=== PATIENT | female | born 1965 | race Caucasian/White ===

== ENCOUNTER 2018-07-14 01:07 | Outpatient (CLI) | payer MEDICARE, MEDICAID, SELFPAY ==
--- NOTE | 2018-07-14 11:45 | DI.REPORT_ITS ---
SYMPTOMS/DIAGNOSIS: SCREENING, Z12.31 MAMMOGRAM: Mammograms were interpreted according to the usual protocol including computer analysis with CAD system, tomosynthesis and C view imaging. The breasts are of moderate density with fairly symmetrical distribution of fibroglandular tissue. No dominant mass or clumped microcalcification is identified in either breast. The current examination is compared with previous examinations including July 2016 and there has been no gross interval change in appearance in comparison with the previous studies. CONCLUSION: No specific evidence of malignancy at this time. Routine screening examinations are suggested at yearly intervals due to the family history of breast carcinoma. Category I. Breast density Category B. MQSA ASSESSMENT OF FINDINGS: Negative. Category 1. Patient will receive a letter notifying them of these results. BI-RADS category B. There are scattered areas of fibroglandular density.
== END 2018-07-14 01:08 ==
PROVIDERS: Visit Provider Specialist/Technologist Athletic Trainer
DX: Z12.31 Encounter for screening mammogram for malignant neoplasm of breast (principal); Z80.3 Family history of malignant neoplasm of breast
CPT/HCPCS: 77063; 77067

== ENCOUNTER 2018-10-31 07:52 | Outpatient (CLI) | payer MEDICARE, MEDICAID, SELFPAY ==
[2018-10-31 08:31] LABS: Abs Immature Grans 0.04 k/cumm (0.0-0.09); Absolute Basophil Count 0.06 k/cumm (0.0-0.2); Absolute Eosinophil Count 0.42 k/cumm (0.0-0.7); Absolute Monocyte Count 0.76 k/cumm (0.11-0.7); Absolute Neutrophil Count 5.68 k/cumm (1.2-6.7); Basophils % 0.6; Eosinophils % 4.1; HCT 45.9 % (36.0-46.0); HGB 15.4 g/dL (12.0-15.5); Immature Grans % 0.4; Lymphocytes % 32.2; Mean Corp. HGB Concentration 33.6 g/dL (32.0-36.0); Mean Corpuscular Hemoglobin 31.1 pg (27.0-33.0); Mean Corpuscular Volume 92.7 fL (80-95); Mean Platelet Volume 10.1 fL (8.0-11.0); Monocytes % 7.4; Neutrophils % 55.3; Platelet Count 242 x1000/uL (130-400); RBC 4.95 m/cumm (4.00-5.20); White Blood Cell Count 10.26 k/cumm (4.4-10.8)
[2018-10-31 08:38] LABS: Hemoglobin A1C 5.9 % (4.5-6.2)
[2018-10-31 09:11] LABS: ALT 26 U/L (12-78); AST 16 U/L (15-37); Albumin 3.7 g/dL (3.4-5.0); Alkaline Phosphatase 79 U/L (46-116); Anion Gap 8.5 mmol/L (3-11); BUN 26 mg/dL (7-18); Bilirubin, Total 0.6 mg/dL (0.2-1.0); CO2 29.5 mmol/L (21.0-32.0); CREATININE 1.02 mg/dL (0.55-1.02); Calcium 9.1 mg/dL (8.5-10.1); Chloride 105 mmol/L (98-107); Cholesterol 160 mg/dL (50-200); Estimated GFR 56.69 (mL/min/1.73m2); Glucose 100 mg/dL (70-100); HDL Cholesterol 43 mg/dL (40-60); LDL CHOLESTEROL 96 mg/dL (<100); Potassium 3.8 mmol/L (3.5-5.1); Sodium 143 mmol/L (136-145); TSH (W/Ref FT4) 2.22 uIU/mL (0.358-3.74); Total Protein 6.9 g/dL (6.4-8.2); Triglyceride 148 mg/dL (30-150)
== END 2018-10-31 08:12 ==
PROVIDERS: PCP Specialist/Technologist Athletic Trainer; Visit Provider Nurse Practitioner Psychiatric/Mental Health
DX: F33.2 Major depressive disorder, recurrent severe without psychotic features (principal); Z79.899 Other long term (current) drug therapy; I10 Essential (primary) hypertension
CPT/HCPCS: 36415; 80053; 80061; 83721; 83036; 84443; 85025

== ENCOUNTER 2018-11-07 02:44 | Outpatient (CLI) | payer MEDICARE, MEDICAID, SELFPAY | END 2018-11-07 03:04 | PROVIDERS: PCP Specialist/Technologist Athletic Trainer; Visit Provider Specialist/Technologist Athletic Trainer | DX: R07.9 Chest pain, unspecified (principal); R06.02 Shortness of breath | CPT/HCPCS: 93005; 93010 ==

== ENCOUNTER 2018-11-28 00:08 | Outpatient (CLI) | payer MEDICARE, MEDICAID, SELFPAY ==
--- NOTE | 2018-11-28 09:00 | MERGEMPI_ITS ---
*[facility]* *[facility]* [address] [place] [address] Myocardial Perfusion Imaging - SPECT Regadenoson Date of study: 11/28/2018 *PATIENT PRESENTATION* Height: 160cm (63in) Blood Pressure: Weight: 122.7kg (270lb) BSA: 2.41m^2 Referring physician: Taiwo Ballesteros MD Ordering physician: Serafin Adams Impressions: Normal perfusion by Tc99m Sestamibi Imaging. Summary: 1. Myocardial perfusion imaging: No myocardial perfusion defects noted. 2. The calculated left ventricular ejection fraction after stress: 66%. No left ventricular regional motion abnormality. History: REASON FOR TESTING: DR. ADAMS SENDS PATIENT FOR STRESS TEST DUE TO CHEST PAIN. PT REPORTS HER LAST EPISODE WAS ABOUT 3 WEEKS AGO. SHE DESCRIBES HER SYMPTOMS CHEST PRESSURE IT IS ASSOCIATED WITH SOB, IT CAN OCCUR AT REST. PAST MEDICAL HISTORY: PTSD, OBESITY, NICOTINE DEPENDENCE, BILATERAL PRIMARY OSTERARTHRITIS KNEE, MAJOR DEPRESSION (WITH SUICIDAL THOUGHTS). FAMILY HISTORY: FATHER-HEART ATTACK, MOTHER FAST HEART RATE, SISTER-CVA SMOKING STATUS: CURRENT SMOKER. 40 YEARS PPD EXERCISE ROUTINE: NO DAILY EXERCISE. Risk factors: Family history of coronary artery disease. Current tobacco use. Obesity. Dyslipidemia. ALLERGIES: ALPRAZOLAM, ERTHROMYCIN, CITALOPRAM, PENICILLINS, MACROLIDE ANTIBIOTICS. MEDICATIONS: VITAMIN D 1000 UNITS DAILY, LOSARTAN 25 MG DAILY, POTASSIUM CHLORIDE 20 MEQ DAILY, HYDROCHLOROTHIAZIDE 25 MG DAILY, WELLBUTRIN XL 300 MG DAILY, ESOMEPRAZOLE 40 MG DAILY, OMEGA 3 1000 MG DAILY, NAPROXEN 500 MG BID, POLYETHYLENE GLYCOL 17 GMS HS, VITAMIN B 12 HS, GABAPENTIN 300 MG HS, LORAZEPAM 1 MG HS, ABILIFY 15 MG HS, ATORVASTATIN 80 MG HS, TOPAMAX 50 MG BID, MELATONIN 10 MG HS, TYLENOL 1000 MG PRN. Imaging Technique: Protocol: Regadenoson. Acquisition: Gated SPECT; 1 day - rest/stress. The patient was imaged in the supine position. Attenuation correction used. Isotope administration: - Rest. Tc[99m]-sestamibi. Dose: 12mCi. Injection time: 09:20 AM. Injection to stress time: 00:45. - Stress. Tc[99m]-sestamibi. Dose: 37mCi. Injection time: 12:05 PM. 1-2 min before end of exercise Baseline ECG: SINUS RHYTHM. HEART RATE 71. Stress protocol: +--------+---+ + + !Stage !HR !BP (mmHg) !Comments ! +--------+---+ + + !Baseline!71 !100/70 (80)! ! +--------+---+ + + !1 min !103!118/72 (87)!Inject Regadenoson.! +--------+---+ + + !3 min !99 !120/78 (92)! ! +--------+---+ + + !6 min !101!120/72 (88)! ! +--------+---+ + + !9 min !97 !120/78 (92)! ! +--------+---+ + + * Stress results: The rate-pressure product for the peak heart rate and blood pressure was 66559om Hg/min. Stress ECG: STRESS TEST ENDED IN 12 MINUTES 41 SECONDS. NORMAL HEART RATE AND BLOOD PRESSURE RESPONSE TO LEXISCAN INJECTION. CHEST PRESSURE 8 OUT OF 10 REPORTED 2 MINUTES POST LEXISCAN INJECTION. CHEST PRESSURE 6 OUT OF 10 THREE MINUTES POST LEXISCAN INJECTION. CHEST PRESSURE 5 OUT OF 10 TEN MINUTES POST LEXISCAN INJECTION. CHEST PRESSURE 1 OUT OF 10 TWELVE MINUTES POST LEXISCAN INJECTION. CHEST PRESSURE SUBSIDED BY THIRTEEN MINUTES POST LEXISCAN. RARE PVC NOTED AT APPROXIMATELY 8 MINUTES POST LEXISCAN INJECTION. NO SIGNIFICANT ST SEGMENT CHANGES. Myocardial perfusion: Imaging information: gated. No myocardial perfusion defects noted. Ventricular Function (Wall Motion): The calculated left ventricular ejection fraction after stress: 66%. No left ventricular regional motion abnormality. Study data: Taiwo Ballesteros MD supervised and was readily available during the procedure. This study was interpreted by [facility]. Study status: Routine. Consent: The risks, benefits, and alternatives to the procedure were explained to the patient and informed consent was obtained. Procedure: Initial setup. A baseline ECG was recorded. Surface ECG leads and manual cuff blood pressure measurements were monitored. Heart sounds: Normal. Lung sounds: Normal. Regadenoson stress test. Stress testing was performed, with regadenoson by intravenous bolus, for a total dose of 0.4mgover 10.00sec, followed by a 5ml saline flush. The infusion was terminated due to per protocol. The patient was unable to exercise due to leg, joint, or back pain. Study completion: All catheters inserted during the procedure were removed. The patient tolerated the procedure well and was discharged from the lab. Discharge: The patient left the laboratory in stable condition. Birthdate: Patient birthdate: 1965. Sex: Gender: female. Study date: Study date: 11/28/2018. Study time: 09:00 AM. Signature Documentation: Associate Dean [email or web address] participated in performing this study. Electronically signed by Taiwo Ballesteros MD 11/28/2018 15:09
[2018-11-28] MEDS: Regadenoson 0.4 MG/5 ML SYR IVP (13:06)
== END 2018-11-28 00:28 ==
PROVIDERS: PCP Specialist/Technologist Athletic Trainer; Visit Provider Specialist/Technologist Athletic Trainer
DX: R07.9 Chest pain, unspecified (principal); R06.02 Shortness of breath; E78.5 Hyperlipidemia, unspecified; F17.200 Nicotine dependence, unspecified, uncomplicated; Z82.49 Family history of ischemic heart disease and other diseases of the circulatory system
CPT/HCPCS: 78452; 93016; 93018; 93017; J2785

== ENCOUNTER 2018-12-15 00:23 | Outpatient (CLI) | payer MEDICARE, MEDICAID, SELFPAY ==
--- NOTE | 2018-12-15 08:42 | DI.MRI_ITS ---
SYMPTOM/DIAGNOSIS: BACK PAIN WITH RADICULOPATHY, M54.16 LUMBAR SPINE MRI: Routine noncontrast examination was performed. No priors. The conus medullaris has a normal appearance and location. At L 5-S 1, there is no focal disc herniation, central spinal canal or neural foraminal stenosis. There are degenerative changes of the facets. At L 4-5, there is disc desiccation. There does appear to be a small anular tear. There are hypertrophic changes of the facets and ligamentum flavum. These all contribute to cause mild narrowing of the central spinal canal. There is mild bilateral neural foraminal narrowing. No compression of the exiting nerve roots is seen at this level. At L 3-4, there is a diffuse disc bulge. There are degenerative changes of the facets. There is mild narrowing of the central spinal canal. There is mild right and moderate left neural foraminal narrowing with mild compression of the left exiting nerve root. At L 2-3, there is disc desiccation. There is a mild diffuse disc bulge but no focal disc herniation or central spinal canal stenosis is seen. Mild narrowing of the neural foramen is seen bilaterally but compression of the exiting nerve roots is identified. At L 1-2, there is no focal disc herniation, central spinal canal or neural foraminal stenosis. IMPRESSION: Multi level degenerative changes in the lumbar spine as described above.
--- NOTE | 2018-12-15 16:03 | DI.VRAD_ITS ---
EXAM: MR Lumbar Spine Without and With Contrast. EXAM DATE/TIME: 12/15/2018 8:39 AM CLINICAL HISTORY: 53 years old, female; Pain; Low back pain and lumbago with sciatica; Bilateral; Patient HX: S/P fall on stairs 1995, pain right greater than left. TECHNIQUE: Multiplanar magnetic resonance images of the lumbar spine without and with intravenous contrast. COMPARISON: No relevant prior studies available. FINDINGS: Vertebrae: Moderate degenerative spondylitic changes. Spinal cord: Normal signal. No cord compression. DISCS/SPINAL CANAL/NEURAL FORAMINA: L1-L2: No significant disc disease. No stenosis. L2-L3: Thin circumferential disc bulge with effacement of the anterior thecal sac and mild overall canal stenosis. There is mild bilateral neural foraminal narrowing. L3-L4: Disc desiccation with a circumferential disc bulge and mild to moderate canal stenosis. There is a small annular tear of the posterior bulging disc. There is moderate bilateral neuroforaminal. L4-L5: Disc desiccation with small central posterior disc protrusion, and slight anterior migration of the protruded disc. There is also an associated annular tear of the central posterior disc. Overall there is mild to moderate canal stenosis secondary to the protruded disc and osseous hypertrophic changes. L5-S1: No significant disc disease. No stenosis. Soft tissues: Unremarkable. IMPRESSION: Multilevel degenerative changes. No severe canal or severe neural foraminal stenosis. Dictated and Authenticated by: Jhon Garcia MD. Ordering:CYNTHIA Betancourt MD
== END 2018-12-15 00:43 ==
PROVIDERS: PCP Specialist/Technologist Athletic Trainer; Visit Provider Specialist/Technologist Athletic Trainer
DX: M54.16 Radiculopathy, lumbar region (principal); M47.26 Other spondylosis with radiculopathy, lumbar region
CPT/HCPCS: 72148

== ENCOUNTER 2019-02-14 09:24 | Outpatient (CLI) | payer MEDICARE, MEDICAID, SELFPAY ==
--- NOTE | 2019-02-14 11:35 | DI.RAD_ITS ---
SYMPTOMS/DIAGNOSIS: PAIN RIGHT KNEE: Two views were obtained. There is marked narrowing of the medial tibiofemoral cartilaginous joint space. Prominent hypertrophic degenerative spurring is seen associated with all the joints of the knee. No other significant bony abnormality seen. CONCLUSION: Degenerative changes as described above.
== END 2019-02-14 09:44 ==
PROVIDERS: PCP Specialist/Technologist Athletic Trainer; Visit Provider Physician Assistant Surgical
DX: M25.561 Pain in right knee (principal); M17.0 Bilateral primary osteoarthritis of knee; M25.562 Pain in left knee; I10 Essential (primary) hypertension; M54.17 Radiculopathy, lumbosacral region
CPT/HCPCS: 62323; 72100; 99202; 99213; 73560; J1030; Q9967

== ENCOUNTER 2019-02-14 11:32 | Outpatient (CLI) | payer MEDICARE, MEDICAID, SELFPAY ==
--- NOTE | 2019-02-14 11:30 | DI.RAD_ITS ---
SYMPTOMS/DIAGNOSIS: PAIN LEFT KNEE: Two views were obtained. There is marked narrowing of the medial tibiofemoral cartilaginous joint space. There is moderate hypertrophic degenerative spurring of all the joints of the knee. No other bony abnormality seen. CONCLUSION: DJD predominantly involving medial tibiofemoral joint.
== END 2019-02-14 11:52 ==
PROVIDERS: PCP Specialist/Technologist Athletic Trainer; Referring Provider Specialist/Technologist Athletic Trainer; Visit Provider Orthopaedic Surgery
DX: M25.562 Pain in left knee (principal); M25.561 Pain in right knee; I10 Essential (primary) hypertension; M17.0 Bilateral primary osteoarthritis of knee
CPT/HCPCS: 99202; 99213; 73560

== ENCOUNTER 2019-02-14 12:07 | Outpatient (CLI) | payer MEDICARE, MEDICAID, SELFPAY ==
[2019-02-14 12:21] VITALS: BP 102/68; PULSE 89; RESP 16; TEMP 36.6; O2SAT 96
--- NOTE | 2019-02-14 12:49 | PDOC.PAIN ---
Pain Clinic Procedure Note Current Active Problems Problem Status Onset Lumbar radiculitis Acute Lumbar Epidural Steroid Injection Procedure Note COMMENTS: I reviewed Ms. Tucker's evaluation in this clinic from 01/16/19. NHAN KELLEY has been referred to the [facility] for lumbar epidural steroid injection. The patient was greeted by the nurse who verified patients name and . Patient was then taken to the fluoroscopy suite. The patient was interviewed and the medial record reviewed. There were no medical, pharmacologic, radiographic, or other structural contraindications to attempting fluoroscopically guided lumbar epidural steroid injection. Risks and expected side effects as well as potential benefits of the procedure were reviewed and voiced concerns expressed. The patient consent form was signed and witnessed. Standard patient time-out procedure was performed. The patient was placed in the prone position on the fluoroscopy table and automated blood pressure cuff and pulse oximeter applied. The skin entry point for entering/approaching the epidural space at L5-S1 and marked. Following thorough chlorhexadine preparation of the skin and draping and 1% lidocaine infiltration of the skin entry point and subcutaneous tissues, a 18 gauge Touhy needle was placed under fluoroscopic guidance and with loss of resistance technique into the epidural space. Needle tip placement and depth were aided and confirmed by fluoroscopy. There was no paresthesia or return of blood or CSF through the needle. 1 cc's of Omnipaque 240 was injected with clear epidural spread confirmed with fluoroscopy. 80mg depomedrol was injected. There was not any unusual discomfort expressed by NHAN KELLEY. Patient's vital signs were stable throughout the procedure and were as recorded in nursing records. Follow up plans and appointments were discussed with patient. Post procedure instruction was given as documented in nursing records and having met discharge criteria and was discharged from the [facility]. COMMENTS: If this procedure is found to be effective, it can be completed up to 3 times per 12 months.
--- NOTE | 2019-02-14 12:52 | DI.RAD_ITS ---
SYMPTOMS/DIAGNOSIS: LUMBAR RADICULOPATHY PAIN CLINIC LUMBAR SPINE: Fluoroscopy Time: 15.2 sec C-arm fluoroscopy was utilized by Dr. Velasco during a reported lumbar epidural steroid injection. Hard copy shows injection in the spinal canal posteriorly at the L5-S1 level.
[2019-02-14 12:54] VITALS: BP 106/69; PULSE 86; RESP 16; O2SAT 96
[2019-02-14] MEDS: Omnipaque 240 MG/ML 50 ML BTL IJ (12:56)
[2019-02-14] MEDS: methylPREDNISolone ACETATE 40 MG/ML VIAL IM (13:03)
== END 2019-02-14 12:27 ==
PROVIDERS: PCP Specialist/Technologist Athletic Trainer; Visit Provider Preventive Medicine Occupational Medicine
DX: M54.17 Radiculopathy, lumbosacral region (principal)
CPT/HCPCS: 62323; 72100; J1030; Q9967

== ENCOUNTER 2019-02-22 15:03 | Outpatient (REF) | payer MEDICARE, MEDICAID, SELFPAY | END 2019-02-22 15:23 | LOC: NCHCN 15:03 | PROVIDERS: PCP Specialist/Technologist Athletic Trainer; Visit Provider Specialist/Technologist Athletic Trainer | DX: R30.0 Dysuria (principal) | CPT/HCPCS: 87077; 87086; 87186 ==

== ENCOUNTER 2019-03-03 19:45 | Outpatient (REF) | payer MEDICARE, MEDICAID, SELFPAY | END 2019-03-03 20:05 | LOC: NCHCN 19:45 | PROVIDERS: PCP Specialist/Technologist Athletic Trainer; Visit Provider Specialist/Technologist Athletic Trainer | DX: R30.0 Dysuria (principal) | CPT/HCPCS: 87077; 87086; 87186 ==

== ENCOUNTER 2019-03-07 09:23 | Outpatient (CLI) | payer MEDICARE, MEDICAID, SELFPAY ==
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
[2019-03-07 11:15] LABS: Abs Immature Grans 0.01 k/cumm (0.0-0.09); Absolute Basophil Count 0.03 k/cumm (0.0-0.2); Absolute Eosinophil Count 0.39 k/cumm (0.0-0.7); Absolute Lymphocyte Count 3.05 k/cumm (1.2-3.4); Absolute Monocyte Count 0.77 k/cumm (0.11-0.7); Absolute Neutrophil Count 6.19 k/cumm (1.2-6.7); Basophils % 0.3; Eosinophils % 3.7; HCT 42.8 % (36.0-46.0); HGB 14.2 g/dL (12.0-15.5); Immature Grans % 0.1; Lymphocytes % 29.2; Mean Corp. HGB Concentration 33.2 g/dL (32.0-36.0); Mean Corpuscular Hemoglobin 30.5 pg (27.0-33.0); Mean Corpuscular Volume 91.8 fL (80-95); Mean Platelet Volume 10.6 fL (8.0-11.0); Monocytes % 7.4; Neutrophils % 59.3; Platelet Count 232 x1000/uL (130-400); RBC 4.66 m/cumm (4.00-5.20); White Blood Cell Count 10.44 k/cumm (4.4-10.8)
[2019-03-07 11:55] LABS: BUN 21 mg/dL (7-18); CREATININE 0.91 mg/dL (0.55-1.02); Calcium 9.3 mg/dL (8.5-10.1); Chloride 104 mmol/L (98-107); Glucose 77 mg/dL (70-100); Potassium 3.6 mmol/L (3.5-5.1); Sodium 143 mmol/L (136-145)
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
== END 2019-03-07 09:43 ==
PROVIDERS: PCP Specialist/Technologist Athletic Trainer; Visit Provider Orthopaedic Surgery
DX: M25.562 Pain in left knee (principal); M17.12 Unilateral primary osteoarthritis, left knee; Z01.818 Encounter for other preprocedural examination; I10 Essential (primary) hypertension; J44.9 Chronic obstructive pulmonary disease, unspecified
CPT/HCPCS: 36415; 80048; 85025

== ENCOUNTER 2019-03-13 08:39 | Inpatient (IN) | payer MEDICARE, MEDICAID, SELFPAY ==
[2019-03-07 09:46] VITALS: BP 148/72; PULSE 77; RESP 18; TEMP 36.5; O2SAT 96
[2019-03-13] VITALS (19 sets, daily range): BP systolic 88–106; BP diastolic 39–66; PULSE 69–86; RESP 11–18; TEMP 35.4–36.6; O2SAT 92–96
--- NOTE | 2019-03-13 09:33 | HOME_ITS ---
Home Ventilator Equipment Home care company [facility] Reason: Obstructive Sleep Apnea Make: Respironics Model: Riskonnectstation Mask type: Nasal mask Mask size: Medium Mode: CPAP Settings: Max/min 16/6 Oxygen bleed in (lpm): 0 Condition: Good Date last checked: 03/13/19 Year of last sleep study: Compliance Daily Comments:
[2019-03-13] MEDS: Lactated Ringers 1,000 ML 80 ML IV ×2 (09:48→14:29)
[2019-03-13] MEDS: Bupivacaine 0.25% Pres-Free 10 ML VIAL (10:42)
[2019-03-13] MEDS: Bupivacaine LIPOSOME/PF 133 MG/10 ML VIAL IJ (10:42)
[2019-03-13] MEDS: ceFAZolin 2 GM/50 ML BAG IVPB (10:50)
[2019-03-13] MEDS: Hydrogen Peroxide 3% 480 ML BTL (12:13)
--- NOTE | 2019-03-13 13:58 | DI.RAD_ITS ---
SYMPTOMS/DIAGNOSIS: CHECK TOTAL KNEE COMPONENTS IN RECOVERY ROOM PORTABLE LEFT KNEE: AP and cross-table lateral views were performed. The patient is status post placement of a total knee prosthesis. The components appear well aligned. There are anterior skin ericka. There is residual postsurgical air in the soft tissues.
[2019-03-13] MEDS: ceFAZolin 2,000 MG in Normal Saline 100 ML 200 MG IVPB ×2 (16:50→21:36)
[2019-03-13] MEDS: Docusate Sodium 100 MG CAP PO ×2 (16:50→21:35)
[2019-03-13] MEDS: Gabapentin 600 MG TAB PO ×2 (16:50→21:35)
[2019-03-13] MEDS: POTASSIUM CHLORIDE/0.9% NACL 1,000 ML 125 MEQ IV (16:50)
[2019-03-13] MEDS: Acetaminophen 325 MG TAB 650 MG PO (16:51)
[2019-03-13] MEDS: Ketorolac 30 MG/ML VIAL IVP (18:27)
[2019-03-13] MEDS: oxyCODONE-CR 10 MG TABCR PO (18:28)
[2019-03-13] MEDS: Atorvastatin 40 MG TAB 80 MG PO (19:27)
[2019-03-13] MEDS: Topiramate 50 MG TAB PO (19:27)
[2019-03-13] MEDS: Polyethylene Glycol 3350 17 GM PACKET PO (21:35)
[2019-03-13] MEDS: Cyanocobalamin 500 MCG TAB 1000 MCG PO (21:36)
[2019-03-13] MEDS: ARIPiprazole 15 MG TAB PO (21:36)
[2019-03-14] VITALS (11 sets, daily range): BP systolic 82–124; BP diastolic 56–82; PULSE 71–99; RESP 16–20; TEMP 36.6–37.6; O2SAT 93–98
[2019-03-14] MEDS: Ketorolac 30 MG/ML VIAL IVP ×5 (00:14→23:57)
[2019-03-14] MEDS: POTASSIUM CHLORIDE/0.9% NACL 1,000 ML 125 MEQ IV (01:30)
[2019-03-14] MEDS: ceFAZolin 2,000 MG in Normal Saline 100 ML 200 MG IVPB ×2 (04:30→09:32)
[2019-03-14] MEDS: Acetaminophen 325 MG TAB 650 MG PO ×2 (04:33→09:06)
[2019-03-14] MEDS: oxyCODONE-CR 10 MG TABCR PO ×2 (06:31→17:37)
[2019-03-14 07:09] LABS: HCT 35.2 % (36.0-46.0); HGB 11.6 g/dL (12.0-15.5); Mean Corpuscular Hemoglobin 30.9 pg (27.0-33.0); Mean Corpuscular Volume 93.6 fL (80-95); Mean Platelet Volume 10.3 fL (8.0-11.0); Platelet Count 204 x1000/uL (130-400); RBC 3.76 m/cumm (4.00-5.20); RBC Distribution Width 13.7 % (11.7-14.6); White Blood Cell Count 11.31 k/cumm (4.4-10.8)
--- NOTE | 2019-03-14 07:24 | ROE_ITS ---
REPORT OF OPERATIVE PROCEDURE DATE OF PROCEDURE: March 13, 2019 PREOPERATIVE DIAGNOSES: Osteoarthritis of the left knee with varus deformity. POSTOPERATIVE DIAGNOSES: Osteoarthritis of the left knee with varus deformity. PROCEDURE: Left total knee arthroplasty. COMPONENTS USED: A size 2.5 femoral component posterior cruciate sacrificing, size 2.5 tibial component, a 12.5 size 2 .5 posterior cruciate sacrificing rotating tibial insert and a 32-mm tri-pronged patella. All compone nts were cemented. ANESTHESIA: General, supplemented with an adductor canal block, via Moncho Sweeney CRNA SURGEON: Immanuel Garcia M.D. SPORT SHOE SPIKE ASSEMBLER: Clint Cook INDICATIONS: This is a 53-year-old white female with end-stage osteoarthritis of the left knee with varus deformit y. This has been worsening for many years. She has reached the point where she is disabled with her a ctivities of daily living. She is no longer getting any benefit from nonoperative treatment. Total kn ee arthroplasty was recommended to alleviate her pain, correct her deformity and hopefully restore so me of her previous ambulatory abilities. The risks and complications of the procedure were explained to the patient in detail preoperatively. PROCEDURE: The patient was taken to the Operating Room on 03/13/2019. She was placed supine on the operating tab le. An adductor canal block was performed. A proximal tourniquet was applied and a general anesthetic was administered. The left lower extremity was prepped from toes to tourniquet and draped free in [facility] sterile fashion. Under proximal tourniquet control, an anterior midline incision was made beginning just at the tibial tubercle and extending 4 inches to 5 inches proximal to the patella. The incision was carried down to the fascia. A medial parapatellar capsular incision was then made, it was extended proximally and longitudinally in the midline of the quadriceps tendon. A complete medial subperiosteal release was performed to correct for her preop varus deformity. The patella was everted and the knee was hyperfl exed. Medial and lateral meniscectomies were performed. Anterior and posterior cruciate ligaments wer e sacrificed to aid in soft tissue balancing. The distal femur was then resected using intramedullary alignment guides and jigs. The center box for the cruciate substituting femoral component was then c ut out using appropriate jigs. The patient was found to require a size 2.5 femoral component. The proximal tibia was resected using extramedullary alignment guides and jigs. The patient was foun d to require a size 2.5 tibial component. Trial reduction was performed and it was felt that the kne e had good stability from 0 to 90 degrees of flexion while still allowing full extension with a 12.5- mm insert. Finally, the patella was resected using patellar resection guide. Care was taken to preserve 16 padmini meters of thickness of patella after resection. Using a drill guide for the tripronged patella, holes were drilled for a 32-mm patellar component. The proximal tibia was prepared for cementing with pulsed irrigation lavage and saline solution and d rying with peroxide-soaked strip sponges. One batch of gentamicin-impregnated methylmethacrylate was vacuum mixed and was hand packed into the proximal tibia and on the under surface of the tibial compo nent. The keel for the tibial component had been reamed out in proper rotational alignment following resection of the proximal tibia. The tibial component was inserted, impacted into place with the impa ctor mallet and further pressurized using the trial component and extending the knee. Excess cement w as trimmed from the margins of the tibial component while the cement was still soft using the plastic cement removal tool. When the first batch of methylmethacrylate had cured, the trial components were removed. The distal femur and the patella were prepared for cementing with pulsed irrigation lavage and saline solution, and drying with peroxide-soaked strip sponges. Another batch of gentamicin impregnated methylmethacrylate was vacuum mixed and was hand packed onto the distal femur and patella, and onto the back side of the femoral component and patellar component. The femoral component was then impacted into place with the impactor mallet, and further pressured u sing the trial insert and extending the knee. The patellar component was pressurized using the patell ar clamp. Excess cement was trimmed from the margins of the femoral component and the patellar component while the cement was still soft using the plastic cement removal tool. When the second batch of gentamicin impregnated methylmethacrylate had cured, the trial insert was removed. The posterior recesses were c hecked and any residual bone and cement debris were removed at this point. The knee was irrigated a f inal time with pulsed irrigation lavage and saline solution. The posterior capsule and then the entire knee joint capsule was infiltrated with 0.5% Marcaine with epinephrine solution. The wound margins were infiltrated with 0.5% Marcaine with epinephrine solution for postoperative analgesia. The actual insert 12.5 size 2.5 posterior cruciate substituting was th en placed in the tibial component and reduced onto the femoral condyles. The knee was flexed over so ft goods and closure was begun. The medial parapatellar capsular incision and the incision of the qu adriceps tendon were repaired with interrupted [id number] sutures of #1-Vicryl suture material. The subcu was approximated with interrupted #2-0 Vicryl sutures. The skin edges were approximated wi th skin ericka. Sterile dressings were applied of Xeroform gauze, sterile gauze, 4x4s, ABD pad and wrapped with a 4-inch Kerlix bandage. A long leg Pacheco compressive dressing was applied. The tourniq uet was released. A knee immobilizer splint was placed over the Pacheco compressive dressing to mainta in the knee in extension. The patient received 1 gram of tranexamic acid prior to tourniquet inflati on and a second gram of tranexamic acid when the tourniquet was deflated. The patient's anesthesia wa s reversed without complications. She was discharged to the Recovery Room in good condition.
[2019-03-14] MEDS: Nicotine 14 MG/24 HR PATCH TD (09:05)
[2019-03-14] MEDS: Docusate Sodium 100 MG CAP PO (09:06)
[2019-03-14] MEDS: Esomeprazole 40 MG CAPCR PO (09:06)
[2019-03-14] MEDS: Topiramate 50 MG TAB PO ×2 (09:06→19:41)
[2019-03-14] MEDS: Gabapentin 600 MG TAB PO ×3 (09:10→19:41)
[2019-03-14] MEDS: Multivitamin w/Minerals TAB 1 TAB PO (09:10)
[2019-03-14] MEDS: Loratidine 10 MG TAB PO (09:10)
[2019-03-14] MEDS: buPROPion-XL 150 MG TABCR 450 MG PO (09:10)
[2019-03-14] MEDS: Omega-3 Fatty Acids 1000 MG CAP PO (09:10)
[2019-03-14] MEDS: POTASSIUM CHLORIDE/0.9% NACL 1,000 ML 60 MEQ IV (11:53)
--- NOTE | 2019-03-14 14:08 | PT.INTREAT ---
Date of service: 03/14/19 Time of Service: 14:08 PT Notes Inpatient Physical Therapy Treatment Note [facility] Date: 03/14/19 PRECAUTIONS: Fall, WBAT on L SUBJECTIVE: Haven reports that she is feeling okay this afternoon, that she just started to doze off. OBJECTIVE: PAIN: Patient complained of minimal pain in L knee with weight bearing and ther ex BED MOBILITY/TRANSFERS Supine?sit: SBA with HOB flat Sit-stand: SBA Stand-sit: SBA GAIT Assistive Device: FWW Weight bearing: WBAT L Assist: CGA Distance: 35' x2 Deviation: Knee immobilizer utilized, step?to gait pattern THEREX: Patient completed a lower extremity strengthening and stabilization program, in a supine position, as per flow sheet. Patient required assist with SLR exercise with knee immobilizer in place. ASSESSMENT: Patient tolerated session with minimal c/o L knee with weight bearing and ther ex. She would benefit from continued strengthening, as well as gait and transfer training for improved activity tolerance and mobility. PLAN: Continue with PT's POC TREATMENT CODE/TIME: Session 1: 30 minutes; [id number], [id number]
[2019-03-14] MEDS: HYDROcodone 5/Acetaminophen 325 TAB PO ×2 (14:33→23:55)
[2019-03-14] MEDS: Enoxaparin 40 MG/0.4 ML SYR SC (14:34)
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
--- NOTE | 2019-03-14 15:07 | W.PM.PROGNOT ---
Date of Service Date of service: 03/14/19 Time of Service: 15:07 Assessment and Plan (1) Status post total left knee replacement: Current visit: Yes Status: Acute Assessment: Stable postop day #1 left total knee replacement. Although her systolic blood pressures have been somewhat low, she is not showing any symptoms of hypotension. Plan: Continue mobilize per protocol for total knee replacement. We will have physical therapy remove her Pacheco dressing and start active range of motion of her left knee tomorrow a.m. Will DC home when fully independent and taking only p.o. pain meds. Recheck hemoglobin tomorrow. Subjective Interval history since last seen: She says her knee is sore but her pain is well controlled with the multi modal pain regimen and occasional hydrocodone tablet. She has been able to urinate since her Bhakta was discontinued. She was able to ambulate outside the room today. Exam Narrative Exam Narrative: Hemoglobin 11.6 g today. She is afebrile vital signs are stable. Her systolic pressures have been a little low but her pulse pressures are well-maintained. Blood pressure at 1250 today was 100/61. She has excellent urine output. Good active range of motion of her ankle and toes actively. Good sensation and circulation to the left foot. She was able to ambulate outside the room down the stahl to the double doors and back today. Objective Objective Clinical Data: Abnormal lab results 03/14/19 Range/Units 06:35 WBC 11.31 H (4.4-10.8) k/cumm RBC 3.76 L (4.00-5.20) m/cumm Hgb 11.6 L (12.0-15.5) g/dL Hct 35.2 L (36.0-46.0) % Vital Signs Temperature 37.6 C H 03/14/19 12:50 Temperature Source Tympanic 03/14/19 12:50 Pulse 81 03/14/19 12:50 Pulse Rhythm Regular 03/14/19 09:35 Respiratory Rate 20 03/14/19 12:50 Respiratory Effort 03/14/19 09:35 Respiratory Depth Normal 03/14/19 09:35 Respiratory Pattern Normal 03/14/19 09:35 Blood Pressure 100/61 03/14/19 12:50 Pulse Oximetry 98 03/14/19 12:50 Respiratory End-tidal CO2 36 03/13/19 15:07 Oxygen Delivery Method Room Air 03/14/19 12:50 Oxygen Flow Rate 0 03/14/19 12:50 Pain Level 7 03/14/19 14:33 Comment 03/14/19 07:34 Intake & Output 03/13/19 03/14/19 03/14/19 23:59 11:59 23:59 Intake Total 950.667 / 6883.452 6594.333 / 3253.333 166 / 3253.333 Output Total 1250 / 1250 2300 / 3450 1150 / 3450 Balance -299.333 / -189.333 787.333 / -196.667 -984 / -196.667 Intake: IV 950.667 / 3817.391 5390.333 / 1893.333 166 / 1893.333 Oral 1360 / 1360 Output: Urine 1250 / 1250 2300 / 3450 1150 / 3450 Other: Urine Color Pale Yellow Yellow Yellow Urine Appearance Clear Clear Clear Stool Size Smear Large Stool Characteristics Brown Soft Formed Emesis Description None Voiding Methods Bedside Commode Laboratory Results WBC 11.31 k/cumm (4.4-10.8) H 03/14/19 06:35 RBC 3.76 m/cumm (4.00-5.20) L 03/14/19 06:35 Hgb 11.6 g/dL (12.0-15.5) L 03/14/19 06:35 Hct 35.2 % (36.0-46.0) L 03/14/19 06:35 MCV 93.6 fL (80-95) 03/14/19 06:35 MCH 30.9 pg (27.0-33.0) 03/14/19 06:35 MCHC 33.0 g/dL (32.0-36.0) 03/14/19 06:35 RDW 13.7 % (11.7-14.6) 03/14/19 06:35 Plt Count 204 x1000/uL (130-400) 03/14/19 06:35 MPV 10.3 fL (8.0-11.0) 03/14/19 06:35
--- NOTE | 2019-03-14 15:37 | CHAPLAIN ---
Haven is from [facility], and told me about her knee surgery and how she had already worked with PT twice today. Dr. Garcia came in to check on her and told her each day she will feel a bit better. This seemed important to Haven.
--- NOTE | 2019-03-14 15:47 | PHARADMIT ---
Addendum entered by Eric Deras III 03/15/19 11:35: Pharmacy Note Subjective Working with PT. Post-Op Day#2 Objective VS-OK Pain: 3/10 H&H,Plts, WBC-OK BM yesterday Assessment no changes Plan Discharge home when indepedent and taking only PO pain meds Original Note: Admission Pharmacy Clinical Review POST-OP LEFT TOTAL KNEE Code Status Full Code Current Weight Wgt-110.9 kg Renally Cleared and Narrow Therapeutic Index Meds CrCl~ 58.4 mL/min Meds-OK QTc Value / Action Taken none current BP Control, Fever BP-100/61 Tmax-37.6C Electrolytes reviewed NA DVT Prophylaxis Lovenox Opiate Usage / Scheduled Bowel Regimen Ordered Yes Yes Plt/SCr for Heparin / Enoxaparin Plts- 204 SCr-0.91 INR for Warfarin NS H/H stable, WBC/Bands H&H- 11.6/35.2 WBC- 11.31 Antibiotic appropriateness Cefazolin Cultures and Sensitivities na Surgical ABX d/c within 24 hr Yes DM control / Insulin Dosing NA Heart Failure (Check EF%) (GAGE's, B-Block, Diuretics) HCTZ, Losartan IV to PO Switch No Home Meds Reviewed Yes Home Meds Not Ordered Keflex, Naproxen Comments PatOwn- Levomefolate Ca
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
[2019-03-14] MEDS: Atorvastatin 40 MG TAB 80 MG PO (19:40)
[2019-03-14] MEDS: ARIPiprazole 15 MG TAB PO (22:22)
[2019-03-14] MEDS: Cyanocobalamin 500 MCG TAB 1000 MCG PO (22:23)
[2019-03-14] MEDS: Polyethylene Glycol 3350 17 GM PACKET PO (22:23)
[2019-03-14] MEDS: Normal Saline Flush 10 ML SYR IV (23:56)
[2019-03-15] VITALS (9 sets, daily range): BP systolic 98–125; BP diastolic 58–70; PULSE 71–89; RESP 16–22; TEMP 36.8–38.6; O2SAT 92–98
[2019-03-15] MEDS: POTASSIUM CHLORIDE/0.9% NACL 1,000 ML 60 MEQ IV ×2 (00:03→15:37)
[2019-03-15] MEDS: oxyCODONE-CR 10 MG TABCR PO ×2 (06:09→17:44)
[2019-03-15] MEDS: Ketorolac 30 MG/ML VIAL IVP ×2 (06:10→12:03)
[2019-03-15 07:25] LABS: HCT 35.4 % (36.0-46.0); HGB 11.5 g/dL (12.0-15.5); Mean Corp. HGB Concentration 32.5 g/dL (32.0-36.0); Mean Corpuscular Hemoglobin 30.7 pg (27.0-33.0); Mean Corpuscular Volume 94.7 fL (80-95); Mean Platelet Volume 10.6 fL (8.0-11.0); Platelet Count 197 x1000/uL (130-400); RBC 3.74 m/cumm (4.00-5.20); RBC Distribution Width 14.3 % (11.7-14.6); White Blood Cell Count 9.09 k/cumm (4.4-10.8)
[2019-03-15] MEDS: Normal Saline Flush 10 ML SYR IV ×2 (07:52→12:04)
[2019-03-15] MEDS: Nicotine 14 MG/24 HR PATCH TD (07:53)
[2019-03-15] MEDS: Topiramate 50 MG TAB PO ×2 (07:53→19:40)
[2019-03-15] MEDS: buPROPion-XL 150 MG TABCR 450 MG PO (07:53)
[2019-03-15] MEDS: HYDROcodone 5/Acetaminophen 325 TAB PO ×2 (07:53→13:42)
[2019-03-15] MEDS: Loratidine 10 MG TAB PO (07:54)
[2019-03-15] MEDS: Gabapentin 600 MG TAB PO ×3 (07:54→19:40)
[2019-03-15] MEDS: Losartan 25 MG TAB PO (07:54)
[2019-03-15] MEDS: Docusate Sodium 100 MG CAP PO (07:54)
[2019-03-15] MEDS: hydroCHLOROthiazide 25 MG TAB PO (07:54)
[2019-03-15] MEDS: Omega-3 Fatty Acids 1000 MG CAP PO (07:54)
[2019-03-15] MEDS: Multivitamin w/Minerals TAB 1 TAB PO (07:54)
[2019-03-15] MEDS: Esomeprazole 40 MG CAPCR PO (07:54)
--- NOTE | 2019-03-15 12:50 | PT.INTREAT ---
Date of service: 03/15/19 Time of Service: 12:50 PT Notes Inpatient Physical Therapy Treatment Note [facility] Date: 03/15/2019 PRECAUTIONS: WBAT L SUBJECTIVE: Haven states that she is feeling ok this morning, she is worried about getting the Pacheco Dressing off, but is agreeable. OBJECTIVE: PAIN: Minimal complains of L knee pain with ther ex BED MOBILITY/TRANSFERS Supine-sit: S with HOB flat Sit-Supine: Mod A with HOB flat Sit-stand: S Stand-sit: S GAIT Assistive Device: FWW Weight bearing: WBAT L Assist: SBA Distance: 100' in a.m.; 130' in p.m. Deviation: Step-through gait pattern utilized and cueing for FWW mechanics for safety THEREX: Patient completed a lower extremity strengthening and stabilization program, as per flow sheet. She requires assist for SLR exercise as well as for hip abduction exercise. Left knee AROM is -3-87 degrees with pain at end range. Patient ends with cryocuff to left knee. TOILETING: Patient toilet with assist for pericare REMOVAL OF PACHECO: Incision noted to be clean and dry, free of redness, blistering, and unusual sensitivity. 30 ericka intact. Replaced with Xeroform gauze, 4x4 gauze, secured with tape. ASSESSMENT: Patient tolerated session without complaints of pain. Patient was able to tolerate a progression in gait distance with FWW support and SBA. Patient requires cueing for decreased sunday and FWW mechanics for safety. Patient will benefit from continued gait training at as well as strengthening for improved ability to perform daily functional tasks. PLAN: Continue with PT's POC TREATMENT CODE/TIME: Session 1: 50 minutes; 07486 x2, 70493 Session: 40 minutes; [id number] x2, [id number]
[2019-03-15] MEDS: Enoxaparin 40 MG/0.4 ML SYR SC (13:32)
--- NOTE | 2019-03-15 13:42 | CHAPLAIN ---
Haven was sitting up in her chair when I visited. I reminded her that we'd met yesterday. She seemed tired, but explained that she had just received Reiki and was feeling relaxed.
--- NOTE | 2019-03-15 14:33 | PDOC.CMPRO ---
Care Management Progress Note S/O: Haven ambulated with the assistance of PT today. She remains pleasant in interaction, and reported discussing discharge planning with Dr. Garcia. CM spoke with Dr. Garcia as well who advised he would be recommending SNF placement upon discharge. CM spoke with Taiwo of [facility] who provided a bed offer for Haven who accepted. CM notified Taiwo who reported W/C transport would be unavailable tomorrow. CM will coordinate [facility] transport via private vehicle when Haven is ready; per MD. CM will continue to follow. A: 53 year old female admitted to [facility] 03/13/19 for Post OP L Total Knee with Dr. Garcia P: Haven reports having a sleep study scheduled in April. She will discharge to [facility], likely tomorrow per MD for a short term rehab stay prior to returning to [place]; the facility was notified of SNF planning. She will transport via private vehicle through [facility] coordinated by this telegraphic typewriter operator.
--- NOTE | 2019-03-15 14:45 | CMPROGNOTE_ITS ---
Care Management Progress Note S/O: Haven ambulated with the assistance of PT today. She remains pleasant in interaction, and reported discussing discharge planning with Dr. Garcia. CM spoke with Dr. Garcia as well who advised he would be recommending SNF placement upon discharge. CM spoke with Taiwo of [facility] who provided a bed offer for Haven who accepted. CM notified Taiwo who reported W/[facility] transport would be unavailable tomorrow. CM will coordinate [facility] transport via private vehicle when Haven is ready; per MD. CM will continue to follow. A: 53 year old female admitted to [facility] 03/13/19 for Post OP L Total Knee with Dr. Garcia P: Haven reports having a sleep study scheduled in April. She will discharge to [facility], likely tomorrow per MD for a short term rehab stay prior to returning to [place]; the facility was notified of SNF planning. She will transport via private vehicle through [facility] coordinated by this mortgage or loan underwriter.
--- NOTE | 2019-03-15 14:50 | W.PM.PROGNOT ---
Date of Service Date of service: 03/15/19 Time of Service: 14:50 Assessment and Plan (1) Status post total left knee replacement: Current visit: Yes Status: Acute Assessment: Progressing well at 48 hours postop left total knee replacement. I think she would be ready for discharge to [facility] tomorrow for further rehab prior to going home. Plan: DC IV. Continue with mobilization with physical therapy. Transfer to [facility] tomorrow for further rehab of her left total knee. Subjective Interval history since last seen: Haven feels better every day. She has moderate pain but is well controlled with her medications. Exam Narrative Exam Narrative: She is afebrile vital signs are stable. Hemoglobin was 11.5 g today. Her incision is clean and dry. She flexes her knee to 87 degrees today. She is walking out in the hallways. Neurovascular examination of her left foot is normal. Objective Objective Clinical Data: Abnormal lab results 03/15/19 Range/Units 06:46 RBC 3.74 L (4.00-5.20) m/cumm Hgb 11.5 L (12.0-15.5) g/dL Hct 35.4 L (36.0-46.0) % Vital Signs Temperature 36.8 C 03/15/19 11:00 Temperature Source Tympanic 03/15/19 11:00 Pulse 71 03/15/19 11:00 Pulse Rhythm Regular 03/15/19 08:30 Respiratory Rate 16 03/15/19 11:00 Respiratory Effort Non-Labored 03/15/19 08:30 Respiratory Depth Normal 03/15/19 08:30 Respiratory Pattern Normal 03/15/19 08:30 Blood Pressure 120/63 03/15/19 11:00 Pulse Oximetry 95 03/15/19 11:00 Respiratory End-tidal CO2 36 03/13/19 15:07 Oxygen Delivery Method Room Air 03/15/19 11:00 Oxygen Flow Rate 0 03/15/19 11:00 Pain Level 5 03/15/19 13:42 Comment 03/15/19 03:52 Intake & Output 03/14/19 03/15/19 03/15/19 23:59 11:59 23:59 Intake Total 526 / 3713.333 804 / 1164 360 / 1164 Output Total 3700 / 6000 700 / 1500 800 / 1500 Balance -3174 / -2286.667 104 / -336 -440 / -336 Intake: IV / 1992.333 564 / 564 Oral 360 / 1720 240 / 600 360 / 600 Output: Urine 3700 / 6000 700 / 1500 800 / 1500 Other: Urine Color Yellow Yellow Yellow Urine Appearance Clear Clear Clear Urine Odor Normal Normal Strong Stool Size Large Stool Characteristics Soft Formed Voiding Methods Bedside Commode Bedside Commode Laboratory Results WBC 9.09 k/cumm (4.4-10.8) 03/15/19 06:46 RBC 3.74 m/cumm (4.00-5.20) L 03/15/19 06:46 Hgb 11.5 g/dL (12.0-15.5) L 03/15/19 06:46 Hct 35.4 % (36.0-46.0) L 03/15/19 06:46 MCV 94.7 fL (80-95) 03/15/19 06:46 MCH 30.7 pg (27.0-33.0) 03/15/19 06:46 MCHC 32.5 g/dL (32.0-36.0) 03/15/19 06:46 RDW 14.3 % (11.7-14.6) 03/15/19 06:46 Plt Count 197 x1000/uL (130-400) 03/15/19 06:46 MPV 10.6 fL (8.0-11.0) 03/15/19 06:46
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
[2019-03-15] MEDS: Acetaminophen 325 MG TAB 650 MG PO ×2 (17:43→21:26)
[2019-03-15] MEDS: Atorvastatin 40 MG TAB 80 MG PO (19:40)
[2019-03-15] MEDS: Polyethylene Glycol 3350 17 GM PACKET PO (21:21)
[2019-03-15] MEDS: Cyanocobalamin 500 MCG TAB 1000 MCG PO (21:21)
[2019-03-15] MEDS: ARIPiprazole 15 MG TAB PO (21:22)
[2019-03-15] MEDS: Melatonin 3 MG TAB PO (21:22)
[2019-03-16 01:20] VITALS: BP 115/67; PULSE 87; RESP 16; TEMP 36.7; O2SAT 94
[2019-03-16 03:35] VITALS: BP 103/61; PULSE 79; RESP 18; TEMP 36.8; O2SAT 98
[2019-03-16] MEDS: HYDROcodone 5/Acetaminophen 325 TAB PO (04:42)
[2019-03-16] MEDS: oxyCODONE-CR 10 MG TABCR PO (06:18)
[2019-03-16 08:01] VITALS: BP 98/62; PULSE 75; RESP 20; TEMP 37.3; O2SAT 95
[2019-03-16] MEDS: Gabapentin 600 MG TAB PO ×2 (08:31→14:17)
[2019-03-16] MEDS: buPROPion-XL 150 MG TABCR 450 MG PO (08:33)
[2019-03-16] MEDS: Esomeprazole 40 MG CAPCR PO (08:33)
[2019-03-16] MEDS: Topiramate 50 MG TAB PO (08:35)
[2019-03-16] MEDS: Multivitamin w/Minerals TAB 1 TAB PO (08:35)
[2019-03-16] MEDS: Nicotine 14 MG/24 HR PATCH TD (08:36)
[2019-03-16] MEDS: Loratidine 10 MG TAB PO (08:37)
[2019-03-16] MEDS: Omega-3 Fatty Acids 1000 MG CAP PO (08:38)
[2019-03-16] MEDS: Docusate Sodium 100 MG CAP PO (08:38)
--- NOTE | 2019-03-16 09:54 | PDOC.CMDIS ---
LACE Index Scoring Tool - Questions: Length of Stay (in days): 4 - 6 Acuity (Admit via E.D.?): No E.D. Visits: 0 - Answers: Total Score: 4 Risk of Readmission: Low Risk Care Management Discharge Reason for Hospitalization: Post Op L Total Knee Discharge Plan: She is being discharged to [facility] via [facility] w/c van at 2:30 pm today. She will betransferred with [facility] w/c and [facility] has agreed to return w/c to [facility]. She will return to [place] when she is able to get around better. Patient/Family Education Needs: RN to review d/c instructions with patient and staff at [facility]. atient able to verbalize reason for hospitalization. Services Needed at Discharge: Occupational Therapy, Physical Therapy, [facility]
--- NOTE | 2019-03-16 11:35 | DSE_ITS ---
Date of service: 03/16/19 Time of Service: 11:30 DS: Diagnosis Discharge Diagnosis (1) Status post total left knee replacement: Status: Acute Discharge Plan Disposition Patient Disposition: SKILLED NSG. FAC.(LEVEL 1) Condition: Good Discharge Details Reason For Visit: POST OP L TOTAL KNEE Admit Date/Time: 03/13/19 08:39 Admit Provider: Immanuel Garcia Attending Provider: Immanuel Garcia Primary Care Provider: Serafin Adams Hospital Course Hospital Course: Patient was taken the operating room on day of admission 03/13/2019 where she underwent a left total knee replacement without complications. She was mobilized per protocol postoperatively, getting up on the day of surgery. She remained afebrile throughout her postoperative course. Hemoglobin stabilized at 11.5 g at 48 hours postop. By 03/16/2019 she was taking p.o. pain meds, was independent with transfers and ambulation with a walker. It was felt that she had achieved her acute care goals and was ready for discharge to [facility]. The patient lives alone and has no help nearby she decided on [facility] for continued rehab until she can go home safely alone. Home Meds and New Rx's Prescriptions: New hydrocodone-acetaminophen 5-325 mg tablet 1 tab PO Q6H PRN (Reason: pain) Qty: 30 RF: 0 Discontinued cephalexin [Keflex] 500 mg capsule 500 mg PO TID RF: 0 No Action atorvastatin 80 mg tablet 80 mg PO HS RF: 0 omega-3 fatty acids 1,000 mg capsule 1,000 mg PO DAILY RF: 0 polyethylene glycol 3350 17 gram powder in packet 17 gm PO HS RF: 0 melatonin 3 mg tablet 3 mg PO HS PRNRF: 0 esomeprazole magnesium 40 mg capsule,delayed release(DR/EC) 40 mg PO DAILY RF: 0 losartan 25 mg tablet 25 mg PO DAILY RF: 0 hydrochlorothiazide 25 mg tablet 25 mg PO DAILY RF: 0 topiramate [Topamax] 100 mg tablet 50 mg PO BID RF: 0 loratadine [Allergy Relief (loratadine)] 10 mg tablet 10 mg PO DAILY RF: 0 naproxen 500 mg tablet 500 mg PO BID PRNRF: 0 cholecalciferol (vitamin D3) 1,000 unit capsule 1,000 unit PO DAILY RF: 0 potassium chloride 20 mEq tablet extended release 20 meq PO DAILY RF: 0 cyanocobalamin (vitamin B-12) 1,000 mcg capsule 1,000 mcg PO HS RF: 0 nicotine 14 mg/24 hr patch 24 hour 1 patch TD DAILY RF: 0 nicotine 10 mg cartridge 1 inh IH 4-6XD PRNRF: 0 acetaminophen [Tylenol Extra Strength] 500 mg tablet 1,000 mg PO Q6H PRNRF: 0 guaifenesin 600 mg tablet extended release 12hr 600 mg PO Q12H PRNRF: 0 bupropion HCl [Wellbutrin XL] 300 mg tablet extended release 24 hr 450 mg PO QAM RF: 0 gabapentin 600 mg tablet 600 mg PO TID 30 Days Qty: 90 RF: 5 aripiprazole [Abilify] 15 mg Tablet 15 mg PO HS RF: 0 levomefolate calcium [L-Methylfolate] 7.5 mg Tablet 15 mg PO DAILY RF: 0 Discharge Instructions Additional Instructions: Elevate left leg when sitting. Apply Cryo/Cuff to left knee 4 times a day for an hour each time. Wear long-leg Callum stocking on left during daytime only, for next 2 weeks. Cover ericka with light gauze dressing so they do not catch on clothing. May shower and get ericka wet. Walk every day as much as discomfort allows.WBAT left leg. Daily physical therapy for range of motion and strengthening of her left knee. Walk every day with walker as much as discomfort allows. Remove skin ericka in [address] Garcia's office in 2 weeks. Take 1 baby aspirin(81 mg) twice a day for 30 days to prevent DVT in the lower extremities. Take hydrocodone as prescribed, for pain not relieved by Naprosyn or Tylenol. Care Plan Goals: Independent ambulation and ADLs with return to home. Stand Alone Forms: Nursing Discharge Form Referrals: Immanuel Garcia MD [ [facility] STAFF PHYSICIAN] - (f/u in 2 weeks) Activity:: Activity as Tolerated Equipment/Supplies:: Walker Diet:: As Tolerated Discharge Orders Discharge Orders: Discharge Order (Routine); Ordered 03/16/19 Ordered By: Immanuel Garcia DS: Data Vitals/I&O Vitals and I&O: Vital Signs Temperature 37.3 C 03/16/19 08:01 Temperature Source Tympanic 03/16/19 08:01 Pulse 75 03/16/19 08:01 Pulse Rhythm Regular 04/25/19 01:20 Respiratory Rate 20 03/16/19 08:01 Respiratory Effort 03/16/19 01:20 Respiratory Depth Normal 03/16/19 01:20 Respiratory Pattern Normal 03/16/19 01:20 Blood Pressure 98/62 L 03/16/19 08:01 Pulse Oximetry 95 03/16/19 08:01 Respiratory End-tidal CO2 36 03/13/19 15:07 Oxygen Delivery Method Room Air 03/16/19 08:01 Oxygen Flow Rate 0 03/16/19 08:01 Pain Level 6 03/16/19 04:42 Comment 03/16/19 03:35 Intake & Output 03/15/19 03/15/19 03/16/19 11:59 23:59 11:59 Intake Total 804 / 2598 1794 / 2598 640 / 640 Output Total 700 / 2650 1950 / 2650 900 / 900 Balance 104 / -52 -156 / -52 -260 / -260 Intake: IV 564 / 1498 934 / 1498 Oral 240 / 1100 860 / 1100 640 / 640 Output: Urine 700 / 2650 1950 / 2650 900 / 900 Other: Urine Color Yellow Yellow Yellow Urine Appearance Clear Clear Cloudy Urine Odor Normal Normal Normal Comment COPIUS AMT OF URINE ON BSC Voiding Methods Bedside Commode Bedside Commode Bedside Commode PFS Family History Father Heart disease Mother Heart disease Sister Heart disease Other Hypertension Stroke Social History Smoking/Tobacco Use Status: Current every day Tobacco Type: cigarettes Tobacco: How many years used: 30 Quit status: considering quitting Alcohol Intake: never Drug use: Never Substance use type: does not use and former substance user Housing: other Details: [facility] resident Number of Children: 2 What type of physical activity do you participate in: walking and additional Details: PT exercises
[2019-03-16 12:00] VITALS: BP 93/67; PULSE 79; RESP 20; TEMP 38.2; O2SAT 96
--- NOTE | 2019-03-16 13:04 | CMDISCH_ITS ---
LACE Index Scoring Tool - Questions: Length of Stay (in days): 4 - 6 Acuity (Admit via E.D.?): No E.D. Visits: 0 - Answers: Total Score: 4 Risk of Readmission: Low Risk Care Management Discharge Reason for Hospitalization: Post Op L Total Knee Discharge Plan: She is being discharged to [facility] via [facility] w/c van at 2:30 pm today. She will betransferred with [facility] w/c and [facility] has agreed to return w/c to [facility]. She will return to [place] when she is able to get around better. Patient/Family Education Needs: RN to review d/c instructions with patient and staff at [facility]. atient able to verbalize reason for hospitalization. Services Needed at Discharge: Occupational Therapy, Physical Therapy, [facility] Facility
--- NOTE | 2019-03-16 13:10 | PT.INTREAT ---
Date of service: 03/16/19 Time of Service: 13:10 PT Notes Inpatient Physical Therapy Treatment Note [facility] Date: 03/16/2019 PRECAUTIONS: WBAT L SUBJECTIVE: Haven states that her knee is sore this morning. She feels that she would benefit from short-term rehab prior to returning home. OBJECTIVE: PAIN: Minimal complains of L knee pain with ther ex BED MOBILITY/TRANSFERS Sit-stand: S Stand-sit: S GAIT Assistive Device: FWW Weight bearing: WBAT L Assist: SBA Distance: 60' x2 Deviation: Standing rest x1 THEREX: Patient completed a lower extremity strengthening and stabilization program, as per flow sheet. She requires assist for SLR exercise as well as for hip abduction exercise. TOILETING: Patient toilet with assist for pericare ASSESSMENT: Patient tolerated session with minimal complaints of pain. Patient will benefit from continued gait training at as well as strengthening for improved ability to perform daily functional tasks. PLAN: As per primary PT TREATMENT CODE/TIME: Session 1: 30 minutes; [id number], [id number]
[2019-03-16] MEDS: Acetaminophen 325 MG TAB 650 MG PO (14:17)
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
== END 2019-03-16 14:31 | disposition skilled nursing facility (03) | DRG 470 ==
LOC: PDS 13:31 → MS 13:35
PROVIDERS: Admitting Provider Orthopaedic Surgery; PCP Specialist/Technologist Athletic Trainer; Visit Provider Orthopaedic Surgery
PROC: 0SRD0J9 Replacement of Left Knee Joint with Synthetic Substitute, Cemented, Open Approach (ICD-10-PCS; CPT 27447; principal; 2019-03-13 10:00)
DX: M17.12 Unilateral primary osteoarthritis, left knee (principal); M21.162 Varus deformity, not elsewhere classified, left knee; Z96.652 Presence of left artificial knee joint; G89.18 Other acute postprocedural pain; Z60.2 Problems related to living alone; F20.9 Schizophrenia, unspecified; J44.9 Chronic obstructive pulmonary disease, unspecified; F17.210 Nicotine dependence, cigarettes, uncomplicated; I10 Essential (primary) hypertension
CPT/HCPCS: 27447; 36415; 76942; 85027; 97110; 97162; 97530; J1650; NC; 73560; J0690; J1100; J1885; J2250; J2405; L1830

== ENCOUNTER 2019-03-28 15:42 | Outpatient (REF) | payer MEDICARE, MEDICAID, SELFPAY ==
[2019-03-28 16:16] LABS: Bilirubin Negative (Negative); Blood Negative (Negative); Clarity Sl Cloudy; Glucose Negative (Negative); Ketones Negative (Negative); Leukocyte Esterase Moderate (Negative); Nitrite Negative (Negative); pH 5.5 (5-8)
[2019-03-28 18:09] LABS: Bacteria Moderate HPF (Negative); Crystals Negative HPF (Negative); Epithelial Cells Few HPF (Negative); Other Cells Negative (Negative); RBC Negative (0-2); WBC >50 HPF (0-5)
[2019-03-28 18:10] LABS: C & S Indicated? C&S Done As Ordered; Casts Negative LPF (Negative); Mucus Negative (Negative)
== END 2019-03-28 16:02 ==
LOC: LBN 15:42
PROVIDERS: PCP Specialist/Technologist Athletic Trainer; Visit Provider Nurse Practitioner Adult Health
DX: R30.0 Dysuria (principal)
CPT/HCPCS: 87077; 81003; 81015; 87086; 87186

== ENCOUNTER → 2019-03-29 10:03 | Outpatient (BNVA) | payer MEDICARE, MEDICAID, SELFPAY | PROVIDERS: PCP Specialist/Technologist Athletic Trainer; Referring Provider Specialist/Technologist Athletic Trainer; Visit Provider Orthopaedic Surgery | DX: Z47.1 Aftercare following joint replacement surgery (principal); Z96.652 Presence of left artificial knee joint; I10 Essential (primary) hypertension; J44.9 Chronic obstructive pulmonary disease, unspecified ==

== ENCOUNTER 2019-04-16 13:54 | Emergency (ER) | payer MEDICARE, MEDICAID, SELFPAY ==
[2019-04-16 13:34] VITALS: BP 98/55; PULSE 73; RESP 18; TEMP 37.1; O2SAT 97
[2019-04-16] MEDS: Acetaminophen 500 MG TAB 1000 MG PO (14:10)
--- NOTE | 2019-04-16 15:45 | DI.RAD_ITS ---
SYMPTOMS/DIAGNOSIS: MID TO DISTAL PAIN, KNEE PAIN, 1 MONTH POST TOTAL KNEE REPLACEMENT LEFT FEMUR: Four views. No acute fracture, dislocation, lytic or sclerotic lesion is seen. In the left hip moderately severe joint space narrowing, periarticular sclerosis and spurring is noted. Note is made of a left total knee replacement. The soft tissues are unremarkable. IMPRESSION: Osteoarthritis of the left hip. No acute abnormality. LEFT KNEE: Three views. Comparison is 03/13/19. There are again seen post surgical changes of a left total knee replacement. The orthopedic hardware appears in good position. The bones are intact. The soft tissues are unremarkable. Note is made of a joint effusion. IMPRESSION: 1. No acute abnormality. 2. Joint effusion.
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
--- NOTE | 2019-04-16 16:19 | DI.VRAD_ITS ---
EXAM: XR Left Knee EXAM DATE/TIME: 04/16/2019 2:00 PM CLINICAL HISTORY: 53 years old, female; Injury or trauma; Fall; Initial encounter; Blunt trauma; Knee; Left; Prior surgery; Surgery date: <1 month; Surgery type: Tkr TECHNIQUE: Imaging protocol: XR Left knee. Views: 3 views. COMPARISON: CR Knee L 03/13/2019 1:47 PM FINDINGS: Bones/joints: [address] There appears to be a moderate size joint effusion. No evidence for fracture. Soft tissues: Normal. IMPRESSION: Joint effusion. Prosthesis intact. No evidence for fracture. COMMENT: Preliminary interpretation is based on receipt of 3 image(s). A final report will be issued subsequently. Dictated and Authenticated by: Darlene De La Cruz MD. Ordering:CLAIRE Vidales MD
--- NOTE | 2019-04-16 16:19 | DI.VRAD_ITS ---
EXAM: XR Left Femur EXAM DATE/TIME: 04/16/2019 2:00 PM CLINICAL HISTORY: 53 years old, female; Injury or trauma; Initial encounter; Blunt trauma; Left; Injury details: Fall. Pain lateral knee; Prior surgery; Surgery date: <1 month; Surgery type: Tkr TECHNIQUE: Imaging protocol: XR Left femur. Views: 2 views COMPARISON: CR Knee L 03/13/2019 1:47 PM FINDINGS: Bones/joints: There degenerative changes of the left hip with joint space narrowing. Soft tissues: Normal. IMPRESSION: Degenerative changes left hip. No evidence for fracture. COMMENT: Preliminary interpretation is based on receipt of 4 image(s). A final report will be issued subsequently. Dictated and Authenticated by: Darlene De La Cruz MD. Ordering:CLAIRE Vidales MD
[2019-04-16 17:36] VITALS: BP 145/74; PULSE 73; RESP 18; O2SAT 97
== END 2019-04-16 17:52 | disposition home or self-care (01) ==
PROVIDERS: Emergency Provider Nurse Practitioner Family; PCP Specialist/Technologist Athletic Trainer
DX: M25.562 Pain in left knee (principal); Y83.1 Surgical operation with implant of artificial internal device as the cause of abnormal reaction of the patient, or of later complication, without mention of misadventure at the time of the procedure; Z98.890 Other specified postprocedural states; Z96.652 Presence of left artificial knee joint
CPT/HCPCS: 29505; 73552; 73562; 99284; L1830

== ENCOUNTER → 2019-04-20 08:54 | Outpatient (BNVA) | payer MEDICARE, MEDICAID, SELFPAY | PROVIDERS: PCP Specialist/Technologist Athletic Trainer; Referring Provider Specialist/Technologist Athletic Trainer; Visit Provider Orthopaedic Surgery | DX: S89.91XA Unspecified injury of right lower leg, initial encounter (principal); W19.XXXA Unspecified fall, initial encounter; Z47.1 Aftercare following joint replacement surgery; Z96.652 Presence of left artificial knee joint | CPT/HCPCS: 99214; L1830 ==

== ENCOUNTER 2019-04-28 01:57 | Outpatient (CLI) | payer MEDICARE, MEDICAID, SELFPAY ==
--- NOTE | 2019-04-28 10:47 | DI.MRI_ITS ---
SYMPTOM/DIAGNOSIS: POSSIBLE QUAD TENDON RUPTURE S76.112A MRI LEFT KNEE: Routine noncontrast examination was performed. Comparison x-ray is 04/16/19 FINDINGS: There is significant artifact from the patient's left total knee replacement. The osseous structures are not well visualized. There does appear to be a large suprapatellar joint effusion. There does appear to be a complete tear of the quadriceps tendon. The patella appears to be inferiorly located. There is edema seen in the soft tissues about the knee. IMPRESSION: Severely limited examination due to patient body habitus and artifact from the patient's left total knee replacement. 2. Findings suspicious for a complete tear of the quadriceps tendon. Ultrasound may be considered for further evaluation.
== END 2019-04-28 02:17 ==
PROVIDERS: PCP Specialist/Technologist Athletic Trainer; Visit Provider Orthopaedic Surgery
DX: S76.112A Strain of left quadriceps muscle, fascia and tendon, initial encounter (principal); Z96.652 Presence of left artificial knee joint
CPT/HCPCS: 73721

== ENCOUNTER → 2019-05-03 10:45 | Outpatient (BNVA) | payer MEDICARE, MEDICAID, SELFPAY ==
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
== END ==
PROVIDERS: PCP Specialist/Technologist Athletic Trainer; Referring Provider Specialist/Technologist Athletic Trainer; Visit Provider Orthopaedic Surgery
DX: S76.112A Strain of left quadriceps muscle, fascia and tendon, initial encounter (principal); W19.XXXA Unspecified fall, initial encounter; X50.0XXA Overexertion from strenuous movement or load, initial encounter; Z96.652 Presence of left artificial knee joint
CPT/HCPCS: 99213; 99214; NC

== ENCOUNTER 2019-05-05 08:07 | Outpatient (CLI) | payer MEDICARE, MEDICAID, SELFPAY | END 2019-05-05 08:27 | PROVIDERS: PCP Specialist/Technologist Athletic Trainer; Visit Provider Orthopaedic Surgery | DX: Z01.818 Encounter for other preprocedural examination (principal); S76.112A Strain of left quadriceps muscle, fascia and tendon, initial encounter; W19.XXXA Unspecified fall, initial encounter; Z96.652 Presence of left artificial knee joint; J44.9 Chronic obstructive pulmonary disease, unspecified; I10 Essential (primary) hypertension; F17.210 Nicotine dependence, cigarettes, uncomplicated ==

== ENCOUNTER 2019-05-08 10:43 | Inpatient (IN) | payer MEDICARE, MEDICAID, SELFPAY ==
[2019-05-05 08:37] VITALS: BP 114/98; PULSE 75; RESP 16; TEMP 36.6; O2SAT 95
[2019-05-05 08:41] VITALS: BP 114/98; PULSE 75; RESP 16; TEMP 36.6; O2SAT 95
[2019-05-08] VITALS (12 sets, daily range): BP systolic 112–136; BP diastolic 68–87; PULSE 74–85; RESP 10–18; TEMP 36.2–36.8; O2SAT 91–98
[2019-05-08] MEDS: Lactated Ringers 1,000 ML 80 ML IV (11:50)
--- NOTE | 2019-05-08 13:25 | NUR.NOTE ---
05/08/19: FYI: Pt with allergy to PCN listed, verified Ancef abx with Dr. Garcia prior to hanging the IV antibiotic; pt
--- NOTE | 2019-05-08 13:26 | NUR.NOTE ---
05/08/19: Pt with documented allergy to penicillin with an order to hang IV Ancef in [facility] pre-op. Nurse reported this to Dr. Garcia who indicated that it is okay to hang IV Ancef despite noted allergy to penicillin. Nurse hung IV Ancef as ordered. -BR
[2019-05-08] MEDS: ceFAZolin 2 GM/50 ML BAG IVPB ×2 (13:40→17:34)
[2019-05-08] MEDS: fentaNYL 100 MCG/2 ML VIAL IVP ×2 (15:33→15:42)
[2019-05-08] MEDS: DEXTROSE 5%-0.9% SALINE 1,000 ML 125 ML IV (16:51)
[2019-05-08] MEDS: oxyCODONE-CR 10 MG TABCR PO (17:34)
[2019-05-08] MEDS: Ketorolac 30 MG/ML VIAL IVP (20:18)
[2019-05-08] MEDS: Normal Saline Flush 10 ML SYR IV (20:18)
[2019-05-08] MEDS: Topiramate 50 MG TAB PO (20:18)
[2019-05-08] MEDS: Gabapentin 600 MG TAB PO (20:19)
[2019-05-08] MEDS: Acetaminophen 325 MG TAB 650 MG PO (20:19)
[2019-05-08] MEDS: Docusate Sodium 100 MG CAP PO (20:19)
[2019-05-08] MEDS: ARIPiprazole 5 MG TAB 20 MG PO (22:54)
[2019-05-08] MEDS: HYDROcodone 5/Acetaminophen 325 TAB PO (22:55)
[2019-05-08] MEDS: Cyanocobalamin 500 MCG TAB 1000 MCG PO (22:55)
[2019-05-08] MEDS: Melatonin 3 MG TAB 9 MG PO (22:55)
[2019-05-08] MEDS: Atorvastatin 40 MG TAB 80 MG PO (22:55)
[2019-05-09] VITALS (8 sets, daily range): BP systolic 87–104; BP diastolic 59–71; PULSE 57–85; RESP 16–18; TEMP 36.6–37.1; O2SAT 92–96
[2019-05-09] MEDS: ceFAZolin 2 GM/50 ML BAG IVPB ×3 (02:06→14:37)
[2019-05-09] MEDS: Ketorolac 30 MG/ML VIAL IVP ×4 (02:06→20:43)
[2019-05-09] MEDS: oxyCODONE-CR 10 MG TABCR PO ×2 (06:42→17:06)
[2019-05-09] MEDS: DEXTROSE 5%-0.9% SALINE 1,000 ML 125 ML IV (06:42)
[2019-05-09] MEDS: HYDROcodone 5/Acetaminophen 325 TAB PO (07:01)
[2019-05-09] MEDS: Potassium Chloride 20 MEQ TABCR PO (09:05)
[2019-05-09] MEDS: Docusate Sodium 100 MG CAP PO ×3 (09:05→20:42)
[2019-05-09] MEDS: Cholecalciferol (Vitamin D3) 1,000 UNIT TAB 1000 UNITS PO (09:05)
[2019-05-09] MEDS: Topiramate 50 MG TAB PO ×2 (09:05→20:42)
[2019-05-09] MEDS: buPROPion-XL 150 MG TABCR 450 MG PO (09:05)
[2019-05-09] MEDS: Gabapentin 600 MG TAB PO ×3 (09:05→20:43)
[2019-05-09] MEDS: Aspirin 81 MG CHEW PO (09:06)
[2019-05-09] MEDS: Nicotine 14 MG/24 HR PATCH TD (09:06)
[2019-05-09] MEDS: Multivitamin w/Minerals TAB 1 TAB PO (09:06)
[2019-05-09] MEDS: Pantoprazole 40 MG TABCR PO (09:06)
--- NOTE | 2019-05-09 10:05 | ROE_ITS ---
DATE OF PROCEDURE: May 08, 2019 PREOPERATIVE DIAGNOSIS: Ruptured quad tendon, left knee. POSTOPERATIVE DIAGNOSIS: Same. PROCEDURE: Repair of ruptured quad tendon, left. ANESTHESIA: General, Gutierrez Aparicio CRNA SURGEON: Immanuel Garcia M.D. MMD UNIT TEACHER: Clint Rashid INDICATIONS: This is a 53-year-old white female who underwent a left total knee arthroplasty approxi mately five to six weeks ago. She initially was doing very well until about three weeks postop when she had a fall, hyper-flexing her left knee. She noted that her knee felt like it wouldn't support h er. Examination showed she was unable to actively extend her left knee. She was able to do actively extend her left knee when she was seen at her two week postop visit following her total knee replace ment. CT scan was obtained, which was read as showing a rupture of her quadriceps tendon on the left . This confirmed the clinical diagnosis. Repair of ruptured quad tendon was advised as optimum maren tment. The risks and complications of the procedure were explained to the patient in detail preopera tively. PROCEDURE: The patient was taken to the Operating Room on 05/08/19. She was placed supine on the ope rating table and a general anesthetic was administered. She was given 2 grams of Ancef IV and then 1 gram of tranexamic acid IV. The left lower extremity was prepped from toes to tourniquet and draped free in the usual sterile fashion. Under proximal tourniquet control, an incision was made in line with her old scar, beginning over the patellar tendon distally and extending proximal to the patella by about four inches. The incision w as carried down to the periosteum and fascia over the patella. There was noted to be a tear that ext ended through the previous medial parapatellar and capsular incision distally, and then extended in l ine with the quadriceps tendon repair for a distance of about three inches or so proximal to the alberto lla before the tear went transverse across the quadriceps tendon and muscle into the lateralis muscle . The margins of the tear were then debrided sharply to healthy, fresh tissue. Using electrocautery , the medial and lateral gutters were re-established and the suprapatellar pouch was re-established t o prevent postop stiffness. Proximally the ruptured quadriceps muscle was repaired with interrupted pahlar-[id number] sutures of #1 Vicryl suture material. Through the tendinous portion of the tear, sta rting about three inches proximal to the patella and extending almost to mid-patella, the rupture was repaired with interrupted [id number] suture of non-absorbable #2 FiberWire. The distal part of the medial parapatellar incisional disruption was repaired with interrupted ohvmfj-ro-[id number] sutures of #1 Vicryl suture material. 15 cc's of 0.5% Marcaine with an epinephrine solution was instilled in to the left knee. The knee was then passively flexed and extended for 30 or 40 cycles and no fluid e xtruded to the knee, indicating the repair was water-tight. In addition, I could flex the knee beyon d 90 to 95 degrees without disrupting the repair. This confirmed there was no tension on the repair. The knee was flexed over soft goods. The wound margins were infiltrated with 0.5% Marcaine with an epinephrine solution. Prior to closing the quad tendon rupture, 1 gram of powdered Vancomycin was i nstilled into the knee and this was after irrigating the knee joint with Betadine and saline solution and allowing the Betadine and saline solution to stay in the knee for a minute before suctioning. The subcu was approximated with interrupted #2-0 Vicryl sutures. The skin edges were approximated wi th gmsh-[id number]-near sutures of #3-0 Nylon suture material. The wound was dressed with Xeroform gauz e, sterile gauze 4x4's, two ABD pads, wrapped with a 4-inch Kerlix bandage and then wrapped with 6-in ch GAGE bandages. The left knee was then placed in a knee immobilizer splint to protect the quadricep s tendon repair. The tourniquet was released and a second gram of tranexamic acid was administered I V. The patient's anesthesia was reversed without complications. Blood loss was minimal due to tourn iquet use. The patient was discharged to the recovery room in good condition. The patient will be a dmitted for postop IV antibiotics, pain control and mobilization by Physical Therapy.
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
[2019-05-09] MEDS: Acetaminophen 325 MG TAB 650 MG PO ×2 (12:51→20:51)
--- NOTE | 2019-05-09 12:55 | W.PM.PROGNOT ---
Date of Service Date of service: 05/09/19 Time of Service: 12:55 Assessment and Plan (1) Traumatic rupture of left quadriceps tendon: Current visit: Yes Status: Acute Assessment: Stable postop day #1 repair of ruptured quadriceps tendon left. Plan: Continue to mobilize with PT until fully independent. Then she may be discharged home. DC IV fluids today. Subjective Interval history since last seen: She is quite felt comfortable at rest. She reports the pain at about 6-7 on a 10 scale when she was ambulating with PT. pain is at a level of 4 when she is in bed. Exam Narrative Exam Narrative: She is afebrile vital signs stable exam of the left foot is completely normal. She did well getting out of bed today required assist of 1. She was able to walk 45 feet with a walker. Objective Objective Clinical Data: Vital Signs Temperature 36.9 C 05/09/19 11:12 Temperature Source Tympanic 05/09/19 11:12 Pulse 70 05/09/19 11:12 Pulse Rhythm Regular 05/09/19 10:00 Respiratory Rate 17 05/09/19 11:12 Respiratory Effort 05/09/19 10:00 Respiratory Depth Normal 05/09/19 10:00 Respiratory Pattern Normal 05/09/19 10:00 Blood Pressure 89/62 L 05/09/19 11:12 Pulse Oximetry 96 05/09/19 11:12 Respiratory End-tidal CO2 39 05/08/19 15:56 Oxygen Delivery Method Room Air 05/09/19 11:12 Oxygen Flow Rate 0 05/09/19 11:12 Pain Level 4 05/09/19 12:51 Comment 05/09/19 07:33 Intake & Output 05/08/19 05/09/19 05/09/19 23:59 11:59 23:59 Intake Total 1298.667 / 4852.735 3885 / 1760 Output Total 1250 / 1250 1000 / 1000 Balance 48.667 / 48.667 760 / 760 Intake: IV 1098.667 / 3999.279 5415 / 1050 Oral 200 / 200 710 / 710 Output: Urine 1250 / 1250 1000 / 1000 Other: Urine Color Yellow Straw Urine Appearance Clear Clear Urine Odor Normal None Emesis Description None Voiding Methods Bedside Commode
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
--- NOTE | 2019-05-09 14:43 | PT.INTREAT ---
Date of service: 05/09/19 Time of Service: 14:44 PT Notes Inpatient Physical Therapy Treatment Note [facility] Date: 05/09/19 PRECAUTIONS: Fall, WBAT on L SUBJECTIVE: Haven is agreeable to participating in PT. She reports some L knee discomfort while in the chair. OBJECTIVE: PAIN: Patient c/o L knee pain with gait training and ther ex BED MOBILITY/TRANSFERS Sit-stand: SBA Stand-sit: SBA GAIT Assistive Device: FWW Weight bearing: WBAT L Assist: CGA Distance: 60' Deviation: Step-through pattern utilized THEREX: Patient completed a LE strengthening program, in a seated position, as per flow sheet. She ends with cryocuff to L knee. ASSESSMENT: Patient tolerated session well with some c/o L knee pain with ther ex and gait training. She was able to tolerate a progression in gait distance with FWW support and CGA. Patient would benefit from continued gait and transfer training, as well a strengthening for improved activity tolerance and mobility. PLAN: Continue with PT's POC TREATMENT CODE/TIME: 25 minutes; 97281, 23904
--- NOTE | 2019-05-09 14:46 | PTTR_ITS ---
Date of service: 05/09/19 Time of Service: 14:44 PT Notes Inpatient Physical Therapy Treatment Note [facility] Date: 05/09/19 PRECAUTIONS: Fall, WBAT on L SUBJECTIVE: Haven is agreeable to participating in PT. She reports some L knee discomfort while in the chair. OBJECTIVE: PAIN: Patient c/o L knee pain with gait training and ther ex BED MOBILITY/TRANSFERS Sit-stand: SBA Stand-sit: SBA GAIT Assistive Device: FWW Weight bearing: WBAT L Assist: CGA Distance: 60' Deviation: Step-through pattern utilized THEREX: Patient completed a LE strengthening program, in a seated position, as per flow sheet. She ends with cryocuff to L knee. ASSESSMENT: Patient tolerated session well with some c/o L knee pain with ther ex and gait training. She was able to tolerate a progression in gait distance with FWW support and CGA. Patient would benefit from continued gait and trans arthur training, as well a strengthening for improved activity tolerance and mobility. PLAN: Continue with PT's POC TREATMENT CODE/TIME: 25 minutes; 64173, [id number]
[2019-05-09] MEDS: Melatonin 3 MG TAB 9 MG PO (20:42)
[2019-05-09] MEDS: Atorvastatin 40 MG TAB 80 MG PO (20:43)
[2019-05-09] MEDS: Cyanocobalamin 500 MCG TAB 1000 MCG PO (20:43)
[2019-05-09] MEDS: ARIPiprazole 5 MG TAB 20 MG PO (20:43)
[2019-05-10] VITALS (7 sets, daily range): BP systolic 80–103; BP diastolic 51–69; PULSE 66–79; RESP 16–19; TEMP 36.4–37; O2SAT 92–98
[2019-05-10] MEDS: Ketorolac 30 MG/ML VIAL IVP ×3 (01:16→16:14)
[2019-05-10] MEDS: Normal Saline Flush 10 ML SYR (01:17)
[2019-05-10] MEDS: oxyCODONE-CR 10 MG TABCR PO ×2 (06:26→18:32)
[2019-05-10] MEDS: Gabapentin 600 MG TAB PO ×3 (08:55→20:55)
[2019-05-10] MEDS: Docusate Sodium 100 MG CAP PO ×3 (08:55→20:55)
[2019-05-10] MEDS: Cholecalciferol (Vitamin D3) 1,000 UNIT TAB 1000 UNITS PO (08:56)
[2019-05-10] MEDS: Losartan 25 MG TAB PO (08:56)
[2019-05-10] MEDS: Multivitamin w/Minerals TAB 1 TAB PO (08:56)
[2019-05-10] MEDS: Topiramate 50 MG TAB PO ×2 (08:56→20:54)
[2019-05-10] MEDS: Pantoprazole 40 MG TABCR PO (08:56)
[2019-05-10] MEDS: buPROPion-XL 150 MG TABCR 450 MG PO (08:56)
[2019-05-10] MEDS: Potassium Chloride 20 MEQ TABCR PO (08:56)
[2019-05-10] MEDS: hydroCHLOROthiazide 25 MG TAB PO (08:57)
[2019-05-10] MEDS: Aspirin 81 MG CHEW PO (08:58)
[2019-05-10] MEDS: Nicotine 14 MG/24 HR PATCH TD (08:58)
--- NOTE | 2019-05-10 10:12 | PDOC.CMPRO ---
Care Management Progress Note S/O-Met with Haven today. She is making good progress with PT but still feels she should go to rehab before returning to [place]. Referral has been sent to [facility]. A-53 yo woman admitted s/p rupture quad tendon repair. P-awaiting response to referral to [facility].
--- NOTE | 2019-05-10 10:22 | PT.INTREAT ---
Date of service: 05/10/19 Time of Service: 10:22 PT Notes Inpatient Physical Therapy Treatment Note [facility] Date: 05/10/19 PRECAUTIONS: Fall, WBAT on L SUBJECTIVE: Haven is agreeable to participating in PT. She reports some L knee discomfort while in the chair. OBJECTIVE: PAIN: Patient c/o L knee pain with gait training and ther ex BED MOBILITY/TRANSFERS: Completed patient education regarding passively moving L LE out of and into bed utilizing knee immobilizer. Patient demonstrates good understanding and appropriate mechanics. Supine-sit: S with HOB flat and use of K.I. Sit-supine: S with HOB flat and use of K.I. Sit-stand: SBA Stand-sit: SBA GAIT Assistive Device: FWW Weight bearing: WBAT L Assist: CGA in a.m.; SBA in p.m. Distance: 100' in a.m.; 60' in p.m. Deviation: Step-through pattern utilized THEREX: Patient completed ankle pumps and glute sets, in both seated and supine positions, as per flow sheet. She ends with cryocuff/ice pack to L knee. ASSESSMENT: Patient tolerated session well with some c/o L knee pain with gait training. She was able to tolerate a progression in gait distance with FWW support and CGA. Patient would benefit from continued gait and transfer training, as well a strengthening for improved activity tolerance and mobility. PLAN: Continue with PT's POC TREATMENT CODE/TIME: Session 1: 25 minutes; 54102, [id number] Session 2: 20 minutes; [id number]
[2019-05-10] MEDS: HYDROcodone 5/Acetaminophen 325 TAB PO (13:00)
--- NOTE | 2019-05-10 14:47 | CHAPLAIN ---
I had short visit with Haven today. She told me about having knee surgery, then falling and needing another surgery. She is from [facility]. She seems to be comfortable here.
--- NOTE | 2019-05-10 16:17 | W.PM.PROGNOT ---
Date of Service Date of service: 05/10/19 Time of Service: 16:17 Assessment and Plan (1) Traumatic rupture of left quadriceps tendon: Current visit: Yes Status: Acute Assessment: Doing well at 48 hours postop repair of ruptured quadriceps tendon left. I agree with her going [place] a [place] [facility] [place] for a short period of time before going back to her present living arrangements. I think it would be much safer for her. Plan: Continue mobilize with PT. The plan [place] [facility] [place] as soon as a bed becomes available. Subjective Interval history since last seen: Haven tells me that she is talked with care management about going to a [place] [facility] facility rather than back to the [facility] per facility she resides. The basis of his decision is that she says she cannot really dress herself at this time. Exam Narrative Exam Narrative: Her incision is clean and dry. She is progressing with her physical therapy still is not fully independent. She is afebrile vital signs stable. Objective Objective Clinical Data: Vital Signs Temperature 36.5 C 05/10/19 15:51 Temperature Source Tympanic 05/10/19 15:51 Pulse 77 05/10/19 15:51 Pulse Rhythm Regular 05/10/19 11:52 Respiratory Rate 17 05/10/19 15:51 Respiratory Effort 05/10/19 11:52 Respiratory Depth Normal 05/10/19 11:52 Respiratory Pattern Normal 05/09/19 10:00 Blood Pressure 80/51 L 05/10/19 15:51 Pulse Oximetry 95 05/10/19 15:51 Respiratory End-tidal CO2 39 05/08/19 15:56 Oxygen Delivery Method Room Air 05/10/19 15:51 Oxygen Flow Rate 0 05/10/19 15:51 Pain Level 5 05/10/19 16:14 Comment 05/10/19 15:51 Intake & Output 05/09/19 05/10/19 05/10/19 23:59 11:59 23:59 Intake Total 1629.583 / 3439.583 450 / 930 480 / 930 Output Total 1500 / 2500 1200 / 2200 1000 / 2200 Balance 129.583 / 939.583 -750 / -1270 -520 / -1270 Intake: IV 1039.583 / 2139.583 Oral 590 / 1300 450 / 930 480 / 930 Output: Urine 1500 / 2500 1200 / 2200 1000 / 2200 Other: Urine Color Straw Yellow Yellow Urine Appearance Clear Clear Clear Urine Odor None None None Voiding Methods Bedside Commode Bedside Commode Bedside Commode
--- NOTE | 2019-05-10 16:20 | PGE_ITS ---
Date of Service Date of service: 05/10/19 Time of Service: 16:17 Assessment and Plan (1) Traumatic rupture of left quadriceps tendon: Current visit: Yes Status: Acute Assessment: Doing well at 48 hours postop repair of ruptured quadriceps tendon left. I agree with her going to a custodial facility for a short period of time before going back to her present living arrangements. I think it would be much safer for her. Plan: Continue mobilize with PT. The plan custodial home transfer as soon as a bed becomes available. Subjective Interval history since last seen: Haven tells me that she is talked with care management about going to a custodial facility rather than back to the level 3 per facility she resides. The basis of his decision is that she says she cannot really dress herself at this time. Exam Narrative Exam Narrative: Her incision is clean and dry. She is progressing with her physical therapy still is not fully independent. She is afebrile vital signs stable. Objective Objective Clinical Data: Vital Signs Temperature 36.5 C 05/10/19 15:51 Temperature Source Tympanic 05/10/19 15:51 Pulse 77 05/10/19 15:51 Pulse Rhythm Regular 05/10/19 11:52 Respiratory Rate 17 05/10/19 15:51 Respiratory Effort 05/10/19 11:52 Respiratory Depth Normal 05/10/19 11:52 Respiratory Pattern Normal 05/09/19 10:00 Blood Pressure 80/51 L 05/10/19 15:51 Pulse Oximetry 95 05/10/19 15:51 Respiratory End-tidal CO2 39 05/08/19 15:56 Oxygen Delivery Method Room Air 05/10/19 15:51 Oxygen Flow Rate 0 05/10/19 15:51 Pain Level 5 05/10/19 16:14 Comment 05/10/19 15:51 Intake & Output 05/09/19 05/10/19 05/10/19 23:59 11:59 23:59 Intake Total 1629.583 / 3439.583 450 / 930 480 / 930 Output Total 1500 / 2500 1200 / 2200 1000 / 2200 Balance 129.583 / 939.583 -750 / -1270 -520 / -1270 Intake: IV 1039.583 / 2139.583 Oral 590 / 1300 450 / 930 480 / 930 Output: Urine 1500 / 2500 1200 / 2200 1000 / 2200 Other: Urine Color Straw Yellow Yellow Urine Appearance Clear Clear Clear Urine Odor None None None Voiding Methods Bedside Commode Bedside Commode Bedside Commode
[2019-05-10] MEDS: Cyanocobalamin 500 MCG TAB 1000 MCG PO (22:30)
[2019-05-10] MEDS: Atorvastatin 40 MG TAB 80 MG PO (22:30)
[2019-05-10] MEDS: ARIPiprazole 5 MG TAB 20 MG PO (22:30)
[2019-05-10] MEDS: Melatonin 3 MG TAB 9 MG PO (22:30)
[2019-05-11 00:40] VITALS: BP 98/63; PULSE 70; RESP 19; TEMP 36.6; O2SAT 95
[2019-05-11 04:00] VITALS: BP 91/61; PULSE 79; RESP 19; TEMP 36.7; O2SAT 92
[2019-05-11] MEDS: oxyCODONE-CR 10 MG TABCR PO (06:54)
[2019-05-11] MEDS: Nicotine 14 MG/24 HR PATCH TD (08:13)
[2019-05-11] MEDS: Gabapentin 600 MG TAB PO (08:14)
[2019-05-11] MEDS: Docusate Sodium 100 MG CAP PO (08:14)
[2019-05-11] MEDS: Cholecalciferol (Vitamin D3) 1,000 UNIT TAB 1000 UNITS PO (08:14)
[2019-05-11] MEDS: Aspirin 81 MG CHEW PO (08:14)
[2019-05-11] MEDS: Potassium Chloride 20 MEQ TABCR PO (08:14)
[2019-05-11] MEDS: Topiramate 50 MG TAB PO (08:14)
[2019-05-11] MEDS: buPROPion-XL 150 MG TABCR 450 MG PO (08:14)
[2019-05-11] MEDS: Multivitamin w/Minerals TAB 1 TAB PO (08:15)
[2019-05-11] MEDS: Losartan 25 MG TAB PO (08:15)
[2019-05-11] MEDS: Pantoprazole 40 MG TABCR PO (08:15)
[2019-05-11] MEDS: hydroCHLOROthiazide 25 MG TAB PO (08:15)
[2019-05-11 09:02] VITALS: BP 100/70; PULSE 72; RESP 16; TEMP 36.8; O2SAT 93
--- NOTE | 2019-05-11 10:29 | PDOC.CMDIS ---
Care Management Discharge Reason for Hospitalization: s/p repair of L ruptured quad tendon
--- NOTE | 2019-05-11 10:53 | PT.INTREAT ---
Date of service: 05/11/19 Time of Service: 10:53 PT Notes Inpatient Physical Therapy Treatment Note [facility] Date: 05/10/19 PRECAUTIONS: Fall, WBAT on L SUBJECTIVE: Haven is agreeable to participating in PT. She reports some L knee discomfort while in the chair. OBJECTIVE: PAIN: No c/o pain BED MOBILITY/TRANSFERS: Sit-stand: S Stand-sit: S GAIT Assistive Device: FWW Weight bearing: WBAT L Assist: SBA Distance: 130' Deviation: Step-through pattern utilized THEREX: Patient completed ankle pumps and glute sets, in a seated position, as per flow sheet. She ends with ice pack to L knee. ASSESSMENT: Patient tolerated session well without c/o L knee pain. She was able to tolerate a progression in gait distance with FWW support and SBA. Patient would benefit from continued gait and transfer training, as well a strengthening for improved activity tolerance and mobility. PLAN: Continue with PT's POC TREATMENT CODE/TIME: 20 minutes; 70209
--- NOTE | 2019-05-11 11:48 | PDOC.CMDIS ---
LACE Index Scoring Tool - Questions: Length of Stay (in days): 3 Acuity (Admit via E.D.?): No Comorbidities: Chronic Pulmonary Disease E.D. Visits: 1 - Answers: Total Score: 6 Risk of Readmission: Low Risk Care Management Discharge Reason for Hospitalization: s/p repair of L ruptured quad tendon Discharge Plan: Haven will discharge to [facility] when ready per MD. She will transport via the rehab's wheelchair van. Haven will have a short rehab stay prior to returning to her level three home at [place]. DOMENICA Salcedo completed form and was provided number for RN report. CM updated WAQAS Mcguire and Pretty of discharge timing; 1230 for W/C transport. Patient/Family Education Needs: Review of discharge instructions, insurance limitations, transfer considerations. Services Needed at Discharge: Intermediate Facility ([facility]), Transportation ([facility] )
--- NOTE | 2019-05-11 12:08 | DSE_ITS ---
Date of service: 05/11/19 Time of Service: 11:59 DS: Diagnosis Discharge Diagnosis (1) Traumatic rupture of left quadriceps tendon: Status: Acute Discharge Plan Disposition Patient Disposition: SNF (LEVEL 1) [facility] Condition: Good Discharge Details Reason For Visit: POST-OP L QUADRICEPS TENDOR REPAIR Admit Date/Time: 05/08/19 10:43 Admit Provider: Immanuel Garcia Attending Provider: Immanuel Garcia Primary Care Provider: Serafin Adams Hospital Course Hospital Course: She was taken to the OR on date of admission, 05/08/19, where she underwent a repair of her ruptured Quadriceps tendon on the L. Post-op she remained afebrile throughout her stay. She was mobilized by physical therapy per protocol. She progressed well with her mobilization. She still demonstrated limitations in selfcare and mobility that could not be adequately addressed at her present living situation. It was felt she would be best served by transfer to SNF Level 1 for a short period of time before attempting to return to independant living situation. She was ready for transfer on 05/11/19. Home Meds and New Rx's Prescriptions: New hydrocodone-acetaminophen 5-325 mg tablet 1 tab PO Q6H PRN (Reason: pain) Qty: 20 RF: 0 Discontinued tramadol 50 mg tablet 50 mg PO Q6H PRNRF: 0 No Action atorvastatin 80 mg tablet 80 mg PO HS RF: 0 omega-3 fatty acids 1,000 mg capsule 1,000 mg PO DAILY RF: 0 polyethylene glycol 3350 17 gram powder in packet 17 gm PO HS RF: 0 esomeprazole magnesium 40 mg capsule,delayed release(DR/EC) 40 mg PO DAILY RF: 0 hydrochlorothiazide 25 mg tablet 25 mg PO DAILY RF: 0 topiramate [Topamax] 100 mg tablet 50 mg PO BID RF: 0 naproxen 500 mg tablet 500 mg PO BID PRNRF: 0 potassium chloride 20 mEq tablet extended release 20 meq PO DAILY RF: 0 cyanocobalamin (vitamin B-12) 1,000 mcg capsule 1,000 mcg PO HS RF: 0 nicotine 14 mg/24 hr patch 24 hour 1 patch TD DAILY RF: 0 nicotine 10 mg cartridge 1 inh IH 4-6XD PRNRF: 0 guaifenesin 600 mg tablet extended release 12hr 600 mg PO Q12H PRNRF: 0 bupropion HCl [Wellbutrin XL] 300 mg tablet extended release 24 hr 450 mg PO QAM RF: 0 gabapentin 600 mg tablet 600 mg PO TID 30 Days Qty: 90 RF: 5 aripiprazole [Abilify] 15 mg Tablet 20 mg PO HS RF: 0 hydrocodone-acetaminophen 5-325 mg Tablet 1 tab PO Q6H PRN PRNRF: 0 acetaminophen [Tylenol Extra Strength] 500 mg Tablet 1,000 mg PO PRN PRNRF: 0 loratadine 10 mg Tablet 10 mg PO DAILY PRNRF: 0 melatonin 10 mg Tablet 10 mg PO HS RF: 0 losartan 25 mg Tablet 25 mg PO DAILY RF: 0 cholecalciferol (vitamin D3) [Vitamin D3] 1,000 unit Tablet 1,000 unit PO DAILY RF: 0 levomefolate calcium [L-Methylfolate] 7.5 mg Tablet 15 mg PO DAILY RF: 0 Discharge Instructions Additional Instructions: Elevate L leg when sitting. Use knee immobilizer when walking. May leave off in bed. WBAT to L leg with walker. Physical therapy for ROM L knee, active and gentle active-assisted. Remove sutures from L knee in 2 weeks. Follow up with in one month. Apply cryocuff to L knee 4 times/day for 1 hour each time. May shower and get incision wet. After showering, cover with light gauze 4x4's dressing. Take tylenol 1000 mg PO Q8H prn for mild pain. Take hydrocodone with APAP (5/325) Q6H PRN for breakthru pain. Take aspirin 81 mg PO BID for 30 days, to prevent blood clots in legs. Stand Alone Forms: Nursing Discharge Form Referrals: Immanuel Garcia MD [ [facility] STAFF PHYSICIAN] - (f/u in one month) Activity:: Activity as Tolerated Equipment/Supplies:: Walker Diet:: As Tolerated Discharge Orders Discharge Orders: Discharge Order (Routine); Ordered 05/11/19 Ordered By: Immanuel Garcia DS: Data Vitals/I&O Vitals and I&O: Vital Signs Temperature 36.8 C 05/11/19 09:02 Temperature Source Tympanic 05/11/19 09:02 Pulse 72 05/11/19 09:02 Pulse Rhythm Regular 05/11/19 08:21 Respiratory Rate 16 05/11/19 09:02 Respiratory Effort 05/11/19 08:21 Respiratory Depth Normal 05/11/19 08:21 Respiratory Pattern Normal 05/11/19 08:21 Blood Pressure 100/70 05/11/19 09:02 Pulse Oximetry 93 L 05/11/19 09:02 Respiratory End-tidal CO2 39 05/08/19 15:56 Oxygen Delivery Method Room Air 05/11/19 09:02 Oxygen Flow Rate 0 05/11/19 09:02 Pain Level 3 05/11/19 07:54 Comment 05/10/19 15:51 Intake & Output 05/10/19 05/10/19 05/11/19 11:59 23:59 11:59 Intake Total 450 / 1180 730 / 1180 580 / 580 Output Total 1200 / 3150 1950 / 3150 3000 / 3000 Balance -750 / -1970 -1220 / -1970 -2420 / -2420 Intake: Oral 450 / 1180 730 / 1180 580 / 580 Output: Urine 1200 / 3150 1950 / 3150 3000 / 3000 Other: Urine Color Yellow Yellow Yellow Urine Appearance Clear Clear Clear Urine Odor None Normal None Voiding Methods Bedside Commode Bedside Commode Toilet Labs on day of discharge: Preliminary micro results at discharge 05/08/19 13:56 Surgical Culture - Preliminary Knee - Left Gram Positive Paige,Mixed PFSH Social History Smoking/Tobacco Use Status: Current every day Tobacco Type: cigarettes Tobacco: How many years used: 30 Quit status: considering quitting Alcohol Intake: never Drug use: Never Substance use type: does not use and former substance user Housing: other Details: [facility] resident Number of Children: 2 What type of physical activity do you participate in: walking and additional Details: PT exercises Do you feel safe at home: Yes
--- NOTE | 2019-05-11 12:24 | NUR.NOTE ---
Report given to the nurse Nancy at [facility]. Pt being transferred via wheelchair van at 12:30.
[2019-05-11] MEDS: HYDROcodone 5/Acetaminophen 325 TAB PO (12:32)
--- NOTE | 2019-05-11 15:25 | CMDISCH_ITS ---
LACE Index Scoring Tool - Questions: Length of Stay (in days): 3 Acuity (Admit via E.D.?): No Comorbidities: Chronic Pulmonary Disease E.D. Visits: 1 - Answers: Total Score: 6 Risk of Readmission: Low Risk Care Management Discharge Reason for Hospitalization: s/p repair of L ruptured quad tendon Discharge Plan: Haven will discharge to [facility] when ready per MD. She will transport via the rehab's wheelchair van. Haven will have a short rehab stay prior to returning to her level three home at [place]. DOMENICA Salcedo completed form and was provided number for RN report. CM updated [facility] Mcguire and Pretty of discharge timing; 1230 for W/C transport. Patient/Family Education Needs: Review of discharge instructions, insurance limitations, transfer considerations. Services Needed at Discharge: [facility] Facility ([facility]), Transportation ([facility] )
== END 2019-05-11 12:45 | disposition skilled nursing facility (03) | DRG 502 ==
LOC: PDS 14:55 → MS 16:36
PROVIDERS: Admitting Provider Orthopaedic Surgery; PCP Specialist/Technologist Athletic Trainer; Visit Provider Orthopaedic Surgery
PROC: 0LQR0ZZ Repair Left Knee Tendon, Open Approach (ICD-10-PCS; CPT 27385; principal; 2019-05-08 12:45)
DX: S76.112A Strain of left quadriceps muscle, fascia and tendon, initial encounter (principal); X50.0XXA Overexertion from strenuous movement or load, initial encounter; Z96.652 Presence of left artificial knee joint; W19.XXXA Unspecified fall, initial encounter; J44.9 Chronic obstructive pulmonary disease, unspecified; I10 Essential (primary) hypertension
CPT/HCPCS: 27385; 97110; 97162; 97530; NC; 87070; 87205; J0131; J0690; J1100; J1200; J1885; J2250; J2405; J3010; J7042

== ENCOUNTER → 2019-06-07 08:33 | Outpatient (BNVA) | payer MEDICARE, MEDICAID, SELFPAY | PROVIDERS: PCP Specialist/Technologist Athletic Trainer; Referring Provider Specialist/Technologist Athletic Trainer; Visit Provider Orthopaedic Surgery | DX: Z47.89 Encounter for other orthopedic aftercare (principal); Z96.651 Presence of right artificial knee joint ==

== ENCOUNTER → 2019-07-19 09:40 | Outpatient (BNVA) | payer MEDICARE, MEDICAID, SELFPAY | PROVIDERS: PCP Specialist/Technologist Athletic Trainer; Referring Provider Specialist/Technologist Athletic Trainer; Visit Provider Orthopaedic Surgery | DX: S76.112A Strain of left quadriceps muscle, fascia and tendon, initial encounter (principal); W19.XXXA Unspecified fall, initial encounter ==

== ENCOUNTER 2019-09-04 16:00 | Outpatient (REF) | payer MEDICARE, MEDICAID, SELFPAY | END 2019-09-04 16:20 | LOC: NCHCN 16:00 | PROVIDERS: PCP Specialist/Technologist Athletic Trainer; Visit Provider Physician Assistant Medical | DX: L02.411 Cutaneous abscess of right axilla (principal) | CPT/HCPCS: 87077; 87070; 87186; 87205 ==

== ENCOUNTER → 2019-09-22 12:50 | Outpatient (BNVA) | payer MEDICARE, MEDICAID, SELFPAY | PROVIDERS: PCP Specialist/Technologist Athletic Trainer; Referring Provider Specialist/Technologist Athletic Trainer; Visit Provider Surgery | DX: L72.9 Follicular cyst of the skin and subcutaneous tissue, unspecified (principal); L02.429 Furuncle of limb, unspecified | CPT/HCPCS: 99212 ==

== ENCOUNTER → 2019-09-27 09:28 | Outpatient (BNVA) | payer MEDICARE, MEDICAID, SELFPAY | PROVIDERS: PCP Specialist/Technologist Athletic Trainer; Referring Provider Specialist/Technologist Athletic Trainer; Visit Provider Surgery | DX: L72.9 Follicular cyst of the skin and subcutaneous tissue, unspecified (principal); L02.429 Furuncle of limb, unspecified; I10 Essential (primary) hypertension; J44.9 Chronic obstructive pulmonary disease, unspecified; F17.210 Nicotine dependence, cigarettes, uncomplicated | CPT/HCPCS: 99211; 99213 ==

== ENCOUNTER → 2019-12-19 10:20 | Outpatient (BNVA) | payer MEDICARE, MEDICAID, SELFPAY | PROVIDERS: PCP Specialist/Technologist Athletic Trainer; Referring Provider Specialist/Technologist Athletic Trainer; Visit Provider Orthopaedic Surgery | DX: M17.11 Unilateral primary osteoarthritis, right knee (principal); I10 Essential (primary) hypertension; J44.9 Chronic obstructive pulmonary disease, unspecified; F17.210 Nicotine dependence, cigarettes, uncomplicated | CPT/HCPCS: 99213 ==

== ENCOUNTER 2019-12-26 12:59 | Outpatient (CLI) | payer MEDICARE, MEDICAID, SELFPAY ==
[2019-12-26 13:40] LABS: Abs Immature Grans 0.03 k/cumm (0.0-0.09); Absolute Basophil Count 0.03 k/cumm (0.0-0.2); Absolute Eosinophil Count 0.41 k/cumm (0.0-0.7); Absolute Lymphocyte Count 3.66 k/cumm (1.2-3.4); Absolute Monocyte Count 0.79 k/cumm (0.11-0.7); Absolute Neutrophil Count 4.85 k/cumm (1.2-6.7); Basophils % 0.3; Eosinophils % 4.2; HGB 14.3 g/dL (12.0-15.5); Immature Grans % 0.3 %; Lymphocytes % 37.5; Mean Corp. HGB Concentration 33.3 g/dL (32.0-36.0); Mean Corpuscular Hemoglobin 30.8 pg (27.0-33.0); Mean Corpuscular Volume 92.7 fL (80-95); Mean Platelet Volume 9.6 fL (8.0-11.0); Monocytes % 8.1; Neutrophils % 49.6; Platelet Count 241 x1000/uL (130-400); RBC 4.64 m/cumm (4.00-5.20); RBC Distribution Width 13.6 % (11.7-14.6); White Blood Cell Count 9.77 k/cumm (4.4-10.8)
== END 2019-12-26 13:19 ==
PROVIDERS: PCP Specialist/Technologist Athletic Trainer; Visit Provider Orthopaedic Surgery
DX: M25.561 Pain in right knee (principal); M17.11 Unilateral primary osteoarthritis, right knee; I10 Essential (primary) hypertension; D50.9 Iron deficiency anemia, unspecified; Z96.652 Presence of left artificial knee joint; Z01.818 Encounter for other preprocedural examination; Z01.812 Encounter for preprocedural laboratory examination
CPT/HCPCS: 36415; 85025

== ENCOUNTER 2019-12-28 09:56 | Outpatient (CLI) | payer MEDICARE, MEDICAID, SELFPAY | END 2019-12-28 10:16 | PROVIDERS: PCP Specialist/Technologist Athletic Trainer; Visit Provider Orthopaedic Surgery | DX: Z01.818 Encounter for other preprocedural examination (principal) ==

== ENCOUNTER 2020-01-01 05:56 | Inpatient (IN) | payer MEDICARE, MEDICAID, SELFPAY ==
[2020-01-01] VITALS (18 sets, daily range): BP systolic 117–158; BP diastolic 69–111; PULSE 86–104; RESP 11–22; TEMP 36.1–37.7; O2SAT 91–97
[2020-01-01] MEDS: Lactated Ringers 1,000 ML 80 ML IV ×2 (06:55→13:58)
[2020-01-01] MEDS: Bupivacaine LIPOSOME/PF 133 MG/10 ML VIAL IJ (07:25)
[2020-01-01] MEDS: Bupivacaine 0.25% Pres-Free 10 ML VIAL (07:25)
[2020-01-01] MEDS: ceFAZolin 2 GM/50 ML BAG IVPB ×3 (07:35→20:34)
[2020-01-01] MEDS: Hydrogen Peroxide 3% 480 ML BTL (08:20)
[2020-01-01] MEDS: Bupivacaine 0.5% Pres-Free 30 ML VIAL (09:42)
[2020-01-01] MEDS: fentaNYL 100 MCG/2 ML VIAL IVP ×3 (11:11→12:06)
--- NOTE | 2020-01-01 11:29 | DI.RAD_ITS ---
EXAM: XR KNEE RT 2V AP,LAT INDICATION: check total knee components in RR. TECHNIQUE: 2D digital imaging was performed. Portable AP and lateral views were performed. The kne e is viewed in an immobilizer. FINDINGS: Surgical drain is in place. A total knee prosthesis has been placed. The components appear well align ed.
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
--- NOTE | 2020-01-01 13:53 | NUR.NOTE ---
Nursing Note: 1309 pt to room 215 from PACU. VSS. WOUND VAC IN Place . SCD PLACED ON LEFT LEG. RIGHT LEG WITH POST OP DRESSING AND LEG STABILIZER. PT STATES SHE HAS 7/10 PAIN. PAIN MEDS ORDERED AND GIVEN SCHEDULED. LUNGS CLEAR. PT DRINKING WATER AND GINGERALE. NO SKIN ISSUES NOTED. LEFT LEG WITH OLD SCAR.
[2020-01-01] MEDS: oxyCODONE-CR 10 MG TABCR PO ×2 (13:59→23:14)
[2020-01-01] MEDS: Gabapentin 600 MG TAB PO ×2 (14:00→20:31)
[2020-01-01] MEDS: Docusate Sodium 100 MG CAP PO ×2 (14:00→20:31)
[2020-01-01] MEDS: Normal Saline Flush 10 ML SYR IV (15:27)
[2020-01-01] MEDS: Ketorolac 30 MG/ML VIAL IVP ×2 (15:28→21:08)
[2020-01-01] MEDS: POTASSIUM CHLORIDE/0.9% NACL 1,000 ML 125 MEQ IV (16:10)
[2020-01-01] MEDS: Acetaminophen 325 MG TAB 650 MG PO (20:31)
[2020-01-01] MEDS: Cyanocobalamin 500 MCG TAB 1000 MCG PO (21:08)
[2020-01-01] MEDS: Atorvastatin 40 MG TAB 80 MG PO (21:09)
[2020-01-01] MEDS: Melatonin 3 MG TAB 9 MG PO (21:09)
[2020-01-02] VITALS (9 sets, daily range): BP systolic 96–126; BP diastolic 67–80; PULSE 88–104; RESP 17–20; TEMP 36.7–38.2; O2SAT 91–97
[2020-01-02] MEDS: POTASSIUM CHLORIDE/0.9% NACL 1,000 ML 125 MEQ IV (00:05)
[2020-01-02] MEDS: ceFAZolin 2 GM/50 ML BAG IVPB ×2 (01:51→09:14)
[2020-01-02] MEDS: Ketorolac 30 MG/ML VIAL IVP ×4 (04:37→21:37)
[2020-01-02] MEDS: HYDROcodone 5/Acetaminophen 325 TAB PO ×3 (05:37→19:46)
[2020-01-02 07:10] LABS: HCT 39.5 % (36.0-46.0); HGB 12.9 g/dL (12.0-15.5); Mean Corp. HGB Concentration 32.7 g/dL (32.0-36.0); Mean Corpuscular Hemoglobin 30.6 pg (27.0-33.0); Mean Corpuscular Volume 93.8 fL (80-95); Mean Platelet Volume 9.8 fL (8.0-11.0); Platelet Count 193 x1000/uL (130-400); RBC 4.21 m/cumm (4.00-5.20); RBC Distribution Width 13.6 % (11.7-14.6); White Blood Cell Count 7.81 k/cumm (4.4-10.8)
[2020-01-02] MEDS: POTASSIUM CHLORIDE/0.9% NACL 1,000 ML 60 MEQ IV (08:45)
[2020-01-02] MEDS: Nicotine 14 MG/24 HR PATCH TD (09:10)
[2020-01-02] MEDS: Gabapentin 600 MG TAB PO ×3 (09:11→19:46)
[2020-01-02] MEDS: Omega-3 Fatty Acids 1000 MG CAP PO (09:11)
[2020-01-02] MEDS: buPROPion-XL 150 MG TABCR 300 MG PO (09:12)
[2020-01-02] MEDS: Pantoprazole 40 MG TABCR PO (09:12)
[2020-01-02] MEDS: Multivitamin w/Minerals TAB 1 TAB PO (09:12)
[2020-01-02] MEDS: Topiramate 50 MG TAB PO (09:13)
[2020-01-02] MEDS: Docusate Sodium 100 MG CAP PO ×3 (09:13→19:46)
[2020-01-02] MEDS: Cholecalciferol (Vitamin D3) 1,000 UNIT TAB 1000 UNITS PO (09:13)
[2020-01-02] MEDS: hydroCHLOROthiazide 25 MG TAB PO (09:13)
[2020-01-02] MEDS: Normal Saline Flush 10 ML SYR IV ×2 (10:34→15:19)
--- NOTE | 2020-01-02 10:48 | PTTR_ITS ---
Date of service: 01/02/20 Time of Service: 10:48 PT Notes Visit Reasons: OA (R) KNEE 01/02/2020 SUBJECTIVE: Haven reporting 5/10 pain. OBJECTIVE: Supine in bed. Agreeable to PT treatment. TRANSFERS Supine to sit: Min A Sit to supine: Mod A x2 Sit to stand: Min A x2 Stand to sit: Min A GAIT Device: FWW Weight bearing: AT R Assist: CGA Distance: 25' Deviation: Step to pattern THEREX: Pt performs AA SLR, quad sets and ankle pumps. See flow sheet. Cryo post treatment. ASSESSMENT: Pt progressing well with PT. She is unable to perform active SLR and immobilizer will remain in place with gait. Pt would benefit from continued PT services to improve gait and strength. PLAN: Continue current POC. Treatment time: 25' [id number], [id number] Heather Laureano, PROGRAM MANAGER SLP
[2020-01-02] MEDS: Enoxaparin 40 MG/0.4 ML SYR SC (12:21)
[2020-01-02] MEDS: oxyCODONE-CR 10 MG TABCR PO ×2 (12:22→23:52)
--- NOTE | 2020-01-02 12:59 | W.NUTCONSULT ---
Date of service: 01/02/20 Time of Service: 12:59 Nutritional Consult ASSESSMENT: 54 year old female s/p Right total knee replacement. BMI indicates class 3 obesity, morbid obesity. Met with Haven today and reviewed optimal diet for healing and weight maintenance. Haven did not want further diet instruction on weight management and said she is watching her weight by cutting down on desserts. Currently following regular meal plan and meeting nutrient/fluid needs. Not considered at nutritional risk at this time. MONITORING AND EVALUATION: po intake, weight, labs Time Spent in Nutritional Counseling and Treatment: 10 min spent face to face
--- NOTE | 2020-01-02 14:34 | PT.INTREAT ---
Date of service: 01/02/20 Time of Service: 14:34 PT Notes Visit Reasons: OA (R) KNEE 01/02/2020 SUBJECTIVE: Haven stating she is doing okay this afternoon. She is agreeable to PT treatment. OBJECTIVE: TRANSFERS Supine to sit: Min A Sit to stand: Min A Stand to sit: CGA GAIT Device: FWW Weight bearing: AT R Assist: CGA Distance: 25' Deviation: Step to pattern. Immobilizer donned. THEREX: Light LE strengthening as noted on flow sheet. ASSESSMENT: Pt progressing with PT. She agrees to sit up in the chair for awhile this afternoon. Manageable pain level per subjective report. Pt will benefit from continued PT services to increase her gait distance and LE strength. PLAN: Continue current POC. Treatment time: 20 Heather Laureano PTA
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
--- NOTE | 2020-01-02 15:19 | CHAPLAIN ---
Haven was resting in bed when I visited. She told me she is from the [facility], but lives currently at [facility] in [place]. Haven replied to my questions with one-word answers, and spoke slowly, but seemed to be comfortable engaging in the conversation. She talked about how much her knee hurt before surgery, and her hopes for feeling much less pain after the recovery.
--- NOTE | 2020-01-02 15:27 | NUR.NOTE ---
Nursing Note: I have reviewed Sabrina Watts's charting and I am satisfied that this is accurate
--- NOTE | 2020-01-02 16:22 | PGE_ITS ---
Date of Service Date of service: 01/02/20 Time of Service: 16:22 Assessment and Plan Assessment and plan (1) Status post total right knee replacement: Status: Acute Assessment and plan: Assessment: Stable postop day #1 right total knee replacement. So father no problems. She wants to go to [facility] and rehab for additional recovery. She is already talked to care management about this. Plan: Continue to mobilize per protocol for total knee replacement. DC IV fluids today. DC to correction facility when taking just p.o. pain meds Subjective Subjective Interval history since last seen: Her knee is painful but it is controlled with the pain medicine she has ordered. Exam Narrative Exam Narrative: Neurovascular exam of the right foot is normal. She has good active ankle dorsiflexion and plantar flexion. Her intakes and outputs are good. Hemoglobin this morning is 12.9 g. She was able to walk from her bed to the doorway and back today. Objective Objective Clinical Data: Vital Signs Temperature 36.7 C 01/02/20 15:20 Temperature Source Tympanic 01/02/20 15:20 Pulse 92 H 01/02/20 15:20 Pulse Rhythm Regular 01/02/20 13:41 Respiratory Rate 17 01/02/20 15:20 Respiratory Effort Non-Labored 01/02/20 13:41 Respiratory Depth Normal 01/02/20 13:41 Respiratory Pattern Normal 01/02/20 13:41 Blood Pressure 104/73 01/02/20 15:20 Pulse Oximetry 96 01/02/20 15:20 Respiratory End-tidal CO2 41 01/01/20 12:29 Oxygen Delivery Method Room Air 01/02/20 15:20 Oxygen Flow Rate 0 01/02/20 15:20 Pain Level 6 01/02/20 15:20 Intake & Output 01/01/20 01/02/20 01/02/20 23:59 11:59 23:59 Intake Total 1382.833 / 2312.833 1793.750 / 2273.750 480 / 2273.750 Output Total 325 / 450 2450 / 2450 Balance 1057.833 / 1862.833 -656.250 / -176.250 480 / -176.250 Intake: IV 1322.833 / 2192.833 1393.750 / 1393.750 Oral 60 / 120 400 / 880 480 / 880 Output: Urine 325 / 450 2450 / 2450 Other: Urine Color Light Caitlin Light Caitlin Light Caitlin Urine Appearance Clear Clear Clear Comment Bhakta was kinked and started leaking soaking the bed. Full bed change done patent and draining adequate amounts of C, Yellow urine Emesis Description None Laboratory Results WBC 7.81 k/cumm (4.4-10.8) 01/02/20 06:45 RBC 4.21 m/cumm (4.00-5.20) 01/02/20 06:45 Hgb 12.9 g/dL (12.0-15.5) 01/02/20 06:45 Hct 39.5 % (36.0-46.0) 01/02/20 06:45 MCV 93.8 fL (80-95) 01/02/20 06:45 MCH 30.6 pg (27.0-33.0) 01/02/20 06:45 MCHC 32.7 g/dL (32.0-36.0) 01/02/20 06:45 RDW 13.6 % (11.7-14.6) 01/02/20 06:45 Plt Count 193 x1000/uL (130-400) 01/02/20 06:45 MPV 9.8 fL (8.0-11.0) 01/02/20 06:45
--- NOTE | 2020-01-02 17:30 | ROE_ITS ---
DATE OF PROCEDURE: January 01, 2020 PREOPERATIVE DIAGNOSIS: Osteoarthritis, right knee. POSTOPERATIVE DIAGNOSIS: Same. PROCEDURE: Right total knee arthroplasty. COMPONENTS USED: 1. Size 2.5 posterior cruciate-substituting femoral component. 2. Size 2.5 tibial tray. 3. Size 2.5, 15 mm posterior cruciate-stabilized polyethylene insert. 4. 32 mm tri-pronged patella. All components were cemented. ANESTHESIA: General, Dayna Lilly CRNA SURGEON: Immanuel Garcia M.D. BANDAGE WRAPPING MACHINE OPERATOR: Clint Curry INDICATIONS: This is a 54-year-old white female with a BMI of 48 with disabling pain in the right kn ee due to advanced osteoarthritis. She has previously undergone a successful left total knee replace ment in February of 2019. She is so pleased by the pain relief and improved function from her left tota l knee that she wishes to proceed with a right total knee replacement. The risks and complications o f the procedure have been explained to the patient in detail preoperatively. PROCEDURE: The patient was taken to the operating room on 01/01/2020. She was placed supine on the op erating table and a general anesthetic was administered. Additionally an adductor canal block was ad ministered by the stock clerk self service store. A proximal tourniquet was applied to the right thigh and then the rig ht lower extremity was prepped from toes to tourniquet and draped free in the usual sterile fashion. Under proximal tourniquet control an anterior midline incision was made beginning just distal to the tibial tubercle and carried proximally about four inches proximal to the patella. The incision was c arried down to the skin and subcu down to the fascia. Subcutaneous veins were cauterized. A medial parapatellar capsular incision was made, extended proximally and longitudinally in line with the quad tendon. Subperiosteal dissection was used and a complete medial release was performed to compensate for her preop varus deformity. The patella was mobilized. Large osteophytes from around the distal femur were resected with a rongeur. The distal femur was then resected using intramedullary alignme nt guides and jigs. She was found to require a size 2.5 femoral component of the posterior cruciate- substituting type. The proximal tibia was then resected using extramedullary alignment guides and ji gs. She was found to require a size 2.5 tibial component. With the tibial guide in place, I reamed out the stem of the 2.5 tibial component in proper rotation alignment. Finally the patella was resec shirley using the patellar resection guide and an oscillating saw. Care was taken to preserve 16 mm of t hickness of patella following resection. Using the drill guide for the tri-pronged patella, 32 mm, I drilled out the holes for the pegs in the patella in proper rotation alignment. The proximal tibia was prepared for cementing with pulse irrigation lavage of saline solution and dry ing with peroxide-soaked strip sponges. One batch of gentamicin-impregnated methylmethacrylate was v acuum-mixed. While still liquid I applied the methylmethacrylate to the posterior aspect of the tibi al tray. I then applied the methylmethacrylate to the proximal tibia. The tibial component was inse rted and impacted into place with impactor and mallet and further pressurized using the trial compone nts and extending the knee. Excess cement was trimmed from the margins of the tibial tray while the cement was still soft using the plastic cement removal tool. When the first batch of methylmethacry late had fully cured the trial components were removed. The hole for the intramedullary femoral rese ction guide was plugged with bone from the distal femoral resections. The distal femur and patella w ere then prepared for cementing with pulse irrigation lavage of saline solution and drying with perox leroy-soaked strip sponges. A second batch of gentamicin-impregnated methylmethacrylate was vacuum-mix ed. The methylmethacrylate was packed onto the posterior aspect of the femoral component while still fairly liquid. I then packed the cement onto the distal femur and patella and onto the posterior reynoso rfaces of the patellar component. The femoral component was impacted into place. The trial insert w as placed and the knee was extended to pressurize the femoral component. The patellar component was inserted and pressurized using the patellar clamp. Excess cement was trimmed from the margins of the femoral component and the patellar component while the cement was still soft using the plastic cemen t removal tool. When the second batch of methylmethacrylate had cured the trial insert was removed. The posterior recesses were inspected and any residual cement or bone debris were removed at this po int. The knee was irrigated a final time with pulse irrigation lavage of saline solution. Using the trial inserts I felt there was better stability with varus/valgus stressing of the knee from 0 to 90 degrees with a 15 mm thick tibial insert. The 15 mm insert still allowed the knee to come to full e xtension. The actual insert, 15 mm size 2.5, posterior cruciate-substituting was then inserted in th e tibial tray and reduced onto the femoral condyles. Patellar tracking was checked using the rule-of -no-thumb. The patella tracked anatomically. The right knee was flexed over soft goods and closure was begun. The entire capsule of the knee, including the posterior capsule, were infiltrated with 0.5% Marcaine solution. The wound margins were infiltrated with 0.5% Marcaine solution. The medial parapatellar c apsular incision and the incision in the quad tendon were repaired with interrupted [id number] s utures of #1 Vicryl suture material. The subcu was approximated with a few interrupted #2-0 Vicryl s utures. A running subcuticular suture of #4-0 Monocryl was then used to approximate the skin edges a nd tissue glue was placed over the skin margins. I then applied a PREVENA dressing over the incision . An excellent airtight seal was obtained and the negative pressure portable pump was activated. I then placed over this PREVENA dressing a dressing of gauze 4x4's, ABD pads and wrapped with 6-inch AC E bandages. She was then placed in a knee immobilizer splint. The tourniquet was released at this p oint. The patient had received one gram of tranexamic acid prior to tourniquet inflation. She recei elsa a second gram of tranexamic acid after tourniquet deflation. The patient's anesthesia was revers ed without complication. Blood loss was minimal due to tourniquet use. The patient was discharged t o the recovery room in good condition.
[2020-01-02] MEDS: Atorvastatin 40 MG TAB 80 MG PO (21:36)
[2020-01-02] MEDS: Cyanocobalamin 500 MCG TAB 1000 MCG PO (21:36)
[2020-01-02] MEDS: Polyethylene Glycol 3350 17 GM PACKET PO (21:36)
[2020-01-03] VITALS (7 sets, daily range): BP systolic 95–125; BP diastolic 64–86; PULSE 83–93; RESP 18–20; TEMP 36.6–37.3; O2SAT 93–96
[2020-01-03] MEDS: Ketorolac 30 MG/ML VIAL IVP ×4 (04:01→21:32)
[2020-01-03] MEDS: Normal Saline Flush 10 ML SYR IV ×3 (04:01→21:31)
[2020-01-03 06:45] LABS: HCT 36.6 % (36.0-46.0); Mean Corp. HGB Concentration 32.8 g/dL (32.0-36.0); Mean Corpuscular Hemoglobin 30.6 pg (27.0-33.0); Mean Corpuscular Volume 93.4 fL (80-95); Mean Platelet Volume 9.5 fL (8.0-11.0); Platelet Count 192 x1000/uL (130-400); RBC 3.92 m/cumm (4.00-5.20); RBC Distribution Width 13.5 % (11.7-14.6); White Blood Cell Count 8.31 k/cumm (4.4-10.8)
[2020-01-03] MEDS: Pantoprazole 40 MG TABCR PO (07:28)
[2020-01-03] MEDS: HYDROcodone 5/Acetaminophen 325 TAB PO ×2 (09:06→13:19)
[2020-01-03] MEDS: Nicotine 14 MG/24 HR PATCH TD (09:08)
[2020-01-03] MEDS: Multivitamin w/Minerals TAB 1 TAB PO (09:08)
[2020-01-03] MEDS: buPROPion-XL 150 MG TABCR 300 MG PO (09:09)
[2020-01-03] MEDS: Docusate Sodium 100 MG CAP PO ×3 (09:09→19:38)
[2020-01-03] MEDS: Cholecalciferol (Vitamin D3) 1,000 UNIT TAB 1000 UNITS PO (09:09)
[2020-01-03] MEDS: Topiramate 50 MG TAB PO (09:09)
[2020-01-03] MEDS: Omega-3 Fatty Acids 1000 MG CAP PO (09:10)
[2020-01-03] MEDS: hydroCHLOROthiazide 25 MG TAB PO (09:10)
[2020-01-03] MEDS: Gabapentin 600 MG TAB PO ×3 (09:10→19:39)
--- NOTE | 2020-01-03 10:00 | NUR.NOTE ---
Called caregiver facility to check on getting pts home meds to the hospital. Nursing Note:
--- NOTE | 2020-01-03 11:37 | PT.INTREAT ---
Date of service: 01/03/20 Time of Service: 11:37 PT Notes Visit Reasons: OA (R) KNEE 01/03/2020 SUBJECTIVE: Haven offers minimal pain complaints. She states she would like to go to rehab prior to going home to get stronger. OBJECTIVE: Pt seated in her recliner. Agreeable to PT treatment. TRANSFERS Sit to stand: CGA Stand to sit: CGA GAIT Device: FWW Assist: CGA Weight bearing: AT R Distance: 35' Deviation: Step to pattern THEREX: R knee PROM into flexion to her tolerance. Light LE strengthening. AA SLR x 10. ASSESSMENT: Pt progressing with her transfers and gait distance today. She is unable to active SLR today but is putting in a good effort. Pt would benefit from continued PT services to improve her strength and functional gait. PLAN: Continue per POC. Treatment time: 30' [id number], [id number] Heather Laureano, ETHAN
[2020-01-03] MEDS: Enoxaparin 40 MG/0.4 ML SYR SC (11:59)
[2020-01-03] MEDS: oxyCODONE-CR 10 MG TABCR PO ×2 (11:59→23:15)
--- NOTE | 2020-01-03 14:45 | PGE_ITS ---
Date of Service Date of service: 01/03/20 Time of Service: 14:46 Assessment and Plan Assessment and plan (1) Status post total right knee replacement: Status: Acute Assessment and plan: Assessment: She is progressing satisfactorily at 48 hours post op right total knee replacement. I think she can go to the [facility] and rehab tomorrow barring any setbacks. Plan: Continue present treatment. Plan transfer to [facility] and [facility] tomorrow. Subjective Subjective Patient reports: no new complaints and pain is less Interval history since last seen: Her postop pain is well controlled by her medications so far. Exam Narrative Exam Narrative: She cannot do a straight leg raise at this time. She is able walk 35 feet with PT. She is urinating now that her Bhakta is out. Hemoglobin 12 g today. She started doing some flexion with PT today but the number was not recorded. Objective Objective Clinical Data: Abnormal lab results 01/03/20 Range/Units 06:22 RBC 3.92 L (4.00-5.20) m/cumm Vital Signs Temperature 37.3 C 01/03/20 11:01 Temperature Source Tympanic 01/03/20 11:01 Pulse 89 01/03/20 11:01 Pulse Rhythm Regular 01/03/20 07:46 Respiratory Rate 20 01/03/20 11:01 Respiratory Effort Non-Labored 01/03/20 07:46 Respiratory Depth Normal 01/03/20 07:46 Respiratory Pattern Normal 01/03/20 07:46 Blood Pressure 102/86 01/03/20 11:01 Pulse Oximetry 94 L 01/03/20 11:01 Respiratory End-tidal CO2 41 01/01/20 12:29 Oxygen Delivery Method Room Air 01/03/20 11:01 Oxygen Flow Rate 0 01/03/20 11:01 Pain Level 9 01/03/20 13:19 Comment 01/03/20 11:01 Intake & Output 01/02/20 01/03/20 01/03/20 23:59 11:59 23:59 Intake Total 960 / 2753.750 1279.167 / 1639.167 360 / 1639.167 Output Total 2150 / 4600 1540 / 1540 Balance -1190 / -1846.250 -260.833 / 99.167 360 / 99.167 Intake: IV 799.167 / 799.167 Oral 960 / 1360 480 / 840 360 / 840 Output: Urine 2150 / 4600 1540 / 1540 Other: Urine Color Straw Yellow Urine Appearance Clear Clear Urine Odor Normal Comment patent and draining adequate amounts of C, Yellow urine Voiding Methods Bedside Commode Laboratory Results WBC 8.31 k/cumm (4.4-10.8) 01/03/20 06:22 RBC 3.92 m/cumm (4.00-5.20) L 01/03/20 06:22 Hgb 12.0 g/dL (12.0-15.5) 01/03/20 06:22 Hct 36.6 % (36.0-46.0) 01/03/20 06:22 MCV 93.4 fL (80-95) 01/03/20 06:22 MCH 30.6 pg (27.0-33.0) 01/03/20 06:22 MCHC 32.8 g/dL (32.0-36.0) 01/03/20 06:22 RDW 13.5 % (11.7-14.6) 01/03/20 06:22 Plt Count 192 x1000/uL (130-400) 01/03/20 06:22 MPV 9.5 fL (8.0-11.0) 01/03/20 06:22
--- NOTE | 2020-01-03 15:39 | PT.INTREAT ---
Date of service: 01/03/20 Time of Service: 15:39 PT Notes Visit Reasons: OA (R) KNEE 01/03/2020 SUBJECTIVE: Haven noting she has had more pain this afternoon and receives pain medications not too long ago. She is a little sleepy from this. OBJECTIVE: Seated in her chair with cryo donned. Agreeable to PT treatment. TRANSFERS Sit to stand: CGA Stand to sit: CGA GAIT Device: FWW Weight bearing: AT R Assist: CGA Distance: 35' Deviation: Step to pattern, slow gait pattern THEREX: light LE strengthening and R knee ROM activities. See flow sheet. ASSESSMENT: Pt experience increase in discomfort this afternoon and did not want to increase her gait distance. Her transfers are improving and she is demonstrating good safety awareness with the walker. PLAN: Continue current POC. Treatment time: 25' [id number], [id number] Heather Laureano, ELEMENTARY SCHOOL MUSIC TEACHER
--- NOTE | 2020-01-03 18:43 | PDOC.CMPRO ---
- If Service Date Differs Date of service: 01/03/20 Time of Service: 18:43 Care Management Progress Note S/O: Haven was sitting up in her chair eating lunch when CM met with her. She reported that she was feeling ok, but she has had a lot of pain and feels her recovery will be slow. She is looking forward to going to rehab at [facility], which she requested as a facility for rehab. CM sent a referral to [facility], and they have accepted her, but they do not currently have a bed to offer. CM will follow up with their bed status tomorrow. If no beds available, CM will send referrals to other facilities that Haven is interested in. CM will continue to follow. A: Haven is a 54 year old female admitted to [facility] on 01/01/2020 with a R Knee replacement. P: Anticipate Haven will transition to a facility for a short, skilled rehab stay prior to returning home to [facility]. She will transition once medically cleared. She will follow up with Ortho, as recommended. She will transport via w/c van, coordinated by CM. CM will continue to follow.
[2020-01-03] MEDS: Atorvastatin 40 MG TAB 80 MG PO (21:30)
[2020-01-03] MEDS: Cyanocobalamin 500 MCG TAB 1000 MCG PO (21:30)
[2020-01-03] MEDS: Polyethylene Glycol 3350 17 GM PACKET PO (21:30)
[2020-01-04 03:27] VITALS: BP 119/78; PULSE 86; RESP 18; TEMP 36.7; O2SAT 95
[2020-01-04] MEDS: HYDROcodone 5/Acetaminophen 325 TAB PO ×3 (07:00→20:59)
[2020-01-04 07:30] VITALS: BP 103/69; PULSE 89; RESP 19; TEMP 36.7; O2SAT 95
--- NOTE | 2020-01-04 08:41 | PGE_ITS ---
Date of Service Date of service: 01/04/20 Time of Service: 08:41 Assessment and Plan Assessment and plan (1) Status post total right knee replacement: Status: Acute Assessment and plan: Assessment: 72 hours postop right total knee replacement making slow progress. I think she is ready for discharge to longterm facility. Unfortunately the longterm facility she prefers, [facility] and rehab was closed yesterday afternoon due to flu. It is unknown when it would be open again. I have instructed care management to check other facilities such as the [facility]. Plan: Transfer to longterm facility soon as bed is available. If it does not look like a bed will be available soon we will place her on swing bed status at [facility]. Meanwhile, we will continue to mobilize with PT as inpatient. Subjective Subjective Patient reports: no new complaints Exam Narrative Exam Narrative: She is afebrile vital signs are stable. Neurovascular examination of her right right foot is normal. She is making very slow progress with her mobilization. Still can't do an active straight leg raise on the right. Objective Objective Clinical Data: Vital Signs Temperature 36.7 C 01/04/20 07:30 Temperature Source Tympanic 01/04/20 07:30 Pulse 89 01/04/20 07:30 Pulse Rhythm Regular 01/03/20 23:05 Respiratory Rate 19 01/04/20 07:30 Respiratory Effort Non-Labored 01/03/20 23:05 Respiratory Depth Normal 01/03/20 23:05 Respiratory Pattern Normal 01/03/20 23:05 Blood Pressure 103/69 01/04/20 07:30 Pulse Oximetry 95 01/04/20 07:30 Respiratory End-tidal CO2 41 01/01/20 12:29 Oxygen Delivery Method Room Air 01/04/20 07:30 Oxygen Flow Rate 0 01/04/20 07:30 Pain Level 8 01/04/20 07:30 Comment 01/03/20 11:01 Intake & Output 01/03/20 01/03/20 01/04/20 11:59 23:59 11:59 Intake Total 1279.167 / 2639.167 1360 / 2639.167 Output Total 1540 / 1940 400 / 1940 2400 / 2400 Balance -260.833 / 699.167 960 / 699.167 -2400 / -2400 Intake: IV 799.167 / 819.167 .167 Oral 480 / 1820 1340 / 1820 Output: Urine 1540 / 1940 400 / 1940 2400 / 2400 Other: Urine Color Yellow Yellow Yellow Urine Appearance Clear Clear Clear Urine Odor Normal Normal Strong Voiding Methods Bedside Commode Bedside Commode Bedside Commode Laboratory Results WBC 8.31 k/cumm (4.4-10.8) 01/03/20 06:22 RBC 3.92 m/cumm (4.00-5.20) L 01/03/20 06:22 Hgb 12.0 g/dL (12.0-15.5) 01/03/20 06:22 Hct 36.6 % (36.0-46.0) 01/03/20 06:22 MCV 93.4 fL (80-95) 01/03/20 06:22 MCH 30.6 pg (27.0-33.0) 01/03/20 06:22 MCHC 32.8 g/dL (32.0-36.0) 01/03/20 06:22 RDW 13.5 % (11.7-14.6) 01/03/20 06:22 Plt Count 192 x1000/uL (130-400) 01/03/20 06:22 MPV 9.5 fL (8.0-11.0) 01/03/20 06:22
[2020-01-04] MEDS: hydroCHLOROthiazide 25 MG TAB PO (08:55)
[2020-01-04] MEDS: buPROPion-XL 150 MG TABCR 300 MG PO (08:56)
[2020-01-04] MEDS: Multivitamin w/Minerals TAB 1 TAB PO (08:56)
[2020-01-04] MEDS: Gabapentin 600 MG TAB PO ×3 (08:56→20:19)
[2020-01-04] MEDS: Omega-3 Fatty Acids 1000 MG CAP PO (08:56)
[2020-01-04] MEDS: Topiramate 50 MG TAB PO (08:56)
[2020-01-04] MEDS: Nicotine 14 MG/24 HR PATCH TD (08:56)
[2020-01-04] MEDS: Cholecalciferol (Vitamin D3) 1,000 UNIT TAB 1000 UNITS PO (08:56)
[2020-01-04] MEDS: Docusate Sodium 100 MG CAP PO ×3 (08:57→20:19)
[2020-01-04] MEDS: Pantoprazole 40 MG TABCR PO (08:57)
[2020-01-04] MEDS: Acetaminophen 325 MG TAB 650 MG PO (09:28)
--- NOTE | 2020-01-04 10:32 | NUR.NOTE ---
Nursing Note: Patient here for s/p right total knee replacement for severe osteoarthritis. Patient has a wound vac in place to surgical site with dressing CDI. Resident has ervin wrap on right leg to past knee and shirley on left leg to knee height, wears knee immobilizer on right leg when OOB. Ambulated with therapy from chair in room to next room then back to chaire in her room. Rated pain 8 of 10 at 0930--PRN tylenol given as too soon for narco administration. Patient alert and oriented x3, VSS. LS CTA. No coughg present and no sx of dyspnea noted. Abdomen round, non-tender, non-distended, bowel sounds normoactive x4. Resident had a medium BM this shift (soft formed) and stated she felt much better as her last BM was 12/31/19. CMSTS stable with exception of greater then 3 second capillary refill to right toe--not much longer. Noted to have tight edema to right foot compared to left--non-tender. Cryo-cuff in place for pain management to right knee.
--- NOTE | 2020-01-04 11:48 | PT.INTREAT ---
Date of service: 01/04/20 Time of Service: 11:48 PT Notes Visit Reasons: OA (R) KNEE 01/04/2020 SUBJECTIVE: Haven stating she has had a little more pain this morning. She did sleep okay last night. She reports 8/10 pain after ambulation this morning. OBJECTIVE: Seated in her recliner. Agrees to PT treatment. TRANSFERS Sit to stand: CGA Stand to sit: CGA GAIT Device: FWW Weight bearing: AT R Assist: CGA Distance: 45' Deviation: Step to pattern THEREX: Light LE exercises and ROM of the R knee. Pt tolerates 75 degrees knee flexion and end range discomfort. ASSESSMENT: Pt able to progress with her gait distance this morning. She did have increase in pain after this although is due for her pain medication with the half hour. Pt will benefit from continues PT efforts to increase her functional mobility and strength. PLAN: Continue per POC. Treatment time: 20' [id number] Hetaher Laureano PTA
[2020-01-04] MEDS: Enoxaparin 40 MG/0.4 ML SYR SC (12:10)
[2020-01-04] MEDS: oxyCODONE-CR 10 MG TABCR PO (12:11)
[2020-01-04 13:13] VITALS: BP 118/79; PULSE 76; RESP 19; TEMP 37.6; O2SAT 95
--- NOTE | 2020-01-04 15:10 | CHAPLAIN ---
Haven seemed to be more friendly in greeting me today. She told me that she was hoping to be discharged to [facility], but it is closed to admission right now. Another possibility is at a facility in [place], she said, but she prefers not to go so far away. Her son lives in [place] and she is hoping to go some place closer to [place] so he could visit. He works two jobs, and has four kids, Haven said, so he doesn't have much time to visit but she is concerned about him having to drive too far.
[2020-01-04 15:18] VITALS: BP 114/75; PULSE 84; RESP 20; TEMP 37.4; O2SAT 95
--- NOTE | 2020-01-04 15:21 | PTTR_ITS ---
Date of service: 01/04/20 Time of Service: 15:22 PT Notes Visit Reasons: OA (R) KNEE Inpatient Physical Therapy Treatment Note [facility] Date: 01/04/2020 PRECAUTIONS: Standard. Fall. WBAT ON R LE. SUBJECTIVE: PT reports that she does not feel that she is able to ambulate the entire nursing loop due to pain. She continues to hope that she can go to the health and rehab when she discharges from the hospital. OBJECTIVE: GAGE bandage in place with wound vac on. Cryocuff on. PAIN:0/10 at rest, 8/10 with ambulation. BED MOBILITY/TRANSFERS Sit-stand: SBA Stand-sit: SBA Bed-Chair: SBA Chair-bed: SBA VITALS: NT GAIT: Pt was able to ambulate 80 feet + 50 feet, WBAT on the R LE, using a front-wheeled walker with knee immobilizer. SBA provided by PT student with wheelchair follow provided by PT. Step to gait pattern. Complained of increased pain to 8/10. Required one standing rest break due to increased pain. THEREX: Glute set x10 Quadriceps set x5 with 5 second hold on the L Ankle pumps B x 15 ASSESSMENT: Pt demonstrated improved mobility with ambulation as she was able to walk a greater distance compared to her morning treatment session, however did report increased pain. She showed improvements with transfers, as she required less assistance with a sit to stand transfer compared to previous sessions. Able to complete therapeutic interventions without complaints of incre ased pain. She remains unable to perform active SLR due to pain. She would continue to benefit from skilled physical therapy at this time. PLAN: Continue to coordinate with nursing for pre-medication for pain. Continue with established POC. Discharge to residential facility for improved mobility, strengthening, and balance, to promote a smooth transition to home. TREATMENT CODE/TIME: 76993 x 16 minutes, 99728 x 12 minutes beginning at 13:52 P.M Ruth Martinez SPT Doctor of Physical Therapy Student [facility] Supervision provided by Savanna Granados PT, DPT, CLT [facility] [place], [place]
--- NOTE | 2020-01-04 15:30 | PHARADMIT ---
Admission Pharmacy Clinical Review OA (R) knee Code Status Full Code Current Weight 121.9 kg Renally Cleared and Narrow Therapeutic Index Meds Crcl ~88.4 mL/min using adjusted body weight QTc Value / Action Taken none BP Control, Fever BP 114/75 afebrile Electrolytes reviewed no labs DVT Prophylaxis enoxaparin Opiate Usage / Scheduled Bowel Regimen Ordered aida and prn for both Plt/SCr for Heparin / Enoxaparin plt 192 SCr 0.19(from february 2019) INR for Warfarin n/a H/H stable, WBC/Bands h/h 12.0/36.6 wbc 8.31 Antibiotic appropriateness none Cultures and Sensitivities none Surgical ABX d/c within 24 hr yes DM control / Insulin Dosing no labs none Heart Failure (Check EF%) (GAGE's, B-Block, Diuretics) HCTZ, IV to PO Switch n/a Home Meds Reviewed -loratadine may enhance the ulcerogenic effect of potassium -bupropion may inhibit the metabolism of aripiprazole; may require dose reduction of aripiprazole pending indication, genotype of pt, and additional drug interactions -multiple TIRE ROOM SUPERVISOR depressants: tramadol, aripiprazole, gabapentin, loratadine, topiramate -HCTZ may enhancethe hypokalemic effect of topiramate Home Meds Not Ordered esomeprazole(has pantoprazole ordered), lidocaine patch, naproxen (had ketorolac ordered), potassium chloride, tramadol(has other pain meds ordered) Comments possible discharge to [facility] once they accept admissions again
--- NOTE | 2020-01-04 16:30 | PDOC.CMPRO ---
- If Service Date Differs Date of service: 01/04/20 Time of Service: 16:30 Care Management Progress Note S/O: Haven was sitting up in her chair when CM met with her. She reported that she was feeling okay today, and that her progress is slow. CM discussed options for Haven if [facility], her first choice, doesn't have a bed for her upon discharge. CM offered a list of facilities ([facility]) for her to consider. CHRISTIE communicated with admissions at [facility], who reported that they anticipate a bed available tomorrow, 01/05/2020. CM informed Dr. Garcia's office as well as her primary RN of this plan. Haven is agreeable to go to [facility], as it was her first choice. CM will continue to follow. A: Haven is a 54 year old female admitted to [facility] on 01/01/2020 with a R Knee replacement. P: Anticipate Haven will transition to a facility for a short, skilled rehab stay prior to returning home to [facility]. She will transition once medically cleared. She will follow up with Ortho, as recommended. She will transport via w/c van, coordinated by CHRISTIE. CM will continue to follow.
[2020-01-04 19:44] VITALS: BP 124/81; PULSE 64; RESP 19; TEMP 37.3; O2SAT 99
[2020-01-04] MEDS: Atorvastatin 40 MG TAB 80 MG PO (20:59)
[2020-01-04] MEDS: Cyanocobalamin 500 MCG TAB 1000 MCG PO (20:59)
[2020-01-04] MEDS: Melatonin 3 MG TAB 9 MG PO (21:02)
[2020-01-05 03:52] VITALS: BP 103/68; PULSE 80; RESP 16; TEMP 37.2; O2SAT 94
[2020-01-05] MEDS: HYDROcodone 5/Acetaminophen 325 TAB PO ×2 (06:02→09:20)
[2020-01-05 07:53] VITALS: BP 112/76; PULSE 82; RESP 14; TEMP 37; O2SAT 96
[2020-01-05] MEDS: Pantoprazole 40 MG TABCR PO (08:20)
[2020-01-05] MEDS: buPROPion-XL 150 MG TABCR 300 MG PO (08:21)
[2020-01-05] MEDS: Docusate Sodium 100 MG CAP PO (08:21)
[2020-01-05] MEDS: Topiramate 50 MG TAB PO (08:21)
[2020-01-05] MEDS: Multivitamin w/Minerals TAB 1 TAB PO (08:21)
[2020-01-05] MEDS: Cholecalciferol (Vitamin D3) 1,000 UNIT TAB 1000 UNITS PO (08:21)
[2020-01-05] MEDS: hydroCHLOROthiazide 25 MG TAB PO (08:21)
[2020-01-05] MEDS: Omega-3 Fatty Acids 1000 MG CAP PO (08:21)
[2020-01-05] MEDS: Gabapentin 600 MG TAB PO (08:21)
[2020-01-05] MEDS: Nicotine 14 MG/24 HR PATCH TD (08:26)
--- NOTE | 2020-01-05 09:07 | DSE_ITS ---
Date of service: 01/05/20 Time of Service: 09:08 DS: Diagnosis Discharge Diagnosis (1) Status post total right knee replacement: Status: Acute Discharge Plan Disposition Patient Disposition: SNF (LEVEL 1) [facility] Condition: Good Discharge Details Reason For Visit: OA (R) KNEE/R total knee Admit Date/Time: 01/01/20 05:56 Admit Provider: Vikash Hall Attending Provider: Immanuel Garcia Primary Care Provider: Serafin Adams Hospital Course Hospital Course: Patient taken the operating room on the day of admission 01/01/2020 where she underwent a right total knee replacement without complication. Postoperatively she was mobilized on day 1 by physical therapy. Patient had made plans to go to a long-term facility on discharge. She remained afebrile throughout her hospital course. She completed acute care goals by 01/04/2020. However, because of the flu the long-term facility did not accept patients on the 213. The long-term facility was reopened on 01/05/2020 and the patient was discharged to the long-term facility. At the time of discharge she had a negative pressure wound VAC in place that was not draining anything. She had no swelling in her right leg. She was ambulating greater than 35 feet. She still did not have good quadriceps control and could not do a straight leg raise. She was taking only p.o. pain meds. Home Meds and New Rx's Prescriptions: New hydrocodone-acetaminophen 5-325 mg tablet 1 tab PO Q6H PRN (Reason: pain) Qty: 30 RF: 0 Continued atorvastatin 80 mg tablet 80 mg PO HS RF: 0 omega-3 fatty acids 1,000 mg capsule 1,000 mg PO DAILY RF: 0 polyethylene glycol 3350 17 gram powder in packet 17 gm PO HS RF: 0 esomeprazole magnesium 40 mg capsule,delayed release(DR/EC) 40 mg PO DAILY RF: 0 hydrochlorothiazide 25 mg tablet 25 mg PO DAILY RF: 0 potassium chloride 20 mEq tablet extended release 20 meq PO DAILY RF: 0 cyanocobalamin (vitamin B-12) 1,000 mcg capsule 1,000 mcg PO HS RF: 0 nicotine 14 mg/24 hr patch 24 hour 1 patch TD DAILY RF: 0 nicotine 10 mg cartridge 1 inh IH 4-6XD PRNRF: 0 topiramate [Topamax] 100 mg tablet 50 mg PO .QD RF: 0 desvenlafaxine succinate [Pristiq] 25 mg tablet extended release 24 hr 100 mg PO DAILY RF: 0 gabapentin 600 mg tablet 600 mg PO TID 30 Days Qty: 90 RF: 11 bupropion HCl [Wellbutrin XL] 300 mg tablet extended release 24 hr 300 mg PO QAM RF: 0 lidocaine 5 % adhesive patch,medicated 2 patch TP DAILY RF: 0 tramadol 50 mg tablet 50 mg PO DAILY RF: 0 aripiprazole [Abilify] 15 mg Tablet 20 mg PO HS RF: 0 acetaminophen [Tylenol Extra Strength] 500 mg Tablet 1,000 mg PO PRN PRNRF: 0 loratadine 10 mg Tablet 10 mg PO DAILY PRNRF: 0 melatonin 10 mg Tablet 10 mg PO HS RF: 0 cholecalciferol (vitamin D3) [Vitamin D3] 1,000 unit Tablet 1,000 unit PO DAILY RF: 0 levomefolate calcium [L-Methylfolate] 7.5 mg Tablet 15 mg PO DAILY RF: 0 Discontinued naproxen 500 mg tablet 500 mg PO BID PRNRF: 0 Discharge Instructions Additional Instructions: Walk every day as much as discomfort allows. Elevate right leg when sitting. Use knee immobilizer splint until you can lift your right leg off the bed without help. Keep Marii dressing and suction on until Wednesday01/08/20. On 01/08/2020 remove the Marii dressing and replaced with Mepilex dressing. May shower and get the dressings wet. Use walker to ambulate. Have physical therapist see patient daily for range of motion and strengthening of her right total knee and gait training WBAT R leg. Apply Cryo/Cuff to the right knee 4 times a day for an hour each time. Follow-up in Dr. Garcia's office on 01/15 or 01/16/2020. Stand Alone Forms: Nursing Discharge Form Referrals: Immanuel Garcia MD [ [facility] STAFF PHYSICIAN] - 01/16/20 11:30 am (f/u on 01/15 or 01/16/20) Activity:: Activity as Tolerated Equipment/Supplies:: Walker Diet:: As Tolerated Discharge Orders Discharge Orders: Discharge Order (Routine); Ordered 01/05/20 Ordered By: Immanuel Garcia DS: Summary Status at Discharge Functional status at discharge: uses cane/walker Overall status at discharge: patient is progressing back to baseline Mental Status: mental status grossly normal Speech and Movement: speech and movement normal Mood: congruent mood Affect: normal affect Exam Psych Mental Status: mental status grossly normal Speech and Movement: speech and movement normal Mood: congruent mood Affect: normal affect DS: Data Vitals/I&O Vitals and I&O: Vital Signs Temperature 37.0 C 01/05/20 07:53 Temperature Source Tympanic 01/05/20 07:53 Pulse 82 01/05/20 07:53 Pulse Rhythm Regular 01/04/20 20:30 Respiratory Rate 14 01/05/20 07:53 Respiratory Effort Non-Labored 01/04/20 20:30 Respiratory Depth Normal 01/04/20 20:30 Respiratory Pattern Normal 01/04/20 20:30 Blood Pressure 112/76 01/05/20 07:53 Pulse Oximetry 96 01/05/20 07:53 Respiratory End-tidal CO2 41 01/01/20 12:29 Oxygen Delivery Method Room Air 01/05/20 07:53 Oxygen Flow Rate 0 01/05/20 07:53 Pain Level 7 01/05/20 07:53 Comment 01/03/20 11:01 Intake & Output 01/04/20 01/04/20 01/05/20 11:59 23:59 11:59 Intake Total 360 / 1320 960 / 1320 0 / 0 Output Total 3200 / 5600 2400 / 5600 Balance -2840 / -4280 -1440 / -4280 0 / 0 Intake: IV 0 / 0 Oral 360 / 1320 960 / 1320 Output: Urine 3200 / 5600 2400 / 5600 Other: Urine Color Yellow Yellow Urine Appearance Clear Clear Urine Odor Normal Normal Stool Size Moderate Stool Characteristics Soft Formed Voiding Methods Bedside Commode Bedside Commode [facility] Social History (Updated 12/26/19 @ 14:27 by Brianna Ybarra) Smoking/Tobacco Use Status: Current every day Tobacco Type: cigarettes Tobacco: How many years used: 30 Quit status: considering quitting Alcohol Intake: never Drug use: Never Substance use type: does not use and former substance user Details: former marijuana user Housing: other Details: [facility] Number of Children: 2 Current gender identity: female What type of physical activity do you participate in: walking and additional Details: PT exercises Do you feel safe at home: Yes
--- NOTE | 2020-01-05 10:58 | PT.INTREAT ---
Date of service: 01/05/20 Time of Service: 10:58 PT Notes Visit Reasons: OA (R) KNEE/R total knee 01/05/2020 SUBJECTIVE: Haven stating she is leaving today to go to rehab. She has been struggling with pain control especially with weight bearing. OBJECTIVE: Seated in her recliner. Agreeable to PT treatment. TRANSFERS Sit to stand: SBA Stand to sit: SBA GAIT Device: FWW Weight bearing: AT R Assist: SBA Distance: 80' Deviation: Step to pattern THEREX: Review hourly exercises for quad sets, glut sets and ankle pumps. ASSESSMENT: Pt progressed well with PT while here at the hospital. She will benefit from continued PT services at SNF prior to return to home to maximize her independence and strength. PLAN: Pt to be discharged to SNF. See discharge summary for details. Treatment time: 15 Heather Laureano, ETHAN
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
[2020-01-05 11:24] VITALS: BP 113/79; PULSE 85; RESP 16; TEMP 37.2
--- NOTE | 2020-01-05 12:05 | CMDISCH_ITS ---
- If Service Date Differs Date of service: 01/05/20 Time of Service: 12:06 LACE Index Scoring Tool - Questions: Length of Stay (in days): 4 - 6 Acuity (Admit via E.D.?): No E.D. Visits: 1 - Answers: Total Score: 5 Risk of Readmission: Low Risk Care Management Discharge Reason for Hospitalization: R Knee Replacement Discharge Plan: Haven will go to [facility] for a short, skilled rehab stay to gain strength prior to returning home. She will transport via w[employer], provided by [employer]. She is agreeable to the plan. Patient/Family Education Needs: Review discharge instructions regarding activity levels and medications, discussion of self care needs including ask me three Services Needed at Discharge: Assisted Facility ([facility]), Transportation (w/c [employer], [employer] &)
== END 2020-01-05 12:10 | disposition skilled nursing facility (03) | DRG 470 ==
LOC: PDS 05:57 → MS 12:00
PROVIDERS: Admitting Provider Student in an Organized Health Care Education/Training Program; PCP Specialist/Technologist Athletic Trainer; Visit Provider Orthopaedic Surgery
PROC: 0SRC0J9 Replacement of Right Knee Joint with Synthetic Substitute, Cemented, Open Approach (ICD-10-PCS; CPT 27447; principal; 2020-01-01 07:30)
DX: M17.11 Unilateral primary osteoarthritis, right knee (principal); Z68.42 Body mass index [BMI] 45.0-49.9, adult; M25.561 Pain in right knee; Z96.651 Presence of right artificial knee joint; Z75.1 Person awaiting admission to adequate facility elsewhere; Z96.652 Presence of left artificial knee joint; J44.9 Chronic obstructive pulmonary disease, unspecified; F17.210 Nicotine dependence, cigarettes, uncomplicated; I10 Essential (primary) hypertension; F32.9 Major depressive disorder, single episode, unspecified; E78.5 Hyperlipidemia, unspecified; D50.9 Iron deficiency anemia, unspecified; E66.9 Obesity, unspecified; G25.81 Restless legs syndrome; G47.33 Obstructive sleep apnea (adult) (pediatric); F43.10 Post-traumatic stress disorder, unspecified; F60.9 Personality disorder, unspecified
CPT/HCPCS: 27447; 36415; 76942; 85027; 97110; 97162; 97530; J1650; NC; 73560; J0690; J1885; J2001; J2250; J2405; J2704; J3010; L1830

== ENCOUNTER → 2020-01-16 11:11 | Outpatient (BNVA) | payer MEDICARE, MEDICAID, SELFPAY | PROVIDERS: PCP Specialist/Technologist Athletic Trainer; Referring Provider Specialist/Technologist Athletic Trainer; Visit Provider Orthopaedic Surgery | DX: Z47.1 Aftercare following joint replacement surgery (principal); Z96.651 Presence of right artificial knee joint ==

== ENCOUNTER 2020-12-11 10:13 | Outpatient (REF) | payer MEDICARE, MEDICAID, SELFPAY ==
[2020-12-11 15:31] LABS: Anion Gap 11.4 mmol/L (3-11); BUN 16 mg/dL (7-18); CO2 27.6 mmol/L (21.0-32.0); CREATININE 1.01 mg/dL (0.55-1.02); Calcium 8.7 mg/dL (8.5-10.1); Calculated LDL 91 mg/dL (<100); Chloride 104 mmol/L (98-107); Cholesterol 164 mg/dL (<200); Glucose 96 mg/dL (74-106); HDL Cholesterol 50 mg/dL (40-60); Potassium 3.3 mmol/L (3.5-5.1); Sodium 143 mmol/L (136-145); Triglyceride 117 mg/dL (<150)
[2020-12-11 15:41] LABS: Hemoglobin A1C 5.7 % (<5.7)
== END 2020-12-11 10:33 ==
LOC: NCHCN 10:13
PROVIDERS: PCP Specialist/Technologist Athletic Trainer; Visit Provider Nurse Practitioner Family
DX: E78.5 Hyperlipidemia, unspecified (principal); R73.03 Prediabetes
CPT/HCPCS: 80048; 80061; 83036

== ENCOUNTER 2020-12-13 18:43 | Outpatient (REF) | payer MEDICARE, MEDICAID, SELFPAY | END 2020-12-13 19:03 | LOC: NCHCN 18:43 | PROVIDERS: PCP Specialist/Technologist Athletic Trainer; Visit Provider Nurse Practitioner Family | DX: R32 Unspecified urinary incontinence (principal) | CPT/HCPCS: 87086 ==

== ENCOUNTER 2020-12-26 21:18 | Outpatient (REF) | payer MEDICARE, MEDICAID, SELFPAY | END 2020-12-26 21:19 | disposition home or self-care (01) | LOC: NCHCN 21:18 | PROVIDERS: PCP Specialist/Technologist Athletic Trainer; Visit Provider Nurse Practitioner Family | DX: R30.0 Dysuria (principal) | CPT/HCPCS: 87077; 87086; 87186 ==

== ENCOUNTER 2021-01-07 00:57 | Outpatient (CLI) | payer MEDICARE, MEDICAID, SELFPAY ==
--- NOTE | 2021-01-07 08:23 | DI.MAMMO_ITS ---
EXAM: MAMMO SCREENING CLINICAL HISTORY: SCREENING, Z12.39 TECHNIQUE: Mammograms were interpreted according to the usual protocol including computer analysis w [employer] CAD system, tomosynthesis and C-view imaging. COMPARISON: FINDINGS: The breasts are of moderate density with fairly symmetrical distribution of fibroglandular tissue. N o dominant mass or clumped microcalcification is identified in either breast. The current examinatio n is compared with previous examinations including June 2018 and there has been no gross interval c hange in appearance in comparison with the prior studies. IMPRESSION: No specific evidence of malignancy at this time. Routine screening examinations are suggested at ye henry intervals due to the family history of breast carcinoma. BI-RADS Category 1 - Negative Breast Density - Category B - Scattered areas of fibroglandular density
== END 2021-01-07 00:58 ==
LOC: DI 00:58
PROVIDERS: PCP Nurse Practitioner Family; Visit Provider Nurse Practitioner Family
DX: Z12.31 Encounter for screening mammogram for malignant neoplasm of breast (principal); Z80.3 Family history of malignant neoplasm of breast
CPT/HCPCS: 77063; 77067

== ENCOUNTER 2021-03-13 14:39 | Outpatient (REF) | payer MEDICARE, MEDICAID, SELFPAY ==
[2021-03-13 16:18] LABS: Anion Gap 8.6 mmol/L (3-11); BUN 17 mg/dL (7-18); CO2 28.4 mmol/L (21.0-32.0); CREATININE 0.9 mg/dL (0.55-1.02); Calcium 8.9 mg/dL (8.5-10.1); Chloride 106 mmol/L (98-107); Glucose 114 mg/dL (74-106); Potassium 3.9 mmol/L (3.5-5.1); Sodium 143 mmol/L (136-145)
[2021-03-13 16:22] LABS: Hemoglobin A1C 5.8 % (<5.7)
== END 2021-03-13 14:40 | disposition home or self-care (01) ==
LOC: NCHCN 14:39
PROVIDERS: PCP Nurse Practitioner Family; Visit Provider Nurse Practitioner Family
DX: R73.03 Prediabetes (principal); E87.6 Hypokalemia
CPT/HCPCS: 80048; 83036

== ENCOUNTER → 2021-03-20 13:58 | Outpatient (BNVA) | payer MEDICARE, MEDICAID, SELFPAY | PROVIDERS: PCP Nurse Practitioner Family; Referring Provider Nurse Practitioner Family; Visit Provider Physical Therapy Assistant | DX: R19.5 Other fecal abnormalities (principal) | CPT/HCPCS: 99213 ==

== ENCOUNTER 2021-04-02 02:39 | Outpatient (CLI) | payer MEDICARE, MEDICAID, SELFPAY ==
[2021-04-02 10:54] LABS: Source Nasal/Nares
[2021-04-02 15:24] LABS: COVID-19 PCR Negative (Negative)
== END 2021-04-02 02:40 | disposition home or self-care (01) ==
LOC: LBO 02:39
PROVIDERS: Surgery; PCP Nurse Practitioner Family; Visit Provider Physical Therapy Assistant
DX: Z20.822 Contact with and (suspected) exposure to COVID-19 (principal)
CPT/HCPCS: 87635

== ENCOUNTER 2021-04-04 12:03 | Day surgery (SDC) | payer MEDICARE, MEDICAID, SELFPAY ==
[2021-04-04 12:58] VITALS: BP 112/72; PULSE 72; RESP 20; TEMP 36.6; O2SAT 96
[2021-04-04] MEDS: Lactated Ringers 1,000 ML 80 ML IV (13:15)
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
[2021-04-04 13:45] VITALS: BMI 54.6
--- NOTE | 2021-04-04 14:45 | BOWEL_PTH ---
PATIENT: Haven Brizuela LOC: [facility] U#:[id number] AGE/SX: 55/F ROOM: RE04/04/[address]: Brianna Adan : 1965 BED: DIS: 04/04/2021 SPEC #: [id number] RECD: 04/04/21 16:16 STATUS: ANJANA REBree #: [id number] ELIDA: 04/04/21 14:[address]: Brianna Adan DEPT: Surgical Specimen RECD BY: Letitia Villalba ENTERED: 04/04/21 16:16 SP TYPE: Bowel OTHR DR: Gianna Porter Tissues: 1 - BIOPSY BOWEL Procedures: GROSS AND MICRO LEVEL 4 Comments: [id number]
--- NOTE | 2021-04-04 15:04 | W.ANESPOSTOP ---
Postoperative Evaluation Date, Time and Location Date Performed: 04/04/21 Time Performed: 15:05 Patient Location: Day Surgery Unit Vital Signs Most Recent Imported Vital Signs: Most Recent Vital Signs Temp Pulse Resp BP Pulse Ox 36.6 C 72 20 112/72 96 04/04/21 12:58 04/04/21 12:58 04/04/21 12:58 04/04/21 12:58 04/04/21 12:58 Most Recent Manually Entered Vital Signs: Adult Blood Pressure: 111/59 Heart Rate: 87 Respirations: 18 Oxygen Saturation (%): 95 Temperature (C): 36.4 C Pain Score (0-10 Scale): 6 Pain Score Most Recent Pain Score: Most Recent Pain Score Pain Level 0 04/04/21 12:58 Assessment Mental Status: Awake (Alert & Oriented to Patient Baseline) Airway and Respiratory Function: Patent airway with normal (patient baseline) respiratory exam Cardiovascular Function: Hemodynamically Stable Hydration Status: Adequately Hydrated Nausea & Vomiting: No Nausea or Vomiting Pain: Pain is Moderate or Severe (Describes as crampy ) Postoperative Pain Management: Patient having pain, declines treatment, wishes to be discharged Peripheral Nerve Block: Patient did not receive a nerve block
[2021-04-04 15:06] VITALS: BP 111/59; PULSE 87; PULSE 95; RESP 16; RESP 18; TEMP 36.4; TEMPC 36.4; O2SAT 95
--- NOTE | 2021-04-04 15:10 | COLE_ITS ---
Date of service: 04/04/21 Time of Service: 15:10 Colonoscopy Report Date of procedure: 04/04/21 Pre-op diagnosis general: +cologuard Post-op diagnosis procedure note: other (polyp in cecum ) Surgeon: Brianna Adan Anesthesia Type: General:No Airway Estimated blood loss (mL): 1 Pathology: other Complications: None Disposition: same day Prep: Miralax/Dulcolax Retraction Time: 12 mins Procedure Description: After informed consent was obtained the patient was taken to the procedure room and placed in a left decubitous position. Monitors were applied and a time out was done. The patients name, date of , procedure, allergies to medications and metal in their body was reviewed. The patient was then sedated. Once sedated and comfortable a rectal exam was done. External exam was normal. Internal exam revealed a normal sphincter tone and no palpable masses. The scope was then introduced and retrofelexed. No internal hemorrhoids were identified. The scope was then advanced to the cecum w/out difficulty. The TI and appendiceal orifice were identified. She has a small less than 5 mm flat polyp of the cecum. This is removed with a cold biting snare. All specimen is retrieved and no bleeding is noted. The prep was poor-she has thick liquid stool that coats the powell of the colon. She did eat corn, and as a try to suction, this continues to clog the scope. Once we get to 30 cm the scope does completely clog up ,and I am unable to evacuate any more contents from the colon. Any polyps smaller than 1 cm could have been missed on half of the colon from 30 cm to the rectum. The scope was then slowly retracted over 12 minutes back into the rectum. I did not observe any diverticula or other mucosal abnormalities today, but this was a very poor prep. The scope was removed and the patient was woken up and taken back to Same day surgery in stable condition. Her next colonoscopy she should have a 48-hour prep. The patient tolerated the procedure well and there were no immediate complicat ions. Follow up: The patient should follow up in 1 years, due to her poor prep, unless they develop changes in bowel habits or other new gastrointestinal complaints.
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
--- NOTE | 2021-04-04 15:28 | W.PM.DSUDISC ---
Discharge Plan Disposition Patient Disposition: HOME Condition: Good Discharge Details Reason For Visit: colon scope Attending Provider: Brianna Adan Primary Care Provider: Gianna Porter Home Meds and New Rx's Prescriptions: Continued atorvastatin 80 mg tablet 80 mg PO HS RF: 0 omega-3 fatty acids 1,000 mg capsule 1,000 mg PO DAILY RF: 0 polyethylene glycol 3350 17 gram powder in packet 17 gm PO HS RF: 0 esomeprazole magnesium 40 mg capsule,delayed release(DR/EC) 40 mg PO DAILY RF: 0 hydrochlorothiazide 25 mg tablet 25 mg PO DAILY RF: 0 potassium chloride 20 mEq tablet extended release 20 meq PO DAILY RF: 0 cyanocobalamin (vitamin B-12) 1,000 mcg capsule 1,000 mcg PO HS RF: 0 nicotine 14 mg/24 hr patch 24 hour 1 patch TD DAILY RF: 0 nicotine 10 mg cartridge 1 inh IH 4-6XD PRNRF: 0 topiramate [Topamax] 100 mg tablet 50 mg PO .QD RF: 0 desvenlafaxine succinate [Pristiq] 25 mg tablet extended release 24 hr 100 mg PO DAILY RF: 0 bupropion HCl [Wellbutrin XL] 300 mg tablet extended release 24 hr 300 mg PO QAM RF: 0 lidocaine 5 % adhesive patch,medicated 2 patch TP DAILY RF: 0 tramadol 50 mg tablet 50 mg PO DAILY RF: 0 gabapentin 600 mg tablet 600 mg PO TID 30 Days Qty: 90 RF: 11 albuterol sulfate [ProAir HFA] 90 mcg/actuation HFA aerosol inhaler 2 puff inhalation Q6H PRNRF: 0 omeprazole 40 mg capsule,delayed release(DR/EC) 40 mg PO DAILY RF: 0 guaifenesin 600 mg tablet extended release 12hr 600 mg PO BID PRNRF: 0 polyethylene glycol 3350 17 gram/dose powder 17 g PO DAILY RF: 0 aripiprazole [Abilify] 15 mg Tablet 20 mg PO HS RF: 0 acetaminophen [Tylenol Extra Strength] 500 mg Tablet 1,000 mg PO PRN PRNRF: 0 loratadine 10 mg Tablet 10 mg PO DAILY PRNRF: 0 melatonin 10 mg Tablet 10 mg PO HS RF: 0 cholecalciferol (vitamin D3) [Vitamin D3] 1,000 unit Tablet 1,000 unit PO DAILY RF: 0 levomefolate calcium [L-Methylfolate] 7.5 mg Tablet 15 mg PO DAILY RF: 0 Discontinued polyethylene glycol 3350 17 gram/dose powder 238 g PO ONCE Qty: 238 RF: 0 bisacodyl [Dulcolax (bisacodyl)] 5 mg tablet,delayed release (DR/EC) 5 mg PO ONCE Qty: 4 RF: 0 Discharge Instructions Additional Instructions: DSU Colonoscopy Post-Op Instructions Instructions for Everyone who is given Anesthesia: For your safety, please do the following for the next twenty-four (24) hours: *Do Not operate a motor vehicle (car, truck, motorcycle, etc.) *Do Not drink alcoholic beverages or use any recreational drugs for the first 24 hours or while taking pain medications. The medications in your body may have a reaction that can be dangerous. *Do Not make any important decisions or sign any important papers. Findings:x1 small polyp In the office will send a letter in 3 to 4 weeks with the results of the pathology. Follow up: I do recommend that you have a follow-up colonoscopy in 1 years time because of the poor prep today. I would recommend doing a 48-hour prep next time. 1. No lifting over 20 pounds or strenuous activity for the first 24 hours after your procedure. After 24 hours there are no restrictions on your activity but you may feel fatigued for a few days. 2. After you arrive home you may have a light meal and return to your normal diet as you can tolerate it without feeling sick to your stomach. 3. You may have a bloated, gaseous feeling in your belly (abdomen) after a colonoscopy. Passing gas and belching will help. Walking or lying down on your left side with your knees flexed may relieve the discomfort. Call the office at [phone] (Office) or [phone] (Hospital) right away if you notice any of the following: a.Vomiting of blood or ?coffee ground stools?. b.Rectal bleeding 1Tbsp, blood clots or continuous bleeding. c.Severe belly (abdominal) pain. d.A hard distended belly (abdomen) and an inability to pass gas. 4. Please don?t expect to have a normal BM (bowel movement) for 2-3 days after your procedure. 5. If there are questions regarding the findings of your procedure, please contact your doctor 6. If you are unable to contact your doctor with a problem, contact the [facility] at [phone]. 7. Continue all your regular medications unless directed otherwise. I understand the above instructions and have no questions. Signature of Patient or Adult Escort Name of Responsible Adult Escort Signature of Nurse Date/Time Activity:: As above Diet:: As above Discharge Orders Discharge Orders: Discharge Order (Routine); Ordered 04/04/21 Ordered By: Brianna Adan DS: Diagnosis Discharge Diagnosis (1) Colon polyp: Status: Acute
[2021-04-04 15:31] VITALS: BP 116/73; PULSE 92; RESP 16; TEMP 36.5; O2SAT 96
== END 2021-04-04 15:58 | disposition home or self-care (01) ==
PROVIDERS: PCP Nurse Practitioner Family; Visit Provider Surgery
PROC: 0DJD8ZZ Inspection of Lower Intestinal Tract, Via Natural or Artificial Opening Endoscopic (ICD-10-PCS; CPT 45378; principal; 2021-04-04 12:30)
DX: R19.5 Other fecal abnormalities (principal); K63.5 Polyp of colon; K21.9 Gastro-esophageal reflux disease without esophagitis; J44.9 Chronic obstructive pulmonary disease, unspecified; I10 Essential (primary) hypertension
CPT/HCPCS: 45385; 88305

== ENCOUNTER 2021-04-22 10:44 | Emergency (ER) | payer MEDICARE, MEDICAID, SELFPAY ==
[2021-04-22 10:50] VITALS: BP 144/94; PULSE 86; RESP 22; TEMP 36.9; O2SAT 96
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
[2021-04-22 11:01] VITALS: BP 139/80; PULSE 86
--- NOTE | 2021-04-22 11:02 | NUR.NOTE ---
Nursing Note: Pt is unsure of her allergies and medications, requesting we call [facility] where she resides for this info. Contacted [facility] and staff will be faxing her allergies and current medication list.
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
--- NOTE | 2021-04-22 11:41 | DI.RAD_ITS ---
Exam(s) XR LUMBAR SPINE COMPLETE EXAM: XR LUMBAR SPINE COMPLETE CLINICAL HISTORY: Trauma, R/O Fracture TECHNIQUE: COMPARISON: MR MR lumbar spine wo from 12/15/2018 FINDINGS: Multiple views were obtained. The intervertebral disc spaces appear fairly well maintained. There i s no evidence of acute fracture or dislocation. There are moderate hypertrophic degenerative changes of the facet joints at multiple levels. IMPRESSION: No evidence of acute process. RADIATION DOSE DELIVERED: Total DLP
[2021-04-22] MEDS: Acetaminophen 325 MG TAB 650 MG PO (13:05)
[2021-04-22] MEDS: Cyclobenzaprine 10 MG TAB PO (13:05)
[2021-04-22] MEDS: Cyclobenzaprine 10 MG TAB, 3 TABS/BTL PO (13:05)
== END 2021-04-22 13:22 | disposition home or self-care (01) ==
PROVIDERS: Emergency Provider Registered Nurse Emergency; PCP Nurse Practitioner Family
DX: S39.012A Strain of muscle, fascia and tendon of lower back, initial encounter (principal); V03.90XA Pedestrian on foot injured in collision with car, pick-up truck or van, unspecified whether traffic or nontraffic accident, initial encounter
CPT/HCPCS: 99284; 72110; 73502; 99283

== ENCOUNTER 2021-12-25 15:04 | Outpatient (REF) | payer MEDICARE, MEDICAID, SELFPAY ==
[2021-12-25 19:35] LABS: Anion Gap 10.1 mmol/L (3-11); BUN 18 mg/dL (7-18); CO2 26.9 mmol/L (21.0-32.0); CREATININE 0.9 mg/dL (0.55-1.02); Calcium 9.1 mg/dL (8.5-10.1); Chloride 103 mmol/L (98-107); Glucose 122 mg/dL (74-106); Potassium 3.8 mmol/L (3.5-5.1); Sodium 140 mmol/L (136-145)
[2021-12-25 19:40] LABS: Hemoglobin A1C 6.5 % (<5.7)
== END 2021-12-25 15:05 | disposition home or self-care (01) ==
LOC: NCHCN 15:04
PROVIDERS: PCP Nurse Practitioner Family; Visit Provider Nurse Practitioner Family
DX: R73.03 Prediabetes (principal); E66.01 Morbid (severe) obesity due to excess calories; R53.81 Other malaise
CPT/HCPCS: 80048; 83036

== ENCOUNTER 2022-01-06 00:58 | Outpatient (CLI) | payer MEDICARE, MEDICAID, SELFPAY | END 2022-01-06 00:59 | disposition home or self-care (01) | LOC: DS 00:58 | PROVIDERS: PCP Nurse Practitioner Family; Visit Provider Dietitian, Registered ==

== ENCOUNTER 2022-01-13 04:17 | Outpatient (CLI) | payer MEDICARE, MEDICAID, SELFPAY ==
--- NOTE | 2022-01-13 14:00 | NS.NUTBLAN_ITS ---
Haven was referred for diabetes self management and weight management education. 5'3 305 lbs BMI: 54. PMH: DM2, class 3 obesity, HLD, Bipolar dx Reports that she has gained > 20 lbs in last year s/p bilateral knee replacment. Still uses walker due to knee pain. Most recent A1C (12/25/21) 6.5%, now with Dm diagnosis. Has not started metformin as of yet. Lives at [facility]. Enjoys baking weekly. Diet Recall: Pancakes, syrup, chili with corn bread, cool aid, soup and sandwich. Exercise: none Session today focused on ways Haven can reduce her intake of simple carbs and increase non starchy vegetables and lean protein. She is agreeable to not drink any sweet beverages such as juice or cool-aid. We discussed that since baking is enjoyable to her, that she continue to do that once a week. Encouraged Haven to find ways to exercise- she would like to restart physical therapy twice weekly. Cath Lab Tech to call home provider Cammy to discuss meal adjustments. Recommend PCP to order physical therapy again as Haven continues to need walker s/p knee replacement x 2 last year. No follow scheduled at this time.
== END 2022-01-13 04:18 | disposition home or self-care (01) ==
LOC: DS 04:18
PROVIDERS: PCP Nurse Practitioner Family; Visit Provider Dietitian, Registered
DX: E11.9 Type 2 diabetes mellitus without complications (principal); E66.01 Morbid (severe) obesity due to excess calories; Z68.43 Body mass index [BMI] 50.0-59.9, adult; Z71.3 Dietary counseling and surveillance
CPT/HCPCS: 97802

== ENCOUNTER 2022-02-10 01:08 | Outpatient (CLI) | payer MEDICARE, MEDICAID, SELFPAY ==
--- NOTE | 2022-02-10 | DI.MAMMO_ITS ---
Exam(s) MAMMO SCREENING EXAM: MAMMO SCREENING CLINICAL HISTORY: SCREENING, Z12.31 TECHNIQUE: Mammograms were interpreted according to the usual protocol including computer analysis w [employer] CAD system, tomosynthesis and C-view imaging. COMPARISON: 2015 through 2020 FINDINGS: The breasts are composed of mainly fatty density , Breast Density category A. No suspicious masses or suspicious microcalcifications are seen. No skin thickening or abnormal axillary lymph nodes are seen. There has been no significant change from prior exams. IMPRESSION: BI-RADS Category 1, Negative mammogram Yearly screening mammography is recommended. Breast Density - Category A, fatty density. A negative radiographic report should not delay biopsy if a dominant or clinically suspicious mass is present. Up to ten percent of cancers are not identified on mammography. A negative report may reinforce clinical impression. Adenosis and dense breasts may obscure an underlying neoplasm. False positive reports average 6 to 10%. Patient will receive a letter notifying them of these results.
== END 2022-02-10 01:28 ==
PROVIDERS: PCP Nurse Practitioner Family; Visit Provider Nurse Practitioner Family
DX: Z12.31 Encounter for screening mammogram for malignant neoplasm of breast (principal)
CPT/HCPCS: 77063; 77067

== ENCOUNTER 2022-02-16 11:01 | Outpatient (REF) | payer MEDICARE, MEDICAID, SELFPAY ==
[2022-02-16 14:11] LABS: ALT 36 U/L (14-59); AST 15 U/L (15-37); Albumin 3.4 g/dL (3.4-5.0); Alkaline Phosphatase 90 U/L (46-116); Anion Gap 8.9 mmol/L (3-11); BUN 17 mg/dL (7-18); Bilirubin, Total 0.4 mg/dL (0.2-1.0); CO2 27.1 mmol/L (21.0-32.0); CREATININE 0.8 mg/dL (0.55-1.02); Calcium 8.8 mg/dL (8.5-10.1); Chloride 103 mmol/L (98-107); Glucose 173 mg/dL (74-106); Potassium 3.8 mmol/L (3.5-5.1); Sodium 139 mmol/L (136-145); Total Protein 7.1 g/dL (6.4-8.2)
== END 2022-02-16 11:02 | disposition home or self-care (01) ==
LOC: NCHCN 11:01
PROVIDERS: PCP Nurse Practitioner Family; Visit Provider Nurse Practitioner Family
DX: R11.0 Nausea (principal)
CPT/HCPCS: 80053

== ENCOUNTER 2022-04-02 00:39 | Outpatient (CLI) | payer MEDICARE, MEDICAID, SELFPAY ==
--- NOTE | 2022-04-02 13:00 | DI.CTLCSR_ITS ---
Exam(s) CT CHEST LUNG CANCER SCREEN EXAM: CT CHEST LUNG CANCER SCREEN CLINICAL HISTORY: CIGARETTE SMOKER, F17.210, 40+ PACK-YEAR HISTORY TECHNIQUE: CT examination of the chest was performed utilizing low-dose lung cancer screening protoc . COMPARISON: No exams were available for comparison FINDINGS: Images obtained through the upper abdomen show prior cholecystectomy. Liver and spleen poorly visua lized due to low dose protocol. Note is made of coronary artery calcification. Note is also made of a fat attenuation mass which may be intra cardiac or mediastinal in origin which lies on the right inferior to the right main pulmona ry artery, this has the appearance of a lipoma. Additional evaluation with cardiac MRI suggested for confirmation and to assess potential anatomic cardiac/coronary artery defects period There is no mediastinal or hilar adenopathy. Tracheobronchial tree appears intact. No pleural effusion or pleural-based mass. The lungs are predominantly clear with moderate central lobular pulmonary emphysematous changes. The re are a number of tiny calcified pulmonary nodules consistent with granulomas. No noncalcified nodu le seen period. IMPRESSION: Lung RADS Cat 1 - Negative: No nodules and definitely benign nodules Lung RADS Cat S - Other: Clinic ally Significant or Potentially Clinically Significant Findings (non lung cancer) Additional evaluation with cardiac MRI may be considered for further characterization of a probable p ericardial lipoma as described above. Continue annual screening with LDCT in 12 months. Lung-RADS 1.0 CATEGORIES: Category 0 - Prior chest CT exam(s) being located for comparison. Category 1 - Annual screening in 12 months. No nodules or definitely benign nodules. Category 2 - Annual screening in 12 months. Benign appearance. Nodules with low likelihood of becomin g active cancer. Category 3 - 6-month follow-up. Probably benign. Short-term follow-up suggested. Nodules with low lik elihood of becoming active cancer. Category 4A - 3-month follow-up and CT/PET if >8 mm in size. Suspicious finding. Findings which requi re additional testing. Category 4B - Findings which require additional testing and tissue sampling. Suspicious finding. Category 4X - Category 3 or 4 nodules with additional features or imaging findings that increases the suspicion of malignancy. Modifier S- Potentially clinically significant finding. (Non lung cancer) RADIATION DOSE DELIVERED: 96mGy.cm Total DLP 2.21mGy CTDIvol 96mGy.cm Total DLP !Error CTDIvol RADIATION OPTIMIZATION: All CT scans at this facility use at least one of these dose optimization te chniques: automated exposure control; mA and/or kV adjustment per patient size (includes targeted exa ms where dose is matched to clinical indication); or iterative reconstruction.
--- NOTE | 2022-04-02 13:18 | DI.RAD_ITS ---
Exam(s) XR CHEST 2V PA LATERAL EXAM: XR CHEST 2V PA LATERAL CLINICAL HISTORY: ACUTE COUGH, R05.1 TECHNIQUE: 2D digital imaging was performed. COMPARISON: No exams were available for comparison FINDINGS: The heart is not enlarged. The lungs are clear and well expanded. No pleural effusion seen. Mediastin al contours appear intact. IMPRESSION: Normal chest. RADIATION DOSE DELIVERED: Total DLP
== END 2022-04-02 00:59 ==
PROVIDERS: PCP Nurse Practitioner Family; Visit Provider Nurse Practitioner Family
DX: Z12.2 Encounter for screening for malignant neoplasm of respiratory organs (principal); R05.1 Acute cough; F17.201 Nicotine dependence, unspecified, in remission; J43.8 Other emphysema; R91.8 Other nonspecific abnormal finding of lung field
CPT/HCPCS: 71271; 71046

== ENCOUNTER → 2022-05-15 00:20 | Outpatient (CLI) | payer MEDICARE, MEDICAID, SELFPAY ==
--- NOTE | 2022-05-15 09:50 | DI.RAD_ITS ---
Exam(s) RF BARIUM SWALLOW EXAM: RF BARIUM SWALLOW CLINICAL HISTORY: GERD SYMPTOMS, R19.8; NAUSEA, R11.0; MORBID OBESITY, E66.01;VOMITING,R11.10 TECHNIQUE: 2D and realtime digital imaging was performed. CONTRAST MATERIAL: Oral barium contrast was administered. COMPARISON: CR XR CHEST 2V PA LATERAL from 04/02/2022 FINDINGS: CHEST X-RAY: The heart and pulmonary vasculature are within normal limits. The lungs are clear. No pl eural effusion or pneumothorax is present. The bones are within normal limits for the patient's age. ESOPHAGRAM: The esophagus is patent with no evidence for erosions, fold thickening, strictures, or ma sses. With regards to the motility, there is a normal primary stripping wave. No tertiary contraction s were noted. There is a small hiatal hernia. No gastroesophageal reflux was identified during the e xamination. IMPRESSION: 1. Small hiatal hernia. 2. No gastroesophageal reflux was identified during the examination. RADIATION DOSE DELIVERED: jacobo Troncoso=28.9 mGy
[2022-05-15] MEDS: Simethicone/Sod Bicarb/Cit Ac, 4 gram PACKET 1 PACKET PO (09:55)
[2022-05-15] MEDS: Barium Sulfate 60% W/V 355 ML BTL PO (09:57)
== END ==
PROVIDERS: PCP Nurse Practitioner Family; Visit Provider Nurse Practitioner Family
DX: K44.9 Diaphragmatic hernia without obstruction or gangrene (principal); E66.01 Morbid (severe) obesity due to excess calories; R19.8 Other specified symptoms and signs involving the digestive system and abdomen
CPT/HCPCS: 74221

== ENCOUNTER 2022-05-26 18:30 | Outpatient (REF) | payer MEDICARE, MEDICAID, SELFPAY | END 2022-05-26 18:31 | disposition home or self-care (01) | LOC: NCHCN 18:30 | PROVIDERS: PCP Nurse Practitioner Family; Visit Provider Nurse Practitioner Family | DX: R30.0 Dysuria (principal) | CPT/HCPCS: 87077; 87086; 87186 ==

== ENCOUNTER 2023-02-11 03:34 | Outpatient (CLI) | payer MEDICARE, MEDICAID, SELFPAY ==
--- NOTE | 2023-02-11 12:00 | DI.MAMMO_ITS ---
Exam(s) MAMMO SCREENING EXAM: MAMMO SCREENING CLINICAL HISTORY: SCREENING, Z12.31, HEALTH CARE,Z00.00 TECHNIQUE: Bilateral full field digital CC and MLO mammographic images were obtained with 3D tomosyn thesis and utilizing computer aided detection (CAD). COMPARISON: Available for comparison. FINDINGS: Masses/Architectural Distortion: None seen. Microcalcifications: No suspicious pleomorphic-type are seen. Skin Thickening/Nipple Retraction: None. IMPRESSION: 1. No significant interval change with no specific features of malignancy noted. 2. Unless there is more urgent need, screening mammography is recommended, as per [employer] [place] [employer] guidelines. BI-RADS Category 1 - Negative Breast Density - Category B - Scattered areas of fibroglandular density Breast density category C or D implies that the patient has dense breast tissue. Dense breast tissue is very common and is not abnormal but dense breast tissue can make it harder to find cancer on a ma mmogram. Also, dense breast tissue may increase their breast cancer risk. This information about the result of the mammogram report was provided to the patient to raise their awareness. Use this report when you speak with the patient about their risks for breast cancer, which includes their family hist ory. At that time, you may recommend for more screening tests (Ultrasound or MRI) as they might be us eful based on their risk. A negative radiographic report should not delay biopsy if a dominant or clinically suspicious mass is present. Up to ten percent of cancers are not identified on mammography. A negative report may reinforce clinical impression. Adenosis and dense breasts may obscure an underlying neoplasm. False positive reports average 6 to 10%. Patient will receive a letter notifying them of these results.
== END 2023-02-11 03:54 ==
PROVIDERS: PCP Nurse Practitioner Family; Visit Provider Nurse Practitioner Family
DX: Z12.31 Encounter for screening mammogram for malignant neoplasm of breast (principal)
CPT/HCPCS: 77063; 77067

== ENCOUNTER 2023-04-21 13:08 | Outpatient (REF) | payer MEDICARE, MEDICAID, SELFPAY ==
[2023-04-21 16:47] LABS: Bilirubin Negative (Negative); Blood Negative (Negative); Clarity Clear (Clear); Glucose >=1000 mg/dL (Negative); Ketones Negative (Negative); Leukocyte Esterase Trace (Negative); Nitrite Negative (Negative); pH 6.5 (5-8)
[2023-04-21 17:23] LABS: Bacteria Few HPF (Negative); C & S Indicated? Yes; Casts Negative LPF (Negative); Crystals Negative HPF (Negative); Epithelial Cells Rare HPF (Negative); Mucus Negative (Negative); Other Cells Rare Yeast (Negative); RBC 0-2 HPF (0-2)
== END 2023-04-21 13:09 | disposition home or self-care (01) ==
LOC: NCHCN 13:08
PROVIDERS: PCP Nurse Practitioner Family; Visit Provider Nurse Practitioner Family
DX: R32 Unspecified urinary incontinence (principal)
CPT/HCPCS: 87077; 81003; 81015; 87086; 87186

== ENCOUNTER 2023-05-13 11:33 | Outpatient (REF) | payer MEDICARE, MEDICAID, SELFPAY | END 2023-05-13 11:34 | disposition home or self-care (01) | LOC: NCHCN 11:33 | PROVIDERS: PCP Nurse Practitioner Family; Visit Provider Family Medicine | DX: N39.0 Urinary tract infection, site not specified (principal) | CPT/HCPCS: 87086 ==

== ENCOUNTER 2023-05-17 17:23 | Emergency (ER) | payer MEDICARE, MEDICAID, SELFPAY ==
[2023-05-17 17:34] VITALS: BP 154/98; PULSE 112; RESP 20; TEMP 36.7; O2SAT 96
--- NOTE | 2023-05-17 18:45 | DI.CT_ITS ---
Exam(s) CT LUMBAR SPINE RECONS CT ABDOMEN PELVIS W EXAM: CT ABDOMEN PELVIS W CLINICAL HISTORY: mid and upper abdominal pain. TECHNIQUE: Imaging Protocol: Axial computed tomography images with coronal and sagittal reformatted images were created and reviewed CONTRAST MATERIAL: Intravenous: Omnipaque 350 Contrast volume:100 ml Oral:/ no COMPARISON: CR XR LUMBAR SPINE COMPLETE from 04/22/[address] CHEST LUNG CANCER SCREEN from 04/02/[address] LUMBAR SPINE RECONS from 05/17/2023 FINDINGS: ABDOMEN: Lung Bases: Clear. No change in partially visualized pericardial lipoma adjacent to the right atrium . Liver: Mildly enlarged. Fatty infiltration. No measurable mass. Gallbladder and biliary tract: Status post cholecystectomy. No radiodense calculus or dilation. Pancreas: Normal density, no abnormal calcifications or inflammatory process. Spleen: Normal. Kidneys: Normal size, contour and axis. No radiodense stones or obstructive uropathy. No suspicious m asses seen. Adrenal glands: No masses seen. Abdominal Aorta: Abdominal portion non-dilated. Soft tissues: Large fatty containing umbilical hernia which contains fluid. The mesentery within the hernia appears inflamed. There is a narrow neck. The this may indicate incarceration. PELVIS: Bladder: No gross wall thickening. No calculi.No focal mass. Bowel: Dilated small bowel loops in the right lower quadrant with surrounding stranding in the mesent [place]. Question of a small projection from bowel loop which could possibly represent a Meckel's divert iculum. No colonic inflammation. Large quantity of stool seen in ascending colon and sigmoid. No o bstruction. Appendix normal. Peritoneal cavity: No ascites, collection or mesenteric inflammatory response. Bones: Mild L2 compression fracture partially visualized on prior chest CT. Reproductive organs: Status post hysterectomy. Lymph nodes: Unremarkable. Impression: Umbilical hernia with narrow neck with some fluid and mesenteric stranding could indicate incarcerati on. Dilated bowel loops in the right lower quadrant with adjacent inflamed mesentery. Question partial b owel obstruction versus Meckel's diverticulitis. RADIATION DOSE DELIVERED: Total DLP DATA REPOSITORY: All CT scans at this facility are submitted to the National Radiology Data Registry (NRDR) Dose Index Registry (DIR) with the [employer] (A[employer]). RADIATION OPTIMIZATION: All CT scans at this facility use at least one of these dose optimization te chniques: automated exposure control; mA and/or kV adjustment per patient size (includes targeted exa ms where dose is matched to clinical indication); or iterative reconstruction.
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
[2023-05-17] MEDS: Mylanta Suspension 30 ML CUP PO (19:41)
[2023-05-17] MEDS: Ketorolac 15 MG/ML VIAL IVP (19:41)
[2023-05-17] MEDS: Normal Saline 1,000 ML 1000 ML IV (19:42)
[2023-05-17 19:43] LABS: Abs Immature Grans 0.09 10^3/uL (0.0-0.06); Absolute Basophil Count 0.06 10^3/uL (0.0-0.2); Absolute Eosinophil Count 0.32 10^3/uL (0.0-0.7); Absolute Monocyte Count 0.76 10^3/uL (0.1-0.8); Absolute Neutrophil Count 9.15 10^3/uL (1.2-6.7); Basophils % 0.5; Eosinophils % 2.6; HCT 46.3 % (36.0-46.0); HGB 15.1 g/dL (11.2-15.7); Immature Grans % 0.7; Lymphocytes % 16.4; MCH 29.4 pg (27.0-33.0); MCHC 32.6 % (32.0-36.0); MCV 90 fL (80-95); Monocytes % 6.1; Neutrophils % 73.7; Platelet Count 303 10^3/uL (130-400); RBC 5.14 10^6/uL (3.93-5.22); RDW 15.5 % (11.7-14.6); RDW-SD 51.4 fL; WBC 12.41 10^3/uL (4.4-10.8)
[2023-05-17 19:45] LABS: Absolute Lymphocyte Count 2.04 10^3/uL (1.2-3.4)
[2023-05-17 20:06] LABS: ALT 27 U/L (14-59); AST 15 U/L (15-37); Albumin 3.6 g/dL (3.4-5.0); Alkaline Phosphatase 98 U/L (46-116); Anion Gap 10.4 mmol/L (3-11); BUN 14 mg/dL (7-18); Bilirubin, Total 0.7 mg/dL (0.2-1.0); CO2 29.6 mmol/L (21.0-32.0); CREATININE 0.9 mg/dL (0.55-1.02); Calcium 9.5 mg/dL (8.5-10.1); Chloride 95 mmol/L (98-107); Glucose 179 mg/dL (74-106); Lipase 15 U/L (16-77); Magnesium 1.9 mg/dL (1.8-2.4); Potassium 3.5 mmol/L (3.5-5.1); Sodium 135 mmol/L (136-145); TSH (W/Ref FT4) 2.07 uIU/mL (0.36-3.74); Total Protein 8.3 g/dL (6.4-8.2)
[2023-05-17] MEDS: Normal Saline Flush 10 ML SYR IVP (20:18)
[2023-05-17] MEDS: Omnipaque 350 MG/ML 100 ML BTL IJ (20:21)
[2023-05-17] MEDS: Normal Saline - Diluent 50 ML VIAL IJ (20:23)
[2023-05-17] MEDS: Cyclobenzaprine 10 MG TAB PO (20:59)
[2023-05-17 21:56] LABS: Bilirubin Negative (Negative); Blood Negative (Negative); Clarity Clear (Clear); Glucose >=1000 mg/dL (Negative); Ketones Trace mg/dL (Negative); Leukocyte Esterase Negative (Negative); Nitrite Negative (Negative); Urobilinogen 0.2 mg/dL (Up to 0.2)
--- NOTE | 2023-05-17 22:04 | DI.VRAD_ITS ---
PROCEDURE INFORMATION: Exam: CT Lumbar Spine Without Contrast Exam date and time: 05/17/2023 8:22 PM Age: 57 years old Clinical indication: Low back pain TECHNIQUE: Imaging protocol: Computed tomography of the lumbar spine without contrast. Radiation optimization: All CT scans at this facility use at least one of these dose optimization techniques: automated exposure control; mA and/or kV adjustment per patient size (includes targeted exams where dose is matched to clinical indication); or iterative reconstruction. COMPARISON: MR lumbar spine wo 12/15/2018 8:07 AM FINDINGS: Bones/joints: There is a compression fracture involving the superior endplate of L2. There is retropulsion of the superior endplate onto the spinal canal, causing spinal canal stenosis in this region. There is multilevel degenerative disc disease and bilateral facet arthropathy noted with severe bilateral neural foraminal narrowing, most prominent at L2-L3 and L3-L4 and more severe on the left. Soft tissues: No significant subcutaneous soft tissue abnormality. IMPRESSION: 1. L2 compression fracture, which may be acute or chronic. Associated moderate spinal canal stenosis noted at this level secondary to retropulsion. 2. Significant multilevel degenerative changes causing severe neural foraminal narrowing as described. Dictated and Authenticated by: Carol Valerio MD. Ordering:ENDY Maravilla MD
--- NOTE | 2023-05-17 22:39 | DI.VRAD_ITS ---
PROCEDURE INFORMATION: Exam: CT Abdomen And Pelvis With Contrast Exam date and time: 05/17/2023 8:22 PM Age: 57 years old Clinical indication: Abdominal pain; Localized; Prior surgery; Surgery date: 6+ months; Surgery type: Tubal ligation, bladder sling, cholecystectomy, polypetomy; Patient HX: Mid and upper abd pain TECHNIQUE: Imaging protocol: Computed tomography of the abdomen and pelvis with contrast. Radiation optimization: All CT scans at this facility use at least one of these dose optimization techniques: automated exposure control; mA and/or kV adjustment per patient size (includes targeted exams where dose is matched to clinical indication); or iterative reconstruction. Contrast material: OMNIPAQUE 350; Contrast volume: 100 ml; Contrast route: INTRAVENOUS (IV); COMPARISON: CR XR HIP RT COMPLETE AP PELVIS 04/22/2021 11:17 AM , CT chest dated 04/02/2022 FINDINGS: Heart: A prominent region of fat is again seen adjacent to the left atrium, likely lipomatous hypertrophy of the interatrial septum (image 1, series 5). Liver: Unremarkable liver. No mass identified. Gallbladder and bile ducts: The patient is status post cholecystectomy. Pancreas: No ductal dilation. No pancreatic lesion seen. Spleen: The spleen is unremarkable. No splenomegaly. Adrenal glands: The adrenal glands are unremarkable. No defined mass. Kidneys and ureters: The kidneys are unremarkable. No hydronephrosis. Stomach and bowel: There is fluid noted throughout the ileum however not significantly dilated by CT criteria. No evidence of bowel obstruction. Appendix: No evidence of appendicitis. Intraperitoneal space: A small region of fluid/soft tissue thickening is seen in the mesentery of the right lower quadrant (image 70, series 5) with surrounding mesenteric edema. Vasculature: No abdominal aortic aneurysm. Lymph nodes: No enlarged lymph nodes. Urinary bladder: Unremarkable urinary bladder. Reproductive: Unremarkable as visualized. Bones/joints: Multilevel degenerative changes in the lumbar spine. L2 compression fracture noted. Significant left hip degenerative changes noted. Soft tissues: There is a large fat-containing umbilical hernia noted, with free fluid also seen within the hernia. IMPRESSION: 1. Large umbilical hernia containing fat and free fluid, suggestive of inflammation in this region. Correlate with physical examination findings possible incarceration. No bowel loops within the hernia. 2. Fluid-filled loops of ileum noted, with mesenteric soft tissue thickening/fluid in the right lower quadrant and mesenteric edema. An inflamed Meckel's diverticulum may be a possibility. Close interval follow-up is recommended to exclude any developing lesion in this region. Dictated and Authenticated by: Carol Valerio MD. Ordering:ENDY Maravilla MD
--- NOTE | 2023-05-20 14:07 | CMACTNOTE_ITS ---
Date of service: 05/20/23 Time of Service: 14:07 Care Management Activity Note Activity Note Text Activity Note Text: Haven was seen in the ED for for an umbilical hernia. Today, CHRISTIE receives a call from a [place] employee stating that Haven would prefer to be seen at [facility]. At their request, CHRISTIE coordinates a referral to [facility].
== END 2023-05-17 23:39 | disposition home or self-care (01) ==
PROVIDERS: Emergency Provider Emergency Medicine; PCP Nurse Practitioner Family
DX: R10.13 Epigastric pain (principal); K42.9 Umbilical hernia without obstruction or gangrene; M48.061 Spinal stenosis, lumbar region without neurogenic claudication; M47.816 Spondylosis without myelopathy or radiculopathy, lumbar region; E07.9 Disorder of thyroid, unspecified; R11.0 Nausea
CPT/HCPCS: 80053; 83690; 96374; 99285; 74177; 81003; 83735; 84443; 85025; 99284; J1885; J3490

== ENCOUNTER 2023-07-15 09:08 | Emergency (ER) | payer MEDICARE, MEDICAID, SELFPAY ==
[2023-07-15] VITALS (13 sets, daily range): BP systolic 127–156; BP diastolic 75–88; PULSE 91–107; RESP 14–23; TEMP 36.4; O2SAT 92–98
--- NOTE | 2023-07-15 09:15 | RT.EKG_ITS ---
APPROVED REPORT Exam: Resting ECG Reason for Exam: chest pain Patient Location: E HR:98 bpm ECG Measurements Heart Rate 98 AXIS MA 147 P -77 QRSd 76 QRS 3 QT 346 T 68 QTc 444 Conclusion Sinus rhythm...normal P axis, V-rate 60- 99 Atrial premature complexes...SV complexes w/ short R-R intvls
--- NOTE | 2023-07-15 09:30 | DI.RAD_ITS ---
Exam(s) XR PORTABLE CHEST AP EXAM: XR PORTABLE CHEST AP CLINICAL HISTORY: right sided chest pain. TECHNIQUE: 2D digital imaging was performed. COMPARISON: CR,RF RF BARIUM SWALLOW from 05/15/2022 FINDINGS: Single AP portable view. Heart size is upper normal. The mediastinum is not widened. Lungs are clear. No infiltrates nor obvious pleural effusions. IMPRESSION: No acute pulmonary findings on this single AP portable view of the chest. DATA REPOSITORY: RADIATION DOSE DELIVERED:
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
[2023-07-15 09:49] LABS: Abs Immature Grans 0.06 10^3/uL (0.0-0.06); Absolute Basophil Count 0.08 10^3/uL (0.0-0.2); Absolute Eosinophil Count 0.46 10^3/uL (0.0-0.7); Absolute Lymphocyte Count 2.28 10^3/uL (1.2-3.4); Absolute Monocyte Count 0.77 10^3/uL (0.1-0.8); Absolute Neutrophil Count 6.54 10^3/uL (1.2-6.7); Basophils % 0.8; Eosinophils % 4.5; HCT 41.9 % (36.0-46.0); HGB 13.6 g/dL (11.2-15.7); Immature Grans % 0.6; Lymphocytes % 22.4; MCH 30.3 pg (27.0-33.0); MCHC 32.5 % (32.0-36.0); MCV 93 fL (80-95); MPV 8.8 fL (8.0-11.0); Monocytes % 7.6; Neutrophils % 64.1; Platelet Count 282 10^3/uL (130-400); RBC 4.49 10^6/uL (3.93-5.22); RDW 16.2 % (11.7-14.6); RDW-SD 55.1 fL; WBC 10.19 10^3/uL (4.4-10.8)
[2023-07-15 09:59] LABS: Magnesium 2.3 mg/dL (1.8-2.4)
[2023-07-15] MEDS: HYDROmorphone 2 MG/ML SYR 1 MG IVP (10:03)
[2023-07-15 10:08] LABS: ALT 29 U/L (14-59); AST 14 U/L (15-37); Albumin 3.4 g/dL (3.4-5.0); Alkaline Phosphatase 101 U/L (46-116); Anion Gap 6.8 mmol/L (3-11); BUN 15 mg/dL (7-18); Bilirubin, Total 0.5 mg/dL (0.2-1.0); CO2 29.2 mmol/L (21.0-32.0); CREATININE 0.9 mg/dL (0.55-1.02); Calcium 9.4 mg/dL (8.5-10.1); Chloride 96 mmol/L (98-107); Glucose 235 mg/dL (74-106); Lipase 26 U/L (16-77); Potassium 3.6 mmol/L (3.5-5.1); Sodium 132 mmol/L (136-145); Total Protein 7.5 g/dL (6.4-8.2); Troponin I < 50 ng/L (<or=60)
[2023-07-15 10:29] LABS: D-Dimer 1309 ng/mlFEU (<500)
--- NOTE | 2023-07-15 10:30 | DI.CT_ITS ---
Exam(s) CT CHEST PE CTA EXAM: CT CHEST PE CTA CLINICAL HISTORY: right sided pleuritic chest pain, elevated d dimer. TECHNIQUE: Imaging Protocol: CT angiography of the chest was performed using pulmonary embolus jessi col. Multi planar reconstructions were performed. CONTRAST MATERIAL: Intravenous: Omnipaque 350 Contrast volume: 100 cc COMPARISON: CT CT CHEST LUNG CANCER SCREEN from 04/02/[address] ABDOMEN PELVIS W from 05/17/2023 FINDINGS: CHEST: PULMONARY ARTERIES: There are no intraluminal filling defects to suggest acute pulmonary emboli. LUNGS: There are no infiltrates nor evidence of pulmonary infarction.. There are no pleural effusions . No ominous pulmonary nodules. MEDIASTINUM: There is no hilar nor mediastinal adenopathy. Visualized thyroid unremarkable. CARDIAC: Heart size is upper normal. There is no pericardial effusion.Caliber of the thoracic aorta is within normal limits. No dissection. There is no significant shift of the interventricular septum . HOWEVER, there is a large fatty mass occupying the entire right atrium which measures 5.5 cm wide by 5 cm AP by 6.5 cm cephalocaudal, relatively uniform fat density with average Hounsfield unit measurem ents -76 HU. The luminal diameter of the right atrium is deviated posteriorly by this fatty mass. PARTIALLY VISUALIZED UPPERMOST ABDOMEN: No obvious findings OSSEOUS: No significant osseous lesions.. IMPRESSION: 1. No evidence of acute pulmonary emboli. No evidence of pulmonary infarction.No pleural effusions. 2. Large fatty tumor again noted occupying almost the entire right atrium causing deviation of blood flow to the posterior aspect of the atrium. This does not appear to extend into the right ventricle nor into the IVC and SVC. 3. Appropriate cardiac referral recommended Report and recommendations called by myself to ER physician. RADIATION DOSE DELIVERED: 598 mGy.cm Total DLP DATA REPOSITORY: All CT scans at this facility are submitted to the National Radiology Data Registry (NRDR) Dose Index Registry (DIR) with the [employer] ([employer]). RADIATION OPTIMIZATION: All CT scans at this facility use at least one of these dose optimization te chniques: automated exposure control; mA and/or kV adjustment per patient size (includes targeted exa ms where dose is matched to clinical indication); or iterative reconstruction.
[2023-07-15 10:31] LABS: INR 0.9 (0.9-1.1); PTT Activated 24.8 sec (21.5-31.9); Prothrombin Time 9.6 sec (9.3-11.0)
[2023-07-15] MEDS: Normal Saline - Diluent 50 ML VIAL IJ (12:17)
[2023-07-15] MEDS: Omnipaque 350 MG/ML 100 ML BTL IJ (12:18)
[2023-07-15 13:34] LABS: Troponin I < 50 ng/L (<or=60)
[2023-07-15] MEDS: Lidocaine 5% Patch 1 PATCH TP (14:09)
== END 2023-07-15 14:18 | disposition home or self-care (01) ==
PROVIDERS: Emergency Provider Emergency Medicine; PCP Nurse Practitioner Family
DX: R07.9 Chest pain, unspecified (principal); E11.9 Type 2 diabetes mellitus without complications; I10 Essential (primary) hypertension; E78.5 Hyperlipidemia, unspecified; J44.9 Chronic obstructive pulmonary disease, unspecified; Z79.899 Other long term (current) drug therapy
CPT/HCPCS: 36415; 71275; 80053; 83690; 93005; 96374; 99285; 71045; 83735; 84484; 85025; 85379; 85610; 85730; 93010; J1170; J3490

== ENCOUNTER → 2023-08-10 02:45 | Outpatient (CLI) | payer MEDICARE, MEDICAID, SELFPAY ==
--- NOTE | 2023-08-10 10:00 | DI.RAD_ITS ---
Exam(s) XR FOOT RT COMPLETE EXAM: XR FOOT RT COMPLETE CLINICAL HISTORY: RT FOOT PAIN, M79.671. TECHNIQUE: 2D digital imaging was performed of the right foot. Three images were obtained. AP, obl ique and lateral views were obtained. COMPARISON: No exams were available for comparison FINDINGS: BONES: There is an acute comminuted fracture of the shaft of the 5th metatarsal bone. There is displ acement and angulation of the distal fracture fragments. No bony destructive lesion is seen. There i s a plantar calcaneal spur. There is an enthesophyte at the posterior calcaneus. JOINTS: No dislocation present. Degenerative changes are seen in the foot. There are marked degenera tive changes seen at the 1st MTP joint characterized by joint space narrowing and osteophytes. SOFT TISSUE: Soft tissue swelling of the lateral foot is noted. IMPRESSION: Acute comminuted displaced and angulated fracture of the right 5th metatarsal. There is associated s oft tissue swelling. DATA REPOSITORY: RADIATION DOSE DELIVERED:
== END ==
PROVIDERS: PCP Nurse Practitioner Family; Visit Provider Nurse Practitioner Family
DX: S92.351A Displaced fracture of fifth metatarsal bone, right foot, initial encounter for closed fracture (principal); X58.XXXA Exposure to other specified factors, initial encounter
CPT/HCPCS: 73630

== ENCOUNTER 2023-08-19 14:59 | Outpatient (CLI) | payer MEDICARE, MEDICAID, SELFPAY ==
--- NOTE | 2023-08-19 11:15 | DI.RAD_ITS ---
Exam(s) XR FOOT RT COMPLETE EXAM: XR FOOT RT COMPLETE CLINICAL HISTORY: F/U FRACTURE. TECHNIQUE: 2D digital imaging was performed. COMPARISON: CR XR FOOT RT COMPLETE from 08/10/2023 FINDINGS: 3 views The displaced comminuted fracture site the 5th metatarsal appears stable without further displacement . There is no radiopaque foreign body. No osseous lesions.. Advanced degenerative changes in the g reat toe metatarsophalangeal joint are again noted. Moderate size inferior calcaneal spur. IMPRESSION: Comminuted displaced fracture of 5th right metatarsal again noted. Minimal change from previous. DATA REPOSITORY: RADIATION DOSE DELIVERED:
== END 2023-08-19 15:00 | disposition home or self-care (01) ==
LOC: DIORS 15:00
PROVIDERS: PCP Nurse Practitioner Family; Referring Provider Nurse Practitioner Family; Visit Provider Physician Assistant
DX: S92.351D Displaced fracture of fifth metatarsal bone, right foot, subsequent encounter for fracture with routine healing; W19.XXXD Unspecified fall, subsequent encounter; F17.210 Nicotine dependence, cigarettes, uncomplicated
CPT/HCPCS: 99213; 73630

== ENCOUNTER 2023-09-22 14:19 | Outpatient (CLI) | payer MEDICARE, MEDICAID, SELFPAY ==
--- NOTE | 2023-09-22 13:15 | DI.RAD_ITS ---
Exam(s) XR FOOT RT COMPLETE EXAM: XR FOOT RT COMPLETE CLINICAL HISTORY: right foot f/u. TECHNIQUE: 2D digital imaging was performed. Three views. COMPARISON: CR XR FOOT RT COMPLETE from 08/19/2023 FINDINGS: There has been no change in the alignment of the 5th metatarsal fracture. No new abnormalities are s een. Severe degenerative changes again noted at the 1st MTP joint DATA REPOSITORY: RADIATION DOSE DELIVERED:
== END 2023-09-22 14:20 | disposition home or self-care (01) ==
LOC: DIORS 14:19
PROVIDERS: PCP Nurse Practitioner Family; Referring Provider Nurse Practitioner Family; Visit Provider Student in an Organized Health Care Education/Training Program
DX: S92.351D Displaced fracture of fifth metatarsal bone, right foot, subsequent encounter for fracture with routine healing; X58.XXXD Exposure to other specified factors, subsequent encounter
CPT/HCPCS: 99213; 73630

== ENCOUNTER 2023-09-24 21:38 | Outpatient (REF) | payer MEDICARE, MEDICAID, SELFPAY | END 2023-09-24 21:39 | disposition home or self-care (01) | LOC: NCHCN 21:38 | PROVIDERS: PCP Nurse Practitioner Family; Visit Provider Nurse Practitioner Family | DX: R30.0 Dysuria (principal) | CPT/HCPCS: 87077; 87086; 87186 ==

== ENCOUNTER → 2023-10-01 02:52 | Outpatient (CLI) | payer MEDICARE, MEDICAID, SELFPAY ==
--- NOTE | 2023-10-01 10:48 | DI.RAD_ITS ---
Exam(s) XR THORACIC SPINE COMPLETE EXAM: XR THORACIC SPINE COMPLETE CLINICAL HISTORY: THORACIC BACK PAIN, M54.6. TECHNIQUE: 2D digital imaging was performed. COMPARISON: No exams were available for comparison FINDINGS: 3 views There are compression fractures evident in the lower thoracic spine involving T11, L1 and L2 in the f ield of view of this study. No obvious osseous lesions. IMPRESSION: Multilevel compression fractures. No obvious lytic nor blastic bone lesions evident. Cannot exclude myeloma. DATA REPOSITORY: RADIATION DOSE DELIVERED:
--- NOTE | 2023-10-01 10:48 | DI.RAD_ITS ---
Exam(s) XR LUMBAR SPINE COMPLETE EXAM: XR LUMBAR SPINE COMPLETE CLINICAL HISTORY: CHRONIC LOW BACK PAIN,M54.59. TECHNIQUE: 2D digital imaging was performed. COMPARISON: CR XR LUMBAR SPINE COMPLETE from 04/22/2021 FINDINGS: Six views There has been significant deterioration from 04/22/2021. There are now compression fractures of T11, L1, L2, and L4 not previously present. Approximately 40 percent height loss at each level. Age indeterminate. Also multilevel disc space narrowing. Modera te facet arthropathy evident. There is mild scoliosis convex left. IMPRESSION: Compression fractures of T11, L1, L2, and L4 which were not present on 04/22/2021. Approximately 30- 40 percent height loss of these vertebral bodies evident. No listhesis. Multilevel disc space narro wing. DATA REPOSITORY: RADIATION DOSE DELIVERED:
== END ==
PROVIDERS: PCP Nurse Practitioner Family; Visit Provider Nurse Practitioner Family
DX: S22.080A Wedge compression fracture of T11-T12 vertebra, initial encounter for closed fracture (principal); X58.XXXA Exposure to other specified factors, initial encounter
CPT/HCPCS: 72072; 72110

== ENCOUNTER 2023-10-07 13:12 | Outpatient (REF) | payer MEDICARE, MEDICAID, SELFPAY | END 2023-10-07 13:13 | disposition home or self-care (01) | LOC: NCHCN 13:12 | PROVIDERS: PCP Nurse Practitioner Family; Visit Provider Nurse Practitioner Family | DX: N76.0 Acute vaginitis (principal); R30.0 Dysuria | CPT/HCPCS: 87077; 87086; 87186; 87480; 87510; 87660 ==

== ENCOUNTER 2023-11-10 14:24 | Outpatient (CLI) | payer MEDICARE, MEDICAID, SELFPAY ==
--- NOTE | 2023-11-10 13:15 | DI.RAD_ITS ---
Exam(s) XR FOOT RT COMPLETE EXAM: XR FOOT RT COMPLETE CLINICAL HISTORY: F/U FRACTURE. TECHNIQUE: 2D digital imaging was performed. COMPARISON: CR XR FOOT RT COMPLETE from 09/22/2023 FINDINGS: 3 views Again noted is a previously described fracture site in the 5th metacarpal. Still exhibit displacemen t and nonunion, unchanged. No dish no fractures evident Advanced degenerative osteoarthritic changes again noted in the metatarsophalangeal joint of the grea t toe. IMPRESSION: No improvement in the appearance of the displaced fracture site of the 5th metatarsal. DATA REPOSITORY: RADIATION DOSE DELIVERED:
== END 2023-11-10 14:25 | disposition home or self-care (01) ==
LOC: DIORS 14:24
PROVIDERS: PCP Nurse Practitioner Family; Referring Provider Nurse Practitioner Family; Visit Provider Student in an Organized Health Care Education/Training Program
DX: S92.351D Displaced fracture of fifth metatarsal bone, right foot, subsequent encounter for fracture with routine healing (principal); X58.XXXD Exposure to other specified factors, subsequent encounter
CPT/HCPCS: 99213; 73630

== ENCOUNTER 2023-11-11 16:19 | Outpatient (REF) | payer MEDICARE, MEDICAID, SELFPAY | END 2023-11-11 16:20 | disposition home or self-care (01) | LOC: NCHCN 16:19 | PROVIDERS: PCP Nurse Practitioner Family; Visit Provider Nurse Practitioner Family | DX: N34.2 Other urethritis (principal) | CPT/HCPCS: 87086 ==

== ENCOUNTER → 2023-11-24 13:01 | Outpatient (BNVA) | payer MEDICARE, MEDICAID, SELFPAY | PROVIDERS: PCP Nurse Practitioner Family; Referring Provider Nurse Practitioner Family; Visit Provider Podiatrist | DX: E11.42 Type 2 diabetes mellitus with diabetic polyneuropathy (principal); L60.3 Nail dystrophy; L84 Corns and callosities; R60.0 Localized edema; M79.672 Pain in left foot; R23.1 Pallor; L65.9 Nonscarring hair loss, unspecified; R20.9 Unspecified disturbances of skin sensation | CPT/HCPCS: 11056; 11721 ==

== ENCOUNTER 2023-11-29 11:51 | Emergency (ER) | payer MEDICARE, MEDICAID, SELFPAY ==
[2023-11-29 12:10] VITALS: BP 131/69; PULSE 98; RESP 18; TEMP 37.2; O2SAT 99
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
--- NOTE | 2023-11-29 14:00 | DI.CT_ITS ---
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 Coronary [place] calcifications are present. Liver: Normal density. There is focal fatty infiltration in the left lobe of the liver. No suspiciou s hepatic masses are seen. Portal, Superior Mesenteric, and Splenic Veins: Unremarkable. Gallbladder and Biliary Tract: Status post cholecystectomy. No significant biliary ductal dilatation . Pancreas: Normal density, no abnormal calcifications or inflammatory process. Spleen: Normal. Adrenals: No masses seen. Kidneys: Normal size, contour and axis. No radiodense stones or obstructive uropathy. No masses seen. Abdominal Aorta: Abdominal portion non-dilated. Atherosclerosis. Bowel: The stomach is incompletely distended limiting evaluation. There is no bowel obstruction or b owel wall thickening. There is a large midline anterior abdominal wall hernia containing unremarkabl e loops of small bowel. No evidence of incarceration or obstruction is seen. No evidence of appendi citis. Peritoneal Cavity: No ascites, collection or mesenteric inflammatory response. No free air. Lymph Nodes: Within normal limits. Bones: Within normal limits for the patient's age. The bones are osteopenic. There again seen multi ple compression fracture deformities in the lower thoracic and lumbar spine which appears stable comp ared to x-rays of the lumbar spine from 10/01/2023. Soft Tissues: Unremarkable. PELVIS: Bladder: Symmetric distention, no gross wall thickening. Reproductive Organs: Status post hysterectomy. Lymph Nodes: Within normal limits. Bones: Within normal limits for the patient's age. IMPRESSION: 1. No acute abdominal or pelvic process. 2. Stable findings in the abdomen and pelvis as described above. 3. Findings were discussed with Dr. Villavicencio at 4 p.m. on 11/29/2023. RADIATION DOSE DELIVERED: 1,677.77mGy.cm Total DLP DATA REPOSITORY: All CT scans at this facility are submitted to the National Radiology Data Registry (NRDR) Dose Index Registry (DIR) with the [employer] (A[employer]). RADIATION OPTIMIZATION: All CT scans at this facility use at least one of these dose optimization te chniques: automated exposure control; mA and/or kV adjustment per patient size (includes targeted exa ms where dose is matched to clinical indication); or iterative reconstruction.
[2023-11-29] MEDS: HYDROmorphone 2 MG/ML SYR 0.5 MG IVP (14:22)
[2023-11-29 14:41] LABS: Abs Immature Grans 0.08 10^3/uL (0.0-0.06); Absolute Basophil Count 0.08 10^3/uL (0.0-0.2); Absolute Eosinophil Count 0.45 10^3/uL (0.0-0.7); Absolute Lymphocyte Count 2.98 10^3/uL (1.2-3.4); Absolute Monocyte Count 0.84 10^3/uL (0.1-0.8); Basophils % 0.8; Eosinophils % 4.3; HCT 42.8 % (36.0-46.0); Immature Grans % 0.8; Lymphocytes % 28.6; MCH 29.4 pg (27.0-33.0); MCHC 32.7 % (32.0-36.0); MCV 90 fL (80-95); MPV 8.5 fL (8.0-11.0); Monocytes % 8.1; Neutrophils % 57.4; Platelet Count 319 10^3/uL (130-400); RBC 4.76 10^6/uL (3.93-5.22); RDW 15.9 % (11.7-14.6); RDW-SD 52.5 fL; WBC 10.43 10^3/uL (4.4-10.8)
[2023-11-29 14:55] LABS: ALT 26 U/L (14-59); AST 12 U/L (15-37); Albumin 3.7 g/dL (3.4-5.0); Alkaline Phosphatase 137 U/L (46-116); Anion Gap 6.6 mmol/L (3-11); BUN 13 mg/dL (7-18); Bilirubin, Total 0.6 mg/dL (0.2-1.0); CO2 30.4 mmol/L (21.0-32.0); CREATININE 0.9 mg/dL (0.55-1.02); Calcium 9.6 mg/dL (8.5-10.1); Chloride 97 mmol/L (98-107); Estimated GFR 73.64 (mL/min/1.73m2); Glucose 135 mg/dL (74-106); Lipase 49 U/L (16-77); Potassium 3.6 mmol/L (3.5-5.1); Sodium 134 mmol/L (136-145); Total Protein 8.6 g/dL (6.4-8.2)
[2023-11-29] MEDS: Normal Saline - Diluent 50 ML VIAL IJ (15:24)
[2023-11-29] MEDS: Omnipaque 350 MG/ML 100 ML BTL IJ (15:27)
[2023-11-29 16:33] LABS: Bilirubin Negative (Negative); Blood Negative (Negative); Clarity Clear (Clear); Glucose Negative (Negative); Ketones Negative (Negative); Leukocyte Esterase Negative (Negative); Nitrite Negative (Negative); Specific Gravity <= 1.005 (1.005-1.025); Urobilinogen 0.2 mg/dL (Up to 0.2); pH 6.5 (5-8)
[2023-11-29] MEDS: Acetaminophen 500 MG TAB 1000 MG PO (16:37)
[2023-11-29] MEDS: Ibuprofen 600 MG TAB PO (16:38)
[2023-11-29] MEDS: Gabapentin 300 MG CAP PO (16:38)
== END 2023-11-29 16:58 | disposition home or self-care (01) ==
PROVIDERS: Emergency Provider Emergency Medicine; PCP Nurse Practitioner Family
DX: M48.54XA Collapsed vertebra, not elsewhere classified, thoracic region, initial encounter for fracture (principal); K42.9 Umbilical hernia without obstruction or gangrene; E11.9 Type 2 diabetes mellitus without complications; Z79.84 Long term (current) use of oral hypoglycemic drugs; F17.210 Nicotine dependence, cigarettes, uncomplicated
CPT/HCPCS: 80053; 83690; 99285; 74177; 81003; 85025; 99284; J1170; J3490

== ENCOUNTER 2023-12-01 20:07 | Inpatient (IN) | payer MEDICARE, MEDICAID, SELFPAY ==
[2023-12-01] VITALS (110 sets, daily range): BP systolic 87–128; BP diastolic 64–82; PULSE 100–120; RESP 15–37; O2SAT 92–96
--- NOTE | 2023-12-01 20:00 | DI.CT_ITS ---
Exam(s) CT BRAIN NECK CTA EXAM: CT BRAIN NECK CTA CLINICAL HISTORY: left sided deficits. TECHNIQUE: Imaging Protocol: Axial CT angiography was performed with multi-slice acquisition and mu lti-planar and/or 3D reconstructions. CONTRAST MATERIAL: Intravenous: Omnipaque 350 Contrast volume:structured data in ml COMPARISON: CT CT ABDOMEN PELVIS W from 11/29/2023 FINDINGS: CTA Neck W: Aortic arch anatomy: The aortic arch anatomy is conventional and there is no significant stenosis at the origin of the great vessels off of the aortic arch. No intimal flap evident. Anterior circulation: Both common carotid arteries ascend with normal luminal diameters. At the level the carotid bulbs and proximal internal carotid arteries there is minimal plaque without hemodynamically significant stenosis evident. Posterior circulation: Both vertebral arteries originate in conventional fashion off of the subclavian arteries and there is no obvious stenosis at the origin of the vertebral arteries. Both vertebral arteries exhibit normal luminal diameters within the foramen transversarium. Both vertebral arteries contribute to the formation of the basilar artery at the skull base. CTA Brain W: There is a large uniformly enhancing mass in the right supraclinoid/para clinoid extra-axial space co nsistent with probable meningioma and measuring 3.4 cm wide by 2.6 cm AP by 1.5 cm cephalocaudal. Th is mass exerts significant mass effect upon the adjacent medial temporal lobe as well as on the ipsil ateral right middle cerebral artery, supraclinoid right ICA, and right A1 segment. Anterior circulation: Both internal carotid arteries are patent in the skull base-carotid canals as well as within the cave rnous sinuses. Left supraclinoid ICA unremarkable as is the left A1 segment. The above described enhancing mass cau ses some mass effect upon the right supraclinoid ICA, right A1 segment, and right middle cerebral art [place]. Right middle cerebral artery is deviated posteriorly by the mass but not occluded. Left MCA appears unremarkable. Posterior circulation: The basilar artery ascends in the midline. Distally it gives off bilateral superior cerebellar arter ies. Above this level the basilar artery terminates as patent left posterior cerebral artery. The right P CA appears to be fed by a posterior communicating artery on the right side of the [id number]. There is no evidence of aneurysm at the tip of the basilar artery. CT BRAIN: Large right-sided supra-para clinoid enhancing mass which is probably an extra-axial meningioma with measurements as above. This causes mass effect. No shift of midline structures. There is some duncan on artifact here. IMPRESSION: 1. Large uniformly enhances did extra-axial right-sided mass in the paraclinoid-supraclinoid region w hich is probably meningioma measuring approximately 34 mm x 26 mm x 15 mm, causing local mass effect upon the adjacent anterior right temporal lobe and inferior right frontal lobes as well as on the ips ilateral internal carotid artery, A1 segment, and right middle cerebral artery. 2. No occluded major intracranial vessels seen 3. Carotid and vertebral arteries in the neck. First read by [facility]. RADIATION DOSE DELIVERED: 2,201.2mGy.cm Total DLP DATA REPOSITORY: All CT scans at this facility are submitted to the National Radiology Data Registry (NRDR) Dose Index Registry (DIR) with the [employer] (A[employer]). RADIATION OPTIMIZATION: All CT scans at this facility use at least one of these dose optimization te chniques: automated exposure control; mA and/or kV adjustment per patient size (includes targeted exa ms where dose is matched to clinical indication); or iterative reconstruction.
[2023-12-01] MEDS: Omnipaque 350 MG/ML 100 ML BTL IJ (20:17)
[2023-12-01] MEDS: Normal Saline - Diluent 50 ML VIAL IJ ×3 (20:18→22:09)
[2023-12-01] MEDS: Normal Saline Flush 10 ML SYR IVP ×2 (20:18→22:10)
--- NOTE | 2023-12-01 20:52 | DI.VRAD_ITS ---
Addendum created by Arnulfo Ann MD on 12/01/2023 9:14:24 PM EST: THIS REPORT CONTAINS FINDINGS THAT MAY BE CRITICAL TO PATIENT CARE. The findings were verbally communicated via telephone conference with ARASELI Marsh at 9:11 PM EST on 12/01/2023. The findings were acknowledged and understood. Initial report created on 12/01/2023 8:51:46 PM EST: PROCEDURE INFORMATION: Exam: CTA Head With Contrast, Arteriography Exam date and time: 12/01/2023 8:13 PM Age: 58 years old Clinical indication: Stroke-like symptoms; Other: Lt side deficiet TECHNIQUE: Imaging protocol: Computed tomographic angiography of the head with contrast. Exam focused on the arteries. 3D rendering (Not supervised by radiologist): MIP and/or 3D reconstructed images were created by the technologist. Contrast material: 350; Contrast volume: 110 ml; Contrast route: INTRAVENOUS (IV); COMPARISON: No relevant prior studies available. FINDINGS: Limited due to motion artifact ANTERIOR CIRCULATION: Right internal carotid artery: Intracranial segment is patent with no significant stenosis. No aneurysm. Right middle cerebral artery: No occlusion or significant stenosis. No aneurysm. Right anterior cerebral artery: No occlusion or significant stenosis. No aneurysm. Left internal carotid artery: Intracranial segment is patent with no significant stenosis. No aneurysm. Left middle cerebral artery: No occlusion or significant stenosis. No aneurysm. Left anterior cerebral artery: No occlusion or significant stenosis. No aneurysm. POSTERIOR CIRCULATION: Right vertebral artery: No occlusion or significant stenosis. No aneurysm. Left vertebral artery: No occlusion or significant stenosis. No aneurysm. Basilar artery: No occlusion or significant stenosis. No aneurysm. Right posterior cerebral artery: No occlusion or significant stenosis. No aneurysm. Left posterior cerebral artery: No occlusion or significant stenosis. No aneurysm. Brain: Uniformly dense enhancing mass in the extra-axial space in the right paraclinoid/supraclinoid region presumably representing a meningioma measuring up to 3.5 x 2.7 cm in greatest dimensions. There is adjacent mass effect on the anterior right temporal and inferior right frontal lobes and on the right anterior and middle cerebral arteries Cerebral ventricles: No ventriculomegaly. Bones/joints: Unremarkable. No acute fracture. Soft tissues: Unremarkable. IMPRESSION: No large vessel stenosis or occlusion. Large right paraclinoid extra-axial mass presumably representing a meningioma. Follow-up contrast enhanced brain MRI and MRA/MRV recommended. If not already performed, neurosurgical consultation recommended PROCEDURE INFORMATION: Exam: CTA Neck With Contrast Exam date and time: 12/01/2023 8:13 PM Age: 58 years old Clinical indication: Stroke-like symptoms; Other: Lt side deficiet TECHNIQUE: Imaging protocol: Computed tomographic angiography of the neck with contrast. Exam focused on the cervical segments of the vasculature. 3D rendering (Not supervised by radiologist): MIP and/or 3D reconstructed images were created by the technologist. Contrast material: 350; Contrast volume: 110 ml; Contrast route: INTRAVENOUS (IV); COMPARISON: CT CHEST PE CTA 07/15/2023 11:04 AM FINDINGS: Right common carotid artery: No stenosis. No dissection or occlusion. Right internal carotid artery: No stenosis of the extracranial segment. No dissection or occlusion. Right external carotid artery: No occlusion or stenosis of the origin. Left common carotid artery: No stenosis. No dissection or occlusion. Left internal carotid artery: No stenosis of the extracranial segment. No dissection or occlusion. Left external carotid artery: No occlusion or stenosis of the origin. Right vertebral artery: No stenosis. No dissection or occlusion. Left vertebral artery: No stenosis. No dissection or occlusion. Soft tissues: Normal. No significant soft tissue swelling. Bones/joints: No acute fracture. IMPRESSION: No stenosis or occlusion. REFERENCES: NASCET CRITERIA. The degree of stenosis in the cervical segment of the internal carotid artery is based on NASCET criteria. Normal is no stenosis. Mild is less than 50% stenosis. Moderate is 50-69% stenosis. Severe is 70% to 99% stenosis. Total occlusion is no detectable patent lumen. Dictated and Authenticated by: Arnulfo Ann MD. Ordering:FAINA Raymundo MD
[2023-12-01 20:53] LABS: Absolute Lymphocyte Count 1.26 10^3/uL (1.2-3.4); Basophils % 0.2; HCT 35.2 % (36.0-46.0); Immature Grans % 0.8; Lymphocytes % 5.1; MCH 29.9 pg (27.0-33.0); MCHC 34.1 % (32.0-36.0); MCV 88 fL (80-95); MPV 8.6 fL (8.0-11.0); Monocytes % 9.8; Neutrophils % 84.1; Platelet Count 240 10^3/uL (130-400); RBC 4.02 10^6/uL (3.93-5.22); RDW 15.9 % (11.7-14.6); RDW-SD 51.2 fL
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
[2023-12-01 21:05] LABS: Absolute Basophil Count 0.05 10^3/uL (0.0-0.2); Absolute Monocyte Count 2.42 10^3/uL (0.1-0.8); Absolute Neutrophil Count 20.77 10^3/uL (1.2-6.7)
[2023-12-01 21:07] LABS: INR 1.1 (0.9-1.1); PTT Activated 31.4 sec (23.6-32.8); Prothrombin Time 11.4 sec (9.1-11.1)
--- NOTE | 2023-12-01 21:15 | DI.CT_ITS ---
Exam(s) CT THORAX ABD/PEL CTA EXAM: CT THORAX ABD/PEL CTA CLINICAL HISTORY: eval for dissection. TECHNIQUE: Imaging Protocol: Axial computed tomography images with coronal and sagittal reformatted images were created and reviewed CONTRAST MATERIAL: Intravenous: Omnipaque 350 Contrast volume:100 ml Oral: None COMPARISON: CT CT ABDOMEN PELVIS W from 05/17/[address] BRAIN NECK CTA from 12/01/2023 FINDINGS: CHEST: AORTA: The diameter of the ascending thoracic aorta is within normal limits. There is no dissection. Aortic arch and descending thoracic aorta exhibits normal diameter. There is also no evidence of a bdominal aortic aneurysm nor aneurysmal dilatation of the iliac arteries. Also no tight stenosis of these vessels. Celiac and superior mesenteric arteries are patent as is the inferior mesenteric erasmo ry. No obvious stenosis in the renal arteries. No central pulmonary emboli LUNGS: There is small-moderate size bilateral pleural effusions and some atelectasis in the lung base s.. MEDIASTINUM: There is no hilar nor mediastinal adenopathy. Visualized thyroid unremarkable. CARDIAC: Heart size normal. No pericardial effusion. There is a fatty mass in the heart again noted , unchanged. This is in the region of the interatrial septum and is probably a lipoma. Appears unch anged in size from 05/17/2023 ABDOMEN: There is no ascites. LIVER: There are no focal hepatic lesions nor dilatation of intrahepatic ducts. GALLBLADDER/BILIARY: Gallbladder surgically absent. CBD is not dilated. PANCREAS: No evidence of pancreatic mass nor dilatation of the pancreatic duct. SPLEEN: Spleen is not enlarged. There are no intrasplenic lesions. Splenic and portal veins are alberto nt. ADRENALS: There are no significant adrenal masses. KIDNEYS: No cysts evident. No calculi nor hydronephrosis. No solid renal masses. ABDOMINAL AORTA: The abdominal aorta is not enlarged. LYMPH NODES: There is no retroperitoneal nor para-aortic adenopathy. No obvious mesenteric masses. ABDOMINAL WALL: Again noted is a prominent anterior abdominal wall hernia which has increased in size significantly from 05/17/2023 and now contains multiple small bowel loops which do not appear grossl y edematous nor obstructed. The hernia sac now measures 12 cm wide by 9 cm AP by 10 cm cephalocaudal . No bowel obstruction evident. GI: There is no evidence of bowel obstruction, free air, nor abscess. PELVIS: LYMPH NODES: There is no intrapelvic nor inguinal adenopathy. GI: No evidence of appendicitis.No evidence of sigmoid diverticulitis. URINARY BLADDER: Unremarkable. REPRODUCTIVE: Uterus is surgically absent. No abnormal adnexal masses nor free fluid in the pelvis. OSSEOUS: Mild compression fractures of T7, T11, L1, L2 and L3 and L4, increased from April 2023. No p rominent compromise of the spinal canal. IMPRESSION: 1. No evidence of aortic dissection, as per request. No aneurysms evident in the aorta and iliac ves sels. 2. Numerous increasing compression fractures in the thoracic and lumbar spines. 3. Large anterior abdominal wall hernia which is increased from previous study of April 2023 and now c ontains non edematous and nonobstructed small bowel loops. 4. Previous cholecystectomy and hysterectomy. No bowel obstruction. 5. Bilateral small moderate size pleural effusions and atelectasis in both lung bases. 6. Fatty mass in the interatrial septum of the heart again noted. Should undergo further investigat ion if not already done. Other findings as above. RADIATION DOSE DELIVERED: 1,273.14mGy.cm Total DLP DATA REPOSITORY: All CT scans at this facility are submitted to the National Radiology Data Registry (NRDR) Dose Index Registry (DIR) with the [employer] (ACR). RADIATION OPTIMIZATION: All CT scans at this facility use at least one of these dose optimization te chniques: automated exposure control; mA and/or kV adjustment per patient size (includes targeted exa ms where dose is matched to clinical indication); or iterative reconstruction.
--- NOTE | 2023-12-01 21:15 | RT.EKG_ITS ---
APPROVED REPORT Exam: Resting ECG Reason for Exam: chest pain Patient Location: E HR:119 bpm ECG Measurements Heart Rate 119 AXIS LA 142 P -68 QRSd 83 QRS -5 QT 328 T 62 QTc 457 Conclusion Sinus or ectopic atrial tachycardia...P axis (-45,135), rate> 99 Physician: no stemi, PAC's
[2023-12-01 21:17] LABS: Diff Comment Agrees w/ Instrument; RBC Morphology Normal
[2023-12-01 21:20] LABS: ALT 19 U/L (14-59); AST 13 U/L (15-37); Albumin 2.6 g/dL (3.4-5.0); Alkaline Phosphatase 97 U/L (46-116); Anion Gap 5.5 mmol/L (3-11); BUN 19 mg/dL (7-18); Bilirubin, Total 1.4 mg/dL (0.2-1.0); CO2 27.5 mmol/L (21.0-32.0); CREATININE 0.9 mg/dL (0.55-1.02); Calcium 8.6 mg/dL (8.5-10.1); Chloride 92 mmol/L (98-107); Estimated GFR 73.64 (mL/min/1.73m2); Glucose 204 mg/dL (74-106); Sodium 125 mmol/L (136-145); TSH (W/Ref FT4) 0.87 uIU/mL (0.36-3.74); Total Protein 6.7 g/dL (6.4-8.2); Troponin I < 50 ng/L (< or =60)
[2023-12-01 21:23] LABS: Potassium 2.8 mmol/L (3.5-5.1)
[2023-12-01] MEDS: Normal Saline 1,000 ML 1000 ML IV (21:36)
[2023-12-01] MEDS: MAGNESIUM SULFATE 2 GM/50 ML BAG IVPB (21:36)
[2023-12-01 21:46] LABS: Magnesium 1.8 mg/dL (1.8-2.4)
[2023-12-01] MEDS: POTASSIUM CHLORIDE 20 MEQ/100 ML BAG 50 MEQ IVPB (21:48)
[2023-12-01] MEDS: levETIRAcetam 2,000 MG in Normal Saline 100 ML 400 MG IVPB (22:21)
[2023-12-01] MEDS: MORPHine 4 MG/ML SYR IVP (22:45)
--- NOTE | 2023-12-01 23:09 | DI.VRAD_ITS ---
PROCEDURE INFORMATION: Exam: CTA Chest With Contrast CTA Abdomen and Pelvis With Contrast Exam date and time: 12/01/2023 10:05 PM Age: 58 years old Clinical indication: Other: Eval for dissection TECHNIQUE: Imaging protocol: Computed tomographic angiography of the chest with contrast. Exam focused on the arteries. Computed tomographic angiography of the abdomen and pelvis with contrast. Exam focused on the arteries. 3D rendering (Not supervised by radiologist): MIP and/or 3D reconstructed images were created by the technologist. Contrast material: 350; Contrast volume: 100 ml; Contrast route: INTRAVENOUS (IV); COMPARISON: CT CHEST PE CTA 07/15/2023 11:[address] abdomen and pelvis 05/17/2023 FINDINGS: VASCULATURE: Pulmonary arteries: Normal. No pulmonary emboli. Aorta: Atherosclerotic disease. No aortic aneurysm or dissection. Celiac trunk and mesenteric arteries: No occlusion or significant stenosis. Renal arteries: No occlusion or significant stenosis. Right iliac arteries: No occlusion or significant stenosis. Left iliac arteries: No occlusion or significant stenosis. CHEST: Lungs: Mild bibasilar atelectasis. Pleural spaces: Small pleural effusions. Heart: Previously-seen fatty mass the interatrial septum is unchanged., likely a lipoma. No pericardial effusion. Heart size is normal. Coronary arteries: Coronary artery calcifications. ABDOMEN AND PELVIS: Liver: Enlarged fatty liver. Gallbladder and bile ducts: Cholecystectomy. No biliary ductal dilatation. Pancreas: Unremarkable. No mass. No ductal dilation. Spleen: Unremarkable. No splenomegaly. Adrenal glands: Unremarkable. No mass. Kidneys and ureters: Kidneys enhance symmetrically. No hydronephrosis. Stomach and bowel: Unremarkable. No obstruction. No mucosal thickening. Appendix: Normal appendix. Intraperitoneal space: Unremarkable. No free air. No significant fluid collection. Urinary bladder: Unremarkable. No mass. Reproductive: Hysterectomy. Lymph nodes: Unremarkable. No enlarged lymph nodes. Bones/joints: Multilevel degenerative changes throughout the spine. Stable mild superior endplate scalloping of T2 and T3. There is a new mild anterior wedge compression fracture of T7. There is a T11 inferior endplate compression fracture new since the prior study. Compression fractures are also seen throughout the entire lumbar spine, most are new since the prior study. The L1 compression fracture was previously seen and appears unchanged. No significant retropulsion. Multilevel vacuum disc phenomena throughout the lumbar spine and at T11-T12. Moderate central canal narrowing is seen at the L3-L4 level. Moderate to severe degenerative changes in the hips. Soft tissues: There is a large umbilical hernia containing fat and non incarcerated small bowel loops. IMPRESSION: 1. No evidence of aortic aneurysm or dissection. No pulmonary emboli. 2. Numerous compression fractures throughout the thoracic and lumbar spine, majority of which are new since the prior studies as described above. No retropulsion. 3. Enlarged, fatty liver. 4. Large umbilical hernia containing non incarcerated bowel loops. 5. Bilateral pleural effusions and bibasilar atelectasis. 6. Stable fatty mass in the interatrial septum likely lipoma. Dictated and Authenticated by: Randee Redding MD. Ordering:FAINA Raymundo MD
[2023-12-01] MEDS: HYDROmorphone 2 MG/ML SYR IVP (23:24)
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
[2023-12-01 23:40] LABS: Bilirubin Negative (Negative); Blood Negative (Negative); Clarity Clear (Clear); Glucose 100 mg/dL (Negative); Ketones Negative (Negative); Leukocyte Esterase Negative (Negative); Nitrite Negative (Negative); Urobilinogen >=8.0 mg/dL (Up to 0.2); pH 6.5 (5-8)
[2023-12-01 23:48] LABS: Bacteria Few HPF (Negative); C & S Indicated? No; Crystals Negative HPF (Negative); Epithelial Cells Many HPF (Negative); Mucus Trace (Negative); RBC 0-2 HPF (0-2); WBC 0-2 HPF (0-5)
[2023-12-01 23:50] LABS: BE (Venous) 2 mmol/L (-2-3); HCO3 (Venous) 27 mmol/L (23-28); O2 Sat (Venous) 61 %; TCO2 (Venous) 25 mmol/L (24-29); pCO2 (Venous) 48 mmHg (41-51); pH (Venous) 7.36 (7.31-7.41); pO2 (Venous) 33 mmHg
[2023-12-01 23:51] LABS: Procalcitonin 0.5 ng/mL
[2023-12-02] VITALS (94 sets, daily range): BP systolic 84–143; BP diastolic 51–93; PULSE 54–130; RESP 2–31; TEMP 36.2–38.6; O2SAT 90–110
--- NOTE | 2023-12-02 | DI.CT_ITS ---
Exam(s) CT HEAD WO EXAM: CT HEAD WO CLINICAL HISTORY: change in mental status. TECHNIQUE: Imaging Protocol: Axial computed tomography images with coronal and sagittal reformatted images were created and reviewed COMPARISON: CT CT BRAIN NECK CTA from 12/01/2023 FINDINGS: There are no skull fractures. There is no fluid in the visualized paranasal sinuses. On this noninfused study the previously described large hyperdense mass in the right supraclinoid-par a chondroid region is again noted, most probably a large meningioma. There is no evidence of hemorrhage, intra or extra-axial. No additional mass effect. No ventricular e nlargement nor shift of the ventricles. IMPRESSION: Unchanged from prior study within the last 24 hours. Large right sided probable meningioma again note d in the supra-para clinoid region. Please see prior dictated CT angiogram report. RADIATION DOSE DELIVERED: 776.3mGy.cm Total DLP DATA REPOSITORY: All CT scans at this facility are submitted to the National Radiology Data Registry (NRDR) Dose Index Registry (DIR) with the [employer] ([employer]). RADIATION OPTIMIZATION: All CT scans at this facility use at least one of these dose optimization te chniques: automated exposure control; mA and/or kV adjustment per patient size (includes targeted exa ms where dose is matched to clinical indication); or iterative reconstruction.
[2023-12-02 00:29] LABS: COVID-19 PCR Negative (Negative); Influenza A PCR Negative (Negative); Influenza B PCR Negative (Negative); RSV PCR Negative (Negative)
[2023-12-02 00:30] LABS: Source Nasopharynx
[2023-12-02 00:59] LABS: Lab Add On Test DONE
[2023-12-02 01:18] LABS: NT-proBNP 2216 pg/mL (<300)
--- NOTE | 2023-12-02 01:22 | DI.US_ITS ---
APPROVED REPORT EXAM: Comprehensive 2D, Doppler, and color-flow Echocardiogram Patient Location: In-Patient Room/Bed: [address] Panel Inspector: Carl Bean RDCS (AE) Echo Enhancing Agent Indication: Rule out Shunt Agent(s) / Amount(s) Used: Agitated Saline 30.0 cc Comments: Contrast study was performed with 3 IV injections of 10ccs of agitated normal saline, at re st, with cough and post valsalva maneuver. Negative contrast study for shunt flow. Other Information Study Quality: Fair. Technically limited study due to body habitus, patient unable to perform breathi ng manuevers. Conclusion A technically limited study due to patient's habitus. 1. Normal chamber sizes. 2. Normal LV and RV function. LVEF 55%. 3. Anatomically normal valves.No significant regurgitation or stenosis. 4 No intracardiac shunt by doppler or agitated saline contrast. 5. No pericardial effusion. Wall motion Left Ventricle The left ventricle is normal size. The left ventricular systolic function is normal. The left ventric ular ejection fraction is within the normal range. There is normal left ventricular wall thickness. T here is normal LV segmental wall motion. There is no ventricular septal defect visualized. LVEF is 55 %. Right Ventricle The right ventricle is normal size. Right ventricular systolic function is grossly normal. Atria The left atrium size is normal. The right atrium size is normal. The interatrial septum is intact wit h no evidence for an atrial septal defect. Saline bubble contrast intravenous injection does not demo nstrate PFO. Aortic Valve The aortic valve is normal in structure. Number of aortic valve leaflets could not be assessed. There is no aortic valvular stenosis. No aortic regurgitation is present. Mitral Valve The mitral valve is normal in structure. No evidence of mitral valve stenosis. There is no mitral joão ve regurgitation noted. Tricuspid Valve The tricuspid valve is normal in structure. There is no tricuspid valve stenosis. Trace tricuspid reg urgitation. Unable to assess PA pressure. Pulmonic Valve The pulmonary valve is normal in structure. There is no pulmonic valvular stenosis. There is no pulmo efrain valvular regurgitation. Great Vessels The aortic root is normal in size. The ascending aorta is normal in size. Aortic arch is not visualiz ed. Due to poor image quality, the IVC could not be assessed. Pericardium There is no pericardial effusion. 2D Dimensions IVSD d PLAX 0.94 cm F: 0.6-1.0 Ao Root d 3.12 cm F: 2.7 - 3.3 LVPW d PLAX 0.90 cm F: 0.6 - 1.0 Ao Asc Diam d 2.95 cm F: 2.3 - 3.1 LVID d PLAX 4.82 cm F: 3.8 - 5.2 LVDs 3.46 cm F: 2.2 - 3.5 LV EF Teichholz 54.3 % FS 28.15 % LV EDV (Teich) 108.4 mL LV ESV (Teich) 49.5 mL Stroke Vol Index (Teich) 24.63 M-Mode TAPSE 1.95 cm (M/F) >1.7 Auto EF LV EDV A4C 129.2 mL LV EDV A2C 146.7 mL LV EDV BP 137.6 mL LV ESV A4C 58.9 mL LV ESV A2C 65.4 mL LV ESV BP 62.2 mL LVEF(%) A4C 54.4 % LVEF(%) A2C 55.4 % LVEF(%) BP 54.8 % LV SV A4C 70.2 ml LV SV A2C 81.2 ml LV SV BP 75.4 ml LV CO A4C 9.1 L/min LV CO A2C 9.6 L/min LV CO BP 9.3 L/min HR A4C 129.05 BPM HR A2C 118.43 BPM LV EDV Index (BP) LA Volume LA Length A4C 5.8 cm LA Length A2C LA Area A4C s 13.13 cm2 LA Area A2C s LA Vol A4C A-L 25.07 mL LA Vol A2C A-L LA Vol Biplane A-L LA Vol A4C MOD 25.1 mL LA Vol A2C MOD LA Vol BP MOD RA Volume RA Area A4C 5.5 cm2 RA ESV A4C (A-L) 8.4mL RA Vol/BSA A4C A-L RA Length A4C 3.1 cm RA ESV A4C (MOD) 7.8mL LV Diastology MV E' medial 0.087 (>0.07 m/s) MV E Vmax 1.08 (0.4-1.3 m/s) MV E/E' MED 12.43 (<14) MV A Vmax 0.75 (0.4-1.3 m/s) MV E' lateral 0.133 (>0.1 m/s) E/A Ratio 1.4 MV E/E' LAT 8.10 (<14) MV E' Average 0.110 m/s MV E/E'(average) 9.81 Aortic Valve AoV Vmax 1.43 m/s LVOT Vmax 1.00 m/s AoV Peak Grad 8.2 mmHg LVOT Peak Grad 4.0 mmHg AoV Area (Vmax) 1.57 cm2 LVOT VTI 0.179 m AoV VTI 0.271 m LVOT Mean Grad 2.3 mmHg AoV Mean Sandro. 1.03 m/s LVOT SV 40.46 mL AoV Mean Grad 4.7 mmHg LVOT Diam s 1.65 cm AoV Area (VTI) 1.50 cm2 Velocity Ratio 0.70 Mitral Valve MV DT 233 (160-240 msec) Pulmonary Valve PV Vmax 1.10 (0.5-1.5 m/s) RVOT Vmax 0.96 m/s PV Peak Grad 4.9 mmHg RVOT Peak Gr. 3.7 mmHg PV Mean Sandro 0.82 m/s RVOT VTI 0.186 m PV Mean Grad 3.0 mmHg RVOT Mean Gr. 2.2 mmHg
[2023-12-02] MEDS: Levalbuterol 1.25 MG/3 ML UPD VIAL UPD ×5 (02:25→21:05)
[2023-12-02] MEDS: Furosemide 40 MG/4 ML VIAL IVP ×2 (02:54→09:14)
[2023-12-02] MEDS: POTASSIUM CHLORIDE 20 MEQ/100 ML BAG 50 MEQ IVPB (02:59)
[2023-12-02 03:02] LABS: BE 2 mmol/L (-2-3); HCO3 26 mmol/L (22-26); pCO2 41 mmHg (35-45); pH 7.42 (7.35-7.45); pO2 75 mmHg (80-105); sO2 96 % (95-98); tCO2 24 mmol/L (23-27)
[2023-12-02 03:04] LABS: FIO2 30 %; Site Left Radial
[2023-12-02] MEDS: DOXYCYCLINE 100 MG in Normal Saline 100 ML IVPB ×2 (03:05→17:00)
[2023-12-02] MEDS: Naloxone 0.4 MG/ML VIAL IVP (03:11)
[2023-12-02 03:13] LABS: Lactate 1.3 mmol/L (0.6-1.4)
[2023-12-02 03:17] LABS: Abs Immature Grans 0.18 10^3/uL (0.0-0.06); Absolute Basophil Count 0.07 10^3/uL (0.0-0.2); Basophils % 0.3; HCT 36.8 % (36.0-46.0); HGB 12.2 g/dL (11.2-15.7); Immature Grans % 0.8; MCH 29.9 pg (27.0-33.0); MCHC 33.2 % (32.0-36.0); MCV 90 fL (80-95); MPV 8.5 fL (8.0-11.0); Monocytes % 8.5; Neutrophils % 85.4; Platelet Count 245 10^3/uL (130-400); RBC 4.08 10^6/uL (3.93-5.22); RDW 15.9 % (11.7-14.6); RDW-SD 53.2 fL; WBC 23.31 10^3/uL (4.4-10.8)
[2023-12-02 03:18] LABS: Absolute Lymphocyte Count 1.17 10^3/uL (1.2-3.4); Absolute Monocyte Count 1.98 10^3/uL (0.1-0.8); Absolute Neutrophil Count 19.91 10^3/uL (1.2-6.7)
[2023-12-02] MEDS: ACETAMINOPHEN 1,000 MG/100 ML BTL 400 MG IVPB ×2 (03:23→19:40)
[2023-12-02] MEDS: Heparin 5,000 UNITS/ML VIAL 5000 UNITS SC ×3 (03:24→19:52)
[2023-12-02 03:25] LABS: Anion Gap 4.3 mmol/L (3-11); BUN 18 mg/dL (7-18); CO2 28.7 mmol/L (21.0-32.0); CREATININE 0.9 mg/dL (0.55-1.02); Calcium 8.6 mg/dL (8.5-10.1); Chloride 95 mmol/L (98-107); Estimated GFR 73.64 (mL/min/1.73m2); Glucose 176 mg/dL (74-106); Magnesium 2.1 mg/dL (1.8-2.4); Sodium 128 mmol/L (136-145)
[2023-12-02 03:29] LABS: Hemoglobin A1C 6.9 % (<5.7)
[2023-12-02 03:33] LABS: Potassium 2.9 mmol/L (3.5-5.1)
[2023-12-02 03:41] LABS: Diff Comment Agrees w/ Instrument; RBC Morphology Normal
[2023-12-02] MEDS: Lidocaine 5% Patch 3 PATCH TP ×2 (04:12→09:14)
[2023-12-02] MEDS: Aspirin 300 MG SUPP PR ×2 (04:12→17:21)
--- NOTE | 2023-12-02 04:40 | NUR.NOTE ---
Patient admitted to room 211 at 0156. She was drowsy/lethargic and minimally responsive to a sternal rub. BP was stable, HR tachy, temp 38.6 and O2 sats 96% on 3L. Her respiratory effort was labored, tachypneic, with use of accessory muscles. RN notified pathologist and head of housekeeping who was on the unit at the time. MD was also on the unit at this time. She was notified and came to bedside. MD placed many orders as pt was assessed. Plan was made to move pt to ICU. RN gave report to CLINICAL LIAISON and pt was transferred with two RNs and RT. Nursing Note:
[2023-12-02] MEDS: POTASSIUM CHLORIDE 20 MEQ/100 ML BAG 50 MEQ IV ×2 (05:45→09:22)
[2023-12-02] MEDS: Metoprolol 5 MG/5 ML VIAL 2.5 MG IVP ×2 (05:45→05:55)
[2023-12-02 08:58] LABS: Anion Gap 4.7 mmol/L (3-11); BUN 18 mg/dL (7-18); CO2 28.3 mmol/L (21.0-32.0); Calcium 8.8 mg/dL (8.5-10.1); Calculated LDL 42 mg/dL (<100); Chloride 93 mmol/L (98-107); Cholesterol 111 mg/dL (<200); Glucose 207 mg/dL (74-106); HDL Cholesterol 58 mg/dL (40-60); Potassium 3.6 mmol/L (3.5-5.1); Sodium 126 mmol/L (136-145); Triglyceride 57 mg/dL (<150); Vitamin B12 1355 pg/mL (193-986)
--- NOTE | 2023-12-02 09:05 | DI.RAD_ITS ---
Exam(s) XR PORTABLE CHEST AP EXAM: XR PORTABLE CHEST AP CLINICAL HISTORY: respiratory failure. TECHNIQUE: 2D digital imaging was performed. COMPARISON: CR XR PORTABLE CHEST AP from 07/15/2023 FINDINGS: Single AP portable view. Heart size is upper normal. The mediastinum is not widened. There appears to be subtle infiltrate in the left lower lobe retrocardiac region. No obvious pleural effusions. No obvious findings in the right lung. IMPRESSION: Probable left lower lobe infiltrate. Recommend nonportable PA and lateral views when clinically poss ible or CT scan. DATA REPOSITORY: RADIATION DOSE DELIVERED:
[2023-12-02] MEDS: Nicotine 21 MG/24 HR PATCH TD (09:13)
[2023-12-02] MEDS: Pantoprazole 40 MG VIAL IVP ×2 (09:18→22:07)
[2023-12-02] MEDS: Normal Saline Flush 10 ML SYR IVP ×5 (09:19→22:07)
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
[2023-12-02] MEDS: Ipratropium 0.5 MG/2.5 ML UPD VIAL UPD ×3 (09:36→17:46)
--- NOTE | 2023-12-02 10:57 | STREC_ITS ---
Date of service: 12/02/23 Time of Service: 10:45 Speech Therapy Recommendations Report ST Recommendations: SHIFTMAN consult received/attempted; patient NPO pending SHIFTMAN evaluation. Patient currently on Bi-Pap; RT consulted for trial of nasal cannula. RT attempted but ultimately deferred SHIFTMAN evaluation at this time. Will re-attempt later today if medically indicated or tomorrow 12/03/23. Coding
--- NOTE | 2023-12-02 10:57 | PDOC.STREC ---
Date of service: 12/02/23 Time of Service: 10:45 Speech Therapy Recommendations Report ST Recommendations: ROVING CARRIER consult received/attempted; patient NPO pending ROVING CARRIER evaluation. Patient currently on Bi-Pap; RT consulted for trial of nasal cannula. RT attempted but ultimately deferred ROVING CARRIER evaluation at this time. Will re-attempt later today if medically indicated or tomorrow 12/03/23. Coding
--- NOTE | 2023-12-02 12:11 | PGE_ITS ---
Date of Service Date of service: 12/02/23 Time of Service: 12:11 Assessment and Plan Assessment and plan (1) Acute respiratory failure: Status: Acute Assessment and plan: multifactorial including background of COPD and superimposed obtundation leading to aspiration pneumonia, I also suspect her of having AARON based on her body habitus and her RVH on her echo. continue supportive care w/ aerosolized bronchodilators, parenteral antibiotics (zosyn), CPAP (wean as tolerated). I also think based on her POCUS of her lungs and her heart that she is volume overloaded. She has parameters that fit w/ HFPEF, although I did not measure her LA volume nor was I able to get a TR velocity but her average e' is low and her E wave was high. I think her E/A ratio fits w/ pseudnormal pattern. She could benefit from diuresis. Critical care time spent interviewing and examining the patient, reviewing studies, discussing case with patient's nurse and consulting physicians was 60 minutes excluding time spent performing POCUS study. Qualifiers: Respiratory failure complication: hypoxia Qualified Code(s): J96.01 - Acute respiratory failure with hypoxia (2) Pneumonia: Status: Acute Assessment and plan: continue Zosyn, bronchodilators and pulmonary toiletry Qualifiers: Aspiration pneumonia type: due to gastric secretions Laterality: bilateral Lung location: lower lobe of lung Pneumonia type: aspiration pneumonia Qualified Code(s): J69.0 - Pneumonitis due to inhalation of food and vomit (3) COPD (chronic obstructive pulmonary disease): Status: Chronic Assessment and plan: add Spiriva, will give short course of methylprednisolone (she did get one time dose of 125 mg IVP last night), continue Xopenex/ipatroprium q4h while awake, attempt to obtain sputum cultures Qualifiers: COPD type: unspecified COPD Qualified Code(s): J44.9 - Chronic obstructive pulmonary disease, unspecified (4) Meningioma: Status: Chronic Assessment and plan: patient needs MRI brain w/ and w/out contrast and then will send images for review w/ neurosurgery and neurology (5) Toxic metabolic encephalopathy: Status: Acute Assessment and plan: likely obtunded from morphine and dilaudid, however she was also given a large dose of gabapentin 800 mg last night. By the time she came to med/surg she was obtunded, sonorous respirations and hypoxic requirinig the CPAP. She is improved. (6) Left-sided weakness: Status: Acute Assessment and plan: seems to have resolved. however she still needs completion of CVA workup including the brain MRI and echocardiogram w/ bubble study (was completed but not read yet). (7) Dysarthria: Status: Acute Assessment and plan: resolved (8) Bilateral pleural effusion: Status: Acute Assessment and plan: I suspect from diastolic HF but also may be some parapneumonic effusion (9) Hyponatremia: Status: Acute Assessment and plan: likely from CHF, however, solvent recoverer who admitted her felt may be d/t her HCTZ and lisinopril (both were put on hold). I think she is hypervolemic but will monitor while diuresing (10) Type 2 diabetes mellitus: Status: Chronic Assessment and plan: continue sliding scale insulin. If her formal echo confirms my findings of diastolic HF then she would benefit from better GDT i.e. Jardiance, Entresto and spironolactone. Qualifiers: Diabetes mellitus complication status: without complication Diabetes mellitus longterm insulin use: without longterm use Qualified Code(s): E11.9 - Type 2 diabetes mellitus without complications (11) Spinal compression fracture: Status: Acute Assessment and plan: Continue home pain medications. Avoid opioid medications. Writing for lidocaine patches. Qualifiers: Encounter type: subsequent encounter Fracture healing: with routine healing Fracture of vertebra location: lumbar Lumbar vertebra fracture level: unspecified lumbar vertebra Qualified Code(s): S32.000D - Wedge compression fracture of unspecified lumbar vertebra, subsequent encounter for fracture with routine healing (12) Hypokalemia: Status: Acute Assessment and plan: corrected, monitor and replace particularly while on diuretics. (13) DVT prophylaxis: Status: Acute Assessment and plan: SC heparin (14) Discharge planning issues: Status: Acute Assessment and plan: still requires ICU management d/t her respiratory failure Subjective Subjective Interval history since last seen: See admission H&P and ER notes for details. But in summary this 58-year-old female with a history of type 2 diabetes mellitus not oxygen dependent COPD hypertension and hyperlipidemia and a known meningioma and chronic back pain presented to the ED from [facility] because of acute confusion and dysarthric speech and left hemiparesis left lower extremity weaker than the left upper extremity onset around 1745 yesterday. On arrival to the ED she underwent CT and CTA of the head and neck which did not show any large vessel occlusion but demonstrated a large right paraclinoid extra axial mass consistent with meningioma with some compression of the right frontal and parietal lobes. Discussion last night by the ED provider with [facility] [place] [place] and [facility] neurology and [place] [facility] recommended obtaining nonemergent MRI of the brain with and without contrast and to follow-up with usual stroke workup including telemetry monitoring and echocardiogram with bubble study. Since last night her right-sided hemiparesis is improved speech is a little clear although difficult to understand underneath CPAP mask. Patient subsequently was found to have had an aspiration pneumonia and was started on antibiotics. Remains on CPAP mask which they have been unable to wean her off of this from her MRI scan. Apparently last night she was medicated with Dilaudid and morphine which caused to become obtunded. She initially was admitted to the medical/surgical floor but transferred to ICU when she became hypoxic and was unresponsive having sonorous respirations. She was given Narcan last night to reverse the narcotics. Exam Narrative Exam Narrative: Morbidly obese female lying in bed on CPAP mask.Patient remains on cCPAP with FiO2 30% and 10 cm. Patient with rhonchorous respirations mildly tachypneic Heart tachycardic but regular rhythm appears to be sinus tachycardia rate of 113 bpm SpO2 93% Abdomen obese soft nontender Neuroexam she has no focal motor deficits of the right or left upper or lower limbs. No pitting edema Objective Last Vital Signs Temp 36.4 C L 12/02/23 08:58 Pulse 112 H 12/02/23 10:59 Resp 31 H 12/02/23 10:59 BP 137/84 12/02/23 03:29 Pulse Ox 96 12/02/23 10:59 Laboratory Results - last 24 hr 12/01/23 12/01/23 12/01/23 20:47 23:11 23:36 WBC 24.70 H RBC 4.02 Hgb 12.0 D Hct 35.2 L MCV 88 MCH 29.9 MCHC 34.1 RDW 15.9 H Plt Count 240 MPV 8.6 Immature Gran % 0.8 Neutrophils % 84.1 Lymphocytes % 5.1 Monocytes % 9.8 Eosinophils % 0.0 Basophils % 0.2 Nucleated RBC % 0.0 Absolute Neutrophils 20.77 H Absolute Lymphocytes 1.26 Absolute Monocytes 2.42 H Absolute Eosinophils 0.00 Absolute Basophils 0.05 RBC Morphology Normal PT 11.4 H INR 1.1 APTT 31.4 ABG Sample Site ABG pH ABG pCO2 ABG pO2 ABG HCO3 ABG Total CO2 ABG O2 Saturation ABG Base Excess VBG pH VBG pCO2 VBG pO2 VBG HCO3 VBG Total CO2 VBG O2 Saturation VBG Base Excess VBG Lactate FiO2 Sodium 125 L Potassium 2.8 L* Chloride 92 L Carbon Dioxide 27.5 Anion Gap 5.5 BUN 19 H Creatinine 0.9 Est GFR (CKD-EPI 2020) 73.64 Glucose 204 H Hemoglobin A1c Calcium 8.6 Magnesium 1.8 Total Bilirubin 1.4 H AST 13 L ALT 19 Alkaline Phosphatase 97 Troponin I < 50 NT-Pro-B Natriuret Pep 2216 H Total Protein 6.7 Albumin 2.6 L Triglycerides Total Cholesterol LDL Cholesterol, Calc HDL Cholesterol Vitamin B12 Procalcitonin 0.5 TSH 0.87 Urine Color Yellow Urine Clarity Clear Urine pH 6.5 Ur Specific [place] 1.010 Urine Protein Trace H Urine Ketones Negative Urine Blood Negative Urine Nitrite Negative Urine Bilirubin Negative Urine Urobilinogen >=8.0 H Ur Leukocyte Esterase Negative Urine RBC 0-2 Urine WBC 0-2 Ur Epithelial Cells Many Urine Crystals Negative Urine Bacteria Few Urine Mucus Trace Ur Culture Indicated? No Urine Glucose 100 H COVID-19 Source SARS-CoV-2 (PCR) Influenza Type A (PCR) Influenza Type B (PCR) RSV (PCR) Add-On Test Request 12/01/23 12/01/23 12/02/23 23:47 23:48 00:58 WBC RBC Hgb Hct MCV MCH MCHC RDW Plt Count MPV Immature Gran % Neutrophils % Lymphocytes % Monocytes % Eosinophils % Basophils % Nucleated RBC % Absolute Neutrophils Absolute Lymphocytes Absolute Monocytes Absolute Eosinophils Absolute Basophils RBC Morphology PT INR APTT ABG Sample Site ABG pH ABG pCO2 ABG pO2 ABG HCO3 ABG Total CO2 ABG O2 Saturation ABG Base Excess VBG pH 7.36 VBG pCO2 48 VBG pO2 33 VBG HCO3 27 VBG Total CO2 25 VBG O2 Saturation 61 VBG Base Excess 2 VBG Lactate FiO2 Sodium Potassium Chloride Carbon Dioxide Anion Gap BUN Creatinine Est GFR (CKD-EPI 2020) Glucose Hemoglobin A1c Calcium Magnesium Total Bilirubin AST ALT Alkaline Phosphatase Troponin I NT-Pro-B Natriuret Pep Total Protein Albumin Triglycerides Total Cholesterol LDL Cholesterol, Calc HDL Cholesterol Vitamin B12 Procalcitonin TSH Urine Color Urine Clarity Urine pH Ur Specific [place] Urine Protein Urine Ketones Urine Blood Urine Nitrite Urine Bilirubin Urine Urobilinogen Ur Leukocyte Esterase Urine RBC Urine WBC Ur Epithelial Cells Urine Crystals Urine Bacteria Urine Mucus Ur Culture Indicated? Urine Glucose COVID-19 Source Nasopharynx SARS-CoV-2 (PCR) Negative Influenza Type A (PCR) Negative Influenza Type B (PCR) Negative RSV (PCR) Negative Add-On Test Request DONE 12/02/23 12/02/23 12/02/23 02:55 03:03 07:50 WBC 23.31 H RBC 4.08 Hgb 12.2 Hct 36.8 MCV 90 MCH 29.9 MCHC 33.2 RDW 15.9 H Plt Count 245 MPV 8.5 Immature Gran % 0.8 Neutrophils % 85.4 Lymphocytes % 5.0 Monocytes % 8.5 Eosinophils % 0.0 Basophils % 0.3 Nucleated RBC % 0.0 Absolute Neutrophils 19.91 H Absolute Lymphocytes 1.17 L Absolute Monocytes 1.98 H Absolute Eosinophils 0.00 Absolute Basophils 0.07 RBC Morphology Normal PT INR APTT ABG Sample Site Left Radial ABG pH 7.42 ABG pCO2 41 ABG pO2 75 L ABG HCO3 26 ABG Total CO2 24 ABG O2 Saturation 96 ABG Base Excess 2 VBG pH VBG pCO2 VBG pO2 VBG HCO3 VBG Total CO2 VBG O2 Saturation VBG Base Excess VBG Lactate 1.3 FiO2 30 Sodium 128 L 126 L Potassium 2.9 L* 3.6 Chloride 95 L 93 L Carbon Dioxide 28.7 28.3 Anion Gap 4.3 4.7 BUN 18 18 Creatinine 0.9 1.0 Est GFR (CKD-EPI 2020) 73.64 64.90 Glucose 176 H 207 H Hemoglobin A1c 6.9 H Calcium 8.6 8.8 Magnesium 2.1 2.0 Total Bilirubin AST ALT Alkaline Phosphatase Troponin I NT-Pro-B Natriuret Pep Total Protein Albumin Triglycerides 57 Total Cholesterol 111 LDL Cholesterol, Calc 42 HDL Cholesterol 58 Vitamin B12 1355 H Procalcitonin TSH Urine Color Urine Clarity Urine pH Ur Specific [place] Urine Protein Urine Ketones Urine Blood Urine Nitrite Urine Bilirubin Urine Urobilinogen Ur Leukocyte Esterase Urine RBC Urine WBC Ur Epithelial Cells Urine Crystals Urine Bacteria Urine Mucus Ur Culture Indicated? Urine Glucose COVID-19 Source SARS-CoV-2 (PCR) Influenza Type A (PCR) Influenza Type B (PCR) RSV (PCR) Add-On Test Request Time Spent with Patient Time Spent with Patient: >50 minutes Time was spent: preparing to see the patient(eg.review tests), ordering medications,tests, procedures, referring, communicating with other health hospice care transitions coordinator, indepentently interpreting results, counseling the patient and care coordination
--- NOTE | 2023-12-02 12:15 | W.POCUS ---
Pocus Exam Limited Thoracic Lung Exam DATE OF EXAM: 12/02/23 TIME OF EXAM: 11:11 PROVIDER THAT PERFORMED THE STUDY: Vidal Liz REASON FOR EXAM: Hypoxia, Pneumonia and Shortness ofBreath VISUALIZED STRUCTURES: right anterior, left anterior, right lateral and left lateral PERTINENT FINDINGS/IMPRESSION: B-lines/left side thoracis location: lateral and posterior, B-lines/right side thoracis location: lateral and posterior, Pneumonia (bibasilar consolidation, subpleural on left, larger consolidation w/ air bronchograms on the right base), Left pleural effusion (small) and Right pleural effusion (small) Exam complete
[2023-12-02] MEDS: PIPERACILLIN/TAZO 3.375 GM in Normal Saline 50 ML IVPB ×2 (12:18→19:41)
[2023-12-02] MEDS: Ketoconazole 2% CREAM 15 GM TUBE TP (12:19)
[2023-12-02] MEDS: Insulin Aspart 300 UNITS/3 ML PEN SC ×2 (12:20→17:31)
--- NOTE | 2023-12-02 12:21 | W.POCUS ---
Pocus Exam Limited Cardiac Exam DATE OF EXAM: 12/02/23 TIME OF EXAM: 11:29 PROVIDER THAT PERFORMED THE STUDY: Vidal Liz IS THIS A REPEAT EXAM DURING THIS ENCOUNTER: no REASON FOR EXAM: Dyspnea and Hypoxia VISUALIZED STRUCTURES: four chambers, LVOT, aortic valve, mitral valve, Interventricular septum and IVC VIEW OBTAINED: Apical 4-Chamber, Parasternal long-axis, Parasternal short-axis (poor images of PSAX) and Subxiphoid PERTINENT FINDINGS/IMPRESSION: Plethoric IVC; No LV dysfunction, No pericardial effusion, No RV dilation and No RV dysfunction INCIDENTAL FINDINGS: Elevated E wave velocity of 95 cm/s, A wave 80.5 cm/s, E/A ratio 1.19, avg E/e' 11.6, unable to obtain adequate TR jet to obtain TR velocity. Moderate RVH w/ subcostal RV wall of 1.0 cm, dilated IVC w/ less than 50 % collapsability however, patient was on CPAP and therefore measurements, therefore can not accurately estimate RAP Exam complete
--- NOTE | 2023-12-02 13:41 | PHA.REVIEW2 ---
Pharmacy Admission Review Admission Clinical Review Admission Pharmacy Review: (Updated 12/02/23 @ 12:54 by Vidal Liz MD) Pneumonia (Acute) Acute respiratory failure (Acute) Toxic metabolic encephalopathy (Acute) Hypokalemia (Acute) Discharge planning issues (Acute) DVT prophylaxis (Acute) Spinal compression fracture (Acute) Hyponatremia (Acute) Bilateral pleural effusion (Acute) Dysarthria (Acute) Left-sided weakness (Acute) Sepsis (Acute) Acute hyponatremia (Acute) Acute hypokalemia (Acute) Acute left-sided muscle weakness (Acute) Brain mass (Acute) alprazolam Allergy (Unknown, Verified 12/01/23 20:09) Skin Rash Citalopram Analogues Allergy (Unknown, Verified 12/01/23 20:09) unknown erythromycin base Adverse Reaction (Intermediate, Verified 12/01/23 20:09) breakout rash Penicillins Adverse Reaction (Mild, Verified 12/01/23 20:09) yeast infection Macrolide Antibiotics Adverse Reaction (Unknown, Verified 12/01/23 20:09) pt unsure seasonal Allergy (Unknown, Uncoded 12/01/23 20:09) nasal congestion; watery eyes metformin Adverse Reaction (Mild, Uncoded 12/01/23 20:09) Resuscitation Status Full Code Height 5 ft 3 in Weight 149.7 kg Pharmacy Admission Review Renal Dosing Renal Dosing: BUN 18 mg/dL (7-18) 12/02/23 07:50 Creatinine 1.0 mg/dL (0.55-1.02) 12/02/23 07:50 Medications needing adjustments: Reviewed (CrCl 87.3 mL/min) Anticoagulation Anticoagulation: Hgb 12.2 g/dL (11.2-15.7) 12/02/23 03:03 Hct 36.8 % (36.0-46.0) 12/02/23 03:03 Plt Count 245 10^3/uL (130-400) 12/02/23 03:03 INR 1.1 (0.9-1.1) 12/01/23 20:47 Creatinine 1.0 mg/dL (0.55-1.02) 12/02/23 07:50 DVT Prophylaxis: Reviewed Medications: Heparin (5000 units q8h) Relevant Labs Relevant Labs: Sodium 126 mmol/L (136-145) L 12/02/23 07:50 Potassium 3.6 mmol/L (3.5-5.1) 12/02/23 07:50 Chloride 93 mmol/L (98-107) L 12/02/23 07:50 Magnesium 2.0 mg/dL (1.8-2.4) 12/02/23 07:50 Electrolytes, C-Reactive P, ESR: Reviewed (Na 126) DM Control DM Control: Glucose 207 mg/dL (74-106) H 12/02/23 07:50 Hemoglobin A1c 6.9 % (<5.7) H 12/02/23 03:03 Finger Stick Blood Glucose 227 Finger Stick Blood Glucose 227 Finger Stick Blood Glucose 227 Finger Stick Blood Glucose 221 Finger Stick Blood Glucose 221 DM Control: Reviewed (A1C 6.9%) Insulin Dosing, Diabetic Medication: Has order for SS insulin Cardiac Review Cardiac Review: Troponin I < 50 ng/L (< or =60) 12/01/23 20:47 NT-Pro-B Natriuret Pep 2216 pg/mL (<300) H 12/01/23 20:47 BP, HR, EF%: Reviewed (BP WNL, HR 93, currently on BiPaP) QTc Review QTc: Reviewed (457 12/01/23) IV to PO Switch IV Medications: Reviewed (IV APAP) Home Meds Home Med List reviewed: Reviewed Relevent Home Meds Not ordered & why?: No home meds ordered at this time. Updated patients home med list. Will watch for addition of home meds and adjust as needed. Current Meds Current Medication Order Review: Reviewed Comments: Lidocaine patches were documented on twice this morning. Contacted nursing who stated that 2nd person removed the patches and put new ones on not realizing the ones on were just applied that morning. Patch removal order was added. Pharmacy Antibiotic Review Relevant Labs: Relevant Labs 12/01/23 23:11 Procalcitonin 0.5 Pharmacy Antibiotic Activity: C/S review and Reviewed, no change Comments: Current regimen of Zosyn 3.375g every 8 hours. WBC decreased to 23.31 from 24.7. Temp of 37.7 at 0329 this morning, was afebrile at 1230. Blood, urine and sputum cultures pending.
[2023-12-02] MEDS: methylPREDNISolone SUCC 40 MG VIAL IVP ×2 (13:54→22:06)
[2023-12-02] MEDS: Metoprolol 5 MG/5 ML VIAL IVP (15:41)
[2023-12-02] MEDS: Ketorolac 15 MG/ML VIAL IVP ×2 (15:54→22:10)
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
[2023-12-02] MEDS: levETIRAcetam 1,000 MG in Normal Saline 100 ML 400 MG IVPB (18:14)
[2023-12-02] MEDS: Metoprolol 5 MG/5 ML VIAL 7.5 MG IVP (19:41)
[2023-12-02] MEDS: Lidocaine Patch Removal 3 EACH TP (20:21)
[2023-12-03] VITALS (87 sets, daily range): BP systolic 83–151; BP diastolic 62–106; PULSE 65–108; RESP 5–30; TEMP 36.2–37.2; O2SAT 89–95
[2023-12-03] MEDS: ACETAMINOPHEN 1,000 MG/100 ML BTL 400 MG IVPB ×2 (00:42→10:26)
[2023-12-03] MEDS: Insulin Aspart 300 UNITS/3 ML PEN SC ×5 (00:43→21:52)
[2023-12-03] MEDS: Levalbuterol 1.25 MG/3 ML UPD VIAL UPD ×3 (01:20→07:48)
[2023-12-03] MEDS: Metoprolol 5 MG/5 ML VIAL 7.5 MG IVP (01:48)
[2023-12-03] MEDS: levETIRAcetam 1,000 MG in Normal Saline 100 ML 400 MG IVPB (03:31)
[2023-12-03] MEDS: PIPERACILLIN/TAZO 3.375 GM in Normal Saline 50 ML IVPB ×2 (03:55→20:30)
[2023-12-03] MEDS: DOXYCYCLINE 100 MG in Normal Saline 100 ML IVPB (03:56)
[2023-12-03] MEDS: Heparin 5,000 UNITS/ML VIAL 5000 UNITS SC ×3 (04:04→20:42)
[2023-12-03] MEDS: Ketorolac 15 MG/ML VIAL IVP ×3 (04:08→23:38)
[2023-12-03] MEDS: methylPREDNISolone SUCC 40 MG VIAL IVP ×3 (05:30→21:09)
[2023-12-03] MEDS: VANCOMYCIN 1,000 MG in Normal Saline 250 ML 166.667 MG IVPB (06:05)
[2023-12-03 07:24] LABS: Abs Immature Grans 0.21 10^3/uL (0.0-0.06); Absolute Monocyte Count 1.06 10^3/uL (0.1-0.8); Absolute Neutrophil Count 15.69 10^3/uL (1.2-6.7); Basophils % 0.2; HCT 32.8 % (36.0-46.0); HGB 10.8 g/dL (11.2-15.7); Immature Grans % 1.2; Lymphocytes % 5.2; MCH 29.8 pg (27.0-33.0); MCHC 32.9 % (32.0-36.0); MCV 91 fL (80-95); MPV 9.7 fL (8.0-11.0); Monocytes % 5.9; Neutrophils % 87.5; Platelet Count 258 10^3/uL (130-400); RBC 3.62 10^6/uL (3.93-5.22); RDW-SD 53.2 fL; WBC 17.93 10^3/uL (4.4-10.8)
[2023-12-03 07:26] LABS: Absolute Basophil Count 0.04 10^3/uL (0.0-0.2); Absolute Lymphocyte Count 0.93 10^3/uL (1.2-3.4)
[2023-12-03 07:34] LABS: BUN 28 mg/dL (7-18); CREATININE 1.1 mg/dL (0.55-1.02); Chloride 98 mmol/L (98-107); Estimated GFR 57.88 (mL/min/1.73m2); Glucose 216 mg/dL (74-106); Sodium 137 mmol/L (136-145)
[2023-12-03 07:43] LABS: Potassium 2.9 mmol/L (3.5-5.1)
[2023-12-03] MEDS: Ipratropium 0.5 MG/2.5 ML UPD VIAL UPD (07:48)
[2023-12-03] MEDS: Tiotropium Bromide-Respimat 10 PUFF INH 2 PUFF IH (08:02)
[2023-12-03] MEDS: Nicotine 21 MG/24 HR PATCH TD ×2 (08:20→13:32)
[2023-12-03] MEDS: Lidocaine 5% Patch 3 PATCH TP ×2 (08:21→13:33)
[2023-12-03] MEDS: Aspirin 300 MG SUPP PR (08:55)
[2023-12-03] MEDS: POTASSIUM CHLORIDE 20 MEQ/100 ML BAG 50 MEQ IVPB ×2 (08:55→11:10)
[2023-12-03] MEDS: Normal Saline Flush 10 ML SYR IVP ×5 (08:57→23:39)
--- NOTE | 2023-12-03 09:34 | PT.INIE ---
Date of service: 12/03/23 Time of Service: 09:30 PT Notes Visit Reasons: L-sided weakness, dysarthria, confusion, meningiom Date: 12/03/23 Referring Doctor: Nikki Young MD PT Orders: PT CONSULT: Limited Ability Precautions: Standard, Oj lift Patient Profile/Admitting Diagnosis: Patient is a 58 year old female brought to the ER on 12/01/23 after she developed apparent left hemiparesis, dysarthria, and ?AMS with PMHx of NIDDM2, non-oxygen dependent COPD, HTN, hyperliipidemia, meningioma, chronic back pain, with LLE>LUE weakness, dysarthria, and confusion. CT/CTA of head provides evidence of a large right paraclinoid extra-axial mass, c/w meningioma, significantly increased in size from prior. R tongue deviation observed at ED, triggering stork work up vs meningioma (prior existing) contribution. Chart review also reports leucocytosis, tachycardia, back pain with her CT chest/abdomen/pelvis showing numerous compression fractures of the thoracic and lumbar spine, and bilateral pleural effusions and bibasilar atelectasis. Admitted for further evaluation and treatment of a suspected stroke, meningioma, and what appears to be a septic process of unknown origin. Social History/Home Situation: [place] resident, limited to one level living. Ambulating with RW, sleeping in recliner chair with mechanical lift. Equipment Owned/DME: RW Subjective: C/o severe back pain, in right side. She has been sleeping in a couch recliner with mechanical lift x 2 months, and has not been able to get out or in bed independently. She is unaware of any extremity weakness. Does complain of some LE numbness and tingling. She generally will walk the distance of her residence at [place] with RW independently. She requires assist for showering and dressing. She is now residing on one evel of [place] over the past 2 months due to her progressive limitations Objective: General Observation: Lying in hospital bed, air transfer mat under her, craig, IV, Nasal O2, telemetry Mental Status: A&O x 3 Vitals: BP 123/74, O2 Sat 93% on 3LO2, dropping to low 80's with exertion. ROM: Assessed lying bed, which offers limitations given her mobility deficits Right Upper Extremity: Sarkis flex 150, abd 90, elbow, wrist and digits WNL Left Upper Extremity: Sarkis flex 150, abd 90, elbow, wrist and digits WNL Right Lower Extremity: Hip flex 45, knee 70, ankles generally stiff Left Lower Extremity:Hip flex 45, knee 45 ankle generally stiff Strength: Right Upper Extremity: R sarkis flex 4/5, abd 5/5, bicep/tricep 5/5, wrist flex/ext 5/5, digit abd/add 3+/5, thumb opposition 4/5 Left Upper Extremity: R sarkis flex 4/5, abd 5/5, bicep/tricep 5/5, wrist flex/ext 5/5, digit abd/add 3/5, thumb opposition 3+/5 Right Lower Extremity: DF and PF 5/5, Unable to assess Left Lower Extremity: DF and PF 5/5, Unable to assess Bed Mobility/Transfers: Reclined supine to EOB, MAX x 2 Sit EOB MAX x 2 Attempt of stand unsuccesful due to pain and with MAX A x 2 EOB to Supine MAX x 3 Air mat MAX x 2 for repositioning in bed. Gait: Unable Balance: Static Sitting: Poor Dynamic Sitting: Poor Static Standing: Unable to assess Dynamic Standing: Unable to assess Special Tests: Mobility Limitations Standardized Measure [facility] AM-PAC 6 clicks Basic Mobility Inpatient Short Form: 100% disability Informed Consent/Education: Patient instructed in purpose of PT consult and plan of care. Treatment: Initial evaluation [id number] Assessment: Patient is a 58 year old female referred to physical therapy services with reason for PT evaluation of limited ability with remarkable medical history of COPD, HTN, hyperliipidemia, meningioma, chronic back pain with confirmed vertebral fractures, LE weakness ,and admitted diagnosis of suspected stroke, meningioma, and what appears to be a septic process of unknown origin. Patient presents with with strength, mobility, and balance impairments related to acute medical issues. She has had failing physical condition of 2 months dependent on mechanical recliner chair, one level living, and assist of self care. Today she is presenting even more declined with inability to stand, but with complicating of worsening back pain which is likely related to compression fractures. Her weakness is generally presenting symmetrical, with no obvious unilateral asymmetry with this limited evaluation. Her mobility limitations are likely a consequence of her multiple medical complications of fractures and back pain, suspected stroke and meningioma. Her chronic baseline of morbid obesity and deconditioning a factor in struggle to initiate transfers. She will require a oj lift for edge of bed transfers, and mylene lift for standing attempts. She requires skilled PT intervention to maximize mobility to and attend to below deficits. Rehabilitation transfer likely the most reasonable posibility at this time. Impairment level findings: Global weakness Balance deficit LE ROM deficits Impairments are contributing to the following functional limitations: Oj lift need for transfer Inability to stand or ambulate [facility] 100% disability Patient is assessed as high complexity based on the following: History: Per PMH as documented in EMR and as described above Examination: impairment and functional limitations as noted above Presentation: Unstable Decision Making: Moderate Goals: Goals X1 week 1. Supine-Sit : Reclined, MAX x1, repositioning in bed x 2 2. Sit-Supine : Reclined, MAX x1, repositioning in bed x 2 3. Sit-Stand : Mylene lift x 2 min 4. Stand-Sit : Mylene lift x 2 min Plan of Care/Treatment Plan: She will require a oj lift for edge of bed transfers, and mylene lift for standing attempts at the current time. 1-2x/day, 7 days/week x 1 week. Plan of care has been reviewed with the LOAN OFFICER ASSISTANT providing the service under Physical Therapy direction. Initiate Physical Therapy intervention for strengthening, bed mobility, transfers, gait, stairs, balance training, use of assistive device. DISCHARGE RECOMMENDATIONS: Patient will require rehabilitation setting. TREATMENT CODE/TIME: 10780, 45 min, 9:30-10:15 Randee Ramirez, MPT [facility]
--- NOTE | 2023-12-03 09:43 | W.NUTRFU ---
Date of service: 12/03/23 Time of Service: 09:43 Nutrition Note NOTE: received routine consult request RE: diabetes education Pt is 58yo female usually residing in assisted living facility, admitted with multiple health concerns, including PNA, acute RF, COPD, toxic metabolic encephalopathy, sepsis, hyponatremia and hypokalemia, pleural effusion, DMII with polyneuropathy. She is was NPO yesterday for POCU and this order remains as of breakfast this morning. Currently on steroids and fasting glucose has remained high (207 yesterday morning and 231 this morning). Ordered for insulin aspart sliding scale q6hrs. With pt's current acute situation, diabetic education is not appropriate at this time. Will continue to follow for resumed PO intake/diet toleration, labs/glucose. Education will be offered when/if appropriate. Time Spent in Nutritional Counseling and Treatment: 0
[2023-12-03 09:56] LABS: Lab Add On Test DONE
[2023-12-03 10:08] LABS: Magnesium 2.4 mg/dL (1.8-2.4)
--- NOTE | 2023-12-03 10:23 | PGE_ITS ---
Date of Service Date of service: 12/03/23 Time of Service: 10:23 Assessment and Plan Assessment and plan (1) Acute respiratory failure: Status: Acute Assessment and plan: Multifactorial including underlying COPD with superimposed aspiration pneumonia. And there was some component of diastolic heart failure as well. Patient diuresed quite well yesterday on a Lasix drip. This point I think she is euvolemic and Lasix drip has been stopped. Will correct her electrolyte abnormalities including her potassium and magnesium Professional time spent interviewing and examining patient, discussion of goals of care with hospital team (care management, nursing and consulting professionals) was 45 minutes.. Qualifiers: Respiratory failure complication: hypoxia Qualified Code(s): J96.01 - Acute respiratory failure with hypoxia (2) Gram-positive bacteremia: Status: Acute Assessment and plan: two blood cultures from admission were positive for gram positive cocci in chains, likely Strep. However vancomycin added to her Zosyn regimen. will modify antibiotic coverage once we have sensitivities (3) Pneumonia: Status: Acute Assessment and plan: continue Zosyn, bronchodilators and pulmonary toiletry as well as doxycycline and vancomycin. Modify antibiotics once we get sputum and blood culture results. Qualifiers: Pneumonia type: aspiration pneumonia Aspiration pneumonia type: due to gastric secretions Laterality: bilateral Lung location: lower lobe of lung Qualified Code(s): J69.0 - Pneumonitis due to inhalation of food and vomit (4) COPD (chronic obstructive pulmonary disease): Status: Chronic Assessment and plan: add Spiriva, will give short course of methylprednisolone (she did get one time dose of 125 mg IVP last night), continue Xopenex/ipatroprium q4h while awake,sputum growing gram positive organisms, none predominant but suspect will grow same as her blood cultures. Qualifiers: COPD type: unspecified COPD Qualified Code(s): J44.9 - Chronic obstructive pulmonary disease, unspecified (5) Meningioma: Status: Chronic Assessment and plan: patient needs MRI brain w/ and w/out contrast and then will send images for review w/ neurosurgery and neurology, MRI will be performed later this morning. (6) Toxic metabolic encephalopathy: Status: Acute Assessment and plan: Acute toxic metabolic encephalopathy secondary to hypoxemia and due to narcotics and gabapentin that was given on admission through the emergency department. Patient is no longer obtunded she is alert and oriented responding appropriately. (7) Left-sided weakness: Status: Acute Assessment and plan: seems to have resolved. Echocardiogram was performed with bubble study there is no evidence of patent PFO. No evidence of clots. Patient will need MRI scan to assess the severity of her meningioma and any impingement on her right MCA or right ICA. Will make referral to neurosurgery and neurology at [facility] and [facility] to see if we can get her transferred once we get the imaging. 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 I think she is hypervolemic but will monitor while diuresing (11) Type 2 diabetes mellitus: Status: Chronic Assessment and plan: continue sliding scale insulin. If her formal echo confirms my findings of diastolic HF then she would benefit from better GDT i.e. Jardiance, Entresto and spironolactone. 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 Avoid opioid medications. Writing for lidocaine patches. use toradol and tylenol Qualifiers: Encounter type: subsequent encounter Fracture of vertebra location: lumbar Lumbar vertebra fracture level: unspecified lumbar vertebra Fracture healing: with routine healing Qualified Code(s): S32.000D - Wedge compression fracture of unspecified lumbar vertebra, subsequent encounter for fracture with routine healing (13) Hypokalemia: Status: Acute Assessment and plan: K 2.9 this morning, checking Mg level and correcting w/ iv replacement and repeat levels. (14) DVT prophylaxis: Status: Acute Assessment and plan: SC heparin (15) Discharge planning issues: Status: Acute Assessment and plan: remains full code, no longer needing ICU care, can transfer to med/surg; however, she needs transfer to tertiary care center for definitive treatment of the meningioma Subjective Subjective Interval history since last seen: [place] is complaining of wanting to eat. I explained her that she had an aspiration pneumonia and needs to be cleared by speech and language pathology first to assess her risk for aspiration. She was successfully weaned off of CPAP this morning around 8 AM. She is maintaining her oxygen saturation at 92% on a nasal cannula 3 L/min. She did cough up a lot of thick purulent sputum last night. Is currently on treatment for pneumonia. Blood cultures came back positive last night for gram-positive cocci for which the driving teacher started vancomycin in addition to her Zosyn and doxycycline. Patient scheduled have an MRI of her brain to assess her meningioma. Once we get the MRI scan I will have the sent to tertiary care centers including [facility] and [facility] to discuss with neurology and neurosurgery regarding transfer. Patient initially presented with strokelike symptoms with left-sided hemiparesis and aphasia and a meningioma is on the right and may be causing some compression of her right MCA and her internal carotid artery. Her CTA of her brain showed no hemodynamically significant narrowing of her cervical or cerebral vessels. Exam Narrative Exam Narrative: Morbidly obese female who is alert oriented to person place time circumstance this morning. Respirations are nonlabored. Lungs with coarse bilateral expiratory wheezes and rhonchi Heart is regular rate and rhythm Abdomen is obese soft and nontender Lower extremities are obese but there is no pitting pretibial or pedal edema. Objective Last Vital Signs Temp 36.2 C L 12/03/23 04:10 Pulse 80 12/03/23 07:52 Resp 18 12/03/23 07:50 BP 98/73 L 12/03/23 06:02 Pulse Ox 94 12/03/23 09:20 Laboratory Results - last 24 hr 12/03/23 05:28 WBC 17.93 H RBC 3.62 L Hgb 10.8 L Hct 32.8 L MCV 91 MCH 29.8 MCHC 32.9 RDW 16.0 H Plt Count 258 MPV 9.7 Immature Gran % 1.2 Neutrophils % 87.5 Lymphocytes % 5.2 Monocytes % 5.9 Eosinophils % 0.0 Basophils % 0.2 Nucleated RBC % 0.0 Absolute Neutrophils 15.69 H Absolute Lymphocytes 0.93 L Absolute Monocytes 1.06 H Absolute Eosinophils 0.00 Absolute Basophils 0.04 Sodium 137 D Potassium 2.9 L* Chloride 98 Carbon Dioxide 29.0 Anion Gap 10.0 BUN 28 H Creatinine 1.1 H Est GFR (CKD-EPI 2020) 57.88 Glucose 216 H Calcium 9.0 Magnesium 2.4 Add-On Test Request DONE Time Spent with Patient Time Spent with Patient: 35-49 minutes Time was spent: preparing to see the patient(eg.review tests), ordering medications,tests, procedures, referring, communicating with other health day care worker, indepentently interpreting results, counseling the patient and care coordination
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
[2023-12-03] MEDS: Metoprolol 5 MG/5 ML VIAL IVP ×2 (10:54→16:06)
[2023-12-03] MEDS: diazePAM 10 MG/2 ML SYR 2 MG IVP (11:08)
[2023-12-03] MEDS: Pantoprazole 40 MG VIAL IVP ×2 (11:10→21:10)
[2023-12-03] MEDS: Gadoterate meglumine 20 ML SYRINGE IVP (11:48)
--- NOTE | 2023-12-03 12:20 | DI.MRI_ITS ---
Exam(s) MR BRAIN WO/W EXAM: MR BRAIN WO/W CLINICAL HISTORY: L-sided weakness, meningioma TECHNIQUE: Multiplanar multisequence MRI of the brain was performed. CONTRAST MATERIAL: IV Contrast: 20 mL of Dotarem contrast administered. COMPARISON: CT CT HEAD WO from 12/02/2023 FINDINGS: The examination is limited due to patient motion artifact. VENTRICLES AND EXTRA AXIAL SPACES: Normal in size and morphology for the patient's age. There is a ho mogeneously enhancing mass along the right greater wing of the sphenoid measuring 3.4 transverse by 3 .3 AP by 3.4 craniocaudad cm. The mass is isointense on the T1 and mildly hyperintense on the T2 matt ghted images. It exerts some mass effect on the adjacent right temporal lobe and right frontal lobe. There is posterior and superior displacement of the right middle cerebral artery. It extends media lly into the suprasellar space. No distinct borders are seen between it and the cavernous sinus. HEMORRHAGE: None. CEREBRAL PARENCHYMA: No focus of restricted diffusion to suggest acute infarct. No space-occupying le dwight identified. MIDLINE SHIFT: None. BRAINSTEM/CEREBELLUM: Normal. CALVARIUM: Normal. ENHANCEMENT: Please see the above section under ventricles and extra-axial spaces. VISUALIZED PARANASAL SINUSES/MASTOIDS: Clear. LOWER BRULE OF PAUL: Normal flow void. PITUITARY GLAND: Unremarkable. OTHER FINDINGS: IMPRESSION: 1. 3.4 x 3.3 x 3.4 cm homogeneously enhancing mass along the right greater wing of the sphenoid most suggestive of a meningioma. Metastasis or bone lesion are considered less likely. There is mass eff ect on the adjacent right temporal and frontal lobes. There is posterior and superior displacement o f the right middle cerebral artery. Its borders are indistinct with the cavernous sinus. 2. No evidence of an acute infarct. DATA REPOSITORY:
[2023-12-03 14:01] LABS: Lyme Ab w Rflx to Lyme Confirm Negative (Negative)
[2023-12-03] MEDS: Nystatin POWDER 60 GM JAR TP ×2 (16:07→20:47)
--- NOTE | 2023-12-03 16:14 | W.SPSTE ---
Date of service: 12/03/23 Time of Service: 16:14 Subjective Clinical (Bedside) Swallow Evaluation - Inpatient Speech Language Pathology Referred by: Nikki Young MD Start time: 1445 End time: 1525 Total patient contact: 40 min Referral Type: Urgent Swallow Consult (pt NPO awaiting RETAIL SERVICE SPECIALIST evaluation) Precautions: Standard, Full Code Reason for Referral/HPI: Patient is a 58 y/o F with hx DM2, COPD, chronic back pain, obesity, who presented initially to the ED due to L hemiparesis, dysarthria, confusion, found on imaging to have meningioma suspected to be cause of hemiparesis either by mass effect or compression of blood supply. Also with concern also for CVA, seizures (Domenic's Paralysis). Patient then went into respiratory failure thought to be secondary to aspiration pna (non-prandial) in setting of pain overmedication/obtunded status. Underlying COPD without O2 supplementation at home. RETAIL SERVICE SPECIALIST consulted to rule out prandial aspiration but was unable to complete evaluation yesterday because RT unable to wean patient off CPAP. This date she is tolerating 3L O2 via nasal cannula in the 92-94% O2 saturation range. RETAIL SERVICE SPECIALIST IMPRESSIONS & RECOMMENDATIONS: Pt presents with mild oral-motor weakness likely in setting of poor medical status and deconditioning, shortness of breath, but appears without any notable underlying dysphagia. She appears to tolerate all textures/consistencies without s/sx aspiration this date but does have a dip in O2 sats into the high 80's when given solid textures requiring more mastication and self-feeding exertion (e.g., cutting/breaking). Patient is also edentulous and eats a soft solids diet at baseline. Diet modification is indicated as below for the purpose of reduced risk of aspiration, energy conservation, reduced work of breathing due to pulmonary status. Nursing should supervise/assist with initial meals to ensure good respiratory tolerance. If patient is with consistent maintenance of O2 sats while self-feeding for a full meal, supervision may be reduced to distant / intermittent. Expect patient will tolerate trials of upgraded textures to soft/bite sized solids as her respiratory status improves. RETAIL SERVICE SPECIALIST will follow for trials of upgrades. Oral care will be especially important to maintain especially given patient with presumed non-prandial aspiration related PNA. FURTHER INPATIENT RETAIL SERVICE SPECIALIST SERVICES: Patient to be followed while on unit DISCHARGE RECOMMENDATIONS: Pending progress, suspect patient will be able to return to baseline diet without further RETAIL SERVICE SPECIALIST services if she makes a good respiratory/medical recovery, and pending neuro status is stable. Diet Recommendations: ? SOLIDS: 5-Minced & Moist Solids LIQUIDS: 0-Thin Liquids MEDICATIONS: Whole 1 at a time With 4-Purees RISK MANAGEMENT: Level of Assistance/Supervision: Provide set-up assist with initial verbal reminders for aspiration precautions as below 1:1 close supervision for all PO intake Positioning and environment: PO intake only when awake/alert? Reduce auditory and/or visual distractions when eating As upright as tolerated, use HOB controls/bed tilt to achieve upright positioning Oral hygiene Before/after PO intake Using friction with toothbrush on all oral structures as tolerated Strategies/Adaptations/Assistive Equipment: Small sips Small bites Slow rate of intake Reflux Precautions: Small+frequent meals throughout day Maintain fully upright position at least 30 minutes after meals Avoid meals/snacks 2-3 hours prior to reclining/sleeping Sleep with head of bed elevated to reduce likelihood of nocturnal reflux Education Provided to: Nursing Patient Topics Addressed: anatomy/physiology of swallowing mechanism, definition and impacts of aspiration impact of current diagnoses on swallow function role of RETAIL SERVICE SPECIALIST in management of swallow disorders overt s/sx to monitor for re: potential aspiration of food / liquids relationship between respiratory function and deglutition rationale and instruction for additional risk management strategies as below SUBJECTIVE: Patient received: somnolent, rousable to voice. Agreeable to evaluation. Eager to eat. Pain Reported n/a Baseline Swallow Function: Patient denies swallowing difficulty prior to admission and eats a soft solids diet at baseline due to edentulousness. Patient reports baseline smoker's cough not related to eat/drink. 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 Speech: WFL Oral Mechanism Examination: Dentition: Edentulous Oral mucosa: Dry but good oral care otherwise. Using moisturizer and swabs. ? Cranial Nerve Assessment: CN V ? Trigeminal Jaw Strength/ROM WNL ?WNL CN VII- Facial Poor cheek puff to resistance. Weak CN IX ? Glossopharyngeal WNL palatal elevation with phonation. No evidence of nasal emissions WNL CN X ? Vagus WNL Vocal quality and volume. Weak cough mildly Weak CX XII ? Hypoglossal Possible slight R tongue deviation to protrusion. Reduced lateral ROM bilaterally. Good protrusion against resistance. Borderline PO Intake: Trials Assessed: Ice IDDSI 0 Thin Liquids IDDSI 4 Puree Solid IDDSI 5 Minced and Moist Solid IDDSI 7EC Easy to Chew Solid Medications administered by RN Oral Phase Findings: [ ] Anterior leakage from mouth [ ] Difficulty with bolus manipulation [ ] Difficulty with a-p transport X Difficulty chewing [ ] Pocketing [ ] Residue [Other] Pharyngeal Phase Findings: X WFL [ ] Delayed swallow initiation [ ] Reduced hyolaryngeal elevation/excursion [ ] Cough after swallow [ ] Voice change after swallow? [ ] Throat clearing? [ ] Endorsed stasis? [Other] Esophageal Phase Findings: XBelching observed ? Warren Swallow Protocol Results: FAIL ? Unable to complete without stopping/starting PLAN: Frequency: 2-3x/week for 1-2 weeks No further RETAIL SERVICE SPECIALIST services indicated at this time. Please re-refer as needed. Goals: Champagne Maker Goals: Patient will remain free from aspiration-related illness, malnutrition, and dehydration. Short Term Goals: Patient will tolerate Minced/Moist Diet and Thin liquids without overt s/s aspiration across 2/2 visits. Patient will tolerate PO trials for consideration of diet upgrade without overt s/s aspiration across 2/2 visits. RETAIL SERVICE SPECIALIST CPT Code: 21369 Clinical Swallowing Evaluation Coding CPT Codes EVALUATE SWALLOWING FUNCTION - 43979 ([id number]) Additional Codes Date of Service (48022) Date of service: 12/03/23
--- NOTE | 2023-12-03 16:34 | PDOC.CMPRO ---
Date of service: 12/03/23 Time of Service: 16:34 Care Management Progress Note Progress Note Text Progress Note Text: Per MD, awaiting brain MRI, anticipate patient will transfer for Neuro/Surg services that are unavailable at [facility]. She will transport via EMS.
[2023-12-03 17:04] LABS: Potassium 3.4 mmol/L (3.5-5.1)
[2023-12-03] MEDS: Potassium Chloride Liquid 20 MEQ PKT PO ×2 (17:48→20:52)
[2023-12-03] MEDS: VANCOMYCIN/WATER (PEG) 1.5 GM/300 ML BAG IV (18:43)
[2023-12-03] MEDS: levETIRAcetam 500 MG TAB 1000 MG PO (20:41)
[2023-12-03] MEDS: Atorvastatin 20 MG TAB PO (20:42)
[2023-12-03] MEDS: Metoprolol 12.5 MG TAB PO (21:09)
[2023-12-03 21:22] LABS: Legionella Ag Detection Urine Negative (Negative)
[2023-12-03] MEDS: Lidocaine Patch Removal 3 EACH TP (23:00)
[2023-12-04] VITALS (46 sets, daily range): BP systolic 119–163; BP diastolic 77–111; PULSE 66–108; RESP 16–32; TEMP 36.2–37.2; O2SAT 89–96
[2023-12-04] MEDS: Heparin 5,000 UNITS/ML VIAL 5000 UNITS SC ×3 (03:30→21:12)
[2023-12-04] MEDS: PIPERACILLIN/TAZO 3.375 GM in Normal Saline 50 ML IVPB ×2 (03:31→12:21)
[2023-12-04] MEDS: Normal Saline Flush 10 ML SYR IVP ×7 (03:31→23:31)
[2023-12-04] MEDS: Ketorolac 15 MG/ML VIAL IVP ×2 (06:13→23:31)
[2023-12-04] MEDS: methylPREDNISolone SUCC 40 MG VIAL IVP ×3 (06:21→22:12)
[2023-12-04] MEDS: VANCOMYCIN/WATER (PEG) 1.5 GM/300 ML BAG IV ×2 (06:21→17:58)
[2023-12-04] MEDS: Metoprolol 12.5 MG TAB PO ×2 (06:22→14:10)
[2023-12-04 07:17] LABS: Abs Immature Grans 0.24 10^3/uL (0.0-0.06); Absolute Monocyte Count 1.01 10^3/uL (0.1-0.8); Absolute Neutrophil Count 13.35 10^3/uL (1.2-6.7); Basophils % 0.2; HCT 36.5 % (36.0-46.0); HGB 11.9 g/dL (11.2-15.7); Immature Grans % 1.5; MCH 29.6 pg (27.0-33.0); MCHC 32.6 % (32.0-36.0); MCV 91 fL (80-95); MPV 9.7 fL (8.0-11.0); Monocytes % 6.2; Neutrophils % 82.1; Platelet Count 316 10^3/uL (130-400); RBC 4.02 10^6/uL (3.93-5.22); RDW 16.2 % (11.7-14.6); RDW-SD 54.9 fL; WBC 16.26 10^3/uL (4.4-10.8)
[2023-12-04 07:27] LABS: Absolute Basophil Count 0.03 10^3/uL (0.0-0.2); Absolute Lymphocyte Count 1.63 10^3/uL (1.2-3.4)
[2023-12-04 07:33] LABS: Anion Gap 8.2 mmol/L (3-11); BUN 41 mg/dL (7-18); CO2 29.8 mmol/L (21.0-32.0); CREATININE 1.1 mg/dL (0.55-1.02); Calcium 9.3 mg/dL (8.5-10.1); Chloride 98 mmol/L (98-107); Estimated GFR 57.88 (mL/min/1.73m2); Glucose 230 mg/dL (74-106); Magnesium 2.5 mg/dL (1.8-2.4); Potassium 3.7 mmol/L (3.5-5.1); Sodium 136 mmol/L (136-145)
[2023-12-04] MEDS: Nystatin POWDER 60 GM JAR TP ×2 (08:08→22:11)
[2023-12-04] MEDS: Insulin Aspart 300 UNITS/3 ML PEN SC ×5 (08:10→22:13)
[2023-12-04] MEDS: Nicotine 21 MG/24 HR PATCH TD (08:11)
[2023-12-04] MEDS: Lidocaine 5% Patch 3 PATCH TP (08:12)
[2023-12-04] MEDS: Potassium Chloride Liquid 20 MEQ PKT PO (08:13)
[2023-12-04] MEDS: Aspirin E.C. 81 MG TABEC PO (08:13)
[2023-12-04] MEDS: levETIRAcetam 500 MG TAB 1000 MG PO ×2 (08:13→21:10)
[2023-12-04] MEDS: Tiotropium Bromide-Respimat 10 PUFF INH 2 PUFF IH (09:09)
[2023-12-04 09:22] LABS: Procalcitonin 0.5 ng/mL
[2023-12-04] MEDS: Pantoprazole 40 MG VIAL IVP (10:39)
--- NOTE | 2023-12-04 11:56 | PT.INTREAT ---
PT Notes Visit Reasons: L-sided weakness, dysarthria, confusion, meningiom Inpatient Physical Therapy Treatment Note [facility] Date: 12/04/23 SUBJECTIVE: Haven states that she is very SOB today. Nsg would like help sitting EOB to apply lidocaine patches to back. Haven is agreeable to this. OBJECTIVE: []? VITALS: ?monitored by nsg Therapeutic Activities ([id number]): Direct one-on-one instruction in dynamic activities to improve functional performance. ? BED MOBILITY/TRANSFERS? Supine-sit: MAX A x2 ? Sit-supine: Max A x2 ? Provided skilled cues and instruction on performance and technique throughout. ASSESSMENT:? pt became extremely SOB and panicked once seated EOB, of which she tolerated approx 1-2 min. Required max A x2 to get back into bed as well as hover lift. PLAN: will continue to work on functional mobility and maybe try some bed ex tomorrow. TREATMENT CODE/TIME: 20 min [id number]
--- NOTE | 2023-12-04 13:00 | DI.RAD_ITS ---
Exam(s) XR PORTABLE CHEST AP EXAM: XR PORTABLE CHEST AP CLINICAL HISTORY: dyspnea. TECHNIQUE: 2D digital imaging was performed. COMPARISON: CT CT ABDOMEN PELVIS W from 11/29/2023 CR XR PORTABLE CHEST AP from 12/02/2023 FINDINGS: Single AP portable view. Heart size is upper normal. The mediastinum is not widened. There is infiltrate now evident in the right lower lobe. Also increased interstitial pattern lung fi elds. Mild cardiomegaly. No obvious pleural effusions. IMPRESSION: New right lower lobe infiltrate. Also bilateral interstitial disease concerning for possible pulmonary edema. Recommend nonportable P A and lateral views when clinically possible. DATA REPOSITORY: RADIATION DOSE DELIVERED:
--- NOTE | 2023-12-04 13:10 | PGE_ITS ---
Date of Service Date of service: 12/04/23 Time of Service: 13:10 Assessment and Plan Assessment and plan (1) Acute respiratory failure: Status: Acute Assessment and plan: Multifactorial including underlying COPD and probable AARON/OHS w/ superimposed pneumonia. Patient still requires CPAP at night currently on nasal cannula currently on 3 L/min per nasal cannula while awake. O2 sat is holding at 93%. changed Zosyn to high dose Rocephin for Strep bacteremia, encourage use of IS and acapella; encourage her to get out of bed to help mobilize sputum, improve aeration at her lung bases, will add mucinex to her regimen. Professional time spent interviewing and examining patient, discussion of goals of care with hospital team (care management, nursing and consulting arlene moser) was 60 minutes. Qualifiers: Respiratory failure complication: hypoxia Qualified Code(s): J96.01 - Acute respiratory failure with hypoxia (2) Pneumonia: Status: Acute Assessment and plan: as above. Will continue the vancomycin pending the blood cultures sensititivies. If sensitive to Pcn, consider high dose PCN G (her allery is yeast infection), Zosyn changed to Rocephin 2 gm IV Q24h. pulmonary toiletry as noted above. Qualifiers: Pneumonia type: aspiration pneumonia Aspiration pneumonia type: due to gastric secretions Laterality: bilateral Lung location: lower lobe of lung Qualified Code(s): J69.0 - Pneumonitis due to inhalation of food and vomit (3) COPD (chronic obstructive pulmonary disease): Status: Chronic Assessment and plan: continue xopenex and ipatropium aerosols q4h while awake, continue Spiriva, iv corticosteroids. Qualifiers: COPD type: unspecified COPD Qualified Code(s): J44.9 - Chronic obstructive pulmonary disease, unspecified (4) Meningioma: Status: Chronic Assessment and plan: I spoke w/ neurosurgeon, Dr. Eliel Harrison, ([phone]), he has not reviewed the patient's MRI done yesterday. I informed him that the patient's transient left hemiparesis and aphasia have resolved and that she is now on aspirin and atorvastatin and kepprs for seizure prophylaxis. He doubts that a meningioma would cause enough compression of the MCA or ICA to cause stroke like symptoms but is more concerned that her symptoms may be from seizure. He said that he would review the MRI scan and if there is anything of concern acutely he would get back to me. Otherwise he recommends that she be referred to neurosurgery clinic for follow up once her medical issues have resolved. (5) Seizure: Status: Acute Assessment and plan: continue Keppra 1000 mg bid for seizure prophylaxis. (6) Left-sided weakness: Status: Resolved Assessment and plan: her acute neuro deficits have resolved. continue aspirin and atorvastatin prophylaxis for stroke prevention and continue keppra for seizure prophylaxis (7) Dysarthria: Status: Resolved Assessment and plan: as above (8) Bilateral pleural effusion: Status: Acute Assessment and plan: I suspect from diastolic HF but also may be some parapneumonic effusion (9) Type 2 diabetes mellitus: Status: Chronic Assessment and plan: Adjust NovoLog sliding scale to moderate dose, add basal insulin 10 units nightly, added carbohydrate coverage Qualifiers: Diabetes mellitus salvage determiner insulin use: without detention use Diabetes mellitus complication status: without complication Qualified Code(s): E11.9 - Type 2 diabetes mellitus without complications (10) Spinal compression fracture: Status: Acute Assessment and plan: Continue home pain medications. Avoid opioid medications. Writing for lidocaine patches. use toradol and tylenol Qualifiers: Encounter type: subsequent encounter Fracture of vertebra location: lumbar Lumbar vertebra fracture level: unspecified lumbar vertebra Fracture healing: with routine healing Qualified Code(s): S32.000D - Wedge compression fracture of unspecified lumbar vertebra, subsequent encounter for fracture with routine healing (11) DVT prophylaxis: Status: Acute Assessment and plan: SC heparin (12) Discharge planning issues: Status: Acute Assessment and plan: Patient was made MedSurg status yesterday and although she has had some increased work of breathing and is requiring diuretics she has been hemodynamically stable. Clinically she is still eligible for MedSurg status. Subjective Subjective Interval history since last seen: Patient w/ increased cough productive of thick sputum, increased dyspnea w/ any activity such as sitting up at side of her bed, associated w/ increased work of breathing and desaturations into the mid 80's. Blood cultures are positive for Strep species. Patient remains on Vancomycin and Zosyn. I have changed her to high dose Rocephin. Exam Narrative Exam Narrative: Obese female who was moderately dyspneic with any prolonged conversation she has audible rales Lungs with diffuse expiratory wheezes and rales Heart is regular but tachycardic no appreciable murmur Abdomen obese soft nontender Lower extremities with trace of pitting peripheral edema, no cyanosis Neuro: grossly intact, no focal weakness and no dysarthria and no facial asymmetry. Objective Last Vital Signs Temp 36.2 C L 12/04/23 07:38 Pulse 88 12/04/23 09:45 Resp 28 H 12/04/23 09:45 BP 147/97 H 12/04/23 07:38 Pulse Ox 92 12/04/23 09:45 Laboratory Results - last 24 hr 12/01/23 12/03/23 12/04/23 00:00 16:50 06:04 WBC 16.26 H RBC 4.02 Hgb 11.9 Hct 36.5 MCV 91 MCH 29.6 MCHC 32.6 RDW 16.2 H Plt Count 316 MPV 9.7 Immature Gran % 1.5 Neutrophils % 82.1 Lymphocytes % 10.0 Monocytes % 6.2 Eosinophils % 0.0 Basophils % 0.2 Nucleated RBC % 0.0 Absolute Neutrophils 13.35 H Absolute Lymphocytes 1.63 Absolute Monocytes 1.01 H Absolute Eosinophils 0.00 Absolute Basophils 0.03 Sodium 136 Potassium 3.4 L 3.7 Chloride 98 Carbon Dioxide 29.8 Anion Gap 8.2 BUN 41 H Creatinine 1.1 H Est GFR (CKD-EPI 2020) 57.88 Glucose 230 H Calcium 9.3 Magnesium 2.5 H Procalcitonin 0.5 Lyme Disease Antibody Negative Time Spent with Patient Time Spent with Patient: >50 minutes Time was spent: preparing to see the patient(eg.review tests), ordering medi cations,tests, procedures, referring, communicating with other health home care administrator (Including discussion with [facility] neurosurgeon Dr. Julian), indepentently interpreting results, counseling the patient and care coordination
[2023-12-04 13:40] LABS: BE (Venous) 2 mmol/L (-2-3); HCO3 (Venous) 27 mmol/L (23-28); O2 Sat (Venous) 70 %; TCO2 (Venous) 24 mmol/L (24-29); pCO2 (Venous) 44 mmHg (41-51); pH (Venous) 7.39 (7.31-7.41); pO2 (Venous) 38 mmHg
[2023-12-04] MEDS: cefTRIAXone 2 GM/50 ML BAG IVPB (14:09)
[2023-12-04] MEDS: guaiFENesin 600 MG TABCR PO ×2 (14:10→21:11)
[2023-12-04 14:15] LABS: Lab Add On Test DONE
--- NOTE | 2023-12-04 14:31 | DI.VRAD_ITS ---
PROCEDURE INFORMATION: Exam: XR Chest Exam date and time: 12/04/2023 2:08 PM Age: 58 years old Clinical indication: Dyspnea TECHNIQUE: Imaging protocol: Radiologic exam of the chest. Views: 1 view. COMPARISON: CR XR PORTABLE CHEST AP 12/02/2023 8:56 AM FINDINGS: Lungs: Opacity in both bases may represent atelectasis or pneumonia.. Pleural spaces: Unremarkable. No pleural effusion. No pneumothorax. Heart/Mediastinum: Cardiomegaly and vascular prominence may represent interstitial edema. Bones/joints: Unremarkable. IMPRESSION: 1. Opacity in both bases may represent atelectasis or pneumonia.. 2. Cardiomegaly and vascular prominence may represent interstitial edema. Dictated and Authenticated by: Ani Woodall MD. Ordering[facility] Shalonda Drake MD
[2023-12-04 14:36] LABS: NT-proBNP 3568 pg/mL (<300); Troponin I < 50 ng/L (< or =60)
[2023-12-04] MEDS: Atorvastatin 20 MG TAB PO (21:11)
[2023-12-04] MEDS: Carvedilol 12.5 MG TAB PO (21:11)
[2023-12-04] MEDS: Insulin Glargine 300 UNITS/3 ML PEN 10 UNITS SC (22:14)
[2023-12-04 22:46] LABS: Anaplasma phagocytophilum Negative (Negative); B. miyamotoi PCR Negative (Negative); Babesia divergens/MO-1 Negative (Negative); Babesia duncani Negative (Negative); Babesia microti Negative (Negative); Ehrlichia chaffeensis Negative (Negative); Ehrlichia ewingii/canis Negative (Negative); Ehrlichia muris eauclairensis Negative (Negative)
[2023-12-04] MEDS: Acetaminophen 500 MG TAB 1000 MG PO (23:32)
[2023-12-04] MEDS: Polyethylene Glycol 3350 17 GM PACKET PO (23:32)
[2023-12-04 23:54] LABS: Anion Gap 7.8 mmol/L (3-11); BUN 35 mg/dL (7-18); CO2 31.2 mmol/L (21.0-32.0); CREATININE 1.1 mg/dL (0.55-1.02); Calcium 9.1 mg/dL (8.5-10.1); Chloride 95 mmol/L (98-107); Estimated GFR 57.88 (mL/min/1.73m2); Glucose 244 mg/dL (74-106); Potassium 3.4 mmol/L (3.5-5.1); Sodium 134 mmol/L (136-145)
[2023-12-05] VITALS (60 sets, daily range): BP systolic 116–155; BP diastolic 71–116; PULSE 57–104; RESP 15–24; TEMP 36.5–37; O2SAT 80–95
[2023-12-05] MEDS: Potassium Chloride 20 MEQ TABCR PO (00:38)
[2023-12-05] MEDS: Lidocaine Patch Removal 3 EACH TP ×2 (01:18→21:07)
[2023-12-05] MEDS: methylPREDNISolone SUCC 40 MG VIAL IVP ×2 (06:10→13:18)
[2023-12-05] MEDS: Heparin 5,000 UNITS/ML VIAL 5000 UNITS SC ×3 (06:10→21:05)
[2023-12-05] MEDS: VANCOMYCIN/WATER (PEG) 1.5 GM/300 ML BAG IV (06:11)
[2023-12-05 06:46] LABS: Abs Immature Grans 0.38 10^3/uL (0.0-0.06); Absolute Basophil Count 0.08 10^3/uL (0.0-0.2); Absolute Lymphocyte Count 1.83 10^3/uL (1.2-3.4); Absolute Monocyte Count 1.28 10^3/uL (0.1-0.8); Basophils % 0.6; HCT 37.4 % (36.0-46.0); HGB 12.3 g/dL (11.2-15.7); Immature Grans % 2.8; Lymphocytes % 13.4; MCH 29.2 pg (27.0-33.0); MCHC 32.9 % (32.0-36.0); MCV 89 fL (80-95); MPV 9.1 fL (8.0-11.0); Monocytes % 9.4; Neutrophils % 73.8; Platelet Count 322 10^3/uL (130-400); RBC 4.21 10^6/uL (3.93-5.22); RDW-SD 52.5 fL; WBC 13.66 10^3/uL (4.4-10.8)
[2023-12-05 06:55] LABS: Absolute Neutrophil Count 10.08 10^3/uL (1.2-6.7)
[2023-12-05 07:09] LABS: Anion Gap 7.6 mmol/L (3-11); BUN 37 mg/dL (7-18); CO2 30.4 mmol/L (21.0-32.0); Calcium 8.8 mg/dL (8.5-10.1); Chloride 96 mmol/L (98-107); Glucose 239 mg/dL (74-106); Potassium 3.9 mmol/L (3.5-5.1); Sodium 134 mmol/L (136-145)
[2023-12-05] MEDS: Tiotropium Bromide-Respimat 10 PUFF INH 2 PUFF IH (07:59)
[2023-12-05] MEDS: Nicotine 21 MG/24 HR PATCH TD (08:35)
[2023-12-05] MEDS: Furosemide 40 MG/4 ML VIAL IVP ×2 (08:35→17:47)
[2023-12-05] MEDS: Normal Saline Flush 10 ML SYR IVP ×3 (08:36→17:48)
[2023-12-05] MEDS: Potassium Chloride Liquid 20 MEQ PKT PO ×2 (08:37→21:05)
[2023-12-05] MEDS: levETIRAcetam 500 MG TAB 1000 MG PO ×2 (08:37→21:05)
[2023-12-05] MEDS: guaiFENesin 600 MG TABCR PO ×2 (08:38→21:05)
[2023-12-05] MEDS: Spironolactone 25 MG TAB PO (08:38)
[2023-12-05] MEDS: Carvedilol 12.5 MG TAB PO ×2 (08:38→21:06)
[2023-12-05] MEDS: Pantoprazole 40 MG TABCR PO (08:38)
[2023-12-05] MEDS: Aspirin E.C. 81 MG TABEC PO (08:38)
[2023-12-05] MEDS: Insulin Aspart 300 UNITS/3 ML PEN SC ×6 (08:50→21:12)
[2023-12-05] MEDS: Polyethylene Glycol 3350 17 GM PACKET PO ×2 (11:47→21:06)
[2023-12-05] MEDS: Ketorolac 15 MG/ML VIAL IVP ×2 (11:47→17:49)
--- NOTE | 2023-12-05 11:59 | PT.INTREAT ---
PT Notes Visit Reasons: L-sided weakness, dysarthria, confusion, meningiom Inpatient Physical Therapy Treatment Note [facility] Date: 12/05/23 SUBJECTIVE: Haven states that she is looking forward to getting into a chair and having her hair done. Reports less back pain noted today compared to yesterday. OBJECTIVE: []? Therapeutic Activities ([id number]): Direct one-on-one instruction in dynamic activities to improve functional performance. ? BED MOBILITY/TRANSFERS? Supine-sit: Max A of 2 ? Sit-supine: Max A of 3 ?and 4 people to pull her up in bed. ? Sit-stand: attempted x2 in STEADY lift? Provided skilled cues and instruction on performance and technique throughout. ? Therapeutic Exercises ([id number]): Direct one-on-one instruction in therapeutic exercises to develop strength, endurance, range of motion and flexibility. ? Exercises supine ankle pumps x15, GS and QS 8x5sec, heel slides x8, SLR with assistance x5ea. ?Provided verbal cues in proper exercise performance ASSESSMENT:? too soon for the STEADY lift. She requires александр lift to get OOB until strength improves. She was willing and put forth good effort. PLAN: continue to progress her strength and endurance. Will work towards functional mobility with focus on bed mobility and transfers. TREATMENT CODE/TIME: 30 min. [id number], [id number]
[2023-12-05] MEDS: Lidocaine 5% Patch 3 PATCH TP (13:00)
[2023-12-05] MEDS: cefTRIAXone 2 GM/50 ML BAG IVPB (13:18)
[2023-12-05] MEDS: Milk of Magnesia 30 ML CUP PO (13:54)
--- NOTE | 2023-12-05 13:56 | W.PM.PROGNOT ---
Date of Service Date of service: 12/05/23 Time of Service: 13:56 Assessment and Plan Assessment and plan (1) Acute respiratory failure: Status: Acute Assessment and plan: Multifactorial including pneumonia probably from aspiration event along with underlying untreated AARON/OHS and some diastolic heart failure and COPD.Patient diuresed 6.6 L yesterday and since midnight last night she is diuresed another 3200 mL. Her weight is down to 146.7 kg from her peak weight of 152 kg. Her admission weight was 142.8 kg. Historically her weight has generally been around 137 to 139 kg. I discontinued her Lasix drip but kept her on scheduled doses of Lasix 40 mg twice daily along with potassium and magnesium supplementation. Continue antibiotic treatment for pneumonia and strep bacteremia. She remains on high-dose Rocephin 2 g daily. Vancomycin has been discontinued. Encourage patient to use her incentive spirometer and Acapella every hour while awake. Continue scheduled Xopenex and ipratropium aerosol treatments and Spiriva. DC methylprednisolone and add prednisone 40 mg daily. Professional time spent interviewing and examining patient, discussion of goals of care with hospital team (care management, nursing and consulting professionals) was 40 minutes. Qualifiers: Respiratory failure complication: hypoxia Qualified Code(s): J96.01 - Acute respiratory failure with hypoxia (2) Pneumonia: Status: Acute Assessment and plan: As above Qualifiers: Pneumonia type: aspiration pneumonia Aspiration pneumonia type: due to gastric secretions Laterality: bilateral Lung location: lower lobe of lung Qualified Code(s): J69.0 - Pneumonitis due to inhalation of food and vomit (3) COPD (chronic obstructive pulmonary disease): Status: Chronic Assessment and plan: continue xopenex and ipatropium aerosols q4h while awake, continue Spiriva, DC methylprednisolone in favor of prednisone. Qualifiers: COPD type: unspecified COPD Qualified Code(s): J44.9 - Chronic obstructive pulmonary disease, unspecified (4) Meningioma: Status: Chronic Assessment and plan: Per neurosurgeon, Dr. Eliel Harrison, ([phone]), patient does not need acute transfer to [facility] for any neurosurgical procedure. Despite the fact that the meningioma does appear to be demonstrating some compression on the right MCA he feels that her admitting symptoms were not related to the meningioma and that she can follow-up with him in the neurosurgical clinic upon discharge from [facility]. He did agree with continued antiepileptic medications of Keppra to prevent seizures. (5) Seizure: Status: Acute Assessment and plan: continue Keppra 1000 mg bid for seizure prophylaxis. (6) Left-sided weakness: Status: Resolved Assessment and plan: her acute neuro deficits have resolved. continue aspirin and atorvastatin prophylaxis for stroke prevention and continue keppra for seizure prophylaxis (7) Dysarthria: Status: Resolved Assessment and plan: as above (8) Bilateral pleural effusion: Status: Acute Assessment and plan: I suspect from diastolic HF but also may be some parapneumonic effusion. Continue diuretics. (9) Type 2 diabetes mellitus: Status: Chronic Assessment and plan: Adjust NovoLog sliding scale to moderate dose, add basal insulin 10 units nightly, added carbohydrate coverage Blood sugars running in the low 200s. I suspect her blood sugars will normalize once she is off steroids. Qualifiers: Diabetes mellitus grinder operator automatic insulin use: without grinder operator automatic use Diabetes mellitus complication status: without complication Qualified Code(s): E11.9 - Type 2 diabetes mellitus without complications (10) Spinal compression fracture: Status: Acute Assessment and plan: Continue home pain medications. Avoid opioid medications. Writing for lidocaine patches. use toradol and tylenol Qualifiers: Encounter type: subsequent encounter Fracture of vertebra location: lumbar Lumbar vertebra fracture level: unspecified lumbar vertebra Fracture healing: with routine healing Qualified Code(s): S32.000D - Wedge compression fracture of unspecified lumbar vertebra, subsequent encounter for fracture with routine healing (11) DVT prophylaxis: Status: Acute Assessment and plan: SC heparin (12) Discharge planning issues: Status: Acute Assessment and plan: Although patient Remains in the intensive care unit she is actually MedSurg status But remains in the ICU per nursing staff and decisions to the patient's obesity and respiratory needs. Subjective Subjective Interval history since last seen: Haven has a moist productive cough but overall she feels less dyspneic than she did yesterday. She tolerated sitting up at the bedside however she is maximal assistance of 3 people and requires a Oj lift to get her out of bed due to her obesity and her debilitation. She now down to 1 L/min per nasal cannula and maintaining her oxygen saturation at 93%. Pain seems to be fairly well-controlled. She does get premedication prior to nursing and PT getting her up. Haven asked me if I heard anything from [facility] regarding her meningioma. I explained to her that I spoke with the neurosurgeon yesterday and he feels that there is no need for acute transfer or acute surgical intervention at this time but does recommend that she follow-up with him in the neurosurgical clinic once her other medical issues have resolved. I told her they did recommend that she stay on antiseizure medication and I made her aware that she is on Keppra. Exam Narrative Exam Narrative: Pleasant obese female sitting in the bed she has a rather zbigniew complexion of her face she had a moist cough but did not desaturate during her paroxysm. Lungs with diffuse rhonchi and expiratory wheezes Heart is regular rate and rhythm with no audible murmur rub or gallop Abdomen is obese soft nondistended nontender Lower extremities obese with just a trace of edema without cyanosis. Bhakta catheter draining clear yellow urine. Review of her lines her midline was leaking and therefore we called in the PICC line team to replace her midline on the right. This is now located in the right upper arm. She still has a peripheral line in her right antecubital. There is no induration she does have some bruising around the site but no drainage and no tenderness. I examined her left arm did not see any signs of any induration. Objective Last Vital Signs Temp 36.8 C 12/05/23 04:42 Pulse 86 12/05/23 06:01 Resp 18 12/05/23 06:01 BP 128/79 12/05/23 06:01 Pulse Ox 92 12/05/23 07:59 Laboratory Results - last 24 hr 12/04/23 12/04/23 12/05/23 12:27 23:28 05:36 WBC 13.66 H RBC 4.21 Hgb 12.3 Hct 37.4 MCV 89 MCH 29.2 MCHC 32.9 RDW 16.0 H Plt Count 322 MPV 9.1 Immature Gran % 2.8 Neutrophils % 73.8 Lymphocytes % 13.4 Monocytes % 9.4 Eosinophils % 0.0 Basophils % 0.6 Nucleated RBC % 0.0 Absolute Neutrophils 10.08 H Absolute Lymphocytes 1.83 Absolute Monocytes 1.28 H Absolute Eosinophils 0.00 Absolute Basophils 0.08 Sodium 134 L 134 L Potassium 3.4 L 3.9 Chloride 95 L 96 L Carbon Dioxide 31.2 30.4 Anion Gap 7.8 7.6 BUN 35 H 37 H Creatinine 1.1 H 1.0 Est GFR (CKD-EPI 2020) 57.88 64.90 Glucose 244 H 239 H Calcium 9.1 8.8 Troponin I < 50 NT-Pro-B Natriuret Pep 3568 H Add-On Test Request DONE Time Spent with Patient Time Spent with Patient: 35-49 minutes Time was spent: preparing to see the patient(eg.review tests), ordering medications,tests, procedures, referring, communicating with other health healthcare educator, indepentently interpreting results, counseling the patient and care coordination
[2023-12-05] MEDS: Nystatin POWDER 60 GM JAR TP ×2 (14:00→21:07)
[2023-12-05 15:44] LABS: Streptococcus Pneumoniae Ag, U Negative (Negative)
[2023-12-05] MEDS: Docusate Sodium 100 MG CAP PO ×2 (17:47→21:06)
[2023-12-05] MEDS: Refresh PLUS Eye Drops 0.4ml 1 EACH OP (17:48)
[2023-12-05] MEDS: Methylnaltrexone 12 MG/0.6 ML VIAL SC (17:48)
[2023-12-05] MEDS: Bisacodyl 10 MG SUPP PR (17:49)
[2023-12-05] MEDS: Acetaminophen 500 MG TAB 1000 MG PO (17:50)
[2023-12-05] MEDS: Levalbuterol 1.25 MG/3 ML UPD VIAL UPD (21:05)
[2023-12-05] MEDS: Atorvastatin 20 MG TAB PO (21:06)
[2023-12-05] MEDS: Insulin Glargine 300 UNITS/3 ML PEN 13 UNITS SC (21:12)
[2023-12-06] VITALS (12 sets, daily range): BP systolic 108–146; BP diastolic 64–80; PULSE 72–95; RESP 16–24; TEMP 36.1–37.2; O2SAT 91–96
[2023-12-06] MEDS: Ketorolac 15 MG/ML VIAL IVP ×4 (00:21→21:59)
[2023-12-06] MEDS: Acetaminophen 500 MG TAB 1000 MG PO ×4 (00:24→22:53)
[2023-12-06 06:30] LABS: HCT 40.4 % (36.0-46.0); HGB 13.3 g/dL (11.2-15.7); MCH 29.2 pg (27.0-33.0); MCHC 32.9 % (32.0-36.0); MCV 89 fL (80-95); MPV 8.9 fL (8.0-11.0); Platelet Count 360 10^3/uL (130-400); RBC 4.55 10^6/uL (3.93-5.22); RDW 16.1 % (11.7-14.6); RDW-SD 52.9 fL; WBC 14.66 10^3/uL (4.4-10.8)
[2023-12-06] MEDS: Heparin 5,000 UNITS/ML VIAL 5000 UNITS SC ×3 (06:49→22:51)
[2023-12-06 06:55] LABS: Anion Gap 4.6 mmol/L (3-11); BUN 36 mg/dL (7-18); CO2 34.4 mmol/L (21.0-32.0); CREATININE 0.9 mg/dL (0.55-1.02); Calcium 8.6 mg/dL (8.5-10.1); Chloride 96 mmol/L (98-107); Estimated GFR 73.64 (mL/min/1.73m2); Glucose 186 mg/dL (74-106); Magnesium 2.3 mg/dL (1.8-2.4); Potassium 3.7 mmol/L (3.5-5.1); Sodium 135 mmol/L (136-145)
[2023-12-06] MEDS: Tiotropium Bromide-Respimat 10 PUFF INH 2 PUFF IH (07:43)
[2023-12-06 07:47] LABS: Absolute Lymphocyte Count 3.37 10^3/uL (1.2-3.4); Absolute Monocyte Count 1.32 10^3/uL (0.1-0.8); Absolute Neutrophil Count 8.94 10^3/uL (1.2-6.7)
[2023-12-06 07:48] LABS: Absolute Eosinophil Count 0.44 10^3/uL (0.0-0.7); Diff Comment Manual Differential; Myelocytes % 4; RBC Morphology Normal
--- NOTE | 2023-12-06 09:12 | PGE_ITS ---
Date of Service Date of service: 12/06/23 Time of Service: 09:19 Assessment and Plan Assessment and plan (1) Acute respiratory failure: Status: Acute Assessment and plan: -Like due to combination of untreated AARON/OHS, HFpEF and COPD -Patient has been aggressively diuresed since admission and weight is declining -Will continue scheduled 40 mg p.o. Lasix with potassium and magnesium -Continue high-dose Rocephin, vancomycin has been discontinued -Continue to encourage spirometer and Acapella -Continue scheduled Xopenex, ipratropium and Spiriva -Transition from Methylpred to prednisone 40 mg -Patient continues to require 2 L nasal cannula, will wean with goal saturation 88 to 92% Qualifiers: Respiratory failure complication: hypoxia Qualified Code(s): J96.01 - Acute respiratory failure with hypoxia (2) Pneumonia: Status: Acute Assessment and plan: - As noted above Qualifiers: Pneumonia type: aspiration pneumonia Aspiration pneumonia type: due to gastric secretions Laterality: bilateral Lung location: lower lobe of lung Qualified Code(s): J69.0 - Pneumonitis due to inhalation of food and vomit (3) COPD (chronic obstructive pulmonary disease): Status: Chronic Assessment and plan: - As noted above Qualifiers: COPD type: unspecified COPD Qualified Code(s): J44.9 - Chronic obstructive pulmonary disease, unspecified (4) Meningioma: Status: Chronic Assessment and plan: -Previous physician discussed with neurosurgeon, Dr. Eliel Harrison, ([phone]), patient does not need acute transfer to [facility] for any neurosurgical procedure. -Despite the fact that the meningioma does appear to be demonstrating some compression on the right MCA he feels that her admitting symptoms were not related to the meningioma and that she can follow-up with him in the neurosurgical clinic upon discharge from [facility]. -He did agree with continued antiepileptic medications of Keppra to prevent seizures. (5) Seizure: Status: Acute Assessment and plan: -continue Keppra 1000 mg bid for seizure prophylaxis. (6) Left-sided weakness: Status: Resolved Assessment and plan: -her acute neuro deficits have resolved. continue aspirin and atorvastatin prophylaxis for stroke prevention and continue keppra for seizure prophylaxis (7) Dysarthria: Status: Resolved Assessment and plan: -as above (8) Bilateral pleural effusion: Status: Acute Assessment and plan: -I suspect from diastolic HF but also may be some parapneumonic effusion. Continue diuretics. (9) Type 2 diabetes mellitus: Status: Chronic Assessment and plan: -Adjust NovoLog sliding scale to moderate dose, add basal insulin 10 units nightly, added carbohydrate coverage -Blood sugars running in the low 200s. -Blood sugars likely to normalize once no longer requiring steroids Qualifiers: Diabetes mellitus terminal superintendent insulin use: without terminal superintendent use Diabetes mellitus complication status: without complication Qualified Code(s): E11.9 - Type 2 diabetes mellitus without complications (10) Spinal compression fracture: Status: Acute Assessment and plan: -Continue home pain medications. -Avoid opioid medications. -Added on methocarbamol 50 -Writing for lidocaine patches. use toradol and tylenol Qualifiers: Encounter type: subsequent encounter Fracture of vertebra location: lumbar Lumbar vertebra fracture level: unspecified lumbar vertebra Fracture healing: with routine healing Qualified Code(s): S32.000D - Wedge compression fracture of unspecified lumbar vertebra, subsequent encounter for fracture with routine healing (11) DVT prophylaxis: Status: Acute Assessment and plan: -SC heparin (12) Morbid obesity: Status: Acute Assessment and plan: - Recommend ongoing weight loss discussions with PCP Subjective Subjective Interval history since last seen: Patient states that she is feeling a little bit better today but is continuing to have intermittent back spasms. She agrees to try muscle relaxer and to work with physical therapy today. Otherwise she has no other complaints or concerns at this time. Exam Narrative Exam Narrative: Well-appearing morbidly obese female laying in bed and in no acute distress, ANO x 4, [address] cannula in place, heart regular rate and rhythm, lungs with coarse upper airway sounds, but otherwise clear to auscultation bilaterally, abdomen soft, nontender, nondistended, cranial nerves II through XII intact, normal sensation and strength in bilateral upper and lower extremities Objective Last Vital Signs Temp 97.0 F L 12/06/23 04:00 Pulse 75 12/06/23 02:01 Resp 19 12/06/23 02:01 BP 108/64 12/06/23 02:01 Pulse Ox 96 12/06/23 07:40 Laboratory Results - last 24 hr 12/02/23 12/06/23 12/06/23 14:10 05:45 05:45 WBC 14.66 H RBC 4.55 Hgb 13.3 Hct 40.4 MCV 89 MCH 29.2 MCHC 32.9 RDW 16.1 H Plt Count 360 MPV 8.9 Immature Gran % See Differential Neutrophils % 61.0 Lymphocytes % 23.0 Monocytes % 9.0 Eosinophils % 3.0 Basophils % 0.0 Myelocytes % 4 Nucleated RBC % 0.0 Absolute Neutrophils 8.94 H Absolute Lymphocytes 3.37 Absolute Monocytes 1.32 H Absolute Eosinophils 0.44 Absolute Basophils 0.00 RBC Morphology Normal Sodium 135 L Potassium 3.7 Chloride 96 L Carbon Dioxide 34.4 H Anion Gap 4.6 BUN 36 H Creatinine 0.9 Est GFR (CKD-EPI 2020) 73.64 Glucose 186 H Calcium 8.6 Magnesium 2.3 Cancelled Urine Legionella Ag Negative Ur Strep pneumoniae Ag Negative Time Spent with Patient Time Spent with Patient: >50 minutes Time was spent: preparing to see the patient(eg.review tests), obtaining and/or reviewing separately otained hiistory, ordering medications,tests, procedures, referring, communicating with other health customer care associate, indepentently interpreting results, counseling the patient and care coordination
--- NOTE | 2023-12-06 09:59 | PTTR_ITS ---
PT Notes Visit Reasons: L-sided weakness, dysarthria, confusion, meningiom Date: 12/06/23 SUBJECTIVE: Pt in bed when approached for therapy, agreed to participating with therapy. Pt transitioned from ICU to [place] after lunch, pt reports she is very tired but would like to participate with afternoon session after she has rested for a little while, ot elizabeth just received pain and anti-spasm medication when this therapist approached pt for afternoon session. OBJECTIVE: ? Therapeutic Activities [id number]: Direct one-on-one instruction in dynamic activities to improve functional performance. ? BED MOBILITY/TRANSFERS? ? Rolling Left: Max A +3 Rolling Right: Max A +3? Supine-sit: Max A +3 ? Sit-supine: Max A +3 ? Oj lift pad setup: Max A +3 Oj Transfer going to recliner: Max A +3 ? Provided skilled cues and instruction on performance and technique throughout. Therapeutic Exercises [id number]: Direct one-on-one instruction in therapeutic exercises to develop strength, endurance, range of motion and flexibility. Exercises: Semi-francis abdominal crunch with pt pulling on belt [id number] Semi-francis lateral trunk rotation with pt pulling on belt L/R [id number] Cervical flexion/extension [id number] Cervical lateral deviation L/R [id number] Cervical lateral rotation L/R [id number] Shoulder flexion AROM [id number] Shoulder abduction/adduction [id number] Elbow flexion extension [id number] Ankle dorsi/plantar flexion [id number] Ankle inversion/eversion [id number] ? ASSESSMENT:? Pt dependent on all bed mobility activity, required max A +3 to stay in sidelying for clean up during perineal care, setup for oj pad, lidocaine patch application and bolster pad to get pt cleaned up prior to transfer going to recliner, pt scheduled for return transfer to bed at 2pm. Pt able to participate with therapeutic exercise requiring rest break in between activity to help prevent muscle spasms and fatigue. PLAN: continue to progress her strength and endurance. Will work towards fu nctional mobility with focus on bed mobility and transfers. TREATMENT CODE/TIME: [id number] 25mins (9:30-9:55am) [id number] 25mins (1:35-1:50pm)
[2023-12-06] MEDS: Potassium Chloride Liquid 20 MEQ PKT PO ×2 (10:00→19:56)
[2023-12-06] MEDS: Lidocaine 5% Patch 3 PATCH TP (10:00)
[2023-12-06] MEDS: Nicotine 21 MG/24 HR PATCH TD (10:01)
[2023-12-06] MEDS: Normal Saline Flush 10 ML SYR IVP ×3 (10:01→19:56)
[2023-12-06] MEDS: Furosemide 40 MG/4 ML VIAL IVP ×2 (10:02→16:23)
[2023-12-06] MEDS: levETIRAcetam 500 MG TAB 1000 MG PO ×2 (10:03→19:55)
[2023-12-06] MEDS: Pantoprazole 40 MG TABCR PO (10:03)
[2023-12-06] MEDS: Carvedilol 12.5 MG TAB PO ×2 (10:03→19:54)
[2023-12-06] MEDS: Aspirin E.C. 81 MG TABEC PO (10:03)
[2023-12-06] MEDS: predniSONE 20 MG TAB 40 MG PO (10:03)
[2023-12-06] MEDS: Docusate Sodium 100 MG CAP PO (10:03)
[2023-12-06] MEDS: Insulin Aspart 300 UNITS/3 ML PEN SC ×7 (10:04→21:11)
[2023-12-06] MEDS: guaiFENesin 600 MG TABCR PO ×2 (10:04→19:55)
[2023-12-06] MEDS: Spironolactone 25 MG TAB PO (10:04)
[2023-12-06] MEDS: Nystatin POWDER 60 GM JAR TP ×3 (10:41→19:56)
--- NOTE | 2023-12-06 14:42 | SPP_ITS ---
Date of service: 12/06/23 Time of Service: 12:10 Subjective SUBJECTIVE: Patient seen with noon meal. She was alert, oriented, and conversant/agreeable to re-assessment. She states she is enjoying that food is cut up with gravy, however she would like to return to bread. She wants an egg sandwich for breakfast tomorrow. She states she is feeling almost back to baseline overall, and states swallowing 'feels normal'. OBJECTIVE: Positioning: Upright in chair/partially reclined due to body habitus (approximately 70 degrees). Respiratory Status: Tolerating nasal canula, 1LPM PO Trials: L4 Puree (yogurt), L5 minced/moist (ernandez's pie), L6 (buttered toast, no crust) L0 (Thin water via straw) Oral Phase Findings: Slow/prolonged as patient is edentulous. WFL. Pharyngeal Phase Findings: WFL ASSESSMENT:Haven presents with improved status overall this date, currently weaned to 1LPM NC. She tolerated trials of diet upgrade well without overt s/s aspiration. She did not demonstrate increased work of breath while eating today, and was observed to eat slowly with good pacing. She is appropriate for diet upgrade to baseline diet: Soft/moist foods (L6 Soft Bite Size Diet). She verbalized and demonstrated good insight/awareness of foods she avoids due to being edentulous- such as removing crust from her toast and asking for extra butter to moisten. MUSIC EDUCATION ADJUNCT PROFESSOR to continue to monitor to ensure diet tolerance. See recommendations below. DISCHARGE RECOMMENDATIONS: No further MUSIC EDUCATION ADJUNCT PROFESSOR needs anticipated after discharge from acute care Diet Recommendations: ? SOLIDS: 6- Soft bite size (appears consistent with baseline diet) LIQUIDS: 0-Thin Liquids MEDICATIONS: Whole 1 at a time with liquid or applesauce if preferred Level of Assistance/Supervision: Provide set-up assist with initial verbal reminders for aspiration precautions as below Distant supervision with PO Positioning and environment: As upright as tolerated Oral hygiene Before/after PO intake Using friction with toothbrush on all oral structures as tolerated Strategies/Adaptations/Assistive Equipment: Small sips Small bites Slow rate of intake Reflux Precautions: Maintain fully upright position at least 30 minutes after meals Avoid meals/snacks 2-3 hours prior to reclining/sleeping Sleep with head of bed elevated to reduce likelihood of nocturnal reflux Education Provided to: Nursing Patient PLAN: Frequency: 1-2x/weekly for 1 week Long-Term Goals: Patient will remain free from aspiration-related illness, malnutrition, and dehydration. Short Term Goals: Patient will tolerate Minced/Moist Diet and Thin liquids without overt s/s aspiration across 2/2 visits. Patient will tolerate PO trials for consideration of diet upgrade without overt s/s aspiration across 2/2 visits. Coding CPT Codes ORAL FUNCTION THERAPY - 40402 ([id number]) Additional Codes Date of Service (16122) Date of service: 12/06/23
[2023-12-06] MEDS: cefTRIAXone 2 GM/50 ML BAG IVPB (15:03)
[2023-12-06] MEDS: Methocarbamol 500 MG TAB PO ×2 (15:19→21:09)
--- NOTE | 2023-12-06 16:50 | PDOC.CMPRO ---
Date of service: 12/07/23 Time of Service: 16:48 Care Management Progress Note Progress Note Text Progress Note Text: S/O: Haven was sitting up in bed, talking on the phone and watching tv. She was agreeable to SNF referrals for placement coordination. CM continues to follow. A: 58 year old admitted to [facility] 12/01/23 for L sided weakness, dysarthria, confusion P: Anticipate Haven will require SNF prior to returning to [place], referrals sent to [facility] today for review. Transport dependent on mobility, CM continues to follow.
[2023-12-06] MEDS: Atorvastatin 20 MG TAB PO (19:54)
[2023-12-06] MEDS: Insulin Glargine 300 UNITS/3 ML PEN 13 UNITS SC (21:10)
[2023-12-06] MEDS: Lidocaine Patch Removal 3 EACH TP (21:11)
--- NOTE | 2023-12-06 21:57 | PDOC.EEG_ITS ---
Neurology EEG EEG: [facility] Department of Neurology INPATIENT EEG REPORT Date of Recordin12/06/23 Interpreting Physician: Dr. Julieth Hudson Reason for study: Ms. Brizuela is a 58 year-old with waxing/waning left hemiparesis concerning for seizure activity, given known R cerebral mass. Current Medications: Current Medications Acetaminophen (Acetaminophen 500 Mg Tab) 1,000 mg PO Q6H PRN PRN Last Admin: 12/06/23 17:09 Dose: 1,000 mg Al Hydrox/Mg Hydrox/Simethicone (Mylanta Suspension 30 Ml Cup) 30 ml PO Q2H PRN PRN Aspirin (Aspirin E.C. 81 Mg Tabec) 81 mg PO DAILY FORMERLY [facility], [facility] Last Admin: 12/06/23 10:03 Dose: 81 mg Atorvastatin Calcium (Atorvastatin 20 Mg Tab) 20 mg PO QPM FOR[facility]LY [facility], [facility]1983 Last Admin: 12/06/23 19:54 Dose: 20 mg Bisacodyl (Bisacodyl 10 Mg Supp) 10 mg [place] DAILY PRN PRN Carboxymethylcellulose Sodium (Refresh Plus Eye Drops 0.4ml) 1 each OP DAILY PRN PRN Last Admin: 12/05/23 17:48 Dose: 1 each Carvedilol (Carvedilol 12.5 Mg Tab) 12.5 mg PO BID FOR[facility]LY [facility], [facility]–1983 Last Admin: 12/06/23 19:54 Dose: 12.5 mg Dextrose (Glucose Oral Gel 15 Gm/37.5 Gm Tube) 0 gm PO DIRECTED PRN Dextrose/Water (Dextrose 50%-Water 25 Gm/50 Ml Syr) 0 gm IVP DIRECTED PRN Docusate Sodium (Docusate Sodium 100 Mg Cap) 100 mg PO TID FOR[facility], [facility]–1983 Last Admin: 12/06/23 19:55 Dose: Not Given Furosemide (Furosemide 40 Mg/4 Ml Vial) 40 mg IVP BID@0800,1600 FOR[facility], [facility]1983 Last Admin: 12/06/23 16:23 Dose: 40 mg Guaifenesin (Guaifenesin 600 Mg Tabcr) 600 mg PO BID FOR[facility]LY [facility], [facility]1983 Last Admin: 12/06/23 19:55 Dose: 600 mg Heparin Sodium (Porcine) (Heparin 5,000 Units/Ml Vial) 5,000 units SC Q8H FOR[facility], [facility]1983 Last Admin: 12/06/23 15:02 Dose: 5,000 units Ceftriaxone Sodium/Dextrose (Rocephin) 2 gm in 50 mls @ 100 mls/hr IVPB Q24H FOR[facility], [facility] Last Infusion: 12/06/23 19:09 Dose: Infused IV Miscellaneous Supplies (Iv Access) 1 each IV DIRECTED FOR[facility], [facility] Insulin Aspart (Insulin Aspart 300 Units/3 Ml Pen) 0 units SC 0800,1200,1700,2200 FOR[facility], [facility]; Protocol Last Admin: 12/06/23 21:11 Dose: 8 units Insulin Aspart (Insulin Aspart 300 Units/3 Ml Pen) 0 units SC 0800,1200,1700 FOR[facility], [facility]1983 Last Admin: 12/06/23 16:51 Dose: 3 units Insulin Glargine (Insulin Glargine 300 Units/3 Ml Pen) 13 units SC HS FOR[facility], [facility]1983 Last Admin: 12/06/23 21:10 Dose: 13 units Ipratropium Otto (Ipratropium 0.5 Mg/2.5 Ml Upd Vial) 0.5 mg UPD Q4H WHILE AWAKE PRN Last Admin: 12/03/23 07:48 Dose: 0.5 mg Ketoconazole (Ketoconazole 2% Cream 30 Gm Tube) 60 gm TP DAILY [facility], [facility]1983 Last Admin: 12/06/23 10:41 Dose: 1 applic Ketorolac Tromethamine (Ketorolac 15 Mg/Ml Vial) 15 mg IVP Q6H PRN PRN Stop: 12/07/23 03:36 Last Admin: 12/06/23 13:56 Dose: 15 mg Levalbuterol HCl (Levalbuterol 1.25 Mg/3 Ml Upd Vial) 1.25 mg UPD Q2H PRN PRN PRN Reason: Wheezing, Shortness of Breath Last Admin: 12/05/23 21:05 Dose: 1.25 mg Levetiracetam (Levetiracetam 500 Mg Tab) 1,000 mg PO BID [facility], [facility] Last Admin: 12/06/23 19:55 Dose: 1,000 mg Lidocaine (Lidocaine 5% Patch) 3 patch TP DAILY [facility], [facility]1983 Last Admin: 12/06/23 10:00 Dose: 3 patch Magnesium Hydroxide (Milk Of Magnesia 30 Ml Cup) 30 ml PO DAILY PRN PRN Last Admin: 12/05/23 13:54 Dose: 30 ml Methocarbamol (Methocarbamol 500 Mg Tab) 500 mg PO Q4H FOR[facility], [facility]1983 Last Admin: 12/06/23 21:09 Dose: 500 mg Metoprolol Tartrate (Metoprolol 5 Mg/5 Ml Vial) 2.5 mg IVP Q6H PRN PRN Last Admin: 12/02/23 05:55 Dose: 2.5 mg Miconazole Nitrate (Miconazole 2% Topical Powder 85 Gm Btl) 0 gm TP BID PRN PRN Miscellaneous (Lidocaine Patch Removal) 3 each TP DAILY@2030 FOR[facility], [facility]1983 Last Admin: 12/06/23 21:11 Dose: 3 each Nicotine (Nicotine 21 Mg/24 Hr Patch) 21 mg TD DAILY FOR[facility], [facility]1983 Last Admin: 12/06/23 10:01 Dose: 21 mg Nystatin (Nystatin Powder 60 Gm Jar) 0 gm TP TID [facility], [facility] Last Admin: 12/06/23 19:56 Dose: 1 applic Pantoprazole Sodium (Pantoprazole 40 Mg Tabcr) 40 mg PO DAILY@0730 [facility], [facility]1983 Last Admin: 12/06/23 10:03 Dose: 40 mg Polyethylene Glycol (Polyethylene Glycol 3350 17 Gm Packet) 17 gm PO BID [facility], [facility] Last Admin: 12/06/23 19:56 Dose: Not Given Potassium Chloride (Potassium Chloride Liquid 20 Meq Pkt) 20 meq PO BID [facility], [facility] Last Admin: 12/06/23 19:56 Dose: 20 meq Prednisone (Prednisone 20 Mg Tab) 40 mg PO DAILY [facility] Last Admin: 12/06/23 10:03 Dose: 40 mg Sodium Chloride (Normal Saline Flush 10 Ml Syr) 0 ml IVP PRN PRN Last Admin: 12/06/23 16:24 Dose: 20 ml Sodium Chloride (Normal Saline Flush 10 Ml Syr) 0 ml IVP BID [facility], [facility] Last Admin: 12/06/23 19:56 Dose: 10 ml Sodium Chloride (Normal Saline 10 Ml Vial) 0 ml IJ DIRECTED PRN Spironolactone (Spironolactone 25 Mg Tab) 25 mg PO DAILY [facility], [facility] Last Admin: 12/06/23 10:04 Dose: 25 mg Tiotropium Otto (Tiotropium Otto-Respimat 10 Puff Inh) 2 puff IH DAILY [facility], [facility] Last Admin: 12/06/23 07:43 Dose: 2 puffs METHODS: A 21 channel digitized electroencephalogram was performed in the [facility] Med/Surg Floor or ICU. The 10/20 international system of electrode placement was used and bipolar and referential electrode montages were recorded. In addition to EEG the patient was monitored for EKG and lateral/vertical eye movements. Activation procedures of photic stimulation and hyperventilation were performed if applicable. Video was used during activation procedures and during events where applicable. The duration of the recording was 30 minutes. DESCRIPTION OF EEG: The patient was noted to be awake, drowsy, and asleep during the recording. During maximal wakefulness a 9-Hz posterior background rhythm was present which was well-modulated, symmetrical, reactive to eye opening, and of moderate voltage. With eye opening the background activity changed to a low voltage mixture of alpha, beta, and occasional theta range frequencies. Faster frequencies were present in the bilateral anterior head regions. There was a normal anterior-posterior voltage gradient. During drowsiness, there was attenuation of the posterior dominant background rhythm and vertex waves. Stage II sleep was present with symmetrical sleep spindles, K-complexes, and vertex w aves. There was no obvious focal slowing. There was intermittent mild generalized polymorphic delta slowing during wakefulness. Activating Procedures: Photic stimulation was performed which produced no posterior driving response. Hyperventilation was not performed. EKG: EKG revealed normal sinus rhythm. INTERPRETATION: This EEG is abnormal due to mild intermittent generalized, non-rhythmic slowing. PRIOR EEG: none CLINICAL CORRELATION: The generalized slowing is suggestive of a mild diffuse cerebral encephalopathy of broad differential including toxic-metabolic etiology. No focal regions of cerebral dysfunction or epileptiform activity was present. Clinical correlation is advised. Julieth Hudson MD Date of service: 12/06/23 Coding CPT Codes EEG AWAKE AND ASLEEP - [id number] ([id number])
[2023-12-06] MEDS: Mylanta Suspension 30 ML CUP PO (22:08)
[2023-12-07] VITALS (13 sets, daily range): BP systolic 108–141; BP diastolic 73–86; PULSE 72–100; RESP 2–24; TEMP 36.4–37.6; O2SAT 88–95
[2023-12-07] MEDS: Methocarbamol 500 MG TAB PO ×6 (01:39→21:30)
[2023-12-07] MEDS: Ipratropium 0.5 MG/2.5 ML UPD VIAL UPD (02:05)
[2023-12-07] MEDS: Mylanta Suspension 30 ML CUP PO (02:53)
[2023-12-07] MEDS: Heparin 5,000 UNITS/ML VIAL 5000 UNITS SC ×3 (06:17→21:31)
[2023-12-07 06:56] LABS: HCT 42.5 % (36.0-46.0); HGB 14.1 g/dL (11.2-15.7); MCH 29.3 pg (27.0-33.0); MCHC 33.2 % (32.0-36.0); MCV 88 fL (80-95); MPV 9.1 fL (8.0-11.0); Platelet Count 341 10^3/uL (130-400); RBC 4.81 10^6/uL (3.93-5.22); RDW-SD 52.2 fL; WBC 19.47 10^3/uL (4.4-10.8)
[2023-12-07] MEDS: Acetaminophen 500 MG TAB 1000 MG PO ×3 (07:02→20:22)
[2023-12-07 07:05] LABS: Anion Gap 4.5 mmol/L (3-11); BUN 25 mg/dL (7-18); CO2 32.5 mmol/L (21.0-32.0); CREATININE 0.7 mg/dL (0.55-1.02); Chloride 97 mmol/L (98-107); Estimated GFR 99.57 (mL/min/1.73m2); Glucose 179 mg/dL (74-106); Magnesium 2.3 mg/dL (1.8-2.4); Potassium 3.9 mmol/L (3.5-5.1); Sodium 134 mmol/L (136-145)
[2023-12-07] MEDS: Pantoprazole 40 MG TABCR PO (07:31)
[2023-12-07] MEDS: Furosemide 40 MG/4 ML VIAL IVP ×2 (07:33→16:06)
[2023-12-07] MEDS: Normal Saline Flush 10 ML SYR IVP ×2 (07:35→20:22)
[2023-12-07] MEDS: Tiotropium Bromide-Respimat 10 PUFF INH 2 PUFF IH (08:07)
[2023-12-07] MEDS: Insulin Aspart 300 UNITS/3 ML PEN SC ×7 (08:34→21:31)
[2023-12-07] MEDS: Aspirin E.C. 81 MG TABEC PO (08:40)
[2023-12-07] MEDS: levETIRAcetam 500 MG TAB 1000 MG PO ×2 (08:41→20:20)
[2023-12-07] MEDS: Potassium Chloride Liquid 20 MEQ PKT PO ×2 (08:41→20:21)
[2023-12-07] MEDS: predniSONE 20 MG TAB 40 MG PO (08:41)
[2023-12-07] MEDS: Spironolactone 25 MG TAB PO (08:42)
[2023-12-07] MEDS: guaiFENesin 600 MG TABCR PO ×2 (08:42→20:20)
[2023-12-07] MEDS: Carvedilol 12.5 MG TAB PO ×2 (08:42→20:21)
[2023-12-07] MEDS: Polyethylene Glycol 3350 17 GM PACKET PO (08:44)
[2023-12-07] MEDS: Nicotine 21 MG/24 HR PATCH TD (08:45)
[2023-12-07] MEDS: Lidocaine 5% Patch 3 PATCH TP (08:46)
[2023-12-07] MEDS: Nystatin POWDER 60 GM JAR TP ×3 (08:47→20:23)
[2023-12-07 08:50] LABS: Specimen source SPUTUM
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
--- NOTE | 2023-12-07 10:57 | W.PM.PROGNOT ---
Date of Service Date of service: 12/07/23 Time of Service: 10:57 Assessment and Plan Assessment and plan (1) Acute respiratory failure: Status: Acute Assessment and plan: -Like due to combination of untreated AARON/OHS, HFpEF and COPD -Patient has been aggressively diuresed since admission and weight is declining -Will continue scheduled 40 mg p.o. Lasix with potassium and magnesium -Continue high-dose Rocephin, vancomycin has been discontinued -Continue to encourage spirometer and Acapella -Continue scheduled Xopenex, ipratropium and Spiriva -Transition from Methylpred to prednisone 40 mg -patient now down to 1L nasal cannula, will wean with goal saturation 88 to 92% Qualifiers: Respiratory failure complication: hypoxia Qualified Code(s): J96.01 - Acute respiratory failure with hypoxia (2) Pneumonia: Status: Acute Assessment and plan: - As noted above Qualifiers: Pneumonia type: aspiration pneumonia Aspiration pneumonia type: due to gastric secretions Laterality: bilateral Lung location: lower lobe of lung Qualified Code(s): J69.0 - Pneumonitis due to inhalation of food and vomit (3) COPD (chronic obstructive pulmonary disease): Status: Chronic Assessment and plan: - As noted above Qualifiers: COPD type: unspecified COPD Qualified Code(s): J44.9 - Chronic obstructive pulmonary disease, unspecified (4) Meningioma: Status: Chronic Assessment and plan: -Previous physician discussed with neurosurgeon, Dr. Eliel Harrison, ([phone]), patient does not need acute transfer to [facility] for any neurosurgical procedure. -Despite the fact that the meningioma does appear to be demonstrating some compression on the right MCA he feels that her admitting symptoms were not related to the meningioma and that she can follow-up with him in the neurosurgical clinic upon discharge from [facility]. -He did agree with continued antiepileptic medications of Keppra to prevent seizures. (5) Seizure: Status: Acute Assessment and plan: -continue Keppra 1000 mg bid for seizure prophylaxis. (6) Left-sided weakness: Status: Resolved Assessment and plan: -her acute neuro deficits have resolved. continue aspirin and atorvastatin prophylaxis for stroke prevention and continue keppra for seizure prophylaxis (7) Dysarthria: Status: Resolved Assessment and plan: -as above (8) Bilateral pleural effusion: Status: Acute Assessment and plan: -I suspect from diastolic HF but also may be some parapneumonic effusion. Continue diuretics. (9) Type 2 diabetes mellitus: Status: Chronic Assessment and plan: -Adjust NovoLog sliding scale to moderate dose, add basal insulin 10 units nightly, added carbohydrate coverage -Blood sugars running in the low 200s. -Blood sugars likely to normalize once no longer requiring steroids Qualifiers: Diabetes mellitus custodial insulin use: without technician terminal and repeater use Diabetes mellitus complication status: without complication Qualified Code(s): E11.9 - Type 2 diabetes mellitus without complications (10) Spinal compression fracture: Status: Acute Assessment and plan: -Continue home pain medications. -Avoid opioid medications. -Added on methocarbamol 50 -Writing for lidocaine patches. use toradol and tylenol Qualifiers: Encounter type: subsequent encounter Fracture of vertebra location: lumbar Lumbar vertebra fracture level: unspecified lumbar vertebra Fracture healing: with routine healing Qualified Code(s): S32.000D - Wedge compression fracture of unspecified lumbar vertebra, subsequent encounter for fracture with routine healing (11) DVT prophylaxis: Status: Acute Assessment and plan: -SC heparin (12) Morbid obesity: Status: Acute Assessment and plan: - Recommend ongoing weight loss discussions with PCP Subjective Subjective Interval history since last seen: Patient seen earlier this morning, states that her back pain is significantly improved after the addition of muscle relaxers. She is looking forward to continuing to work with physical therapy and has no other complaints or concerns at this time. Exam Narrative Exam Narrative: Well-appearing morbidly obese female laying in bed and in no acute distress, ANO x 4, [address] cannula in place, heart regular rate and rhythm, lungs with coarse upper airway sounds, but otherwise clear to auscultation bilaterally, abdomen soft, nontender, nondistended, cranial nerves II through XII intact, normal sensation and strength in bilateral upper and lower extremities Objective Last Vital Signs Temp 99.7 F H 12/07/23 07:30 Pulse 96 H 12/07/23 07:30 Resp 20 12/07/23 07:30 BP 134/82 12/07/23 07:30 Pulse Ox 90 L 12/07/23 08:06 Laboratory Results - last 24 hr 12/02/23 12/07/23 13:05 06:09 WBC 19.47 H RBC 4.81 Hgb 14.1 Hct 42.5 MCV 88 MCH 29.3 MCHC 33.2 RDW 16.0 H Plt Count 341 MPV 9.1 Sodium 134 L Potassium 3.9 Chloride 97 L Carbon Dioxide 32.5 H Anion Gap 4.5 BUN 25 H Creatinine 0.7 Est GFR (CKD-EPI 2020) 99.57 Glucose 179 H Calcium 9.0 Magnesium 2.3 M. pneumoniae Source SPUTUM M. pneumoniae (PCR) TNP Time Spent with Patient Time Spent with Patient: >50 minutes Time was spent: preparing to see the patient(eg.review tests), obtaining and/or reviewing separately otained hiistory, ordering medications,tests, procedures, referring, communicating with other health medicare compliance auditor, indepentently interpreting results, counseling the patient and care coordination
--- NOTE | 2023-12-07 11:59 | PTTR_ITS ---
Date of service: 12/07/23 Time of Service: 10:21 PT Notes Visit Reasons: L-sided weakness, dysarthria, confusion, meningiom Inpatient Physical Therapy Treatment Note [facility] Date: 12/07/23 PRECAUTIONS: Fall, standard, activity as tolerated SUBJECTIVE: Patient reports pain, numbness, inability to move legs since a couple of days ago. According to recent treatment notes, patient was able to use her legs yesterday. OBJECTIVE: Supine in bed. Right leg externally rotated at the hip. ? PAIN: yes, patient reports upper abdominal spasms and a feeling of a pulled muscle behind left shoulder. VITALS: monitored by nursing staff Therapeutic Activities ([id number]): Direct one-on-one instruction in dynamic activities to improve functional performance. ? BED MOBILITY/TRANSFERS? Rolling L/R: mod-max assist of 3, verbal and tactile cues to use trailing leg for leverage and reach with trailing arm for railing. Dependent to scoot to side of bed in order to have room to roll. Supine-sit: not assessed ? Sit-supine: not assessed ? Sit-stand: not assessed ? Stand-sit: not assessed ? Bed-Chair: not assessed ? Chair-bed: not assessed Verbal cues for diaphragmatic breathing throughout hygiene and nate care activities. Dependent for positioning. Provided skilled cues and instruction on performance and technique throughout. ? Therapeutic Exercises ([id number]): Direct one-on-one instruction in therapeutic exercises to develop strength, endurance, range of motion and flexibility. ? Exercises: all are bilateral x10 vs yellow theraband unless otherwise stated. * biceps curls * right horizontal shoulder abduction * cross body punch * rows * lat press down * attempted assisted heel slides, patient states she is unable * attempted ankle pumps, patient states she is unable. Provided skilled instruction in proper exercise performance Provided skilled manual cues to facilitate proper muscle recruitment and/or form. ASSESSMENT:? Patient tolerates therapy well, reports no increase in pain, recovers respirations quickly. PLAN: Continue global strengthening per plan of care until patient is medically cleared for discharge. TREATMENT CODE/TIME: 27 minutes at 10:21 and 35 minutes at 14:20 for a total of 62 minutes today.
[2023-12-07] MEDS: Docusate Sodium 100 MG CAP PO ×2 (14:29→20:21)
[2023-12-07] MEDS: cefTRIAXone 2 GM/50 ML BAG IVPB (14:29)
--- NOTE | 2023-12-07 15:41 | CHAPLAIN ---
Haven was resting in bed when I saw her. She told me that she lives at [facility] and likes it there. She is feeling better. Haven was pleasant and easily engaged in a conversation.
[2023-12-07] MEDS: Atorvastatin 20 MG TAB PO (20:20)
[2023-12-07] MEDS: Insulin Glargine 300 UNITS/3 ML PEN 13 UNITS SC (21:30)
[2023-12-07] MEDS: Lidocaine Patch Removal 3 EACH TP (21:30)
[2023-12-08] VITALS (9 sets, daily range): BP systolic 115–142; BP diastolic 69–83; PULSE 94–110; RESP 2–32; TEMP 36.1–37.1; O2SAT 88–93
--- NOTE | 2023-12-08 | DI.CT_ITS ---
Exam(s) CT HEAD WO EXAM: CT HEAD WO CLINICAL HISTORY: left pupil non-reactive to light @ dilated > right. TECHNIQUE: Imaging Protocol: Axial computed tomography images with coronal and sagittal reformatted images were created and reviewed COMPARISON: CT CT HEAD WO from 12/02/2023 FINDINGS: There are no skull fractures. There is no fluid in the visualized paranasal sinuses. The previously described right-sided hyperdense extra-axial mass along the right greater wing of the sphenoid appears unchanged and is most probably a meningioma. It is again noted to posteriorly displ ervin the ipsilateral right middle cerebral artery. Its border is indistinct with the right cavernous sinus. No other focal findings in the brain. IMPRESSION: Unchanged from the recent previous studies with the right greater wing sphenoid mass again noted whic h is most probably a meningioma. Given the clinical findings it is exerting mass effect upon the adj acent structures including the lateral wall of the right cavernous sinus which contains a cranial ner ves to the right orbit. RADIATION DOSE DELIVERED: Total DLP DATA REPOSITORY: All CT scans at this facility are submitted to the National Radiology Data Registry (NRDR) Dose Index Registry (DIR) with the [employer] (ACR). RADIATION OPTIMIZATION: All CT scans at this facility use at least one of these dose optimization te chniques: automated exposure control; mA and/or kV adjustment per patient size (includes targeted exa ms where dose is matched to clinical indication); or iterative reconstruction.
--- NOTE | 2023-12-08 | DI.CT_ITS ---
Exam(s) CT ABDOMEN PELVIS WO EXAM: CT ABDOMEN PELVIS WO CLINICAL HISTORY: abdominal pain. TECHNIQUE: Imaging Protocol: Axial computed tomography images with coronal and sagittal reformatted images were created and reviewed CONTRAST MATERIAL: Intravenous: none Oral: None COMPARISON: CT CT THORAX ABD/PEL CTA from 12/01/2023 FINDINGS: VISUALIZED LUNG BASES: There is volume loss in both lower lobes and are moderate size bilateral pleur al effusions which have increased in size from 1 week ago. Fatty lesion is again noted in the food court team member ior aspect of the heart. No pericardial effusion. ABDOMEN: There is no ascites. LIVER: There are no obvious focal hepatic lesions evident of this noninfused study. GALLBLADDER/BILIARY: Gallbladder is again noted be surgically absent. CBD is not dilated. PANCREAS: No evidence of pancreatic mass nor dilatation of the pancreatic duct. SPLEEN: Spleen size upper normal. ADRENALS: There are no new significant adrenal masses. KIDNEYS:No cysts evident. No solid renal masses. No calculi nor hydronephrosis. . ABDOMINAL AORTA: Abdominal aorta is not enlarged. LYMPH NODES: There is no retroperitoneal nor paraaortic adenopathy. ABDOMINAL WALL: Previously described prominent right-sided anterior abdominal hernias again noted. I t is again noted to contain some small bowel loops. There is no obvious bowel obstruction. The colo n is not collapsed and indeed there is slightly prominent in caliber. With respect of the right-side d hernia sac there is a a focus of air-gas measuring 4 x 4 mm in the subcutaneous fat immediately adj acent to this hernia sac. There is no obvious free air with in the hernia sac. I suspect that this might be related to subcutaneous injection. GI: There is no evidence of obvious bowel obstruction, free air, nor abscess. PELVIS: LYMPH NODES: There is no intrapelvic nor inguinal adenopathy. GI: No evidence of appendicitis.No evidence of sigmoid diverticulitis. URINARY BLADDER: There is Bhakta catheter in the urinary bladder and the bladder is collapsed around t he Bhakta. REPRODUCTIVE: Uterus again noted be surgically absent. There are no abnormal adnexal masses. Free f luid. OSSEOUS: Previously described multiple vertebral compression fractures are again evident. However, o n the present study there is now a significant pathologic fracture of the T7 vertebral body with diff use hypodensity throughout this vertebral body and with some cortical loss anteriorly. Suspect that this may be an aggressive pathologic lytic process. Please note that the the upper thoracic spine is not included in the field of view of this study. IMPRESSION: 1. Compared to the prior CT scan of 12/01/2023 there is now a lytic appearing pathologic fracture of T7 vertebral body, this in addition to the of previously described pre-existing compression fractures in the lower thoracic and lumbar spines. Suspect possible infectious process, given the rapidity of change in the appearance of this T7 vertebra body when compared to the prior study 1 week ago. 2. There is increasing volume loss in both lower lobes and increasing size pleural effusions. These are now moderate size bilaterally. 3. Anterior right abdominal wall hernia which is again noted to contain bowel loops. There is no obv ious small bowel bowel obstruction. The colon is not collapsed, and indeed is prominent in caliber.. Other findings as above RADIATION DOSE DELIVERED: Total DLP DATA REPOSITORY: All CT scans at this facility are submitted to the National Radiology Data Registry (NRDR) Dose Index Registry (DIR) with the [employer] (ACR). RADIATION OPTIMIZATION: All CT scans at this facility use at least one of these dose optimization te chniques: automated exposure control; mA and/or kV adjustment per patient size (includes targeted exa ms where dose is matched to clinical indication); or iterative reconstruction.
--- NOTE | 2023-12-08 | DI.MRI_ITS ---
Exam(s) MR THORACIC SPINE WO/W EXAM: MR THORACIC SPINE WO/W CLINICAL HISTORY: ? T7 abscess TECHNIQUE: Multiplanar multisequence MRI of the thoracic spine was performed without intravenous con trast. COMPARISON: CT CT THORAX ABD/PEL CTA from 12/01/[address] ABDOMEN PELVIS WO from 12/08/2023 FINDINGS: OSSEOUS: There is an acute compression fracture of T7 and there is diffuse signal abnormality through out the T7 vertebral body which is hypo intense on T1 and hyperintense on T2 but not exhibiting marro w enhancement in the vertebral body following contrast injection. There is also abnormal STIR bright within the adjacent T6-7 and T7-T8 discs but without enhancement of these disc spaces following contr ast injection. There is posterior cortex bulging. There is dehiscence of the anterior cortex of T7 wi th extension of abnormal signal anteriorly and laterally on both sides of the vertebral body. Posteriorly there no obvious dehiscence of the bulging posterior cortex of T7 vertebral body. There i s abnormal STIR bright signal and enhancement also evident in the posterior paraspinal tissues. There is also abnormal symmetrical fluid-filled widening of the T7-T8 facet joints which has occurred sinc e the 12/01/2023 CT study. There is also some impingement of the thecal sac at this level with some s ymmetrical abnormal epidural signal. Lower down there is a nonacute compression fracture of T11 as well as nonacute compression fracture of the superior endplates of L1 and L2 within the lower most field of view of this study. IMPRESSION: There is a pathologic appearing T7 vertebral fracture with findings as described above, anteriorly, p osteriorly, involving both facet joints, and with some compression of the thecal sac at this level. S ignificant suspicion for infectious etiology. Discussed with hospitalist 12/08/2023 DATA REPOSITORY:
[2023-12-08] MEDS: Methocarbamol 500 MG TAB PO ×5 (01:38→21:30)
--- NOTE | 2023-12-08 01:47 | NUR.NOTE ---
RN and two staff members turned and repositioned the patient early on in the shift. She stated that repositioning causes pain. RN administered PRN tylenol and scheduled Robaxin before repositioning. RN educated pt on the purpose of repositioning, especially since she is currently bedbound. Pt understands and ultimately let staff reposition her. Aqua K pad also provided by RN for comfort. Pt slept for a few hours after this. Around 0130 pt reports that she is in pain again. Scheduled Robaxin administered and MD notified. RN offered pt to let the robaxin take effect before we reposition her but she wanted to get of her side at this time. Pt expressed that she is very frustrated that staff is repositioning her. Again, RN educated patient on the purpose of it. She refused further repositioning and requested to be put on her back for the night. placed order for Gabapentin. Will administer and continue to monitor. Nursing Note:
[2023-12-08] MEDS: Gabapentin 300 MG CAP PO ×4 (01:55→20:43)
[2023-12-08] MEDS: Acetaminophen 500 MG TAB 1000 MG PO ×2 (03:01→10:05)
[2023-12-08] MEDS: Ipratropium 0.5 MG/2.5 ML UPD VIAL UPD (03:18)
[2023-12-08] MEDS: Heparin 5,000 UNITS/ML VIAL 5000 UNITS SC ×2 (05:49→17:42)
[2023-12-08 06:24] LABS: HCT 44.6 % (36.0-46.0); HGB 14.9 g/dL (11.2-15.7); MCH 29.7 pg (27.0-33.0); MCHC 33.4 % (32.0-36.0); MCV 89 fL (80-95); MPV 8.6 fL (8.0-11.0); Platelet Count 397 10^3/uL (130-400); RBC 5.02 10^6/uL (3.93-5.22); RDW 16.1 % (11.7-14.6); RDW-SD 52.3 fL; WBC 23.26 10^3/uL (4.4-10.8)
--- NOTE | 2023-12-08 07:48 | OT.INNT ---
Occupational Therapy Notes 12/08/22 Pt states that she had a rough night. She notes that her pain is about an 8/10 at this time and would like to hold on OT for the morning. OT is only here in the morning time and will resume services with pt tomorrow. Jacklyn Oconnor, OTR/L
[2023-12-08] MEDS: Tiotropium Bromide-Respimat 10 PUFF INH 2 PUFF IH (07:50)
[2023-12-08] MEDS: Pantoprazole 40 MG TABCR PO (08:10)
[2023-12-08] MEDS: Insulin Aspart 300 UNITS/3 ML PEN SC ×6 (08:11→22:32)
[2023-12-08] MEDS: Furosemide 40 MG/4 ML VIAL IVP ×2 (08:51→16:07)
[2023-12-08] MEDS: Normal Saline Flush 10 ML SYR IVP ×4 (08:51→20:45)
[2023-12-08] MEDS: Nicotine 21 MG/24 HR PATCH TD (09:38)
[2023-12-08] MEDS: Polyethylene Glycol 3350 17 GM PACKET PO ×2 (09:39→20:44)
[2023-12-08] MEDS: predniSONE 20 MG TAB 40 MG PO (09:39)
[2023-12-08] MEDS: levETIRAcetam 500 MG TAB 1000 MG PO ×2 (09:40→21:29)
[2023-12-08] MEDS: Carvedilol 12.5 MG TAB PO ×2 (09:40→20:44)
[2023-12-08] MEDS: Spironolactone 25 MG TAB PO (09:40)
[2023-12-08] MEDS: Aspirin E.C. 81 MG TABEC PO (09:41)
[2023-12-08] MEDS: guaiFENesin 600 MG TABCR PO ×2 (09:41→20:44)
[2023-12-08] MEDS: Nystatin POWDER 60 GM JAR TP (09:43)
[2023-12-08] MEDS: Potassium Chloride Liquid 20 MEQ PKT PO ×2 (09:44→20:44)
[2023-12-08] MEDS: Lidocaine 5% Patch 3 PATCH TP (11:26)
--- NOTE | 2023-12-08 11:45 | PT.INNT ---
PT Notes Visit Reasons: L-sided weakness, dysarthria, confusion, meningiom Patient unavailable for therapy this morning. Downstairs for diagnostic imaging. Will resume therapy in the afternoon.
[2023-12-08] MEDS: HYDROmorphone 2 MG/ML SYR IVP (13:29)
[2023-12-08] MEDS: Gadoterate meglumine 20 ML SYRINGE IVP (14:23)
--- NOTE | 2023-12-08 16:04 | SPP_ITS ---
Date of service: 12/08/23 Time of Service: 12:05 Subjective SUBJECTIVE: Patient seen with noon meal. She was alert, oriented, and conversant/agreeable to re-assessment. She continues to report swallowing 'feels normal' and diet is largely at baseline texture, but she is wishing she could eat soft sandwiches. OBJECTIVE: Positioning: Upright in chair/partially reclined due to body habitus (approximately 70 degrees). Respiratory Status: Tolerating room air PO Trials: L4 Puree (squash), L6 soft/bite size (ernandez's pie), L0 (Thin water via straw) Oral Phase Findings: Slow/prolonged as patient is edentulous. WFL. Pharyngeal Phase Findings: WFL ASSESSMENT:Haven presents with continued improved status overall this date, currently weaned to room air. She tolerated trials of current diet well without overt s/s aspiration. She did not demonstrate increased work of breath while eating today, and was observed to eat slowly with good pacing. She is appropriate for discharge from EPIDEMIOLOGY INTERN services on her current diet: Soft/moist foods (L6 Soft Bite Size Diet). She verbalized and demonstrated good insight/awareness of foods she avoids due to being edentulous- such as removing skin from pieces of baked potato. DISCHARGE RECOMMENDATIONS: No further EPIDEMIOLOGY INTERN needs anticipated after discharge from acute care Diet Recommendations: ? SOLIDS: 6- Soft bite size (appears consistent with baseline diet) LIQUIDS: 0-Thin Liquids MEDICATIONS: Whole 1 at a time with liquid or applesauce if preferred Level of Assistance/Supervision: Provide set-up assist with initial verbal reminders for aspiration precautions as below Distant supervision with PO Positioning and environment: As upright as tolerated Oral hygiene Before/after PO intake Using friction with toothbrush on all oral structures as tolerated Strategies/Adaptations/Assistive Equipment: Small sips Small bites Slow rate of intake Reflux Precautions: Maintain fully upright position at least 30 minutes after meals Avoid meals/snacks 2-3 hours prior to reclining/sleeping Sleep with head of bed elevated to reduce likelihood of nocturnal reflux Education Provided to: Nursing Patient PLAN: GOAL MET [employer] Department Manager Goals: Patient will remain free from aspiration-related illness, malnutrition, and dehydration. Short Term Goals: Patient will tolerate Minced/Moist Diet and Thin liquids without overt s/s aspiration across 2/2 visits. GOAL MET Patient will tolerate PO trials for consideration of diet upgrade without overt s/s aspiration across 2/2 visits. GOAL MET Time spent: 20 min (12:05-12:25) Coding CPT Codes ORAL FUNCTION THERAPY - [id number] ([id number]) Additional Codes Date of Service (00670) Date of service: 12/08/23
[2023-12-08] MEDS: CEFEPIME 2 GM in Normal Saline 100 ML IVPB ×2 (16:07→21:29)
--- NOTE | 2023-12-08 16:17 | PT.INNT ---
Date of service: 12/08/23 Time of Service: 15:45 PT Notes Visit Reasons: L-sided weakness, dysarthria, confusion, meningiom Hold per RN.
[2023-12-08 16:46] LABS: ESR 85 mm/hr (0-30)
[2023-12-08 16:47] LABS: C-Reactive Protein 8.74 mg/dL (0.0-0.3)
--- NOTE | 2023-12-08 16:52 | DI.VRAD_ITS ---
Addendum created by Cory Rogers MD on 12/08/2023 4:58:06 PM EST: THIS REPORT CONTAINS FINDINGS THAT MAY BE CRITICAL TO PATIENT CARE. The findings were verbally communicated via telephone conference with Rupesh Booker at 4:57 PM EST on 12/08/2023. The findings were acknowledged and understood. Initial report created on 12/08/2023 4:52:26 PM EST: PROCEDURE INFORMATION: Exam: MR Thoracic Spine Without and With Contrast Exam date and time: 12/08/2023 1:54 PM Age: 58 years old Clinical indication: Other: T7 vertebral abnormality TECHNIQUE: Imaging protocol: Magnetic resonance imaging of the thoracic spine without and with contrast. Contrast material: DOTURUM; Contrast volume: 20 ml; Contrast route: INTRAVENOUS (IV); COMPARISON: CR XR THORACIC SPINE COMPLETE 10/01/2023 10:02 AM FINDINGS: Acute moderate compression fracture of T7. Osseous retropulsion and adjacent epidural hemorrhage cause severe canal stenosis slightly compressing the adjacent spinal cord. Difficult to assess for abnormal cord signal due to poor signal to noise ratio. Paravertebral soft tissue hemorrhage at this level. Acute mild compression fractures of T11 and L1. Posterior disc protrusion and facet hypertrophy at T11-T12 causes moderate canal stenosis. Remaining thoracic vertebral body heights are maintained. . Thoracic kyphosis is preserved. Multilevel degenerative disc height loss. IMPRESSION: 1. Acute moderate compression fracture of T7. Osseous retropulsion and adjacent epidural hemorrhage cause severe canal stenosis slightly compressing the adjacent spinal cord. Recommend neurosurgery consultation. 2. Acute mild compression fractures of T11 and L1. Recommend follow-up MRI lumbar spine for complete evaluation of the lumbar spine. Dictated and Authenticated by: Cory Rogers MD. Ordering:MARIELLA Goddard MD
--- NOTE | 2023-12-08 16:54 | PDOC.CMPRO ---
Date of service: 12/08/23 Time of Service: 16:54 Care Management Progress Note Progress Note Text Progress Note Text: S/O: Awaiting placement. CM continues to follow. A: 58 year old admitted to [facility] 12/01/23 for L sided weakness, dysarthria, confusion P: Anticipate Haven will require SNF prior to returning to [place], referrals sent to [facility] today for review. Transport dependent on mobility, CM continues to follow.
[2023-12-08] MEDS: VANCOMYCIN/WATER (PEG) 2 GM/400 ML BAG IV (17:41)
--- NOTE | 2023-12-08 20:36 | W.PM.PROGNOT ---
Date of Service Date of service: 12/08/23 Time of Service: 18:00 Assessment and Plan Assessment and plan (1) Acute respiratory failure: Status: Acute Assessment and plan: -Like due to combination of untreated AARON/OHS, HFpEF and COPD -Patient has been aggressively diuresed since admission and weight is declining -Will continue scheduled 40 mg p.o. Lasix with potassium and magnesium -Continue high-dose Rocephin, vancomycin has been discontinued -Continue to encourage spirometer and Acapella -Continue scheduled Xopenex, ipratropium and Spiriva -Transition from Methylpred to prednisone 40 mg -patient now on RA Qualifiers: Respiratory failure complication: hypoxia Qualified Code(s): J96.01 - Acute respiratory failure with hypoxia (2) Pneumonia: Status: Acute Assessment and plan: - As noted above Qualifiers: Pneumonia type: aspiration pneumonia Aspiration pneumonia type: due to gastric secretions Laterality: bilateral Lung location: lower lobe of lung Qualified Code(s): J69.0 - Pneumonitis due to inhalation of food and vomit (3) COPD (chronic obstructive pulmonary disease): Status: Chronic Assessment and plan: - As noted above Qualifiers: COPD type: unspecified COPD Qualified Code(s): J44.9 - Chronic obstructive pulmonary disease, unspecified (4) Spinal abscess: Status: Suspected Assessment and plan: -initially seen on CT abdo/pelvis when assess for abdominal pain -CT showed worsenint T7 compression fracture with rapid change/fluid collection suggestive of possible abscess -at that time, patient Abx were transitioned from CTX to vanc and cefepime -CRP was elevated to 8 and ESR was 85 -WBC had been increasing over the last few days but may also be secondary to steriod use as noted above -MRI thoracic spine w/ and w/o read by Vrad suggested epidural hematoma with canal narrowing and cord compression -however, after discussion with both [facility] and Neuro IR, appears more concerning for possible abscess -[facility] also belived there was not indication for emergent transfer given patient has not been ambulatory since prior to admission and thus would not require emergent surgical intervention -additionally, Neuro IR believed that given her extensive non-healing spinal compression fractures that the patient would benefit from vertebroplasty, though area of possible abscess would beed to be biopsied first, as infection would be a contraindication to vertebroplasty -therefore, current plan is for patient to have [id number] guided biopsy of the T7 lesion in order to identify if the area is infected or not, if it is not, she would then be a candidate for vertebroplasty -patients anticoagulation has been held prior to procedure which is currently scheduled for tomorrow 12/09/2023 -NPO at midnight -will assess in AM if patient is able to lie on her stomach for procedure, if not, will call [facility] Neuro IR so that they can set patient up with Anesthesia to be intubated for the procedure (5) Meningioma: Status: Chronic Assessment and plan: -Previous physician discussed with neurosurgeon, Dr. Eliel Harrison, ([phone]), patient does not need acute transfer to [facility] for any neurosurgical procedure. -Despite the fact that the meningioma does appear to be demonstrating some compression on the right MCA he feels that her admitting symptoms were not related to the meningioma and that she can follow-up with him in the neurosurgical clinic upon discharge from [facility]. -He did agree with continued antiepileptic medications of Keppra to prevent seizures. (6) Seizure: Status: Acute Assessment and plan: -continue Keppra 1000 mg bid for seizure prophylaxis. (7) Left-sided weakness: Status: Resolved Assessment and plan: -her acute neuro deficits have resolved. continue aspirin and atorvastatin prophylaxis for stroke prevention and continue keppra for seizure prophylaxis (8) Dysarthria: Status: Resolved Assessment and plan: -as above (9) Bilateral pleural effusion: Status: Acute Assessment and plan: -I suspect from diastolic HF but also may be some parapneumonic effusion. Continue diuretics. (10) Type 2 diabetes mellitus: Status: Chronic Assessment and plan: -Adjust NovoLog sliding scale to moderate dose, add basal insulin 10 units nightly, added carbohydrate coverage -Blood sugars running in the low 200s. -Blood sugars likely to normalize once no longer requiring steroids Qualifiers: Diabetes mellitus continuous churn buttermaker insulin use: without continuous churn buttermaker use Diabetes mellitus complication status: without complication Qualified Code(s): E11.9 - Type 2 diabetes mellitus without complications (11) Spinal compression fracture: Status: Acute Assessment and plan: -Continue home pain medications. -Avoid opioid medications. -Added on methocarbamol 50 -Writing for lidocaine patches Qualifiers: Encounter type: subsequent encounter Fracture of vertebra location: lumbar Lumbar vertebra fracture level: unspecified lumbar vertebra Fracture healing: with routine healing Qualified Code(s): S32.000D - Wedge compression fracture of unspecified lumbar vertebra, subsequent encounter for fracture with routine healing (12) DVT prophylaxis: Status: Acute Assessment and plan: -SC heparin (13) Morbid obesity: Status: Acute Assessment and plan: - Recommend ongoing weight loss discussions with PCP Subjective Subjective Interval history since last seen: Patient seen earlier this morning, states that her back pain is worse this morning and that she is also feeling more weak in her legs as well as experiencing abdominal pain. Exam Narrative Exam Narrative: Well-appearing morbidly obese female laying in bed and in no acute distress, ANO x 4, [address] cannula in place, heart regular rate and rhythm, lungs with coarse upper airway sounds, but otherwise clear to auscultation bilaterally, abdomen soft, nontender, nondistended, cranial nerves II through XII intact, decrease strength in bilateral LE, 3/5, previous 4/5 Objective Last Vital Signs Temp 97.9 F 12/08/23 19:27 Pulse 97 H 12/08/23 19:27 Resp 17 12/08/23 19:27 BP 115/80 12/08/23 19:27 Pulse Ox 91 L 12/08/23 19:27 Laboratory Results - last 24 hr 12/08/23 12/08/23 06:10 16:22 WBC 23.26 H RBC 5.02 Hgb 14.9 Hct 44.6 MCV 89 MCH 29.7 MCHC 33.4 RDW 16.1 H Plt Count 397 MPV 8.6 ESR 85 H C-Reactive Protein 8.74 H Time Spent with Patient Time Spent with Patient: >50 minutes Time was spent: preparing to see the patient(eg.review tests), obtaining and/or reviewing separately otained hiistory, ordering medications,tests, procedures, referring, communicating with other health cattle care worker, indepentently interpreting results, counseling the patient and care coordination
[2023-12-08] MEDS: Docusate Sodium 100 MG CAP PO (20:43)
[2023-12-08] MEDS: Atorvastatin 20 MG TAB PO (20:43)
[2023-12-08] MEDS: Insulin Glargine 300 UNITS/3 ML PEN 13 UNITS SC (22:35)
[2023-12-09] MEDS: Acetaminophen 500 MG TAB 1000 MG PO ×3 (02:11→19:47)
[2023-12-09] MEDS: Methocarbamol 500 MG TAB PO ×5 (02:11→21:39)
[2023-12-09 03:28] VITALS: BP 143/88; PULSE 93; RESP 20; TEMP 37.7; O2SAT 91
[2023-12-09] MEDS: CEFEPIME 2 GM in Normal Saline 100 ML IVPB ×2 (05:35→21:40)
[2023-12-09] MEDS: VANCOMYCIN/WATER (PEG) 2 GM/400 ML BAG IV ×2 (06:31→18:26)
[2023-12-09] MEDS: Tiotropium Bromide-Respimat 10 PUFF INH 2 PUFF IH (07:51)
[2023-12-09 08:11] VITALS: BP 104/65; PULSE 67; RESP 18; TEMP 36.8; O2SAT 94
[2023-12-09] MEDS: Nicotine 21 MG/24 HR PATCH TD (08:29)
[2023-12-09] MEDS: predniSONE 20 MG TAB 40 MG PO (08:30)
[2023-12-09] MEDS: Spironolactone 25 MG TAB PO (08:30)
[2023-12-09] MEDS: Lidocaine 5% Patch 3 PATCH TP (08:30)
[2023-12-09] MEDS: levETIRAcetam 500 MG TAB 1000 MG PO ×2 (08:30→19:49)
[2023-12-09] MEDS: Furosemide 40 MG/4 ML VIAL IVP ×2 (08:31→18:26)
[2023-12-09] MEDS: Carvedilol 12.5 MG TAB PO ×2 (08:31→19:49)
[2023-12-09] MEDS: Pantoprazole 40 MG TABCR PO (08:31)
[2023-12-09] MEDS: Gabapentin 300 MG CAP PO ×2 (08:31→19:49)
[2023-12-09] MEDS: Normal Saline Flush 10 ML SYR IVP ×4 (08:33→21:40)
--- NOTE | 2023-12-09 09:50 | CMPROGNOTE_ITS ---
Date of service: 12/09/23 Time of Service: 09:51 Care Management Progress Note Progress Note Text Progress Note Text: S/O: Haven will be sent to [facility] for down and back appointment, today. SNF referral on hold until further treatment plan established. CM following. A: 58 year old female admitted to [facility] 12/01/23 for L sided weakness, dysarthria, confusion P: Haven will be sent to [facility] for a down and back appointment to evaluate finding on spinal MRI assumed to be a fluid collection. CM updated Rita of [facility] at [facility] on discharge planning considerations, and continues to follow. Mariia: [phone]
--- NOTE | 2023-12-09 09:50 | PDOC.CMPRO ---
Date of service: 12/09/23 Time of Service: 09:51 Care Management Progress Note Progress Note Text Progress Note Text: S/O: Haven will be sent to [facility] for down and back appointment, today. SNF referral on hold until further treatment plan established. CM following. A: 58 year old female admitted to [facility] 12/01/23 for L sided weakness, dysarthria, confusion P: Haven will be sent to [facility] for a down and back appointment to evaluate finding on spinal MRI assumed to be a fluid collection. CM updated Rita of K[facility] at [facility] on discharge planning considerations, and continues to follow. Mariia: [phone] [email or web address]
--- NOTE | 2023-12-09 10:00 | W.PM.PROGNOT ---
Date of Service Date of service: 12/09/23 Time of Service: 10:00 Assessment and Plan Assessment and plan (1) Spinal abscess: Status: Suspected Assessment and plan: -initially seen on CT abdo/pelvis when assess for abdominal pain -CT showed worsenint T7 compression fracture with rapid change/fluid collection suggestive of possible abscess -at that time, patient Abx were transitioned from CTX to vanc and cefepime -CRP was elevated to 8 and ESR was 85 -WBC had been increasing over the last few days but may also be secondary to steriod use as noted above -MRI thoracic spine w/ and w/o read by Vrad suggested epidural hematoma with canal narrowing and cord compression -however, after discussion with both [facility] and Neuro IR, appears more concerning for possible abscess -[facility] also belived there was not indication for emergent transfer given patient has not been ambulatory since prior to admission and thus would not require emergent surgical intervention -additionally, Neuro IR believed that given her extensive non-healing spinal compression fractures that the patient would benefit from vertebroplasty, though area of possible abscess would beed to be biopsied first, as infection would be a contraindication to vertebroplasty -therefore, current plan is for patient to have oxlln-oju-byom IR guided biopsy of the T7 lesion in order to identify if the area is infected or not, if it is not, she would then be a candidate for vertebroplasty -procedure currently scheduled for either today 12/09/2023 or tomorrow 12/10/2023 -Anticoagulation has been hold, and patient has been NPO. If the procedure is scheduled for tomorrow, will allow her to eat and will again make n.p.o. at midnight (2) Acute respiratory failure: Status: Acute Assessment and plan: -Like due to combination of untreated AARON/OHS, HFpEF and COPD -Patient has been aggressively diuresed since admission and weight is declining -Will continue scheduled 40 mg p.o. Lasix with potassium and magnesium -Continue high-dose Rocephin, vancomycin has been discontinued -Continue to encourage spirometer and Acapella -Continue scheduled Xopenex, ipratropium and Spiriva -Transition from Methylpred to prednisone 40 mg -patient now on RA Qualifiers: Respiratory failure complication: hypoxia Qualified Code(s): J96.01 - Acute respiratory failure with hypoxia (3) Pneumonia: Status: Acute Assessment and plan: - As noted above Qualifiers: Pneumonia type: aspiration pneumonia Aspiration pneumonia type: due to gastric secretions Laterality: bilateral Lung location: lower lobe of lung Qualified Code(s): J69.0 - Pneumonitis due to inhalation of food and vomit (4) COPD (chronic obstructive pulmonary disease): Status: Chronic Assessment and plan: - As noted above Qualifiers: COPD type: unspecified COPD Qualified Code(s): J44.9 - Chronic obstructive pulmonary disease, unspecified (5) Meningioma: Status: Chronic Assessment and plan: -Previous physician discussed with neurosurgeon, Dr. Eliel Harrison, ([phone]), patient does not need acute transfer to [facility] for any neurosurgical procedure. -Despite the fact that the meningioma does appear to be demonstrating some compression on the right MCA he feels that her admitting symptoms were not related to the meningioma and that she can follow-up with him in the neurosurgical clinic upon discharge from [facility]. -He did agree with continued antiepileptic medications of Keppra to prevent seizures. (6) Seizure: Status: Acute Assessment and plan: -continue Keppra 1000 mg bid for seizure prophylaxis. (7) Left-sided weakness: Status: Resolved Assessment and plan: -her acute neuro deficits have resolved. continue aspirin and atorvastatin prophylaxis for stroke prevention and continue keppra for seizure prophylaxis (8) Dysarthria: Status: Resolved Assessment and plan: -as above (9) Bilateral pleural effusion: Status: Acute Assessment and plan: -I suspect from diastolic HF but also may be some parapneumonic effusion. Continue diuretics. (10) Type 2 diabetes mellitus: Status: Chronic Assessment and plan: -Adjust NovoLog sliding scale to moderate dose, add basal insulin 10 units nightly, added carbohydrate coverage -Blood sugars running in the low 200s. -Blood sugars likely to normalize once no longer requiring steroids Qualifiers: Diabetes mellitus fci insulin use: without box inspector use Diabetes mellitus complication status: without complication Qualified Code(s): E11.9 - Type 2 diabetes mellitus without complications (11) Spinal compression fracture: Status: Acute Assessment and plan: -Continue home pain medications. -Avoid opioid medications. -Added on methocarbamol 50 -Writing for lidocaine patches Qualifiers: Encounter type: subsequent encounter Fracture of vertebra location: lumbar Lumbar vertebra fracture level: unspecified lumbar vertebra Fracture healing: with routine healing Qualified Code(s): S32.000D - Wedge compression fracture of unspecified lumbar vertebra, subsequent encounter for fracture with routine healing (12) DVT prophylaxis: Status: Acute Assessment and plan: -SC heparin (13) Morbid obesity: Status: Acute Assessment and plan: - Recommend ongoing weight loss discussions with PCP Subjective Subjective Interval history since last seen: Patient seen earlier this morning. She understands the plan for barium back neuro IR biopsy either today or tomorrow based on anesthesia scheduling. Exam Narrative Exam Narrative: Well-appearing morbidly obese female laying in bed and in no acute distress, ANO x 4, [address] cannula in place, heart regular rate and rhythm, lungs with coarse upper airway sounds, but otherwise clear to auscultation bilaterally, abdomen soft, nontender, nondistended, cranial nerves II through XII intact, decrease strength in bilateral LE, 3/5 Objective Last Vital Signs Temp 98.2 F 12/09/23 08:11 Pulse 67 12/09/23 08:11 Resp 18 12/09/23 08:11 BP 104/65 12/09/23 08:11 Pulse Ox 94 12/09/23 08:11 Laboratory Results - last 24 hr 12/08/23 16:22 ESR 85 H C-Reactive Protein 8.74 H Time Spent with Patient Time Spent with Patient: >50 minutes Time was spent: preparing to see the patient(eg.review tests), obtaining and/or reviewing separately otained hiistory, ordering medications,tests, procedures, referring, communicating with other health rental boats caretaker, indepentently interpreting results, counseling the patient and care coordination
[2023-12-09] MEDS: HYDROmorphone 2 MG/ML SYR 1 MG IVP (11:39)
--- NOTE | 2023-12-09 13:07 | NUR.NOTE ---
patient left unit for [facility] @11:45, nursing report given to DOMENICA Lafleur and DOMENICA Alex from [facility] radiology unit.
[2023-12-09 17:25] VITALS: BP 150/72; PULSE 74; RESP 18; TEMP 36.4; O2SAT 91
[2023-12-09] MEDS: Insulin Aspart 300 UNITS/3 ML PEN SC ×3 (18:27→21:39)
[2023-12-09] MEDS: Nystatin POWDER 60 GM JAR TP (19:47)
[2023-12-09] MEDS: Potassium Chloride Liquid 20 MEQ PKT PO (19:47)
[2023-12-09] MEDS: Polyethylene Glycol 3350 17 GM PACKET PO (19:47)
[2023-12-09] MEDS: Atorvastatin 20 MG TAB PO (19:49)
[2023-12-09] MEDS: Docusate Sodium 100 MG CAP PO (19:49)
[2023-12-09] MEDS: guaiFENesin 600 MG TABCR PO (19:49)
[2023-12-09] MEDS: Lidocaine Patch Removal 3 EACH TP (19:50)
[2023-12-09 20:07] VITALS: BP 141/75; PULSE 86; RESP 18; TEMP 36.4; O2SAT 92
[2023-12-09] MEDS: Insulin Glargine 300 UNITS/3 ML PEN 13 UNITS SC (21:38)
[2023-12-10] VITALS (7 sets, daily range): BP systolic 116–148; BP diastolic 78–89; PULSE 90–104; RESP 2–20; TEMP 35.7–36.6; O2SAT 88–91
[2023-12-10] MEDS: Methocarbamol 500 MG TAB PO ×6 (01:51→22:41)
[2023-12-10] MEDS: CEFEPIME 2 GM in Normal Saline 100 ML IVPB ×3 (05:16→22:44)
[2023-12-10] MEDS: Normal Saline Flush 10 ML SYR IVP ×4 (05:17→22:41)
[2023-12-10] MEDS: Acetaminophen 500 MG TAB 1000 MG PO ×3 (05:53→19:01)
[2023-12-10] MEDS: VANCOMYCIN/WATER (PEG) 2 GM/400 ML BAG IV ×2 (06:10→19:02)
[2023-12-10 06:36] LABS: MCH 29.4 pg (27.0-33.0); MCHC 33.3 % (32.0-36.0); MCV 88 fL (80-95); MPV 8.8 fL (8.0-11.0); Platelet Count 365 10^3/uL (130-400); RBC 4.77 10^6/uL (3.93-5.22); RDW 15.9 % (11.7-14.6); RDW-SD 51.2 fL; WBC 18.16 10^3/uL (4.4-10.8)
[2023-12-10 06:53] LABS: Anion Gap 7.6 mmol/L (3-11); BUN 23 mg/dL (7-18); C-Reactive Protein 6.16 mg/dL (0.0-0.3); CO2 28.4 mmol/L (21.0-32.0); CREATININE 0.8 mg/dL (0.55-1.02); Calcium 9.1 mg/dL (8.5-10.1); Chloride 95 mmol/L (98-107); Estimated GFR 84.82 (mL/min/1.73m2); Glucose 187 mg/dL (74-106); Potassium 4.2 mmol/L (3.5-5.1); Sodium 131 mmol/L (136-145)
[2023-12-10] MEDS: Insulin Aspart 300 UNITS/3 ML PEN SC ×7 (08:20→22:43)
[2023-12-10] MEDS: Potassium Chloride Liquid 20 MEQ PKT PO ×2 (08:30→21:06)
[2023-12-10] MEDS: predniSONE 20 MG TAB 40 MG PO (08:30)
[2023-12-10] MEDS: Polyethylene Glycol 3350 17 GM PACKET PO ×2 (08:30→21:06)
[2023-12-10] MEDS: Nystatin POWDER 60 GM JAR TP (08:30)
[2023-12-10] MEDS: Nicotine 21 MG/24 HR PATCH TD (08:30)
[2023-12-10] MEDS: Furosemide 40 MG/4 ML VIAL IVP ×2 (08:30→17:25)
[2023-12-10] MEDS: Spironolactone 25 MG TAB PO (08:31)
[2023-12-10] MEDS: Carvedilol 12.5 MG TAB PO ×2 (08:31→21:05)
[2023-12-10] MEDS: guaiFENesin 600 MG TABCR PO ×2 (08:31→21:05)
[2023-12-10] MEDS: Aspirin E.C. 81 MG TABEC PO (08:31)
[2023-12-10] MEDS: Docusate Sodium 100 MG CAP PO ×3 (08:31→21:04)
[2023-12-10] MEDS: Lidocaine 5% Patch 3 PATCH TP (08:31)
[2023-12-10] MEDS: Pantoprazole 40 MG TABCR PO (08:31)
[2023-12-10] MEDS: levETIRAcetam 500 MG TAB 1000 MG PO ×2 (08:31→21:05)
[2023-12-10] MEDS: Gabapentin 300 MG CAP PO ×3 (08:31→21:11)
[2023-12-10] MEDS: Tiotropium Bromide-Respimat 10 PUFF INH 2 PUFF IH (08:34)
[2023-12-10 08:57] LABS: Lab Add On Test DONE
[2023-12-10 09:30] LABS: Procalcitonin < 0.1 ng/mL
[2023-12-10 12:39] LABS: Vancomycin, Random 33.1 ug/mL
--- NOTE | 2023-12-10 13:15 | CMPROGNOTE_ITS ---
Date of service: 12/10/23 Time of Service: 13:16 Care Management Progress Note Progress Note Text Progress Note Text: S/O: Awaiting update on results of IR biopsy to inform discharge planning considerations. Per hospitalist anticipate possible surgical intervention, half-way IV ABX may be required dependent on results. Haven remains fully engaged in interaction, CM continues to follow. A: 58 year old female admitted to [facility] 12/01/23 for L sided weakness, dysarthria, confusion P: Awaiting results and updated treatment plan. CM updated Nikolas at [place] on discharge planning considerations, and continues to follow.
[2023-12-10] MEDS: Levalbuterol 1.25 MG/3 ML UPD VIAL UPD (18:07)
[2023-12-10] MEDS: Ipratropium 0.5 MG/2.5 ML UPD VIAL UPD ×2 (18:07→23:55)
--- NOTE | 2023-12-10 18:26 | PGE_ITS ---
Date of Service Date of service: 12/10/23 Time of Service: 17:45 Assessment and Plan Assessment and plan (1) Sepsis: Status: Acute Assessment and plan: Due to pneumonia, strep bacteremia and now suspected spinal abscess at the level of T7, s/p aspiration/culture by [facility] on 12/09/23. -Await results of culture; trend CRP. -continue vancomycin/cefepime. -repeat blood cultures done on 12/04/23 are negative. -will seek consultation with ID. -will also discus the case again with spine surgery given MRI findings of canal narrowing and cord compression. (2) Spinal abscess: Status: Suspected Assessment and plan: As above (3) Spinal compression fracture: Status: Acute Assessment and plan: Vs fracture related to infection. As above. I did start scheduled tyleol, prn ultram, wrote for prn dilaudid if that's ineffective. Continue lidocaine patches. Will discuss with spine and ID. Qualifiers: Encounter type: subsequent encounter Fracture of vertebra location: lumbar Lumbar vertebra fracture level: unspecified lumbar vertebra Fracture healing: with routine healing Qualified Code(s): S32.000D - Wedge compression fracture of unspecified lumbar vertebra, subsequent encounter for fracture with routine healing (4) Streptococcal bacteremia: Status: Acute Assessment and plan: As above (5) Acute respiratory failure: Status: Resolved Assessment and plan: Agree that this is multifactorial, in setting of oversedation with opioid medications, COPD exaerbation, pneumonia, pleural effusion with HFpEF, AARON/OHS. Continue IV furosemide. Continue pulmonary toilet. Continue nebulizer treatments. Continue prednisone. Will need a sleep study as outpatient; for now, on RA. Qualifiers: Respiratory failure complication: hypoxia Qualified Code(s): J96.01 - Acute respiratory failure with hypoxia (6) Pneumonia: Status: Acute Assessment and plan: Present on admission - as above. Qualifiers: Pneumonia type: aspiration pneumonia Aspiration pneumonia type: due to gastric secretions Laterality: bilateral Lung location: lower lobe of lung Qualified Code(s): J69.0 - Pneumonitis due to inhalation of food and vomit (7) COPD (chronic obstructive pulmonary disease): Status: Chronic Assessment and plan: In acute exacerbation - as above Qualifiers: COPD type: unspecified COPD Qualified Code(s): J44.9 - Chronic obstructive pulmonary disease, unspecified (8) Meningioma: Status: Chronic Assessment and plan: Per [facility] Neurosurgery Dr. Eliel Harrison, ([phone]), despite meningioma showing some compression of R MCA, presenting symptoms on admission are not felt to be due to this. Needs antiepileptic therapy - continue keppra. Will need outpatient follow up. (9) Seizure: Status: Acute Assessment and plan: COntinue keppra (10) Left-sided weakness: Status: Resolved Assessment and plan: No CVA per MRI. ?seizure symptoms. L-sided weakness resolved. Continue aspirin and atorvastatin. Continue keppra. (11) Dysarthria: Status: Resolved Assessment and plan: See above (12) Bilateral pleural effusion: Status: Acute Assessment and plan: Due to CHFpEF vs parapneumonic. Improving with diuresis. Continue antibitoics and diuretics. (13) Type 2 diabetes mellitus: Status: Chronic Assessment and plan: With steroid induced hyperglycemia. A1C 6.9. BGs today: 180, 270, 280. Needs to have Increase sliding scale to resistant. Increase lantus to 15 units SC HS. Qualifiers: Diabetes mellitus senior living insulin use: without senior living use Diabetes mellitus complication status: without complication Qualified Code(s): E11.9 - Type 2 diabetes mellitus without complications (14) Morbid obesity: Status: Acute Assessment and plan: BMI of 55.3 kg/M2 Will need outpatient follow up for lifestyle modifications. (15) DVT prophylaxis: Status: Acute Assessment and plan: Resume SC heparin tomorrow am (16) Discharge planning issues: Status: Acute Assessment and plan: Full code Further therapeutic plan pending discussion with ID and neurosurgery Subjective Subjective Interval history since last seen: Ms Brizuela states that she has been short of breath and wheezing. She is still having quite a bit of coughing. She would like a neb treatment. She also reports a circumferential pain radiating from her back. She is asking for more pain medicine stating that it's difficult to sleep at night. No dizziness, CP, nausea. Exam Narrative Exam Narrative: General: a pleasant obese female who is A&Ox3, audibly wheezing even without auscultation with a stethoscope HEENT: EOMI, MMM Heart: RRR, no m/r/g Lungs: expiratory wheezing B Abdomen: soft, nontender, nondistended Extremities: no edema BLEs, able to move BLEs Objective Last Vital Signs Temp 36.5 C 12/10/23 16:03 Pulse 96 H 12/10/23 16:03 Resp 18 12/10/23 16:03 BP 135/81 12/10/23 16:03 Pulse Ox 90 L 12/10/23 18:07 Laboratory Results - last 24 hr 12/10/23 12/10/23 06:10 12:00 WBC 18.16 H RBC 4.77 Hgb 14.0 Hct 42.0 MCV 88 MCH 29.4 MCHC 33.3 RDW 15.9 H Plt Count 365 MPV 8.8 Sodium 131 L Potassium 4.2 Chloride 95 L Carbon Dioxide 28.4 Anion Gap 7.6 BUN 23 H Creatinine 0.8 Est GFR (CKD-EPI 2020) 84.82 Glucose 187 H Calcium 9.1 C-Reactive Protein 6.16 H Procalcitonin < 0.1 Random Vancomycin 33.1 Add-On Test Request DONE Time Spent with Patient Time Spent with Patient: 35-49 minutes Time was spent: preparing to see the patient(eg.review tests), obtaining and/or reviewing separately otained hiistory, ordering medications,tests, procedures, referring, communicating with other health patient care provider, indepentently interpreting results, counseling the patient and care coordination
[2023-12-10] MEDS: Atorvastatin 20 MG TAB PO (21:05)
[2023-12-10] MEDS: traMADol 50 MG TAB PO (21:08)
[2023-12-10] MEDS: Gabapentin 100 MG CAP PO (21:12)
[2023-12-10] MEDS: Lidocaine Patch Removal 3 EACH TP (21:13)
[2023-12-10] MEDS: Insulin Glargine 300 UNITS/3 ML PEN 15 UNITS SC (22:42)
[2023-12-11] VITALS (10 sets, daily range): BP systolic 112–150; BP diastolic 73–86; PULSE 87–108; RESP 2–24; TEMP 36–37; O2SAT 88–94
[2023-12-11] MEDS: traMADol 50 MG TAB PO ×3 (01:05→14:00)
[2023-12-11] MEDS: Acetaminophen 500 MG TAB 1000 MG PO ×3 (02:12→18:29)
[2023-12-11] MEDS: Methocarbamol 500 MG TAB PO ×6 (02:12→21:24)
[2023-12-11] MEDS: Normal Saline Flush 10 ML SYR IVP ×3 (06:08→20:24)
[2023-12-11] MEDS: CEFEPIME 2 GM in Normal Saline 100 ML IVPB ×2 (06:08→15:10)
[2023-12-11 06:32] LABS: Abs Immature Grans 0.75 10^3/uL (0.0-0.06); HCT 39.7 % (36.0-46.0); HGB 13.3 g/dL (11.2-15.7); MCH 29.8 pg (27.0-33.0); MCHC 33.5 % (32.0-36.0); MCV 89 fL (80-95); MPV 8.9 fL (8.0-11.0); Platelet Count 401 10^3/uL (130-400); RBC 4.47 10^6/uL (3.93-5.22); RDW 15.8 % (11.7-14.6); RDW-SD 51.2 fL; WBC 17.47 10^3/uL (4.4-10.8)
[2023-12-11 06:39] LABS: Absolute Eosinophil Count 0.35 10^3/uL (0.0-0.7); Absolute Lymphocyte Count 2.97 10^3/uL (1.2-3.4); Absolute Monocyte Count 1.57 10^3/uL (0.1-0.8); Absolute Neutrophil Count 11.88 10^3/uL (1.2-6.7); Diff Comment Manual Differential; Myelocytes % 4; RBC Morphology Normal
[2023-12-11 06:45] LABS: BUN 21 mg/dL (7-18); C-Reactive Protein 4.67 mg/dL (0.0-0.3); CREATININE 0.9 mg/dL (0.55-1.02); Calcium 9.1 mg/dL (8.5-10.1); Chloride 93 mmol/L (98-107); Estimated GFR 73.64 (mL/min/1.73m2); Glucose 289 mg/dL (74-106); Magnesium 1.9 mg/dL (1.8-2.4); Potassium 3.6 mmol/L (3.5-5.1); Sodium 131 mmol/L (136-145)
[2023-12-11] MEDS: Polyethylene Glycol 3350 17 GM PACKET PO ×2 (08:06→20:24)
[2023-12-11] MEDS: Nicotine 21 MG/24 HR PATCH TD (08:06)
[2023-12-11] MEDS: Lidocaine 5% Patch 3 PATCH TP (08:07)
[2023-12-11] MEDS: Potassium Chloride Liquid 20 MEQ PKT PO ×2 (08:13→20:23)
[2023-12-11] MEDS: guaiFENesin 600 MG TABCR PO ×2 (08:13→20:23)
[2023-12-11] MEDS: levETIRAcetam 500 MG TAB 1000 MG PO ×2 (08:13→20:24)
[2023-12-11] MEDS: predniSONE 20 MG TAB 40 MG PO (08:13)
[2023-12-11] MEDS: Docusate Sodium 100 MG CAP PO ×3 (08:14→20:23)
[2023-12-11] MEDS: Carvedilol 12.5 MG TAB PO ×2 (08:14→20:23)
[2023-12-11] MEDS: Aspirin E.C. 81 MG TABEC PO (08:14)
[2023-12-11] MEDS: Spironolactone 25 MG TAB PO (08:14)
[2023-12-11] MEDS: Pantoprazole 40 MG TABCR PO (08:14)
[2023-12-11] MEDS: Heparin 5,000 UNITS/ML VIAL 5000 UNITS SC ×2 (08:16→15:10)
[2023-12-11] MEDS: Bacitracin 1 PACKET TP (08:17)
[2023-12-11] MEDS: Nystatin POWDER 60 GM JAR TP ×3 (08:34→20:24)
[2023-12-11] MEDS: Insulin Aspart 300 UNITS/3 ML PEN SC ×6 (08:35→21:30)
[2023-12-11] MEDS: Furosemide 40 MG/4 ML VIAL IVP ×2 (08:39→15:10)
[2023-12-11] MEDS: VANCOMYCIN/WATER (PEG) 2 GM/400 ML BAG IV (09:17)
[2023-12-11] MEDS: Tiotropium Bromide-Respimat 10 PUFF INH 2 PUFF IH (09:21)
[2023-12-11] MEDS: Levalbuterol 1.25 MG/3 ML UPD VIAL UPD (09:21)
[2023-12-11] MEDS: Ipratropium 0.5 MG/2.5 ML UPD VIAL UPD (09:22)
--- NOTE | 2023-12-11 12:58 | DI.RAD_ITS ---
Exam(s) XR LINE PLACEMENT PICC/CVA EXAM: XR LINE PLACEMENT PICC/CVA INDICATION: Picc Line Placement. COMPARISON: CR,XR XR PORTABLE CHEST AP from 12/04/2023 TECHNIQUE: 2D digital imaging was performed. Four views. FINDINGS: the exam is extremely limited due to poor patient positioning and under penetration. The 1st image shows a PICC line entering from the left arm. The 1st 3 images show the PICC line to b e coiled. The 4th image shows the PICC line terminating in the left subclavian region. No evidence of pneumothorax. Lung bases are not fully included on the images. There are of bibasila r densities. The heart is enlarged. IMPRESSION: PICC line terminates in left subclavian region. DATA REPOSITORY: RADIATION DOSE DELIVERED:
[2023-12-11] MEDS: Gabapentin 300 MG CAP PO ×2 (13:51→20:28)
[2023-12-11] MEDS: Gabapentin 100 MG CAP PO ×2 (13:52→20:27)
--- NOTE | 2023-12-11 13:52 | DI.VRAD_ITS ---
PROCEDURE INFORMATION: Exam: XR Chest Exam date and time: 12/11/2023 1:13 PM Age: 58 years old Clinical indication: Device placement; Picc; Additional info: 4 images taken for positioning. Other arm will be attempted TECHNIQUE: Imaging protocol: Radiologic exam of the chest. Views: 1 view. COMPARISON: CR XR PORTABLE CHEST AP 12/04/2023 2:08 PM FINDINGS: Tubes, catheters and devices: 4 images. Evidence of PICC line projecting from left arm toward left axilla, left subclavian region. On the final image, tip of catheter projects near junction of left axilla, left subclavian region. Lungs: Persistent opacities lower chest bilaterally. Pleural spaces: No large or obvious pneumothorax seen of visualized portions of thorax. Heart/Mediastinum: Heart size difficult to evaluate on this limited study. Bones/joints: Degenerative changes spine. Other findings: Limited study. Lower thorax not included. Patient appears rotated to the right. IMPRESSION: On the final image, tip of catheter projects near junction of left axilla, left subclavian region. Dictated and Authenticated by: Gutierrez Farris MD. Ordering:LUIS Jordan MD
--- NOTE | 2023-12-11 14:00 | DI.RAD_ITS ---
Exam(s) XR LINE PLACEMENT PICC/CVA EXAM: XR LINE PLACEMENT PICC/CVA INDICATION: PICC Line Insertion. COMPARISON: CR,XR XR LINE PLACEMENT PICC/CVA from 12/11/2023 TECHNIQUE: 2D digital imaging was performed. Two views. FINDINGS: A PICC line has been inserted via the right arm. The 1st image shows the tip low in the left atrium . The 2nd image shows the tip at the lower SVC junction with right atrium. Evaluation of the lungs limited due to patient centering. Heart is enlarged. There is primary vascu lar prominence and basilar densities. There is no evidence of pneumothorax. IMPRESSION: Satisfactory PICC line placement. DATA REPOSITORY: RADIATION DOSE DELIVERED:
--- NOTE | 2023-12-11 14:32 | DI.VRAD_ITS ---
PROCEDURE INFORMATION: Exam: XR Chest Exam date and time: 12/11/2023 2:19 PM Age: 58 years old Clinical indication: Device placement TECHNIQUE: Imaging protocol: Radiologic exam of the chest. Views: 1 view. COMPARISON: CR XR LINE PLACEMENT PICC/CVA 12/11/2023 1:13 PM FINDINGS: Limitations: The lateral portion of the left hemithorax is not included on the image. Tubes, catheters and devices: Right peripherally inserted central venous catheter tip is of the cavoatrial junction. Lungs: Infiltrate or atelectasis in the inferior portion of the right lower lobe. There is increase in the pulmonary vascularity especially in the left lower lobe may be due to asymmetric pulmonary edema. Pleural spaces: No pneumothorax. No right pleural effusion. Left pleural space can not assessed. Heart/Mediastinum: Heart incomplete visualization. Bones/joints: Unremarkable. IMPRESSION: 1. Standard placement of right peripherally inserted central venous catheter has tip at the cavoatrial junction. 2. Probable asymmetric pulmonary edema. 3. Atelectasis and/or infiltrate right lower lobe. Dictated and Authenticated by: Donato Rodríguez MD. Ordering:LUIS Jordan MD
[2023-12-11] MEDS: cefTRIAXone 2 GM/50 ML BAG IVPB (19:00)
--- NOTE | 2023-12-11 19:00 | W.PM.PROGNOT ---
Date of Service Date of service: 12/11/23 Time of Service: 19:00 Assessment and Plan Assessment and plan (1) Sepsis: Status: Acute Assessment and plan: Due to pneumonia, strep mitis/oralis bacteremia and now suspected spinal abscess at the level of T7 with possible extension/new abscess in lumbar spine and cord compression based on the clinical presentation, s/p aspiration/culture by [facility] on 12/09/23. - abscess culture is with NGTD; Gram stain shows WBCs. CRP is improiving. I discussed the [place] today [place] [facility] [place]no bed capacity, though they do recommend transfer for a whole back MRI at a different facility), [facility] neurosurgery (no bed capacity; the patient would not be a surgical candidate essentially no matter what the MRI showed due to her high operative risk, including her BMI, recent ICU stay, medical co-morbidities, in addition to which her changes of evangelical of capacity to walk even with surgery are very low at this point), [facility] ID (recommend switching abx to ceftriaxone 2 grams IV Q12 hrs until the patient is starting to improve clinically, then chaging to 2 grams Q24 hrs. Total length of therapy would be 6-8 weeks starting on the day of aspiration (12/09/23). -abx changed as above -repeat blood cultures done on 12/04/23 are negative. (2) Spinal abscess: Status: Suspected Assessment and plan: As above (3) Spinal compression fracture: Status: Acute Assessment and plan: Vs fracture related to infection. As above. Continue scheduled tyleol, prn ultram, prn dilaudid. Continue lidocaine patches. Qualifiers: Encounter type: subsequent encounter Fracture of vertebra location: lumbar Lumbar vertebra fracture level: unspecified lumbar vertebra Fracture healing: with routine healing Qualified Code(s): S32.000D - Wedge compression fracture of unspecified lumbar vertebra, subsequent encounter for fracture with routine healing (4) Streptococcal bacteremia: Status: Acute Assessment and plan: As above (5) Acute respiratory failure: Status: Acute Assessment and plan: Again on 1L of O2 by SC today. Agree that this is multifactorial, in setting of oversedation with opioid medications, COPD exacerbation, pneumonia, pleural effusion with HFpEF, AARON/OHS. Continue IV furosemide. Continue pulmonary toilet. Continue nebulizer treatments. Continue prednisone. Will need a sleep study as outpatient; Qualifiers: Respiratory failure complication: hypoxia Qualified Code(s): J96.01 - Acute respiratory failure with hypoxia (6) Pneumonia: Status: Acute Assessment and plan: Present on admission - as above. Qualifiers: Pneumonia type: aspiration pneumonia Aspiration pneumonia type: due to gastric secretions Laterality: bilateral Lung location: lower lobe of lung Qualified Code(s): J69.0 - Pneumonitis due to inhalation of food and vomit (7) COPD (chronic obstructive pulmonary disease): Status: Chronic Assessment and plan: In acute exacerbation - as above Qualifiers: COPD type: unspecified COPD Qualified Code(s): J44.9 - Chronic obstructive pulmonary disease, unspecified (8) Meningioma: Status: Chronic Assessment and plan: [place] [facility] [place] Eliel Harrison, ([phone]), despite meningioma showing some compression of R MCA, presenting symptoms on admission are not felt to be due to this. Needs antiepileptic therapy - continue keppra. Will need outpatient follow up. (9) Seizure: Status: Acute Assessment and plan: Continue keppra (10) Left-sided weakness: Status: Resolved Assessment and plan: No CVA per MRI. ?seizure symptoms. L-sided weakness resolved, though now BLEs are weak - see above. Continue aspirin and atorvastatin. Continue keppra. (11) Dysarthria: Status: Resolved Assessment and plan: See above (12) Bilateral pleural effusion: Status: Acute Assessment and plan: Due to CHFpEF vs parapneumonic. Improving with diuresis. Continue antibitoics and diuretics. (13) Type 2 diabetes mellitus: Status: Chronic Assessment and plan: With steroid induced hyperglycemia. A1C 6.9. BGs today: 269, 280, 337, 329. Non compliant with diet. Increase sliding scale to resistant. Increase lantus to 20 units SC HS. Qualifiers: Diabetes mellitus group home insulin use: without group home use Diabetes mellitus complication status: without complication Qualified Code(s): E11.9 - Type 2 diabetes mellitus without complications (14) Morbid obesity: Status: Acute Assessment and plan: BMI of 55.3 kg/M2 Will need outpatient follow up for lifestyle modifications. (15) DVT prophylaxis: Status: Acute Assessment and plan: Hold SC heparin until we are sure that there is no spinal hematoma. (16) Discharge planning issues: Status: Acute Assessment and plan: Full code Continues to require hospitalization. C/s palliative care. Will need 6-8 weeks of IV abx starting with the day of drainage (12/09/23) of the spinal abscess. PICC line placed 12/11/23. Depending on mobility status on discharge, may not be able to return to her current residence - will discuss with care managers. [place] [facility] [place], [facility] neurosurgery and ID. Subjective Subjective Interval history since last seen: Ms Brizuela states that she cannot feel her legs and cannot move them. She says when she first got to the hospital, Both her legs were very painful. 3-4 days into hospitalization is when she noticed numbness and weakness. This has gotten worse. Nursing states that yesterday she was still moving her legs. Today, she can't. She continues to be short of breath and congested, coughing. She was placed back on 1L of O2 by SC. No dizzines, CP, nausea. Back pain is only in the mid back. Has a craig. States her sensation in the genital region is preserved. Has been resistant to turning/hygiene today. Exam Narrative Exam Narrative: General: a pleasant obese female who is A&Ox3, coughing; wheezing is less pronounced, on 1L of O2 by NC HEENT: EOMI, MMM Heart: RRR, no m/r/g Lungs: expiratory wheezing B has improved Abdomen: soft, nontender, nondistended Extremities: no edema BLEs, not moving BLEs; numbness BLEs Objective Last Vital Signs Temp 36.0 C L 12/11/23 15:05 Pulse 96 H 12/11/23 15:05 Resp 22 12/11/23 15:05 BP 150/81 H 12/11/23 15:05 Pulse Ox 93 12/11/23 15:28 Laboratory Results - last 24 hr 12/11/23 06:17 WBC 17.47 H RBC 4.47 Hgb 13.3 Hct 39.7 MCV 89 MCH 29.8 MCHC 33.5 RDW 15.8 H Plt Count 401 H MPV 8.9 Immature Gran % 0.0 Neutrophils % 68.0 Lymphocytes % 17.0 Monocytes % 9.0 Eosinophils % 2.0 Basophils % 0.0 Myelocytes % 4 Nucleated RBC % 0.0 Absolute Neutrophils 11.88 H Absolute Lymphocytes 2.97 Absolute Monocytes 1.57 H Absolute Eosinophils 0.35 Absolute Basophils 0.00 RBC Morphology Normal Sodium 131 L Potassium 3.6 Chloride 93 L Carbon Dioxide 29.0 Anion Gap 9.0 BUN 21 H Creatinine 0.9 Est GFR (CKD-EPI 2020) 73.64 Glucose 289 H Calcium 9.1 Magnesium 1.9 C-Reactive Protein 4.67 H Time Spent with Patient Time Spent with Patient: >50 minutes Time was spent: preparing to see the patient(eg.review tests), obtaining and/or reviewing separately otained hiistory, ordering medications,tests, procedures, referring, communicating with other health hospice spiritual care coordinator, indepentently interpreting results, counseling the patient and care coordination
[2023-12-11] MEDS: Atorvastatin 20 MG TAB PO (20:23)
[2023-12-11] MEDS: Insulin Glargine 300 UNITS/3 ML PEN 20 UNITS SC (21:30)
[2023-12-11] MEDS: Lidocaine Patch Removal 3 EACH TP (21:32)
[2023-12-12] VITALS (8 sets, daily range): BP systolic 111–158; BP diastolic 57–86; PULSE 63–95; RESP 5–18; TEMP 36.2–36.5; O2SAT 92–95
[2023-12-12] MEDS: traMADol 50 MG TAB PO ×4 (00:40→21:21)
[2023-12-12] MEDS: Methocarbamol 500 MG TAB PO ×6 (01:43→21:21)
[2023-12-12] MEDS: HYDROmorphone 2 MG/ML SYR 1 MG IVP ×3 (01:43→21:21)
[2023-12-12] MEDS: Ipratropium 0.5 MG/2.5 ML UPD VIAL UPD (01:47)
[2023-12-12] MEDS: cefTRIAXone 2 GM/50 ML BAG IVPB ×2 (06:22→18:01)
[2023-12-12 06:51] LABS: Abs Immature Grans 0.78 10^3/uL (0.0-0.06); HCT 43.7 % (36.0-46.0); HGB 14.2 g/dL (11.2-15.7); MCH 29.1 pg (27.0-33.0); MCHC 32.5 % (32.0-36.0); MCV 90 fL (80-95); MPV 9.1 fL (8.0-11.0); Platelet Count 347 10^3/uL (130-400); RBC 4.88 10^6/uL (3.93-5.22); RDW 15.8 % (11.7-14.6); RDW-SD 51.5 fL; WBC 17.99 10^3/uL (4.4-10.8)
[2023-12-12 07:13] LABS: Absolute Eosinophil Count 0.36 10^3/uL (0.0-0.7); Absolute Lymphocyte Count 2.88 10^3/uL (1.2-3.4); Absolute Monocyte Count 1.44 10^3/uL (0.1-0.8); Absolute Neutrophil Count 12.77 10^3/uL (1.2-6.7); Diff Comment Manual Differential; Myelocytes % 3; RBC Morphology Normal
[2023-12-12 07:17] LABS: Anion Gap 6.8 mmol/L (3-11); BUN 23 mg/dL (7-18); C-Reactive Protein 5.72 mg/dL (0.0-0.3); CO2 31.2 mmol/L (21.0-32.0); CREATININE 0.7 mg/dL (0.55-1.02); Calcium 9.5 mg/dL (8.5-10.1); Chloride 93 mmol/L (98-107); Estimated GFR 99.57 (mL/min/1.73m2); Glucose 182 mg/dL (74-106); Magnesium 1.9 mg/dL (1.8-2.4); Potassium 3.5 mmol/L (3.5-5.1); Sodium 131 mmol/L (136-145)
[2023-12-12 07:31] LABS: Procalcitonin < 0.1 ng/mL
[2023-12-12] MEDS: Docusate Sodium 100 MG CAP PO ×3 (08:47→21:20)
[2023-12-12] MEDS: Tiotropium Bromide-Respimat 10 PUFF INH 2 PUFF IH (08:47)
[2023-12-12] MEDS: Aspirin E.C. 81 MG TABEC PO (08:47)
[2023-12-12] MEDS: Pantoprazole 40 MG TABCR PO (08:47)
[2023-12-12] MEDS: Spironolactone 25 MG TAB PO (08:48)
[2023-12-12] MEDS: predniSONE 20 MG TAB 40 MG PO (08:48)
[2023-12-12] MEDS: Carvedilol 12.5 MG TAB PO ×2 (08:48→21:20)
[2023-12-12] MEDS: guaiFENesin 600 MG TABCR PO ×2 (08:49→21:20)
[2023-12-12] MEDS: Gabapentin 100 MG CAP PO ×3 (08:49→21:20)
[2023-12-12] MEDS: Gabapentin 300 MG CAP PO ×3 (08:49→21:21)
[2023-12-12] MEDS: Lidocaine 5% Patch 3 PATCH TP (08:50)
[2023-12-12] MEDS: Polyethylene Glycol 3350 17 GM PACKET PO ×2 (08:50→21:22)
[2023-12-12] MEDS: Nicotine 21 MG/24 HR PATCH TD (08:50)
[2023-12-12] MEDS: Potassium Chloride Liquid 20 MEQ PKT PO ×2 (08:50→21:22)
[2023-12-12] MEDS: Normal Saline Flush 10 ML SYR IVP ×4 (08:51→21:30)
[2023-12-12] MEDS: Insulin Aspart 300 UNITS/3 ML PEN SC ×7 (08:54→21:22)
[2023-12-12] MEDS: levETIRAcetam 500 MG TAB 1000 MG PO ×2 (09:00→21:20)
[2023-12-12] MEDS: Nystatin POWDER 60 GM JAR TP ×3 (09:01→21:31)
[2023-12-12] MEDS: Furosemide 40 MG/4 ML VIAL IVP ×2 (09:29→16:02)
[2023-12-12] MEDS: Acetaminophen 500 MG TAB 1000 MG PO ×2 (10:30→18:49)
--- NOTE | 2023-12-12 16:30 | RT.EKG_ITS ---
APPROVED REPORT Exam: Resting ECG Reason for Exam: chest pain last night Patient Location: I HR:96 bpm ECG Measurements Heart Rate 96 AXIS IL 115 P -37 QRSd 98 QRS -11 QT 380 T 61 QTc 481 Conclusion Sinus rhythm...normal P axis, V-rate 50- 99 Borderline short IL interval...IL int <120mS Low voltage, extremity and precordial leads...extremity<0.5mV, precordial<1.0mV Baseline wander in lead(s) V3 I have reviewed and interpreted ECG and agree with software generated interpretation.
--- NOTE | 2023-12-12 16:35 | W.PM.PROGNOT ---
Date of Service Date of service: 12/12/23 Time of Service: 16:35 Assessment and Plan Assessment and plan (1) Sepsis: Status: Acute Assessment and plan: Due to pneumonia, strep mitis/oralis bacteremia and now suspected spinal abscess at the level of T7 with possible extension/new abscess in lumbar spine and cord compression based on the clinical presentation, s/p aspiration/culture by [facility] IR on 12/09/23. - abscess culture is with NGTD; Gram stain shows WBCs. CRP is a little worse today. On 12/11/23, I discussed the case with [facility] spine surgery (no bed capacity, though they do recommend transfer for a whole back MRI at a different facility), [facility] neurosurgery (no bed capacity; the patient would not be a surgical candidate essentially no matter what the MRI showed due to her high operative risk, including her BMI, recent ICU stay, medical co-morbidities, in addition to which her changes of bahai of capacity to walk even with surgery are very low at this point), [facility] ID (recommend switching abx to ceftriaxone 2 grams IV Q12 hrs until the patient is starting to improve clinically, then changing to 2 grams Q24 hrs. Total length of therapy would be 6-8 weeks starting on the day of aspiration (12/09/23). -Continue ceftriaxone (day 3) -for whole spine MRI tomorrow. -repeat blood cultures done on 12/04/23 are negative. (2) Spinal abscess: Status: Suspected Assessment and plan: As above (3) Spinal compression fracture: Status: Acute Assessment and plan: Vs fracture related to infection. As above. Continue scheduled tyleol, prn ultram, prn dilaudid. Continue lidocaine patches. Qualifiers: Encounter type: subsequent encounter Fracture of vertebra location: lumbar Lumbar vertebra fracture level: unspecified lumbar vertebra Fracture healing: with routine healing Qualified Code(s): S32.000D - Wedge compression fracture of unspecified lumbar vertebra, subsequent encounter for fracture with routine healing (4) Streptococcal bacteremia: Status: Acute Assessment and plan: As above (5) Acute respiratory failure: Status: Acute Assessment and plan: On 2L of O2 by NC. Agree that this is multifactorial, in setting of oversedation with opioid medications, COPD exacerbation, pneumonia, pleural effusion with HFpEF, AARON/OHS. Continue IV furosemide. Continue pulmonary toilet. Continue nebulizer treatments. Continue prednisone. Consider repeating CXR. Will need a sleep study as outpatient; Qualifiers: Respiratory failure complication: hypoxia Qualified Code(s): J96.01 - Acute respiratory failure with hypoxia (6) Pneumonia: Status: Acute Assessment and plan: Present on admission - as above. Qualifiers: Pneumonia type: aspiration pneumonia Aspiration pneumonia type: due to gastric secretions Laterality: bilateral Lung location: lower lobe of lung Qualified Code(s): J69.0 - Pneumonitis due to inhalation of food and vomit (7) COPD (chronic obstructive pulmonary disease): Status: Chronic Assessment and plan: In acute exacerbation - as above Qualifiers: COPD type: unspecified COPD Qualified Code(s): J44.9 - Chronic obstructive pulmonary disease, unspecified (8) Meningioma: Status: Chronic Assessment and plan: Per [facility] Neuro[place] Dr. Eliel Harrison, ([phone]), despite meningioma showing some compression of R MCA, presenting symptoms on admission are not felt to be due to this. Needs antiepileptic therapy - continue keppra. Will need outpatient follow up. (9) Seizure: Status: Acute Assessment and plan: Continue keppra (10) Left-sided weakness: Status: Resolved Assessment and plan: No CVA per MRI. ?seizure symptoms. L-sided weakness resolved, though now BLEs are weak - see above. Continue aspirin and atorvastatin. Continue keppra. (11) Dysarthria: Status: Resolved Assessment and plan: See above (12) Bilateral pleural effusion: Status: Acute Assessment and plan: Due to CHFpEF vs parapneumonic. Improving with diuresis. Continue antibitoics and diuretics. (13) Type 2 diabetes mellitus: Status: Chronic Assessment and plan: With steroid induced hyperglycemia. A1C 6.9. Continue resistant sliding scale. Increase lantus to 25 units SC HS. 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 (15) DVT prophylaxis: Status: Acute Assessment and plan: Hold SC heparin until we are sure that there is no spinal hematoma. (16) Discharge planning issues: Status: Acute Assessment and plan: Full code Continues to require hospitalization. C/s palliative care. Will need 6-8 weeks of IV abx starting with the day of drainage (12/09/23) of the spinal abscess. This will likely need to be in swing bed level 1. PICC line placed 12/11/23. Depending on mobility status on discharge, may not be able to return to her current residence. We have started looking for placement. Subjective Subjective Interval history since last seen: Ms Brizuela feels about the same. She had visitors today which was encouraging. Otherwise, she is coping. She did have an episode of chest pain which she thinks was due to a panic attack in the middle of the night due to her back pain. Denies dizziness, Cp, SOB, nausea. Legs remain numb and she still can't move them. Exam Narrative Exam Narrative: General: a pleasant obese female who is A&Ox3, coughing; I do not appreciate wheezing today, on 2L of O2 by NC HEENT: EOMI, MMM Heart: RRR, no m/r/g Lungs: Diminished breath sounds B Abdomen: soft, nontender, nondistended Extremities: no edema BLEs, not moving BLEs; numbness BLEs Objective Last Vital Signs Temp 36.4 C L 12/12/23 15:49 Pulse 92 H 12/12/23 15:49 Resp 18 12/12/23 15:49 BP 123/79 12/12/23 15:49 Pulse Ox 92 12/12/23 15:49 Laboratory Results - last 24 hr 12/12/23 06:05 WBC 17.99 H RBC 4.88 Hgb 14.2 Hct 43.7 MCV 90 MCH 29.1 MCHC 32.5 RDW 15.8 H Plt Count 347 MPV 9.1 Immature Gran % 0.0 Neutrophils % 71.0 Lymphocytes % 16.0 Monocytes % 8.0 Eosinophils % 2.0 Basophils % 0.0 Myelocytes % 3 Nucleated RBC % 0.0 Absolute Neutrophils 12.77 H Absolute Lymphocytes 2.88 Absolute Monocytes 1.44 H Absolute Eosinophils 0.36 Absolute Basophils 0.00 RBC Morphology Normal Sodium 131 L Potassium 3.5 Chloride 93 L Carbon Dioxide 31.2 Anion Gap 6.8 BUN 23 H Creatinine 0.7 Est GFR (CKD-EPI 2020) 99.57 Glucose 182 H Calcium 9.5 Magnesium 1.9 C-Reactive Protein 5.72 H Procalcitonin < 0.1 Time Spent with Patient Time Spent with Patient: 35-49 minutes Time was spent: preparing to see the patient(eg.review tests), obtaining and/or reviewing separately otained hiistory, ordering medications,tests, procedures, referring, communicating with other health lawn caretaker, indepentently interpreting results, counseling the patient and care coordination
[2023-12-12] MEDS: Insulin Glargine 300 UNITS/3 ML PEN 25 UNITS SC (21:23)
[2023-12-12] MEDS: Atorvastatin 20 MG TAB PO (21:29)
[2023-12-12] MEDS: Lidocaine Patch Removal 3 EACH TP (21:31)
[2023-12-13] VITALS (11 sets, daily range): BP systolic 102–148; BP diastolic 50–82; PULSE 82–112; RESP 3–24; TEMP 35.6–36.8; O2SAT 80–96
--- NOTE | 2023-12-13 | DI.RAD_ITS ---
Exam(s) XR PORTABLE CHEST AP EXAM: XR PORTABLE CHEST AP CLINICAL HISTORY: Worsening hypoxia TECHNIQUE: 2D digital imaging was performed. COMPARISON: CR,XR XR PORTABLE CHEST AP from 12/04/2023 CR,XR XR LINE PLACEMENT PICC/CVA from 12/11/2023 CR,XR XR LINE PLACEMENT PICC/CVA from 12/11/2023 FINDINGS: Exam is limited by patient body habitus and under penetration. LUNGS: Mildly increased somewhat linear density right mid lung field. Increased densities noted left lower lung field some clearing of right lower lobe opacities. HEART: Normal size. AORTA: Normal diameter. BONES: Unremarkable for age. Soft tissues: Unremarkable. PICC line unchanged. IMPRESSION: Limited exam. Lobe infiltrate versus atelectasis. Small effusions not excluded.. Improvement of ae ration of right lower lobe. DATA REPOSITORY: RADIATION DOSE DELIVERED:
[2023-12-13] MEDS: traMADol 50 MG TAB PO ×3 (01:42→21:57)
[2023-12-13] MEDS: Methocarbamol 500 MG TAB PO ×6 (01:43→22:19)
[2023-12-13] MEDS: Acetaminophen 500 MG TAB 1000 MG PO ×3 (04:01→18:43)
[2023-12-13] MEDS: cefTRIAXone 2 GM/50 ML BAG IVPB ×2 (06:00→21:49)
[2023-12-13 07:04] LABS: Abs Immature Grans 0.48 10^3/uL (0.0-0.06); Absolute Basophil Count 0.14 10^3/uL (0.0-0.2); Basophils % 0.8; Eosinophils % 1.7; HCT 40.2 % (36.0-46.0); HGB 13.1 g/dL (11.2-15.7); Immature Grans % 2.7; Lymphocytes % 16.7; MCHC 32.6 % (32.0-36.0); MCV 89 fL (80-95); MPV 8.8 fL (8.0-11.0); Neutrophils % 69.1; Platelet Count 409 10^3/uL (130-400); RBC 4.52 10^6/uL (3.93-5.22); RDW 15.6 % (11.7-14.6); RDW-SD 50.8 fL; WBC 17.97 10^3/uL (4.4-10.8)
[2023-12-13 07:09] LABS: Absolute Eosinophil Count 0.31 10^3/uL (0.0-0.7); Absolute Monocyte Count 1.62 10^3/uL (0.1-0.8); Absolute Neutrophil Count 12.42 10^3/uL (1.2-6.7)
[2023-12-13 07:22] LABS: BUN 20 mg/dL (7-18); C-Reactive Protein 6.57 mg/dL (0.0-0.3); CREATININE 0.7 mg/dL (0.55-1.02); Calcium 9.5 mg/dL (8.5-10.1); Chloride 90 mmol/L (98-107); Estimated GFR 99.57 (mL/min/1.73m2); Glucose 237 mg/dL (74-106); Magnesium 1.8 mg/dL (1.8-2.4); Potassium 3.6 mmol/L (3.5-5.1); Sodium 131 mmol/L (136-145)
[2023-12-13 07:24] LABS: Diff Comment Diff Reviewed; RBC Morphology Normal
--- NOTE | 2023-12-13 08:00 | DI.MRI_ITS ---
Exam(s) MR LUMBAR SPINE WO/W EXAM: MR LUMBAR SPINE WO/W CLINICAL HISTORY: ?epidural abscess TECHNIQUE: Multiplanar multisequence MRI of the Lumbar Spine was performed. CONTRAST MATERIAL: IV Contrast: 20 mL of Dotarem contrast administered. COMPARISON: CT CT ABDOMEN PELVIS W from 11/29/2023 MR MR THORACIC SPINE WO/W from 12/08/[address] ABDOMEN PELVIS WO from 12/08/2023 MR MR THORACIC SPINE WO/W from 12/13/2023 MR MR CERVICAL SPINE WO/W from 12/13/2023 FINDINGS: Bones: The last intervertebral disc space is designated the L5/S1 level for the numbering purpose of this examination. Compression fractures are noted at from L1 through L5. The appearance appears unchanged from prior CT . There is mild linear enhancement in the superior endplate of L1, nonspecific. It appears unchanged from prior exam. Findings could be related to compression fracture infection Degenerative disc changes and facet degenerative changes are seen causing multilevel neural foraminal narrowing. Mild central canal stenosis is present at L1-2. Moderate central canal stenosis is presen t at L3-4. Mild central canal stenosis at L4-5 and L5-S1. No lead evidence of epidural abscess. No abnormal soft tissue enhancement. Cord: The conus tip ends at the T12 level. It is of normal size and signal intensity. IMPRESSION: No evidence of epidural abscess or discitis. Enhancement of the superior endplate of L1 is nonspecific could be related to the compression fractur e. DATA REPOSITORY:
--- NOTE | 2023-12-13 08:00 | DI.MRI_ITS ---
Exam(s) MR CERVICAL SPINE WO/W EXAM: MR CERVICAL SPINE WO/W CLINICAL HISTORY: ?epidural abscess TECHNIQUE: Multiplanar multisequence MRI of the cervical spine was performed. CONTRAST MATERIAL: IV Contrast: 20 ML of Dotarem contrast administered. COMPARISON: MR MR THORACIC SPINE WO/W from 12/08/2023 FINDINGS: Exam is limited by the patient's body habitus and motion. BONES: Vertebral body heights are maintained. Alignment is normal. Bone marrow signal intensity is w ithin normal limits. Mild degenerative changes at C5-6. CERVICAL CORD: Craniovertebral junction is unremarkable. The cervical cord is normal size and signal intensity. No lesion is present. SOFT TISSUES: Grossly unremarkable. ENHANCEMENT: No suspicious enhancement identified. IMPRESSION: Significantly limited exam due to patient motion and body habitus. No evidence of abnormal marrow signal, disc signal cord signal. No evidence of epidural abscess. DATA REPOSITORY:
--- NOTE | 2023-12-13 08:00 | DI.MRI_ITS ---
Exam(s) MR THORACIC SPINE WO/W EXAM: MR THORACIC SPINE WO/W CLINICAL HISTORY: follow up abscess T7, ?epidural abscess. TECHNIQUE: Multiplanar multisequence MRI of the Thoracic spine was performed. CONTRAST MATERIAL: IV Contrast: 20 mL of Dotarem contrast administered. COMPARISON: MR MR THORACIC SPINE WO/W from 12/08/2023 MR MR LUMBAR SPINE WO/W from 12/13/2023 FINDINGS: Exam is limited by patient body habitus and motion. Findings are similar in appearance to prior exam . Bones: Abnormal increased signal again noted within the T 7 vertebral body. No change in degree of c ompression. No change in retropulsion of posterior vertebral body. Abnormally increased signal it r emains present around the vertebral body. There is some abnormal enhancement the T6 and T8 vertebral bodies as well as T11, suspicious for infection, worsening from prior exam. There is no significant enhancement within the T7 vertebral body. This may indicate avascular tissue and abscess. There is again noted to be widening of the facet joints at T7, similar to prior. An epidural abscess is now present, beginning at the T7 level in extending inferiorly to the T10 leve l. It measures approximately 7.5 cm in length by 5 millimeters AP by 1.5 cm transverse. It causes e ffacement of the CSF space. There is significant contrast enhancement within the central canal exten ding from the T4 level down to T11. There is some impression on the cord from T6 through T8 with farzad rowing of the central canal. Soft tissues: Abnormal enhancement in the soft tissues from the T4-5 level to T8. Findings appear so mewhat worse when compared with the previous exam. There is bilateral lower lobe atelectasis versus consolidation. IMPRESSION: Epidural abscess present from T7 through T10. There is some impingement on the cord at this level. Abnormal enhancement in the T6, T8 and T11 vertebral bodies suspicious for osteomyelitis. Large amou nt of abnormal signal in the soft tissues surrounding these levels consistent with soft tissue infect ion. Findings appear to have worsened when compared the previous exam. There is no further collapse of T7. There is no enhancement within the vertebral body which could in dicate abscess.. DATA REPOSITORY:
[2023-12-13] MEDS: Carvedilol 12.5 MG TAB PO ×2 (08:43→20:59)
[2023-12-13] MEDS: Docusate Sodium 100 MG CAP PO ×2 (08:44→14:07)
[2023-12-13] MEDS: levETIRAcetam 500 MG TAB 1000 MG PO ×2 (08:44→20:56)
[2023-12-13] MEDS: guaiFENesin 600 MG TABCR PO ×2 (08:44→20:57)
[2023-12-13] MEDS: Gabapentin 100 MG CAP PO ×3 (08:45→20:57)
[2023-12-13] MEDS: Aspirin E.C. 81 MG TABEC PO (08:46)
[2023-12-13] MEDS: Gabapentin 300 MG CAP PO ×3 (08:46→20:56)
[2023-12-13] MEDS: Spironolactone 25 MG TAB PO (08:46)
[2023-12-13] MEDS: Pantoprazole 40 MG TABCR PO (08:46)
[2023-12-13] MEDS: Furosemide 40 MG/4 ML VIAL IVP ×3 (08:47→17:43)
[2023-12-13] MEDS: Polyethylene Glycol 3350 17 GM PACKET PO (08:48)
[2023-12-13] MEDS: Potassium Chloride Liquid 20 MEQ PKT PO (08:49)
[2023-12-13] MEDS: Lidocaine 5% Patch 3 PATCH TP (08:49)
[2023-12-13] MEDS: Nicotine 21 MG/24 HR PATCH TD (08:49)
[2023-12-13] MEDS: Normal Saline Flush 10 ML SYR IVP ×10 (08:50→23:48)
[2023-12-13] MEDS: Insulin Aspart 300 UNITS/3 ML PEN SC ×7 (08:52→22:22)
[2023-12-13] MEDS: Tiotropium Bromide-Respimat 10 PUFF INH 2 PUFF IH (09:21)
[2023-12-13] MEDS: Nystatin POWDER 60 GM JAR TP ×2 (09:27→14:33)
[2023-12-13] MEDS: predniSONE 20 MG TAB 40 MG PO (09:32)
[2023-12-13] MEDS: HYDROmorphone 2 MG/ML SYR 1 MG IVP ×2 (10:23→17:02)
[2023-12-13] MEDS: Gadoterate meglumine 20 ML SYRINGE IVP (12:40)
--- NOTE | 2023-12-13 13:45 | PT.INPN ---
PT Notes Visit Reasons: L-sided weakness, dysarthria, confusion, meningiom Physical Therapy Progress Notes Date: 12/13/23 Dates of Service: 12/03/2023 through 12/13/2023 Referring Doctor: Nikki Young MD PT Orders: PT CONSULT: Limited Ability Precautions: Standard. Mechanical lift only for essential transfers. Patient Profile/Admitting Diagnosis: Patient is a 58 year old female brought to the ER on 12/01/23 after she developed apparent left hemiparesis, dysarthria, and AMS. Paient continues to be managed for sepsis, suspected spinal abscess, spinal compression fracture, streptococcal bacteremia, acute respiratory failure, pneumonia, COPD exacerbation, meningioma, seizure, left-sided weakness, dysarthria, bilateral pleural effusion, type 2 diabetes mellitus and morbid obesity. Subjective: Complains of pain in the L backside near her L shoulder blade and across her back. Agreeable to doing exercises in bed with her uppre extremities. Reports no sensation and inability to move B LE. Complains of being hungry as she has not had lunch coming back from MRI testing at 1 PM today. Objective: General Observation: Resting in bed. Oxygen supplementation via NC at 4 L/min. High BMI. SOB at rest. Mental Status: A&O x 3 Vitals: BP 120/72, O2 Sat 94% on 4LO2, HR 86 bpm ROM: Right Upper Extremity: Shoulder Flexion lacks the last 25% of AROM. Shoulder abduction lacks the last 25% of AROM. Elbow flexion WFL. Wrist flexion WFL. Functional opening and closing of hand WFL. Left Upper Extremity: Shoulder Flexion lacks the last 25% of AROM. Shoulder abduction lacks the last 25% of AROM. Elbow flexion WFL. Wrist flexion WFL. Functional opening and closing of hand WFL. Right Lower Extremity: Unable, plegic Left Lower Extremity: Unable, plegic Strength: Right Upper Extremity: Shoulder flexors 3-/5. Shoulder abductors 3-/5. Elbow flexors 4-/5. Elbow extensors 4-/5. Assistant Program Director strong. Left Upper Extremity: Shoulder flexors 3-/5. Shoulder abductors 3-/5. Elbow flexors 4-/5. Elbow extensors 4-/5. Assistant Program Director strong. Right Lower Extremity: 0/5 Left Lower Extremity: 0/5 Bed Mobility/Transfers: Maximal cueing provided for use of B hands as needed for support, movement sequence, Ad management, and and posture to reduce fall risk and minimize pain report Rolling total assist Supine to sit total assist Sit to supine total assist Sit to stand total assist Stand to sit total assist Bed to chair total assist Chair to bed total assist Gait: Unable, plegic B LE Balance: Static Sitting: Poor Dynamic Sitting: Poor Static Standing: Unable Dynamic Standing: Unable Special Tests: Mobility Limitations Standardized Measure [facility] AM-PAC 6 clicks Basic Mobility Inpatient Short Form: 100% disability Informed Consent/Education: Patient instructed in purpose of PT consult and plan of care. THERA EX: Flexion/extension x 10 using red TB DBE x 2 Horizontal abd add x 10 using red TB ER/IR x 10 using red TB DBE x 2 ELbow flexion/extension x 10 ASSESSMENT: Paraplegic. Patient demonstrates significant decline in sensory and motor function from being able to feel and move her lower extremities on day of PT evaluation on 12/03/2023 to being asensate and plegic in B sides today . Dyspneic at rest but oxygen saturation remained above 90% on 4 L. Has pain in L scapular area that radiates to the other side and mid back. Working on placement of overhead trapeze to facilitate B UE use, pressure relief, and maintenance of skin integrity in pressure-prone areas. Her high BMI, along with pain report, presents challenges with bed mobility and transfer performance. Use mechanical lift only for all transfers. Patient presents with clinical signs and symptoms consistent with current/admitting diagnoses that have resulted to mobility limitations, gait instability, generalized weakness, and overall ADL decline as demonstrated by the following impairment level findings: 1. Paraplegia to B LE muscle groups from suspected infectious process 2. Inability to sit/stand 3. SOB at rest 4. Pain L upper and mid back Impairments are contributing to the following functional limitations: 1. Decline in bed mobility skills 2. Decline in transfer skills 3. Inability to ambulate without assistive device and physical assistance 4. Increased risk for skin breakdown 5. Increased risk for falls Patient is assessed as a 58728 high complexity based on the following: History: 58-year-old female with past medical history as indicated above Examination: Demonstrable impairment in strength, balance, and mobility level with underlying impairments and functional limitations as exhibited above as well as deficit score of 100% utilizing the [facility] Mobility Inpatient Short Form Presentation: Evolving Decision Makin moderate complexity Goals: Goals X1 week 1. Supine-Sit : Reclined, MAX x1, repositioning in bed x 2 NOT MET, CONTINUE 2. Sit-Supine : Reclined, MAX x1, repositioning in bed x 2 NOT MET, CONTINUE 3. Sit-Stand : Kelly lift x 2 min NOT MET, CONTINUE 4. Stand-Sit : Kelly lift x 2 min NOT MET, CONTINUE Plan of Care/Treatment Plan: 1-2x/day, 7 days/week x 1 week. Plan of care has been reviewed with the COMMUNITY HEALTH PROGRAM REPRESENTATIVE providing the service under Physical Therapy direction. For the next 2 weeks, focus on: -Use red theraband for B UE strengthening all planes, x 10 reps BID -Train with use of overhead trapeze for repositioning, presure relief, and B UE strengthening -Static sitting tolerance/balance up to 3 minutes at edge of bed - Positioning of B LE to prevent flexion contrracture in hip/knee/ankle DISCHARGE RECOMMENDATIONS: [X] SNF Patient will benefit from detention facility placement for continued skilled physical therapy services in order to progress mobility level, strength, and balance in preparation for a safe discharge to home. TREATMENT CODE/TIME: 08075 x 20 minutes for 1 unit, 51561 x 12 minutes for 1 unit beginning at 13:08 PM.
--- NOTE | 2023-12-13 16:20 | CMPROGNOTE_ITS ---
Date of service: 12/13/23 Time of Service: 16:20 Care Management Progress Note Progress Note Text Progress Note Text: S/O: reports Haven has a spinal abscess which will require 6-8 weeks of IV ABX from day of drainage (12/09/23). PICC placed 12/11/23. Anticipate SWB1 may be required for ongoing treatment, disposition dependent on mobility; Haven will only be able to return to [place] if she is able to walk. [facility] willing to consider for short term rehab. 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 CM continues to follow. A: 58 year old female admitted to [facility] 12/01/23 for L sided weakness, dysarthria, confusion P: [facility] following; uncertain of specific treatment plan at this time; consulting IR and ID. CM following.
[2023-12-13] MEDS: VANCOMYCIN/WATER (PEG) 2 GM/400 ML BAG IVPB (18:42)
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
[2023-12-13] MEDS: metroNIDAZOLE 500 MG/100 ML BAG 100 MG IVPB (20:50)
[2023-12-13] MEDS: Atorvastatin 20 MG TAB PO (20:56)
[2023-12-13] MEDS: Lidocaine Patch Removal 3 EACH TP (21:02)
[2023-12-13] MEDS: Levalbuterol 1.25 MG/3 ML UPD VIAL UPD ×2 (21:29→23:15)
[2023-12-13] MEDS: Insulin Glargine 300 UNITS/3 ML PEN 30 UNITS SC (22:18)
--- NOTE | 2023-12-13 22:44 | NUR.NOTE ---
Nursing Note: I called report to Misti Dixon RN at [facility] ISCU unit at 22:42.
[2023-12-13] MEDS: Ipratropium 0.5 MG/2.5 ML UPD VIAL UPD (23:04)
--- NOTE | 2023-12-13 23:30 | RT.EKG_ITS ---
APPROVED REPORT Exam: Resting ECG Reason for Exam: respiratory status Patient Location: I HR:100 bpm ECG Measurements Heart Rate 100 AXIS FL 188 P -49 QRSd 81 QRS -33 QT 359 T 56 QTc 463 Conclusion Sinus or ectopic atrial tachycardia...P axis (-45,135), rate> 99 Atrial premature complexes...SV complexes w/ short R-R intvls Abnormal R-wave progression, late transition...QRS area<0 in V5/V6 Inferior infarct, old...Q >35mS, II III aVF sinus tach I have reviewed and interpreted ECG and agree with software generated interpretation.
[2023-12-14] LABS: HCT 40.1 % (36.0-46.0); HGB 13.2 g/dL (11.2-15.7); MCH 29.1 pg (27.0-33.0); MCHC 32.9 % (32.0-36.0); MCV 88 fL (80-95); MPV 8.5 fL (8.0-11.0); Platelet Count 370 10^3/uL (130-400); RBC 4.54 10^6/uL (3.93-5.22); RDW 15.5 % (11.7-14.6); RDW-SD 50.2 fL; WBC 16.76 10^3/uL (4.4-10.8)
--- NOTE | 2023-12-14 | DI.RAD_ITS ---
Exam(s) XR PORTABLE CHEST AP EXAM: XR PORTABLE CHEST AP CLINICAL HISTORY: desat TECHNIQUE: 2D digital imaging was performed of the chest. One image was obtained. An AP view was ob tained. COMPARISON: CR XR PORTABLE CHEST AP from 12/13/[address] CHEST PE CTA from 12/14/2023 FINDINGS: MEDIASTINUM: Normal. HEART: Normal. PULMONARY VASCULATURE: Normal. LUNGS: The left lower lobe infiltrate has progressed since the prior examination. There does appear to be some improvement in the right infiltrates. PLEURAL SPACE: There appears to be a left pleural effusion. No significant right pleural effusion is seen. No pneumothorax is identified. BONE:Within normal limits for the patient's age. OTHER FINDINGS:There is a right PICC line. The tip is seen at least to the level of the superior ashlie a cava. IMPRESSION: Progression of the left lower lobe consolidation since the prior examination. DATA REPOSITORY: RADIATION DOSE DELIVERED:
--- NOTE | 2023-12-14 | DI.CT_ITS ---
Exam(s) CT CHEST PE CTA EXAM: CT CHEST PE CTA CLINICAL HISTORY: Acute hypoxemia. TECHNIQUE: Imaging Protocol: Axial CT angiography was performed with multi-slice acquisition and mu lti-planar and/or 3D reconstructions. CONTRAST MATERIAL: Intravenous: Omnipaque 350 contrast volume:100 mL COMPARISON: CT CT ABDOMEN PELVIS W from 11/29/[address] THORAX ABD/PEL CTA from 12/01/[address] ABDOMEN PELVIS WO from 12/08/2023 CR,XR XR PORTABLE CHEST AP from 12/14/2023 FINDINGS: The examination is limited due to patient motion artifact. Tracheobronchial tree: Patent where visualized. Pulmonary parenchyma: There is near complete consolidation in the left lower lobe. There is an area of consolidation involving the right upper lobe. Small ground-glass infiltrates are seen in the righ t lower lobe. Dependent atelectatic changes are seen in the right lower lobe. There is a 4 mm nodul e in the left upper lobe (series 10, image 241). Pulmonary Arteries: There are filling defects seen in branches of the pulmonary artery to the right u pper lobe. This is consistent with pulmonary emboli. No pulmonary emboli are seen in the main pulmo nary artery or the central right and left pulmonary arteries. Mediastinum and Teresa: No dominant adenopathy or fluid collection. The esophagus is unremarkable. Visualized thyroid gland: Unremarkable. Pleura: There are small bilateral pleural effusions present. No pneumothorax. Heart: The heart is not dilated. Coronary artery calcifications are present. No pericardial effusion . 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 There is no evidence of right heart strain. Aorta: Thoracic aorta non-dilated. No evidence of dissection. Minimal atherosclerosis. Upper abdomen: Status post cholecystectomy. Tubes, Catheters, and Lines: None. Soft tissues: Unremarkable. Bones: Within normal limits for the patient's age.There has been progression of the fracture of the T 7 vertebral body compared to the prior examination. There is now posterior subluxation of the superi or half of the vertebral body relative to the inferior vertebral body. This results in marked centra l spinal canal stenosis. There is soft tissue material surrounding the T7 vertebral body which exten ds into the central canal. Healing bilateral nondisplaced rib fractures are seen. The T11 compressi on fracture deformity appears stable. IMPRESSION: 1. Pulmonary emboli within the right upper lobe pulmonary artery branches. No evidence of right hear t strain. Peripheral consolidation in the right upper lobe which may represent atelectasis or infarc t. 2. Near complete consolidation involving the left lower lobe suspicious for pneumonia. Small bilater al pleural effusions. 3. Worsening compression fracture of T7. Destructive changes are seen of the bone with material seen in the surrounding soft tissues and extending into the spinal canal. The findings all cause marked central spinal canal stenosis. The possibility of an infarct fractures/inflammatory process like ost eomyelitis or discitis should be considered. Neuro surgical evaluation is recommended. 4. RADIATION DOSE DELIVERED: 844.21mGy.cm Total DLP DATA REPOSITORY: All CT scans at this facility are submitted to the National Radiology Data Registry (NRDR) Dose Index Registry (DIR) with the [employer] (A[employer]). RADIATION OPTIMIZATION: All CT scans at this facility use at least one of these dose optimization te chniques: automated exposure control; mA and/or kV adjustment per patient size (includes targeted exa ms where dose is matched to clinical indication); or iterative reconstruction.
[2023-12-14 00:03] LABS: Lactate 1.9 mmol/L (0.6-1.4)
[2023-12-14 00:14] LABS: BE 13 mmol/L (-2-3); HCO3 37 mmol/L (22-26); pCO2 49 mmHg (35-45); pH 7.48 (7.35-7.45); pO2 60 mmHg (80-105); sO2 92 % (95-98); tCO2 33 mmol/L (23-27)
[2023-12-14 00:15] VITALS: BP 120/82; PULSE 98; RESP 18; O2SAT 90
[2023-12-14 00:16] LABS: Anion Gap 6.3 mmol/L (3-11); BUN 23 mg/dL (7-18); CO2 34.7 mmol/L (21.0-32.0); CREATININE 0.7 mg/dL (0.55-1.02); Calcium 9.3 mg/dL (8.5-10.1); Chloride 91 mmol/L (98-107); Estimated GFR 99.57 (mL/min/1.73m2); Glucose 245 mg/dL (74-106); Potassium 3.3 mmol/L (3.5-5.1); Sodium 132 mmol/L (136-145)
[2023-12-14 00:17] LABS: FIO2L 8 L; Site Right Radial
[2023-12-14 00:24] LABS: Troponin I < 50 ng/L (< or =60)
--- NOTE | 2023-12-14 00:39 | DI.VRAD_ITS ---
PROCEDURE INFORMATION: Exam: XR Chest Exam date and time: 12/14/2023 12:18 AM Age: 58 years old Clinical indication: Other: Destat TECHNIQUE: Imaging protocol: Radiologic exam of the chest. Views: 1 view. COMPARISON: CR XR PORTABLE CHEST AP 12/13/2023 10:07 AM FINDINGS: Tubes, catheters and devices: Right peripherally inserted central line with its tip at the superior cavoatrial junction. Lungs: There is mild increase in the left lower lobe consolidation with associated left effusion. Similar right lower lobe opacities, likely representing congestion. Pleural spaces: Left pleural effusion. Heart/Mediastinum: Not well assessed. Bones/joints: Unremarkable. IMPRESSION: Mild increase in the left lower lobe consolidation with associated effusion. No other change. Dictated and Authenticated by: Chris Sahu MD. Ordering:SHAUN Whitley MD
[2023-12-14] MEDS: Omnipaque 350 MG/ML 100 ML BTL IJ (01:59)
[2023-12-14] MEDS: Acetaminophen 500 MG TAB 1000 MG PO (01:59)
[2023-12-14] MEDS: Ketorolac 30 MG/ML VIAL IVP (02:00)
[2023-12-14] MEDS: Methocarbamol 500 MG TAB PO (02:00)
[2023-12-14] MEDS: Normal Saline - Diluent 50 ML VIAL IJ (02:02)
[2023-12-14 02:04] VITALS: O2SAT 92
--- NOTE | 2023-12-14 03:03 | DI.VRAD_ITS ---
Addendum created by Serafin Kaiser MD on 12/14/2023 3:11:10 AM EST: THIS REPORT CONTAINS FINDINGS THAT MAY BE CRITICAL TO PATIENT CARE. The findings were verbally communicated by me to FRANCK LOCKWOOD via telephone conference at 3:11 AM EST on 12/14/2023. The findings were acknowledged and understood. Initial report created on 12/14/2023 3:02:56 AM EST: PROCEDURE INFORMATION: Exam: CTA Chest With Contrast Exam date and time: 12/14/2023 2:17 AM Age: 58 years old Clinical indication: Other: Acute hypoxemia TECHNIQUE: Imaging protocol: Computed tomographic angiography of the chest with contrast. Exam focused on the arteries. 3D rendering (Not supervised by radiologist): MIP and/or 3D reconstructed images were created by the technologist. Radiation optimization: All CT scans at this facility use at least one of these dose optimization techniques: automated exposure control; mA and/or kV adjustment per patient size (includes targeted exams where dose is matched to clinical indication); or iterative reconstruction. Contrast material: OMNIPAQUE 350; Contrast volume: 100 ml; Contrast route: INTRAVENOUS (IV); COMPARISON: CT THORAX ABD/PEL CTA 12/01/2023 10:05 PM FINDINGS: Pulmonary arteries: Acute-appearing pulmonary emboli within the segmental branches of the posterior and lateral right upper lobe (series 10, image 234). Aorta: Unremarkable. No aortic aneurysm. No aortic dissection. 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 Lungs: Atelectasis and/or scarring within the right upper lobe. Focal consolidation within the posterior left lower lobe, most compatible with pneumonia. Pleural spaces: Small bilateral pleural effusions. Heart: No evidence of acute right heart strain (RV/LV ratio 0.9). Coronary arteries: Moderate three-vessel coronary artery atherosclerotic disease. Lymph nodes: Unremarkable. No enlarged lymph nodes. Bones/joints: T7 vertebral body compression fracture with abnormal lucency (series 11, image 71), new/increased from comparison study. Abnormal T7 paravertebral soft tissue attenuation material, possibly hematoma or phlegmon, with extension into the central canal. Compression fracture of the T11 vertebral body, with approximately 30% loss of vertebral body height, similar to comparison study. Soft tissues: See Bones/joints finding. IMPRESSION: 1. Acute-appearing pulmonary emboli within the segmental branches of the posterior and lateral right upper lobe (series 10, image 234). No evidence of acute right heart strain (RV/LV ratio 0.9). 2. Focal consolidation within the posterior left lower lobe, most compatible with pneumonia. Recommend follow-up. 3. Small bilateral pleural effusions. 4. T7 vertebral body compression fracture with abnormal lucency (series 11, image 71), new/increased from comparison study. Abnormal T7 paravertebral soft tissue attenuation material, possibly hematoma or phlegmon, with extension into the central canal. Recommend neurosurgical evaluation. Dictated and Authenticated by: Serafin Kaiser MD. Ordering:SHAUN Whitley MD
[2023-12-14 03:04] VITALS: BP 132/82; PULSE 99; RESP 20; TEMP 36.8; O2SAT 92
[2023-12-14] MEDS: HYDROmorphone 2 MG/ML SYR 1 MG IVP (03:45)
[2023-12-14] MEDS: Normal Saline Flush 10 ML SYR IVP (03:45)
[2023-12-14] MEDS: Heparin in 0.45% NaCl 25,000 UNIT/250 ML BAG 18 UNIT IV (03:54)
[2023-12-14 03:59] LABS: PTT Activated 25.1 sec (23.6-32.8)
[2023-12-14 04:00] VITALS: BP 99/64; PULSE 100; RESP 20; TEMP 36.1; O2SAT 94
--- NOTE | 2023-12-14 04:37 | NUR.NOTE ---
Pt transferred to [facility], left via EMS at 0413. All belongings sent with pt. Pt transferred with heparin gtt infusing per JAN via GLORIA PICC. Additional PIV to GLORIA Bhakta patent and draining. Pt NPO status per orders since 2099. BG 147 at 0200, down from 320 at HS. Transferring MD notified, per MD ok to give some PO clear liquids. Pt requested regular gingerale, given prior to transfer. Report called to receiving RNYannick, at 0436, all questions answered, updated with all of the above and most recent med administrations. Nursing Note:
== END 2023-12-14 04:11 | disposition short-term general hospital (02) | DRG 871 ==
LOC: ER 12-02 00:48 → MS 12-02 01:56 → ICU 12-02 04:37 → MS 12-07 12:21
PROVIDERS: Family Medicine; Internal Medicine; Admitting Provider Internal Medicine; Emergency Provider Student in an Organized Health Care Education/Training Program; PCP Nurse Practitioner Family; Visit Provider Internal Medicine
DX: A40.8 Other streptococcal sepsis (principal); G06.1 Intraspinal abscess and granuloma; G92.8 Other toxic encephalopathy; I26.94 Multiple subsegmental thrombotic pulmonary emboli without acute cor pulmonale; J96.01 Acute respiratory failure with hypoxia; J69.0 Pneumonitis due to inhalation of food and vomit; S22.060A Wedge compression fracture of T7-T8 vertebra, initial encounter for closed fracture; S32.040A Wedge compression fracture of fourth lumbar vertebra, initial encounter for closed fracture; S32.050A Wedge compression fracture of fifth lumbar vertebra, initial encounter for closed fracture; S32.010A Wedge compression fracture of first lumbar vertebra, initial encounter for closed fracture; S32.020A Wedge compression fracture of second lumbar vertebra, initial encounter for closed fracture; S32.030A Wedge compression fracture of third lumbar vertebra, initial encounter for closed fracture; J98.11 Atelectasis; J90 Pleural effusion, not elsewhere classified; G81.94 Hemiplegia, unspecified affecting left nondominant side; J44.1 Chronic obstructive pulmonary disease with (acute) exacerbation; E87.1 Hypo-osmolality and hyponatremia; I50.30 Unspecified diastolic (congestive) heart failure; Z68.43 Body mass index [BMI] 50.0-59.9, adult; G95.29 Other cord compression; M46.25 Osteomyelitis of vertebra, thoracolumbar region; D32.0 Benign neoplasm of cerebral meninges; R47.1 Dysarthria and anarthria; E11.9 Type 2 diabetes mellitus without complications; E87.6 Hypokalemia; E78.5 Hyperlipidemia, unspecified; G89.29 Other chronic pain; M54.9 Dorsalgia, unspecified; D17.4 Benign lipomatous neoplasm of intrathoracic organs; G47.33 Obstructive sleep apnea (adult) (pediatric); X58.XXXA Exposure to other specified factors, initial encounter; I11.0 Hypertensive heart disease with heart failure; E66.01 Morbid (severe) obesity due to excess calories; R56.9 Unspecified convulsions; E11.65 Type 2 diabetes mellitus with hyperglycemia; T38.0X5A Adverse effect of glucocorticoids and synthetic analogues, initial encounter; Z79.84 Long term (current) use of oral hypoglycemic drugs
CPT/HCPCS: 36410; 00123; 36415; 36573; 51702; 62267; 70496; 70498; 70553; 71275; 72158; 76604; 77001; 80048; 80053; 80061; 82805; 84145; 85027; 85652; 87040; 87077; 87449; 87637; 87798; 92526; 92610; 93005; 93308; 94640; 95819; 96365; 96366; 96367; 96375; 97110; 97162; 97166; 97530; 97535; 99223; 99291; 36600; 70450; 71045; 72156; 72157; 74174; 74176; 80202; 81003; 81015; 82607; 83036; 83605; 83735; 83880; 84132; 84443; 84484; 85025; 85610; 85730; 86140; 86618; 87070; 87086; 87186; 87205; 87581; 87899; 93010; 93306; 94660; 94664; 94667; 94668; 94760; 99233; 99239; A0425; A0428; J0131; J0692; J0696; J1170; J1205; J1644; J1815; J1836; J1885; J1940; J1953; J2212; J2270; J2310; J2470; J2543; J2919; J3360; J3370; J3372; J3475; J3480; J3490; J7512; J7614; J7644

== ENCOUNTER → 2023-12-02 10:37 | Outpatient (BNVA) | payer MEDICARE, MEDICAID, SELFPAY | PROVIDERS: PCP Nurse Practitioner Family; Referring Provider Internal Medicine; Visit Provider Psychiatry & Neurology Neurology ==

== ENCOUNTER → 2023-12-06 08:00 | Outpatient (BNVA) | payer MEDICARE, MEDICAID, SELFPAY | PROVIDERS: PCP Nurse Practitioner Family; Referring Provider Nurse Practitioner Family; Visit Provider Psychiatry & Neurology Neurology ==